=== PATIENT | female | born 1960 | race American Indian/Alaskan Native ===

== ENCOUNTER 2019-02-07 05:40 | Outpatient (CLI) | payer MEDICAID ==
--- NOTE | 2019-02-07 12:34 | PET Report ---
PET/CT HISTORY: R91.1. Pulmonary nodules. TECHNIQUE: The patient's fasting blood glucose was 112. The patient weighed 192 lbs. The patient w as injected with 14.5 mCi of FDG in the left antecubital fossa at 0653 hours and imaging was started at 0747 hours. The patient was imaged from the skull base to the thighs. All CT scans at this locati on are performed using CT dose reduction for ALARA by means of automated exposure control. Fused imag es were reviewed on a workstation. COMPARISON: No previous PET/CT. Correlation is made with a CT chest without contrast report dated FINDINGS: FDG findings: Mean liver SUV measures 4.4. A 1.4 x 0.9 cm lymph node in the left inguinal chain demo nstrates a max SUV of 5.5. A 1.5 x 0.9 cm lymph node in the right inguinal chain demonstrates a max S UV of 4.8. The previously described 2.1 x 1.5 cm spiculated density at the right lung apex demonstrat es a max SUV of 2.5. Non-FDG findings: Head and neck structures are unremarkable. A 2.1 x 1.5 cm spiculated density at th e right apex is again identified and appears stable in size and configuration. There are chronic inte rstitial changes throughout the remainder of both lungs. The previously described left upper lobe nod ular densities are not identified on today's exam which may be secondary to slice thickness. Mild car diomegaly is noted. The liver, biliary system, pancreas, spleen, kidneys, adrenal glands, bowel loops, uterus and adnexa are unremarkable. No evidence for intra-abdominal adenopathy or visceral mass. No free fluid or infla mmatory changes. The bony structures are intact. There are mild degenerative changes throughout the s pine. No blastic or lytic bony lesions are identified. IMPRESSION: Probably negative PET/CT. 2.1 x 1.5 cm right upper lobe/right apical density appears unchanged in size and contour since 2017. Uptake values are borderline with a max SUV measuring 2.5. Previously described left upper lobe nodules are not identified on today's exam. I suspect this lesion is inflammatory in nature. Conside r follow-up with CT chest in 6 months. Due to its location at the right apex, this lesion is likely n ot accessible for CT-guided biopsy. There are solitary normal-appearing bilateral inguinal lymph nodes demonstrating hypermetabolic activ ity as outlined above. These lymph nodes demonstrate normal architecture. These are likely reactive i n nature. Signer Name: Rodolfo Tee Jr, MD Signed: 02/07/2019 12:30 PM Workstation Name: [id number]
== END 2019-02-07 05:41 | disposition home or self-care (01) ==
LOC: PET 05:40
PROVIDERS: ATTEND Internal Medicine
DX: R91.1 Solitary pulmonary nodule (principal)
CPT/HCPCS: 78815; 82962; A9552

== ENCOUNTER 2019-05-16 19:31 | Inpatient (IN) | payer MEDICAID ==
[2019-05-16] MEDS ORDERED: ASPIRIN 325 MG TAB PO ONE (20:02)
--- NOTE | 2019-05-16 20:04 | Event Note ---
ED Screening Note Date of service: 05/16/19 Time: 20:03 ED Screening Note: 58 y o female presents with cp xdib x 3 hours ago pmh: htn,dm This initial assessment/diagnostic orders/clinical plan/treatment(s) is/are subject to change based on patients health status, clinical progression and re-assessment by fellow clinical providers in the ED. Further treatment and workup at subsequent clinical providers discretion. Patient/guardian urged not to elope from the ED as their condition may be serious if not clinically assessed and managed. Initial orders include:
[2019-05-16] MEDS ORDERED: NITROGLYCERIN 0.4 MG TAB SUBL SL ONE (20:21)
[2019-05-16] MEDS ORDERED: ASPIRIN 81 MG TAB CHEW PO ONE (20:22)
[2019-05-16 20:46] LABS: Hematocrit 28.3 % (30.3-42.9); Hemoglobin 9.4 gm/dl (10.1-14.3); Mean Corpuscular HGB Conc 33 % (30-34); Mean Corpuscular Volume 92 fl (79-97); Platelet Count 219 K/mm3 (140-440); Red Cell Distribution Width 15.5 % (13.2-15.2)
--- NOTE | 2019-05-16 20:56 | XRay Report ---
CHEST 1 VIEW INDICATION: Chest Pain. COMPARISON: CT/PET 02/07/2019. FINDINGS: Support devices: None. Heart: Normal. Lungs/Pleura: Nodular density at the right lung apex is again noted. Diffuse increased interstitial/r eticular markings are noted, these appear to be due to fibrosis. These appear similar. IMPRESSION: 1. Chronic interstitial/fibrotic changes. No definite superimposed acute pulmonary or pleural finding s. Signer Name: Khris Solis MD Signed: 05/16/2019 8:51 PM Workstation Name: [id number]
--- NOTE | 2019-05-16 21:04 | Emergency Department Report ---
ED Chest Pain HPI - General Chief Complaint: Chest Pain Stated Complaint: CHEST PAIN, CIARA Time Seen by Provider: 05/16/19 20:15 Source: patient, family Mode of arrival: Ambulatory Limitations: No Limitations - History of Present Illness Initial Comments: 58-year-old -[place] female presents to the emergency department with a complaint of midsternal nonradiating chest pain, and shortness of breath, that started about 3 hours prior to presentation. At first she thought it could have been some acid reflux or gas after eating kelley beans. She took a Pepcid but it did not provide any relief. The patient is a former smoker but denies any illic it drug use. She has a past medical history of hypertension, diabetes, hyperlipidemia, sarcoidosis, coronary artery disease with previous [place] and for cardiac stents in place. Her primary care physician is Dr. Nelson Carlson, boom worker is Dr. Louis and she follows with [facility] cardiology. 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 She has complained of some swelling around the ankles and feet. - Related Data Previous Rx's Medication Instructions Recorded Last Taken Type Cyclobenzaprine [Flexeril] 10 mg PO TID PRN #30 tablet 10/13/13 Unknown Rx HYDROcodone/APAP 5-325 [[place]a 1 each PO Q8HR PRN #7 tablet 10/13/13 Unknown Rx 5-325 mg TAB] Ibuprofen [Motrin] 600 mg PO Q8H PRN #20 tablet 10/13/13 Unknown Rx Allergies Allergy/AdvReac Type Severity Reaction Status Date / Time Sulfa (Sulfonamide Allergy Rash Verified 10/13/13 15:11 Antibiotics) Heart Score - HEART Score History: Moderately suspicious EKG: Significant ST-depression Age: 45-65 Risk factors: > 3 risk factors or hx of atherosclerotic disease Troponin: 1-3x normal limit HEART Score: 7 - Critical Actions Critical Actions: >7 pts:50-65% risk of adverse cardiac event. Early invasive measures ED Review of Systems ROS: Stated complaint: CHEST PAIN, CIARA Other details as noted in HPI Comment: All other systems reviewed and negative Constitutional: denies: chills, fever Eyes: denies: eye pain, vision change ENT: denies: ear pain, throat pain Respiratory: shortness of breath. denies: cough Cardiovascular: chest pain, edema. denies: palpitations Gastrointestinal: denies: abdominal pain, vomiting Genitourinary: denies: dysuria, discharge Musculoskeletal: denies: back pain, arthralgia Skin: denies: rash, lesions Neurological: denies: headache, weakness ED Past Medical Hx - Past Medical History Hx Hypertension: Yes Hx Diabetes: Yes Additional medical history: pmh R arm fx 2011 - Social History Smoking Status: Never Smoker Substance Use Type: None - Medications Home Medications: Home Medications Medication Instructions Recorded Confirmed Last Taken Type Cyclobenzaprine [Flexeril] 10 mg PO TID PRN #30 tablet 10/13/13 Unknown Rx HYDROcodone/APAP 5-325 [[place] 1 each PO Q8HR PRN #7 tablet 10/13/13 Unknown Rx 5-325 mg TAB] Ibuprofen [Motrin] 600 mg PO Q8H PRN #20 tablet 10/13/13 Unknown Rx ED Physical Exam - General Limitations: No Limitations - Other Other exam information: GENERAL: The patient is well-developed well-nourished. HENT: Normocephalic. Atraumatic. Patient has moist mucous membranes. EYES: Extraocular motions are intact. NECK: Supple. Trachea is midline. CHEST/LUNGS: Clear to auscultation. There is no respiratory distress noted. HEART/CARDIOVASCULAR: Regular. There is no tachycardia. There is no murmur. ABDOMEN: Abdomen is soft, nontender. Patient has normal bowel sounds. There is no abdominal distention. SKIN: Skin is warm and dry. NEURO: The patient is awake, alert, and oriented. The patient is cooperative. The patient has no focal neurologic deficits. Normal speech. MUSCULOSKELETAL: There is no tenderness or deformity. There is no evidence of acute injury. ED Course Vital Signs 05/16/19 05/16/19 05/16/19 20:09 20:15 20:31 Pulse Rate 96 H 99 H 102 H Respiratory 19 19 26 H Rate Blood Pressure 178/105 174/108 O2 Sat by Pulse 100 99 Oximetry 05/16/19 05/16/19 05/16/19 20:45 21:00 21:05 Pulse Rate 97 H 95 H 91 H Respiratory 21 24 Rate Blood Pressure 174/108 162/114 162/114 O2 Sat by Pulse 100 100 Oximetry 05/16/19 05/16/19 05/16/19 21:15 21:34 21:45 Pulse Rate 99 H 93 H Respiratory 25 H 15 Rate Blood Pressure 162/114 178/98 177/101 O2 Sat by Pulse 100 96 98 Oximetry 05/16/19 05/16/19 05/16/19 22:00 22:15 22:31 Pulse Rate 91 H 91 H 85 Respiratory 16 21 19 Rate Blood Pressure 176/94 178/98 198/142 O2 Sat by Pulse 95 97 98 Oximetry 05/16/19 05/17/19 22:34 00:02 Pulse Rate 87 Respiratory Rate Blood Pressure 198/142 O2 Sat by Pulse 99 Oximetry AMILCAR score - Amilcar Score Age > 65: (0) No Aspirin use within the Past 7 Days: (1) Yes 3 or more CAD Risk Factors: (1) Yes 2 or more Angina events in past 24 hrs: (0) No Known CAD with more than 50% Stenosis: (1) Yes Elevated Cardiac Markers: (1) Yes ST Deviation Greater than 0.5mm: (1) Yes AMILCAR Score: 5 ED Medical Decision Making - Lab Data Result diagrams: 05/16/19 20:32 05/16/19 20:32 - EKG Data -: EKG Interpreted by Me EKG shows normal: sinus rhythm, axis, intervals, QRS complexes, ST-T waves (there are ST depressions to the inferior and lateral leads without reciprocal elevations) Rate: tachycardia (114 bpm) - EKG Data When compared to previous EKG there are: previous EKG unavailable Interpretation: other (sinus tachycardia, ST depressions to the inferolateral leads) - Radiology Data Radiology results: report reviewed, image reviewed interpreted by me: Chest x-ray does not show any acute process. There are no pleural effusions, obvious pneumonia and there is no pneumothorax. Renal ultrasound. 05/16/2019. HISTORY: Acute renal insufficiency. FINDINGS: Right kidney measures 10.6 x 4.5 x 5 cm. Cortex measures 1.4 cm. Left kidney measures 11.4 x 5.4 x 6 cm. Cortex measures 1.4 cm. Cortical echogenicity is normal. Negative for mass or obstruction. The bladder contains moderate urine. IMPRESSION: Unremarkable renal ultrasound. NM lung scan perf/vent INDICATION / CLINICAL INFORMATION: CP, elevated dimer. TRACER: Xenon-133 gas 13.3 mCi inhalation and technetium 99m MAA 5.1 mCi IV injection. COMPARISON: Chest x-ray earlier the same day. FINDINGS: Ventilation imaging is homogeneous with mild tracer retention. Mild heterogeneity of perfusion is present bilaterally. More discrete defects are seen at the left lung superiorly and at the mid zone posteriorly. IMPRESSION: 1. Intermediate probability for pulmonary embolus. 2. Mild obstructive lung disease. - Medical Decision Making This patient presents with some midsternal chest pain and shortness breath that started about 3 hours prior to presentation. Her initial EKG shows some ST pressure and's in the inferior and lateral leads without reciprocal elevations. She was given a nitroglycerin sublingually, some low-dose morphine and some more aspirin to add to her baby aspirin that she took this morning. Repeat EKG shows some improvement. Labs show acute renal failure with a GFR of 17. The patient has elevated troponin at 0.081. This could be partially secondary to her renal insufficiency, however with the midsternal chest pain and her increased cardiac risk factors this may also represent an NSTEMI. The patient will be treated as ACS. She had a slightly elevated an equivocal d-dimer so a ventilation perfusion scan was done that came back showing intermediate probability for a pulmonary embolism. The patient will be placed on heparin. We will trend the troponins. The patient also had hyperglycemia with a blood sugar greater than 500. She was given IV insulin. She does not appear to be in diabetic ketoacidosis as there is no significant elevation in the anion gap. She will be admitted to the hospital for further evaluation and treatment and was accepted for admission by the hospitalist, Dr. Richter. - Differential Diagnosis ACS, STEMI, NSTEMI, PE Critical Care Time: Yes Critical care time in (mins) excluding proc time.: 35 Critical care attestation.: If time is entered above; I have spent that time in minutes in the direct care of this critically ill patient, excluding procedure time. Critical care time was spent on this patient in doing her initial examination, multiple re-examinations, ordering and interpretation of labs and imaging, multiple discussion with the patient and her family, starting Heparin drip for ACS and intermediate possibility of PE. Critical Care Time: 35 minutes ED Disposition Clinical Impression: Acute coronary syndrome, Elevated troponin, Hyperglycemia Acute renal failure Qualifiers: Acute renal failure type: unspecified Qualified Code(s): N17.9 - Acute kidney failure, unspecified Pulmonary embolism Qualifiers: Pulmonary embolism type: unspecified Chronicity: unspecified Acute cor pulmonale presence: without acute cor pulmonale Qualified Code(s): I26.99 - Other pulmonary embolism without acute cor pulmonale Hypertension Qualifiers: Hypertension type: essential hypertension Qualified Code(s): I10 - Essential (primary) hypertension Disposition: OP ADMIT IP TO THIS HOSP Is pt being admited?: Yes Condition: Serious Instructions: Hypertension (ED) Referrals: PRIMARY CARE, [Referring] - 3-5 Days Time of Disposition: 00:16
[2019-05-16 21:09] LABS: BUN/Creatinine Ratio 11; Blood Urea Nitrogen 37 mg/dL (7-17); Hemolysis Index 10
[2019-05-16 21:26] LABS: Basophils % (Manual) 0 % (0.0-1.8); Eosinophils % (Manual) 0 % (0.0-4.3); Myelocytes # (Manual) 0.1 K/mm3; Total Cells Counted 100
[2019-05-16] MEDS ORDERED: METOPROLOL TARTRATE 5 MG/5 ML INJ IV ONE (21:26)
[2019-05-16] MEDS ORDERED: MORPHINE 2 MG/1 ML INJ IV ONE (21:26)
[2019-05-16 21:31] LABS: RBC Morphology Normal
[2019-05-16] MEDS ORDERED: INSULIN REGULAR, HUMAN 100 UNITS/1 ML ONE (22:03)
[2019-05-16 22:20] LABS: HDL Cholesterol 59 mg/dL (40-59); LDL Cholesterol,Direct TNR mg/dL (50-130)
--- NOTE | 2019-05-16 23:36 | Ultrasound Report ---
Renal ultrasound. 05/16/2019. HISTORY: Acute renal insufficiency. FINDINGS: Right kidney measures 10.6 x 4.5 x 5 cm. Cortex measures 1.4 cm. Left kidney measures 11.4 x 5.4 x 6 cm. Cortex measures 1.4 cm. Cortical echogenicity is normal. Negative for mass or obstruction. The bladder contains moderate urine. IMPRESSION: Unremarkable renal ultrasound. Signer Name: Greg Rodas MD Signed: 05/16/2019 11:32 PM Workstation Name: [id number]
--- NOTE | 2019-05-16 23:42 | Nuclear Medicine Report ---
NM lung scan perf/vent INDICATION / CLINICAL INFORMATION: CP, elevated dimer. TRACER: Xenon-133 gas 13.3 mCi inhalation and technetium 99m MAA 5.1 mCi IV injection. COMPARISON: Chest x-ray earlier the same day. FINDINGS: Ventilation imaging is homogeneous with mild tracer retention. Mild heterogeneity of perfusion is pre sent bilaterally. More discrete defects are seen at the left lung superiorly and at the mid zone post eriorly. IMPRESSION: 1. Intermediate probability for pulmonary embolus. 2. Mild obstructive lung disease. Signer Name: Greg Rodas MD Signed: 05/16/2019 11:37 PM Workstation Name: [id number]
[2019-05-17] MEDS ORDERED: HEPARIN 10,000 UNITS/10 ML VIAL IV ONE (00:09)
[2019-05-17] MEDS ORDERED: hydrALAZINE 20 MG/1 ML INJ IV ONE (00:17)
[2019-05-17] MEDS ORDERED: hydrALAZINE 20 MG/1 ML INJ IV PRN (00:44)
[2019-05-17] MEDS ORDERED: DEXTROSE 50% IN WATER (25GM) 50 ML SYRINGE IV PRN (00:45)
[2019-05-17] MEDS ORDERED: MORPHINE 2 MG/1 ML INJ IV PRN (00:45)
[2019-05-17] MEDS ORDERED: ACETAMINOPHEN 325 MG TAB PO PRN (00:45)
[2019-05-17] MEDS ORDERED: ALBUTEROL 2.5 MG/3 ML NEBU IH PRN (00:45)
[2019-05-17] MEDS ORDERED: INSULIN REGULAR, HUMAN 100 UNITS/1 ML SUB-Q ONE (00:49)
[2019-05-17] MEDS ORDERED: NITROGLYCERIN 0.4 MG TAB SUBL SL PRN (00:53)
[2019-05-17] MEDS ORDERED: SODIUM CHLORIDE 0.9% 1000 ML 1,000 ML IV SCH (01:00)
[2019-05-17] MEDS: HEPARIN/ 0.45% NACL DRIP 25,000 UNIT/500 ML BAG IV SCH ×2 (01:13→23:40)
--- NOTE | 2019-05-17 01:29 | History and Physical Report ---
<LANETTE COLES - Last Filed: 05/17/19 01:24> History of Present Illness Date of examination: 05/17/19 Date of admission: 05/17/2019 Chief complaint: Chest Pain History of present illness: 58-year-old -[place] female with history of HIV, hypertension, diabetes, HLT, sarcoidosis, CAD, AZ (2010) s/p stent x4 who presents to [facility] ED with complaints of left sided non-radiating chest pain, SOB, and diaphoresis. Patient is present at bedside and has assisted with providing history. Patient states that she was in [employer] yesterday even when she felt a sharp crushing chest pain while walking down the aisle. She rates the pain 7/10. Immediately after feeling the pain she became SOB and flushed. Her SOB improved with rest. At first she thought it was her GERD acting up, so she asked her to get her some Pepcid. She took the Pepcid while in the store and continued to shop. Approximately 30 minutes later her pain returned. Given her cardiac history, her decided to take her to the ED for further evaluation. Pt states that she is compliant with all meds. Her PCP is Dr. Nelson Carlson, Dr. Monique is her bill hiker, and she follows [facility] for cardiology. Past History Past Medical History: acute [place] ((2010)), CAD, diabetes, HIV/AIDS, hypertension, hyperlipidemia, sarcoidosis Past Surgical History: Other (Stents x4, R arm fx 2011) Social history: , lives with family Family history: hypertension Medications and Allergies Allergies Allergy/AdvReac Type Severity Reaction Status Date / Time Sulfa (Sulfonamide Allergy Rash Verified 10/13/13 15:11 Antibiotics) Home Medications Medication Instructions Recorded Confirmed Last Taken Type Amitriptyline [Elavil] 10 mg PO QHS 05/17/19 05/17/19 2 Days Ago History ~05/15/19 Elviteg/Cob/Emtri/Tenof Alafen 1 tab PO DAILY 05/17/19 05/17/19 1 Day Ago History [Genvoya Tablet] ~05/16/19 Famotidine [Pepcid] 20 mg PO BID 05/17/19 05/17/19 1 Day Ago History ~05/16/19 Insulin NPH Hum/Reg Insulin Hm 22 bottle SQ QAC 05/17/19 05/17/19 1 Day Ago History [Humulin 70-30 Vial] ~05/16/19 Lisinopril/Hydrochlorothiazide 1 tab PO QDAY 05/17/19 05/17/19 1 Day Ago History [Zestoretic 20-12.5 mg] ~05/16/19 Losartan Potassium 50 mg PO DAILY 05/17/19 05/17/19 1 Day Ago History ~05/16/19 Metoprolol [Lopressor] 25 mg PO BID 05/17/19 05/17/19 1 Day Ago History ~05/16/19 Rosuvastatin Calcium 40 mg PO QDAY 05/17/19 05/17/19 1 Day Ago History ~05/16/19 predniSONE [Deltasone] 5 mg PO QDAY 05/17/19 05/17/19 1 Day Ago History ~05/16/19 Active Meds: Active Medications Acetaminophen (Tylenol) 650 mg PO Q4H PRN PRN Reason: Pain MILD(1-3)/Fever >100.5/RANGEL Albuterol (Proventil) 2.5 mg IH Q3HRT PRN PRN Reason: Shortness Of Breath Atorvastatin Calcium (Lipitor) 80 mg PO QHS SHAVONNE Dextrose (D50w (25gm) Syringe) 50 ml IV Q30MIN PRN; Protocol PRN Reason: Hypoglycemia Hydralazine HCl (Apresoline) 10 mg IV Q4HR PRN PRN Reason: Blood Pressure Heparin Sodium/Sodium Chloride (Heparin/ 0.45% Nacl-25,000 Unit/500 Ml) 25,000 unit in 500 mls @ 26 mls/hr IV TITR SHAVONNE; Protocol Last Admin: 05/17/19 01:13 Dose: 1,300 units/hr, 26 mls/hr Documented by: Sodium Chloride (Nacl 0.9% 1000 Ml) 1,000 mls @ 75 mls/hr IV DIRECT SHAVONNE Insulin Glargine (Lantus) 20 units SUB-Q BID SHAVONNE Insulin Human Lispro (Humalog) 0 unit SUB-Q Q6HR SHAVONNE; Protocol Morphine Sulfate (Morphine) 2 mg IV Q4H PRN PRN Reason: Pain, Moderate (4-6) Nitroglycerin (Nitrostat) 0.4 mg SL Q5M PRN PRN Reason: Chest Pain Ondansetron HCl (Zofran) 4 mg IV Q8H PRN PRN Reason: Nausea And Vomiting Sodium Chloride (Sodium Chloride Flush Syringe 10 Ml) 10 ml IV BID SHAVONNE Sodium Chloride (Sodium Chloride Flush Syringe 10 Ml) 10 ml IV PRN PRN PRN Reason: LINE FLUSH Review of Systems All systems: negative Cardiovascular: chest pain, shortness of breath, high blood pressure, leg edema, other (diaphoresis) Exam - Physical Exam Narrative exam: Physical exam General appearance: Present: No acute distress, alert and oriented 3, well- developed, pleasant, adult female - EENT Eyes: Present: PERRL, EOM intact ENT: hearing intact, normal dentition - Neck Neck: Present: supple, normal ROM - Respiratory Respiratory effort: Non-labored Respiratory: Clear throughout - Cardiovascular Heart rate: 83 (bpm) Rhythm: Sinus rhythm, Heart Sounds: Present: S1 & S2. Absent: rub, click - Extremities Extremities: no ischemia, pulses intact, bilateral lower extremity pitting edema - Peripheral Assessment Peripheral Pulses: within normal limits - Abdominal General gastrointestinal: Obese, soft, non-tender, normal bowel sounds - Integumentary Integumentary: Present: warm, dry - Musculoskeletal Musculoskeletal: Able to move all extremities -Neurological Neurological: CN II-XII intact - Psychiatric Psychiatric: Appropriate for situation ,cooperative - Constitutional Vitals: Temp Pulse Resp BP Pulse Ox 81 19 184/95 99 05/17/19 01:12 05/16/19 22:31 05/17/19 01:12 05/17/19 00:02 Results - Labs CBC & Chem 7: 05/16/19 20:32 05/16/19 20:32 Labs: Laboratory Last Values WBC 7.3 K/mm3 (4.5-11.0) 05/16/19 20:32 RBC 3.10 M/mm3 (3.65-5.03) L 05/16/19 20:32 Hgb 9.4 gm/dl (10.1-14.3) L 05/16/19 20:32 Hct 28.3 % (30.3-42.9) L 05/16/19 20:32 MCV 92 fl (79-97) 05/16/19 20:32 MCH 30 pg (28-32) 05/16/19 20:32 MCHC 33 % (30-34) 05/16/19 20:32 RDW 15.5 % (13.2-15.2) H 05/16/19 20:32 Plt Count 219 K/mm3 (140-440) 05/16/19 20:32 Add Manual Diff Complete 05/16/19 20:32 Total Counted 100 05/16/19 20:32 Seg Neuts % (Manual) 68.0 % (40.0-70.0) 05/16/19 20:32 Band Neutrophils % 0 % 05/16/19 20:32 Lymphocytes % (Manual) 25.0 % (13.4-35.0) 05/16/19 20:32 Reactive Lymphs % (Man) 0 % 05/16/19 20:32 Monocytes % (Manual) 6.0 % (0.0-7.3) 05/16/19 20:32 Eosinophils % (Manual) 0 % (0.0-4.3) 05/16/19 20:32 Basophils % (Manual) 0 % (0.0-1.8) 05/16/19 20:32 Metamyelocytes % 0 % 05/16/19 20:32 Myelocytes % 1.0 % 05/16/19 20:32 Promyelocytes % 0 % 05/16/19 20:32 Blast Cells % 0 % 05/16/19 20:32 Nucleated RBC % Not Reportable 05/16/19 20:32 Seg Neutrophils # Man 5.0 K/mm3 (1.8-7.7) 05/16/19 20:32 Band Neutrophils # 0.0 K/mm3 05/16/19 20:32 Lymphocytes # (Manual) 1.8 K/mm3 (1.2-5.4) 05/16/19 20:32 Abs React Lymphs (Man) 0.0 K/mm3 05/16/19 20:32 Monocytes # (Manual) 0.4 K/mm3 (0.0-0.8) 05/16/19 20:32 Eosinophils # (Manual) 0.0 K/mm3 (0.0-0.4) 05/16/19 20:32 Basophils # (Manual) 0.0 K/mm3 (0.0-0.1) 05/16/19 20:32 Metamyelocytes # 0.0 K/mm3 05/16/19 20:32 Myelocytes # 0.1 K/mm3 05/16/19 20:32 Promyelocytes # 0.0 K/mm3 05/16/19 20:32 Blast Cells # 0.0 K/mm3 05/16/19 20:32 WBC Morphology Not Reportable 05/16/19 20:32 Hypersegmented Neuts Not Reportable 05/16/19 20:32 Hyposegmented Neuts Not Reportable 05/16/19 20:32 Hypogranular Neuts Not Reportable 05/16/19 20:32 Smudge Cells Not Reportable 05/16/19 20:32 Toxic Granulation Not Reportable 05/16/19 20:32 Toxic Vacuolation Not Reportable 05/16/19 20:32 Dohle Bodies Not Reportable 05/16/19 20:32 Pelger-Huet Anomaly Not Reportable 05/16/19 20:32 Tra Rods Not Reportable 05/16/19 20:32 Platelet Estimate Appears normal 05/16/19 20:32 Clumped Platelets Not Reportable 05/16/19 20:32 Plt Clumps, EDTA Not Reportable 05/16/19 20:32 Large Platelets Not Reportable 05/16/19 20:32 Giant Platelets Not Reportable 05/16/19 20:32 Platelet Satelliting Not Reportable 05/16/19 20:32 Plt Morphology Comment Not Reportable 05/16/19 20:32 RBC Morphology Normal 05/16/19 20:32 Dimorphic RBCs Not Reportable 05/16/19 20:32 Polychromasia Not Reportable 05/16/19 20:32 Hypochromasia Not Reportable 05/16/19 20:32 Poikilocytosis Not Reportable 05/16/19 20:32 Anisocytosis Not Reportable 05/16/19 20:32 Microcytosis Not Reportable 05/16/19 20:32 Macrocytosis Not Reportable 05/16/19 20:32 Spherocytes Not Reportable 05/16/19 20:32 Pappenheimer Bodies Not Reportable 05/16/19 20:32 Sickle Cells Not Reportable 05/16/19 20:32 Target Cells Not Reportable 05/16/19 20:32 Tear Drop Cells Not Reportable 05/16/19 20:32 Ovalocytes Not Reportable 05/16/19 20:32 Helmet Cells Not Reportable 05/16/19 20:32 Goel-Ossian Bodies Not Reportable 05/16/19 20:32 [place] Rings Not Reportable 05/16/19 20:32 Daren Cells Not Reportable 05/16/19 20:32 Bite Cells Not Reportable 05/16/19 20:32 Crenated Cell Not Reportable 05/16/19 20:32 Elliptocytes Not Reportable 05/16/19 20:32 Acanthocytes (Spur) Not Reportable 05/16/19 20:32 Rouleaux Not Reportable 05/16/19 20:32 Hemoglobin C Crystals Not Reportable 05/16/19 20:32 Schistocytes Not Reportable 05/16/19 20:32 Malaria parasites Not Reportable 05/16/19 20:32 Shayne Bodies Not Reportable 05/16/19 20:32 Hem Pathologist Commnt No 05/16/19 20:32 D-Dimer 416.09 ng/mlDDU (0-234) H 05/16/19 20:32 Sodium 131 mmol/L (137-145) L 05/16/19 20:32 Potassium 5.4 mmol/L (3.6-5.0) H 05/16/19 20:32 Chloride 94.1 mmol/L (98-107) L 05/16/19 20:32 Carbon Dioxide 20 mmol/L (22-30) L 05/16/19 20:32 Anion Gap 22 mmol/L 05/16/19 20:32 BUN 37 mg/dL (7-17) H 05/16/19 20:32 Creatinine 3.3 mg/dL (0.7-1.2) H 05/16/19 20:32 Estimated GFR 17 ml/min 05/16/19 20:32 BUN/Creatinine Ratio 11 % 05/16/19 20:32 Glucose 510 mg/dL (65-100) H* 05/16/19 20:32 POC Glucose 193 (70-105) H 05/17/19 00:40 Calcium 9.0 mg/dL (8.4-10.2) 05/16/19 20:32 Troponin T 0.087 ng/mL (0.00-0.029) H 05/16/19 23:25 Triglycerides 542 mg/dL (2-149) H 05/16/19 20:32 Cholesterol 490 mg/dL (50-199) H 05/16/19 20:32 LDL Cholesterol Direct TNR 05/16/19 20:32 HDL Cholesterol 59 mg/dL (40-59) 05/16/19 20:32 Cholesterol/HDL Ratio 8.30 % 05/16/19 20:32 - Imaging and Cardiology Imaging and Cardiology: CXR: FINDINGS: Support devices: None. Heart: Normal. Lungs/Pleura: Nodular density at the right lung apex is again noted. Diffuse increased interstitial/reticular markings are noted, these appear to be due to fibrosis. These appear similar. IMPRESSION: 1. Chronic interstitial/fibrotic changes. No definite superimposed acute pulmonary or pleural findings. V/Q Scan: FINDINGS: Ventilation imaging is homogeneous with mild tracer retention. Mild heterogeneity of perfusion is present bilaterally. More discrete defects are seen at the left lung superiorly and at the mid zone posteriorly. IMPRESSION: 1. Intermediate probability for pulmonary embolus. 2. Mild obstructive lung disease. Renal US: HISTORY: Acute renal insufficiency. FINDINGS: Right kidney measures 10.6 x 4.5 x 5 cm. Cortex measures 1.4 cm. Left kidney measures 11.4 x 5.4 x 6 cm. Cortex measures 1.4 cm. Cortical echogenicity is normal. Negative for mass or obstruction. The bladder contains moderate urine. IMPRESSION: Unremarkable renal ultrasound. Assessment and Plan Assessment and plan: 58-year-old -[place] female with history of HIV, hypertension, diabetes, HLT, sarcoidosis, CAD, AZ (2010) s/p stent x4 who presents to [facility] ED with complaints of left sided non-radiating chest pain, SOB, and diaphoresis. At the time of my examination pt is sitting up in stretcher with no s/s of distress. Will admit to Telemetry. NSTEMI type II Acute Chest Pain -Initiate chest pain protocol -Continuous telemetry monitoring -Continue supportive care -Pain mgmt -Troponin elevated x 2 , will continue to trend -EKG unrevealing for acute ischemic abnormalities -On heparin drip -History of AZ (2010), status post stent 4 -Follows at [facility] as outpatient -Cardiology consulted Hypertensive urgency -BP on admission 198/142 -Hx Hypertension -Continue to monitor BP -Hold TANIKA and ARB d/t renal function -IV antihypertensive when necessary Elevated D-Dimer -416 -VQ scan shows intermediate probability for PE -On heparin drip -Bilateral lower extremity Doppler pending -Pulmonology consulted ELEN -Cr on admission 3.3 -??CKD with GFR 17 -Renal ultrasound unremarkable -Hydrate with IVF -Avoid nephrotoxic agents -Renal dose all meds -Nephrology consulted Insulin-dependent DM -Uncontrolled -BG on admission 510 -Received subcutaneous insulin, BG now 193 -POC BG monitoring -Scheduled Lantus and SSI coverage prn -HgbA1C pending Hyperlipidemia -Uncontrolled -Total cholesterol on admission 490 -Start atorvastatin 80 mg daily at bedtime Hyponatremia -Na on admission 131 -Slowly correct Na with IVF -Continue to monitor replete prn Hyperkalemia -on admission 5.4 -Receiving IVF -Continue to monitor electrolytes HIV positive -Continue antiretroviral DVT PPX -On Heparin Advance Directives: Yes VTE prophylaxis?: Chemical Plan of care discussed with patient/family: Yes <POONAM GRANDE - Last Filed: 05/17/19 04:53> History of Present Illness Date of admission: 05/17/19 00:45 Medications and Allergies Active Meds: Active Medications Acetaminophen (Tylenol) 650 mg PO Q4H PRN PRN Reason: Pain MILD(1-3)/Fever >100.5/RANGEL Albuterol (Proventil) 2.5 mg IH Q3HRT PRN PRN Reason: Shortness Of Breath Amlodipine Besylate (Amlodipine) 10 mg PO QDAY SHAVONNE Atorvastatin Calcium (Lipitor) 80 mg PO QHS SHAVONNE Dextrose (D50w (25gm) Syringe) 50 ml IV Q30MIN PRN; Protocol PRN Reason: Hypoglycemia Hydralazine HCl (Apresoline) 10 mg IV Q4HR PRN PRN Reason: Blood Pressure Heparin Sodium/Sodium Chloride (Heparin/ 0.45% Nacl-25,000 Unit/500 Ml) 25,000 unit in 500 mls @ 26 mls/hr IV TITR SHAVONNE; Protocol Last Admin: 05/17/19 01:13 Dose: 1,300 units/hr, 26 mls/hr Documented by: Sodium Chloride (Nacl 0.9% 1000 Ml) 1,000 mls @ 75 mls/hr IV DIRECT SHAVONNE Last Admin: 05/17/19 02:31 Dose: 75 mls/hr Documented by: Insulin Glargine (Lantus) 20 units SUB-Q BID SHAVONNE Last Admin: 05/17/19 01:47 Dose: 20 units Documented by: Insulin Human Lispro (Humalog) 0 unit SUB-Q Q6HR [facility]; Protocol Metoprolol Tartrate (Metoprolol) 25 mg PO BID [facility] Miscellaneous Medication (Elviteg/Cob/Emtri/Tenof Alafen [Genvoya Tablet]) 1 tab PO DAILY [facility] Morphine Sulfate (Morphine) 2 mg IV Q4H PRN PRN Reason: Pain, Moderate (4-6) Nitroglycerin (Nitrostat) 0.4 mg SL Q5M PRN PRN Reason: Chest Pain Ondansetron HCl (Zofran) 4 mg IV Q8H PRN PRN Reason: Nausea And Vomiting Oxycodone/Acetaminophen (Percocet 5/325) 1 tab PO Q8H PRN PRN Reason: Pain, Moderate (4-6) Last Admin: 05/17/19 02:31 Dose: 1 tab Documented by: Sodium Chloride (Sodium Chloride Flush Syringe 10 Ml) 10 ml IV BID [facility] Sodium Chloride (Sodium Chloride Flush Syringe 10 Ml) 10 ml IV PRN PRN PRN Reason: LINE FLUSH Exam - Constitutional Vitals: Temp Pulse Resp BP Pulse Ox 93 H 23 161/83 97 05/17/19 03:15 05/17/19 03:15 05/17/19 03:15 05/17/19 01:45 Results - Labs CBC & Chem 7: 05/16/19 20:32 05/16/19 20:32 Labs: Laboratory Last Values WBC 7.3 K/mm3 (4.5-11.0) 05/16/19 20:32 RBC 3.10 M/mm3 (3.65-5.03) L 05/16/19 20:32 Hgb 9.4 gm/dl (10.1-14.3) L 05/16/19 20:32 Hct 28.3 % (30.3-42.9) L 05/16/19 20:32 MCV 92 fl (79-97) 05/16/19 20:32 MCH 30 pg (28-32) 05/16/19 20:32 MCHC 33 % (30-34) 05/16/19 20:32 RDW 15.5 % (13.2-15.2) H 05/16/19 20:32 Plt Count 219 K/mm3 (140-440) 05/16/19 20:32 Add Manual Diff Complete 05/16/19 20:32 Total Counted 100 05/16/19 20:32 Seg Neuts % (Manual) 68.0 % (40.0-70.0) 05/16/19 20:32 Band Neutrophils % 0 % 05/16/19 20:32 Lymphocytes % (Manual) 25.0 % (13.4-35.0) 05/16/19 20:32 Reactive Lymphs % (Man) 0 % 05/16/19 20:32 Monocytes % (Manual) 6.0 % (0.0-7.3) 05/16/19 20:32 Eosinophils % (Manual) 0 % (0.0-4.3) 05/16/19 20:32 Basophils % (Manual) 0 % (0.0-1.8) 05/16/19 20:32 Metamyelocytes % 0 % 05/16/19 20:32 Myelocytes % 1.0 % 05/16/19 20:32 Promyelocytes % 0 % 05/16/19 20:32 Blast Cells % 0 % 05/16/19 20:32 Nucleated RBC % Not Reportable 05/16/19 20:32 Seg Neutrophils # Man 5.0 K/mm3 (1.8-7.7) 05/16/19 20:32 Band Neutrophils # 0.0 K/mm3 05/16/19 20:32 Lymphocytes # (Manual) 1.8 K/mm3 (1.2-5.4) 05/16/19 20:32 Abs React Lymphs (Man) 0.0 K/mm3 05/16/19 20:32 Monocytes # (Manual) 0.4 K/mm3 (0.0-0.8) 05/16/19 20:32 Eosinophils # (Manual) 0.0 K/mm3 (0.0-0.4) 05/16/19 20:32 Basophils # (Manual) 0.0 K/mm3 (0.0-0.1) 05/16/19 20:32 Metamyelocytes # 0.0 K/mm3 05/16/19 20:32 Myelocytes # 0.1 K/mm3 05/16/19 20:32 Promyelocytes # 0.0 K/mm3 05/16/19 20:32 Blast Cells # 0.0 K/mm3 05/16/19 20:32 WBC Morphology Not Reportable 05/16/19 20:32 Hypersegmented Neuts Not Reportable 05/16/19 20:32 Hyposegmented Neuts Not Reportable 05/16/19 20:32 Hypogranular Neuts Not Reportable 05/16/19 20:32 Smudge Cells Not Reportable 05/16/19 20:32 Toxic Granulation Not Reportable 05/16/19 20:32 Toxic Vacuolation Not Reportable 05/16/19 20:32 Dohle Bodies Not Reportable 05/16/19 20:32 Pelger-Huet Anomaly Not Reportable 05/16/19 20:32 Tra Rods Not Reportable 05/16/19 20:32 Platelet Estimate Appears normal 05/16/19 20:32 Clumped Platelets Not Reportable 05/16/19 20:32 Plt Clumps, EDTA Not Reportable 05/16/19 20:32 Large Platelets Not Reportable 05/16/19 20:32 Giant Platelets Not Reportable 05/16/19 20:32 Platelet Satelliting Not Reportable 05/16/19 20:32 Plt Morphology Comment Not Reportable 05/16/19 20:32 RBC Morphology Normal 05/16/19 20:32 Dimorphic RBCs Not Reportable 05/16/19 20:32 Polychromasia Not Reportable 05/16/19 20:32 Hypochromasia Not Reportable 05/16/19 20:32 Poikilocytosis Not Reportable 05/16/19 20:32 Anisocytosis Not Reportable 05/16/19 20:32 Microcytosis Not Reportable 05/16/19 20:32 Macrocytosis Not Reportable 05/16/19 20:32 Spherocytes Not Reportable 05/16/19 20:32 Pappenheimer Bodies Not Reportable 05/16/19 20:32 Sickle Cells Not Reportable 05/16/19 20:32 Target Cells Not Reportable 05/16/19 20:32 Tear Drop Cells Not Reportable 05/16/19 20:32 Ovalocytes Not Reportable 05/16/19 20:32 Helmet Cells Not Reportable 05/16/19 20:32 Goel-Ossian Bodies Not Reportable 05/16/19 20:32 [place] Rings Not Reportable 05/16/19 20:32 [place] Cells Not Reportable 05/16/19 20:32 Bite Cells Not Reportable 05/16/19 20:32 Crenated Cell Not Reportable 05/16/19 20:32 Elliptocytes Not Reportable 05/16/19 20:32 Acanthocytes (Spur) Not Reportable 05/16/19 20:32 Rouleaux Not Reportable 05/16/19 20:32 Hemoglobin C Crystals Not Reportable 05/16/19 20:32 Schistocytes Not Reportable 05/16/19 20:32 Malaria parasites Not Reportable 05/16/19 20:32 Shayne Bodies Not Reportable 05/16/19 20:32 Hem Pathologist Commnt No 05/16/19 20:32 PT 13.0 Sec. (12.2-14.9) 05/17/19 01:30 INR 0.99 (0.87-1.13) 05/17/19 01:30 APTT 41.2 Sec. (24.2-36.6) H 05/17/19 01:30 D-Dimer 416.09 ng/mlDDU (0-234) H 05/16/19 20:32 Sodium 131 mmol/L (137-145) L 05/16/19 20:32 Potassium 5.4 mmol/L (3.6-5.0) H 05/16/19 20:32 Chloride 94.1 mmol/L (98-107) L 05/16/19 20:32 Carbon Dioxide 20 mmol/L (22-30) L 05/16/19 20:32 Anion Gap 22 mmol/L 05/16/19 20:32 BUN 37 mg/dL (7-17) H 05/16/19 20:32 Creatinine 3.3 mg/dL (0.7-1.2) H 05/16/19 20:32 Estimated GFR 17 ml/min 05/16/19 20:32 BUN/Creatinine Ratio 11 % 05/16/19 20:32 Glucose 510 mg/dL (65-100) H* 05/16/19 20:32 POC Glucose 258 (70-105) H 05/17/19 02:43 Hemoglobin A1c 12.3 % (4-6) H 05/17/19 01:30 Calcium 9.0 mg/dL (8.4-10.2) 05/16/19 20:32 Troponin T 0.085 ng/mL (0.00-0.029) H 05/17/19 01:30 Triglycerides 542 mg/dL (2-149) H 05/16/19 20:32 Cholesterol 490 mg/dL (50-199) H 05/16/19 20:32 LDL Cholesterol Direct TNR 05/16/19 20:32 HDL Cholesterol 59 mg/dL (40-59) 05/16/19 20:32 Cholesterol/HDL Ratio 8.30 % 05/16/19 20:32 Assessment and Plan Assessment and plan: 58 -year-old woman with a history of hypertension, diabetes, coronary artery disease, hyperlipidemia, HIV test emergency room with complaints of chest pain in the epigastric area associated with shortness of breath. 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 EKG shows no new changes with elevated troponin, non-STEMI, intermediate probability for pulmonary emboli, ELEN. Continue heparin drip, consult cardiology and pulmonary consult, Doppler of the lower extremities. Add IVF
[2019-05-17] MEDS: INSULIN GLARGINE 100 UNITS/ML SUB-Q SCH ×3 (01:47→22:56)
[2019-05-17 02:09] LABS: INR 0.99 (0.87-1.13)
[2019-05-17 02:10] LABS: Partial Thromboplastin Time 41.2 Sec. (24.2-36.6)
[2019-05-17] MEDS ORDERED: oxyCODONE /ACETAMINOPHEN 5-325MG TAB ONE (02:20)
[2019-05-17] MEDS ORDERED: SODIUM CHLORIDE 0.9% 1000 ML 1,000 ML ONE (02:20)
[2019-05-17] MEDS: oxyCODONE /ACETAMINOPHEN 5-325MG TAB PO PRN ×3 (02:31→23:36)
[2019-05-17] MEDS ORDERED: SODIUM CHLORIDE 0.45% 1000 ML 1,000 ML IV SCH (05:00)
--- NOTE | 2019-05-17 09:44 | Consultation ---
History of Present Illness Consult date: 05/17/19 Consult reason: elevated troponin History of present illness: This is a 58-year old woman with multiple medical problems. She has a history of HIV, chronic kidney disease with a baseline of 1.6 to 1.9, diabetes, hypertension and hyperlipidemia. Patient is also on medical therapy for coronary artery disease with multiple PCIs. Patient follows with Dr Padilla on a routine basis. Her latest cardiac workup was done at [facility] earlier in the year. She has a normal myocardial perfusion scan and a normal left ventricular ejection fraction by echocardiogram. Patient presents to this hospital with chest pain and shortness of breath. Workup in the emergency department revealed uncontrolled hypertension, uncontrolled diabetes with blood glucose greater than 500 and triglycerides greater than 500. Troponins are chronically elevated due to renal disease. Creatinine at 3.3. Further evaluation with a ventilation perfusion scan reports an intermediate probability for PE. An ECG is sinus rhythm with non-specific Twave changes. Past History Past Medical History: acute [place] ((2010)), CAD, diabetes, HIV/AIDS, hypertension, hyperlipidemia, sarcoidosis Past Surgical History: Other (R arm fx 2011) Social history: , lives with family Family history: hypertension Medications and Allergies Allergies Allergy/AdvReac Type Severity Reaction Status Date / Time Sulfa (Sulfonamide Allergy Rash Verified 10/13/13 15:11 Antibiotics) Home Medications Medication Instructions Recorded Confirmed Last Taken Type Amitriptyline [Elavil] 10 mg PO QHS 05/17/19 05/17/19 2 Days Ago History ~05/15/19 Elviteg/Cob/Emtri/Tenof Alafen 1 tab PO DAILY 05/17/19 05/17/19 1 Day Ago History [Genvoya Tablet] ~05/16/19 Famotidine [Pepcid] 20 mg PO BID 05/17/19 05/17/19 1 Day Ago History ~05/16/19 Insulin NPH Hum/Reg Insulin Hm 22 bottle SQ QAC 05/17/19 05/17/19 1 Day Ago History [Humulin 70-30 Vial] ~05/16/19 Lisinopril/Hydrochlorothiazide 1 tab PO QDAY 05/17/19 05/17/19 1 Day Ago History [Zestoretic 20-12.5 mg] ~05/16/19 Losartan Potassium 50 mg PO DAILY 05/17/19 05/17/19 1 Day Ago History ~05/16/19 Metoprolol [Lopressor] 25 mg PO BID 05/17/19 05/17/19 1 Day Ago History ~05/16/19 Rosuvastatin Calcium 40 mg PO QDAY 05/17/19 05/17/19 1 Day Ago History ~05/16/19 predniSONE [Deltasone] 5 mg PO QDAY 05/17/19 05/17/19 1 Day Ago History ~05/16/19 Active Meds: Active Medications Acetaminophen (Tylenol) 650 mg PO Q4H PRN PRN Reason: Pain MILD(1-3)/Fever >100.5/RANGEL Albuterol (Proventil) 2.5 mg IH Q3HRT PRN PRN Reason: Shortness Of Breath Amlodipine Besylate (Amlodipine) 10 mg PO QDAY [facility] Atorvastatin Calcium (Lipitor) 80 mg PO QHS [facility] Dextrose (D50w (25gm) Syringe) 50 ml IV Q30MIN PRN; Protocol PRN Reason: Hypoglycemia Hydralazine HCl (Apresoline) 10 mg IV Q4HR PRN PRN Reason: Blood Pressure Heparin Sodium/Sodium Chloride (Heparin/ 0.45% Nacl-25,000 Unit/500 Ml) 25,000 unit in 500 mls @ 26 mls/hr IV TITR [facility]; Protocol Last Admin: 05/17/19 01:13 Dose: 1,300 units/hr, 26 mls/hr Documented by: Sodium Chloride (Nacl 0.45% 1000 Ml) 1,000 mls @ 75 mls/hr IV DIRECT [facility] Insulin Glargine (Lantus) 20 units SUB-Q BID [facility] Last Admin: 05/17/19 01:47 Dose: 20 units Documented by: Insulin Human Lispro (Humalog) 0 unit SUB-Q Q6HR [facility]; Protocol Metoprolol Tartrate (Metoprolol) 25 mg PO BID [facility] Miscellaneous Medication (Elviteg/Cob/Emtri/Tenof Alafen [Genvoya Tablet]) 1 tab PO DAILY [facility] Morphine Sulfate (Morphine) 2 mg IV Q4H PRN PRN Reason: Pain, Moderate (4-6) Nitroglycerin (Nitrostat) 0.4 mg SL Q5M PRN PRN Reason: Chest Pain Ondansetron HCl (Zofran) 4 mg IV Q8H PRN PRN Reason: Nausea And Vomiting Oxycodone/Acetaminophen (Percocet 5/325) 1 tab PO Q8H PRN PRN Reason: Pain, Moderate (4-6) Last Admin: 05/17/19 02:31 Dose: 1 tab Documented by: Sodium Chloride (Sodium Chloride Flush Syringe 10 Ml) 10 ml IV BID [facility] Sodium Chloride (Sodium Chloride Flush Syringe 10 Ml) 10 ml IV PRN PRN PRN Reason: LINE FLUSH Physical Examination Vital Signs Pulse Resp 96 H 19 05/16/19 20:09 05/16/19 20:09 General appearance: no acute distress, obese HEENT: Positive: PERRL Cardiac: Positive: Reg Rate and Rhythm Lungs: Positive: Decreased Breath Sounds Neuro: Positive: Grossly Intact Extremities: Present: +1 Edema Results 05/16/19 20:32 05/17/19 07:08 Coagulation 05/17/19 Range/Units 01:30 PT 13.0 (12.2-14.9) Sec. INR 0.99 (0.87-1.13) APTT 41.2 H (24.2-36.6) Sec. Lipids 05/16/19 Range/Units 20:32 Triglycerides 542 H (2-149) mg/dL Cholesterol 490 H (50-199) mg/dL HDL Cholesterol 59 (40-59) mg/dL Cholesterol/HDL Ratio 8.30 % CBC 05/16/19 Range/Units 20:32 WBC 7.3 (4.5-11.0) K/mm3 RBC 3.10 L (3.65-5.03) M/mm3 Hgb 9.4 L (10.1-14.3) gm/dl Hct 28.3 L (30.3-42.9) % Plt Count 219 (140-440) K/mm3 Comprehensive Metabolic Panel 05/16/19 05/17/19 Range/Units 20:32 07:08 Sodium 131 L (137-145) mmol/L Potassium 5.4 H 4.6 (3.6-5.0) mmol/L Chloride 94.1 L (98-107) mmol/L Carbon Dioxide 20 L (22-30) mmol/L BUN 37 H (7-17) mg/dL Creatinine 3.3 H (0.7-1.2) mg/dL Glucose 510 H* (65-100) mg/dL Calcium 9.0 (8.4-10.2) mg/dL Assessment and Plan Chest pain VQ scan indeterminate for PE HIV disease Chronic kidney disease with a baseline of 1.6-1.9 Diabetes Hypertension -uncontrolled Hyperlipidemia -uncontrolled Hx of coronary artery disease Chronic elevated troponin in the setting of renal failure Normal MPI 07/2018 at [facility] Normal LVEF by echo 07/2018 at [facility]
--- NOTE | 2019-05-17 11:37 | Consultation ---
History of Present Illness Consult date: 05/17/19 Requesting physician: ANTONIO LU Reason for consult: other (Elevated d-dimer, Intermediate prob VQ scan) History of present illness: 58-year-old -Citizen Of [place] female with history of HIV, hypertension, diabetes, HLT, sarcoidosis, CAD, [place] (2010) s/p stent x4 who presents to [facility] ED with complaints of left sided non-radiating chest pain, SOB, and diaphoresis. Patient is present at bedside and has assisted with providing history. Patient states that she was in [employer] yesterday even when she felt a sharp crushing chest pain while walking down the aisle. She rates the pain 7/10. Immediately after feeling the pain she became SOB and flushed. Her SOB improved with rest. At first she thought it was her GERD acting up, so she asked her to get her some Pepcid. She took the Pepcid while in the store and continued to shop. Approximately 30 minutes later her pain returned. Given her cardiac history, her decided to take her to the ED for further evaluation. Pt states that she is compliant with all meds. Her PCP is Dr. Nelson Carlson, Dr. 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 I have been consulted for Sarcoidosis and dyspnea-intermediate probability V/Q scan She does state she has had some exertional dyspnea in the last few weeks. She states she is on maintenance dose of 5mg of prednisone for her sarcoidosis, she is not on home oxygen. She currently denies any chest pain, and while at rest, no shortness of breath. Patient was seen and examined. Vitals, labs, medications, chart and imaging were reviewed. V/Q scan was intermediate probability scan with negative lower extremity dopplers ROS: Stated complaint: CHEST PAIN, CIARA Other details as noted in HPI Comment: All other systems reviewed and negative Constitutional: denies: chills, fever Eyes: denies: eye pain, vision change ENT: denies: ear pain, throat pain Respiratory: shortness of breath. denies: cough Cardiovascular: chest pain, edema. denies: palpitations Gastrointestinal: denies: abdominal pain, vomiting Genitourinary: denies: dysuria, discharge Musculoskeletal: denies: back pain, arthralgia Skin: denies: rash, lesions Neurological: denies: headache, weakness Past History Past Medical History: acute [place] ((2010)), CAD, diabetes, HIV/AIDS, hypertension, hyperlipidemia, sarcoidosis Past Surgical History: Other (R arm fx 2011) Social history: , lives with family Family history: hypertension Medications and Allergies Allergies Allergy/AdvReac Type Severity Reaction Status Date / Time Sulfa (Sulfonamide Allergy Rash Verified 10/13/13 15:11 Antibiotics) Home Medications Medication Instructions Recorded Confirmed Last Taken Type Amitriptyline [Elavil] 10 mg PO QHS 05/17/19 05/17/19 2 Days Ago History ~05/15/19 Elviteg/Cob/Emtri/Tenof Alafen 1 tab PO DAILY 05/17/19 05/17/19 1 Day Ago History [Genvoya Tablet] ~05/16/19 Famotidine [Pepcid] 20 mg PO BID 05/17/19 05/17/19 1 Day Ago History ~05/16/19 Insulin NPH Hum/Reg Insulin Hm 22 bottle SQ QAC 05/17/19 05/17/19 1 Day Ago History [Humulin 70-30 Vial] ~05/16/19 Lisinopril/Hydrochlorothiazide 1 tab PO QDAY 05/17/19 05/17/19 1 Day Ago History [Zestoretic 20-12.5 mg] ~05/16/19 Losartan Potassium 50 mg PO DAILY 05/17/19 05/17/19 1 Day Ago History ~05/16/19 Metoprolol [Lopressor] 25 mg PO BID 05/17/19 05/17/19 1 Day Ago History ~05/16/19 Rosuvastatin Calcium 40 mg PO QDAY 05/17/19 05/17/19 1 Day Ago History ~05/16/19 predniSONE [Deltasone] 5 mg PO QDAY 05/17/19 05/17/19 1 Day Ago History ~05/16/19 Active Meds: Active Medications Acetaminophen (Tylenol) 650 mg PO Q4H PRN PRN Reason: Pain MILD(1-3)/Fever >100.5/RANGEL Albuterol (Proventil) 2.5 mg IH Q3HRT PRN PRN Reason: Shortness Of Breath Amlodipine Besylate (Amlodipine) 10 mg PO QDAY [facility] Atorvastatin Calcium (Lipitor) 80 mg PO QHS [facility] Dextrose (D50w (25gm) Syringe) 50 ml IV Q30MIN PRN; Protocol PRN Reason: Hypoglycemia Hydralazine HCl (Apresoline) 10 mg IV Q4HR PRN PRN Reason: Blood Pressure Heparin Sodium/Sodium Chloride (Heparin/ 0.45% Nacl-25,000 Unit/500 Ml) 25,000 unit in 500 mls @ 26 mls/hr IV TITR [facility]; Protocol Last Admin: 05/17/19 01:13 Dose: 1,300 units/hr, 26 mls/hr Documented by: Sodium Chloride (Nacl 0.45% 1000 Ml) 1,000 mls @ 75 mls/hr IV DIRECT [facility] Insulin Glargine (Lantus) 20 units SUB-Q BID [facility] Last Admin: 05/17/19 01:47 Dose: 20 units Documented by: Insulin Human Lispro (Humalog) 0 unit SUB-Q Q6HR [facility]; Protocol Metoprolol Tartrate (Metoprolol) 25 mg PO BID REPLACED BY [facility] Miscellaneous Medication (Elviteg/Cob/Emtri/Tenof Alafen [Genvoya Tablet]) 1 tab PO DAILY REPLACED BY [facility] Morphine Sulfate (Morphine) 2 mg IV Q4H PRN PRN Reason: Pain, Moderate (4-6) Nitroglycerin (Nitrostat) 0.4 mg SL Q5M PRN PRN Reason: Chest Pain Ondansetron HCl (Zofran) 4 mg IV Q8H PRN PRN Reason: Nausea And Vomiting Oxycodone/Acetaminophen (Percocet 5/325) 1 tab PO Q8H PRN PRN Reason: Pain, Moderate (4-6) Last Admin: 05/17/19 02:31 Dose: 1 tab Documented by: Sodium Chloride (Sodium Chloride Flush Syringe 10 Ml) 10 ml IV BID REPLACED BY [facility] Sodium Chloride (Sodium Chloride Flush Syringe 10 Ml) 10 ml IV PRN PRN PRN Reason: LINE FLUSH Physical Examination Vital signs: Vital Signs Pulse Resp 96 H 05/16/19 20:09 05/16/19 20:09 Vitals, reviewed Physical exam General appearance: Present: No acute distress, obese, alert and oriented 3, well-developed, pleasant, adult female - EENT Eyes: Present: PERRL, EOM intact ENT: hearing intact, normal dentition - Neck Neck: Present: supple, normal ROM - Respiratory Respiratory effort: Non-labored Respiratory: Clear throughout - Cardiovascular Heart rate: 83 (bpm) Rhythm: Sinus rhythm, Heart Sounds: Present: S1 & S2. Absent: rub, click - Extremities Extremities: no ischemia, pulses intact, bilateral lower extremity pitting edema - Peripheral Assessment Peripheral Pulses: within normal limits - Abdominal General gastrointestinal: Obese, soft, non-tender, normal bowel sounds - Integumentary Integumentary: Present: warm, dry - Musculoskeletal Musculoskeletal: Able to move all extremities -Neurological Neurological: CN II-XII intact - Psychiatric Psychiatric: Appropriate for situation ,cooperative Results - Laboratory Findings CBC and BMP: 05/16/19 20:32 05/17/19 07:08 PT/INR, D-dimer PT 13.0 Sec. (12.2-14.9) 05/17/19 01:30 INR 0.99 (0.87-1.13) 05/17/19 01:30 D-Dimer 416.09 ng/mlDDU (0-234) H 05/16/19 20:32 Abnormal lab findings: Abnormal Labs 05/16/19 05/16/19 05/16/19 20:32 20:32 20:32 RBC 3.10 L Hgb 9.4 L Hct 28.3 L RDW 15.5 H APTT D-Dimer 416.09 H Sodium 131 L Potassium 5.4 H Chloride 94.1 L Carbon Dioxide 20 L BUN 37 H Creatinine 3.3 H Glucose 510 H* POC Glucose Hemoglobin A1c Troponin T 0.081 H Triglycerides 542 H Cholesterol 490 H 05/16/19 05/17/19 05/17/19 23:25 00:40 01:30 RBC Hgb Hct RDW APTT D-Dimer Sodium Potassium Chloride Carbon Dioxide BUN Creatinine Glucose POC Glucose 193 H Hemoglobin A1c Troponin T 0.087 H 0.085 H Triglycerides Cholesterol 05/17/19 05/17/19 05/17/19 01:30 01:30 02:43 RBC Hgb Hct RDW APTT 41.2 H D-Dimer Sodium Potassium Chloride Carbon Dioxide BUN Creatinine Glucose POC Glucose 258 H Hemoglobin A1c 12.3 H Troponin T Triglycerides Cholesterol 05/17/19 05/17/19 07:08 09:13 RBC Hgb Hct RDW APTT D-Dimer Sodium Potassium Chloride Carbon Dioxide BUN Creatinine Glucose POC Glucose 231 H Hemoglobin A1c Troponin T 0.083 H Triglycerides Cholesterol - Diagnostic Findings Chest x-ray: image reviewed (nodular interstitial changes) U/S of Legs: report reviewed Assessment and Plan Elevated D-Dimer Acute Chest Pain Sarcoidosis, steroid dependent Hypertensive urgency Obesity ELEN on possible CKD Insulin-dependent DM Hyperlipidemi Hyponatremia Hyperkalemia HIV positive -The lower extemity dopplers are negative and the patient does not have hypoxia or tachycardia. She has chronic lung disease and an intermediate probability testing. Her pre- test probability for PE is low. Recommend that she gets a limited echocardiogram to evaluate the pulmonary pressures and get an ABG. If she does not have hypoxemia with normal pulmonary pressure I will recommend that we hold off on anticoagulation. However is she does have hypoxemia and elevated pulmonary pressures, then she should be anticoagulated fro 3- 6 months. -Her acute renal failure, precludes CTA at this time -All other care per primary service Please do not hesitate to call with questions or concerns.
--- NOTE | 2019-05-17 11:42 | Vascular Lab Report ---
DUPLEX DOPPLER BILATERAL LOWER EXTREMITY VEINS INDICATION: Abnormal VQ scan, intermediate risk for PE FINDINGS: There is no thrombus within the deep veins of either lower extremity from the common femoral to the c retirement veins. There is normal compression and augmentation on spectral analysis. IMPRESSION: No sonographic evidence for DVT in either lower extremity. Signer Name: Pillo Mukherjee MD Signed: 05/17/2019 11:38 AM Workstation Name: [id number]
[2019-05-17] MEDS: METOPROLOL TARTRATE 25 MG TAB PO SCH ×2 (12:35→22:57)
[2019-05-17] MEDS: amLODIPine 10 MG TAB PO SCH (12:36)
[2019-05-17] MEDS: INSULIN LISPRO 100 UNIT/ML SUB-Q SCH ×2 (13:00→19:24)
--- NOTE | 2019-05-17 15:19 | Progress Note ---
Assessment and Plan /NSTEMI type II Acute Chest Pain -Initiated chest pain protocol -Continuous telemetry monitoring -Troponin elevated x 2 , will continue to trend -EKG unrevealing for acute ischemic abnormalities -Started On heparin drip -History of [place] (2010), status post stent 4 -Follows at [facility] as outpatient -Cardiology consulted /Hypertensive urgency -BP on admission 198/142 -Hx Hypertension -Continue to monitor BP -Hold TANIKA and ARB d/t renal function -IV antihypertensive when necessary /Elevated D-Dimer with possible PE -416 -VQ scan shows intermediate probability for PE -Continue on On heparin drip -Bilateral lower extremity Doppler pending -Pulmonology consulted -we'll follow recommendation /ELEN on possible CKD stage 4 -Cr on admission 3.3 -??CKD with GFR 17 -Renal ultrasound unremarkable -Continue to Hydrate with IVF -Avoid nephrotoxic agents -Renal dose all meds -Nephrology consulted - Cr was 1.7 about a year ago /Insulin-dependent DM -Uncontrolled -BG on admission 510 -Scheduled Lantus and SSI coverage prn -HgbA1C pending /Hyperlipidemia -Uncontrolled -Total cholesterol on admission 490 -Start atorvastatin 80 mg daily at bedtime /Hyponatremia -Na on admission 131 -Slowly correct Na with IVF -Continue to monitor replete prn /Hyperkalemia -on admission 5.4 -Receiving IVF -Continue to monitor electrolytes /HIV positive -Continue home antiretroviral DVT PPX -On Heparin Brief history: 58-year-old -[place] female with history of HIV, hypertension, diabetes, HLT, sarcoidosis, CAD, [place] (2010) s/p stent x4 who presents to [facility] ED with complaints of left sided non-radiating chest pain, SOB, and diaphoresis. At the time of my examination pt is sitting up in stretcher with no s/s of distress. Will admit to Telemetry. Physical exam: GENERAL: well-developed obese -[place] female lying on bed appeared to be in no discomfort. HEENT: Normocephalic. Atraumatic. No conjunctival congestion or icterus. Patient has moist mucous membranes. NECK: Supple. Trachea midline. CHEST/LUNGS: Clear to auscultated bilaterally, breathing nonlabored. No wheezes crackles or rhonchi. HEART/CARDIOVASCULAR: Regular in rate and rhythm. S1 and S2 positive. ABDOMEN: Abdomen is soft, nontender. Patient has normal bowel sounds. SKIN: There is no rash. Warm and dry. NEURO: No focal motor deficit. Follows command. MUSCULOSKELETAL: No joint effusion or tenderness. EXTRIMITY: No edema, no cyanosis or clubbing. PSYCH: Cooperative. Subjective Date of service: 05/17/19 Interval history: Patient seen and examined. Medical records and medication list reviewed. No acute event overnight noted by the RN. Patient denies any chest pain or difficulty breathing now. Patient is tolerating diet. Discussed plan of care at bedside with patient and her . Objective - Constitutional Vitals: Vital Signs - 12hr 05/17/19 05/17/19 05/17/19 03:51 07:00 09:04 Temperature 97.7 F Pulse Rate 92 H 83 Respiratory 20 18 Rate Respiratory 20 Rate [Left Chest] Blood Pressure 166/96 O2 Sat by Pulse 100 Oximetry 05/17/19 05/17/19 05/17/19 09:11 11:00 12:35 Temperature 97.3 F L Pulse Rate 86 84 Respiratory 13 Rate Respiratory Rate [Left Chest] Blood Pressure 180/93 180/90 O2 Sat by Pulse Oximetry 05/17/19 05/17/19 12:36 12:42 Temperature 97.8 F Pulse Rate 84 81 Respiratory 20 18 Rate Respiratory Rate [Left Chest] Blood Pressure 180/90 175/92 O2 Sat by Pulse 100 Oximetry - Labs CBC & Chem 7: 05/19/19 07:08 05/19/19 07:07 Labs: Abnormal lab results 05/16/19 05/16/19 05/16/19 Range/Units 20:32 20:32 20:32 RBC 3.10 L (3.65-5.03) M/mm3 Hgb 9.4 L (10.1-14.3) gm/dl Hct 28.3 L (30.3-42.9) % RDW 15.5 H (13.2-15.2) % APTT (24.2-36.6) Sec. D-Dimer 416.09 H (0-234) ng/mlDDU Sodium 131 L (137-145) mmol/L Potassium 5.4 H (3.6-5.0) mmol/L Chloride 94.1 L (98-107) mmol/L Carbon Dioxide 20 L (22-30) mmol/L BUN 37 H (7-17) mg/dL Creatinine 3.3 H (0.7-1.2) mg/dL Glucose 510 H* (65-100) mg/dL POC Glucose (70-105) Hemoglobin A1c (4-6) % Troponin T 0.081 H (0.00-0.029) ng/mL Triglycerides 542 H (2-149) mg/dL Cholesterol 490 H (50-199) mg/dL 05/16/19 05/17/19 05/17/19 Range/Units 23:25 00:40 01:30 RBC (3.65-5.03) M/mm3 Hgb (10.1-14.3) gm/dl Hct (30.3-42.9) % RDW (13.2-15.2) % APTT (24.2-36.6) Sec. D-Dimer (0-234) ng/mlDDU Sodium (137-145) mmol/L Potassium (3.6-5.0) mmol/L Chloride (98-107) mmol/L Carbon Dioxide (22-30) mmol/L BUN (7-17) mg/dL Creatinine (0.7-1.2) mg/dL Glucose (65-100) mg/dL POC Glucose 193 H (70-105) Hemoglobin A1c (4-6) % Troponin T 0.087 H 0.085 H (0.00-0.029) ng/mL Triglycerides (2-149) mg/dL Cholesterol (50-199) mg/dL 05/17/19 05/17/19 05/17/19 Range/Units 01:30 01:30 02:43 RBC (3.65-5.03) M/mm3 Hgb (10.1-14.3) gm/dl Hct (30.3-42.9) % RDW (13.2-15.2) % APTT 41.2 H (24.2-36.6) Sec. D-Dimer (0-234) ng/mlDDU Sodium (137-145) mmol/L Potassium (3.6-5.0) mmol/L Chloride (98-107) mmol/L Carbon Dioxide (22-30) mmol/L BUN (7-17) mg/dL Creatinine (0.7-1.2) mg/dL Glucose (65-100) mg/dL POC Glucose 258 H (70-105) Hemoglobin A1c 12.3 H (4-6) % Troponin T (0.00-0.029) ng/mL Triglycerides (2-149) mg/dL Cholesterol (50-199) mg/dL 05/17/19 05/17/19 Range/Units 07:08 09:13 RBC (3.65-5.03) M/mm3 Hgb (10.1-14.3) gm/dl Hct (30.3-42.9) % RDW (13.2-15.2) % APTT (24.2-36.6) Sec. D-Dimer (0-234) ng/mlDDU Sodium (137-145) mmol/L Potassium (3.6-5.0) mmol/L Chloride (98-107) mmol/L Carbon Dioxide (22-30) mmol/L BUN (7-17) mg/dL Creatinine (0.7-1.2) mg/dL Glucose (65-100) mg/dL POC Glucose 231 H (70-105) Hemoglobin A1c (4-6) % Troponin T 0.083 H (0.00-0.029) ng/mL Triglycerides (2-149) mg/dL Cholesterol (50-199) mg/dL
[2019-05-17 15:56] LABS: ABG Base Excess -1.4 mmol/L (-2.0-3.0); ABG HCO3 23.7 mmol/L (20.0-26.0); ABG Methemoglobin 0.5 % (0.0-1.5); ABG Oxygen Saturation 98.6 % (95.0-99.0); ABG PCO2 41.2 mm Hg; ABG PH 7.377 pH Units (7.350-7.450); ABG PO2 135.4 mm Hg (80.0-90.0)
--- NOTE | 2019-05-17 18:57 | Consultation ---
History of Present Illness - Reason for Consult Consult date: 05/17/19 chronic renal failure Requesting physician: LANETTE COLES - History of Present Illness 58-year-old lady who is not known to me with history of mellitus, hypertension hyperlipidemia and coronary artery disease was having acute myocardial infarction in the past. Patient also has chronic kidney disease stage IV but she does not know what her GFR was. She sees a public records researcher but does not remem jonn his name and is not happy with [facility] and has been wanting to switch to a different public records researcher. She was in this usual state of her when she was living at home yesterday and developed midsternal chest pain which was nonradiating rated as 7/10 associated with shortness of breath, palpitations and diaphoresis. She denies any dizziness. She admits to nausea but no vomiting. Patient sat in the car and her symptoms improved. She initially thought it was gastroesophageal reflux and so she went to [facility] with her and got antacid which she took with some improvement in her symptoms. However later the same day the pain recurred and was not improving and so she was brought to the emergency room for evaluation. On presenting blood pressure was 180/90 and blood sugar was more than 500 mg/dL. BUN and creatinine are elevated at 37/2.3 mg/dL. Sodium low at 131 mmol per liter and potassium high at 5.4 mmol per liter. She denies using any nonsteroidal anti-inflammatory drugs and has not been exposed to radiocontrast recently. Past History Past Medical History: acute ME ((2011)), CAD, diabetes, HIV/AIDS, hypertension, hyperlipidemia, renal failure (chronic kidney disease stage IV), sarcoidosis (on prednisone 5 mg daily) Past Surgical History: (X4), PTCA (four stents), Other (R arm fx 2012, tubal ligation) Social history: , lives with family, other (She travels with her who is a truck driving instructor. 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 denies: smoking (ex-smoker), alcohol abuse, prescription drug abuse, IV drug use Family history: CAD (mother of a heart attack/stroke.), cancer (Sister has cancer), hypertension (Brother has hypertension), other (does not know the cause of of her father.) Medications and Allergies Allergies Allergy/AdvReac Type Severity Reaction Status Date / Time Sulfa (Sulfonamide Allergy Rash Verified 10/13/13 15:11 Antibiotics) Home Medications Medication Instructions Recorded Confirmed Last Taken Type Amitriptyline [Elavil] 10 mg PO QHS 05/17/19 05/17/19 2 Days Ago History ~05/15/19 Elviteg/Cob/Emtri/Tenof Alafen 1 tab PO DAILY 05/17/19 05/17/19 1 Day Ago History [Genvoya Tablet] ~05/16/19 Famotidine [Pepcid] 20 mg PO BID 05/17/19 05/17/19 1 Day Ago History ~05/16/19 Insulin NPH Hum/Reg Insulin Hm 22 bottle SQ QAC 05/17/19 05/17/19 1 Day Ago History [Humulin 70-30 Vial] ~05/16/19 Lisinopril/Hydrochlorothiazide 1 tab PO QDAY 05/17/19 05/17/19 1 Day Ago History [Zestoretic 20-12.5 mg] ~05/16/19 Losartan Potassium 50 mg PO DAILY 05/17/19 05/17/19 1 Day Ago History ~05/16/19 Metoprolol [Lopressor] 25 mg PO BID 05/17/19 05/17/19 1 Day Ago History ~05/16/19 Rosuvastatin Calcium 40 mg PO QDAY 05/17/19 05/17/19 1 Day Ago History ~05/16/19 predniSONE [Deltasone] 5 mg PO QDAY 05/17/19 05/17/19 1 Day Ago History ~05/16/19 Active Meds: Active Medications Acetaminophen (Tylenol) 650 mg PO Q4H PRN PRN Reason: Pain MILD(1-3)/Fever >100.5/RANGEL Albuterol (Proventil) 2.5 mg IH Q3HRT PRN PRN Reason: Shortness Of Breath Amlodipine Besylate (Amlodipine) 10 mg PO QDAY [facility] Last Admin: 05/17/19 12:36 Dose: 10 mg Documented by: Atorvastatin Calcium (Lipitor) 80 mg PO QHS [facility] Dextrose (D50w (25gm) Syringe) 50 ml IV Q30MIN PRN; Protocol PRN Reason: Hypoglycemia Hydralazine HCl (Apresoline) 10 mg IV Q4HR PRN PRN Reason: Blood Pressure Heparin Sodium/Sodium Chloride (Heparin/ 0.45% Nacl-25,000 Unit/500 Ml) 25,000 unit in 500 mls @ 26 mls/hr IV TITR [facility]; Protocol Last Admin: 05/17/19 01:13 Dose: 1,300 units/hr, 26 mls/hr Documented by: Sodium Chloride (Nacl 0.45% 1000 Ml) 1,000 mls @ 75 mls/hr IV DIRECT SHAVONNE Insulin Glargine (Lantus) 20 units SUB-Q BID [facility] Last Admin: 05/17/19 12:47 Dose: 20 units Documented by: Insulin Human Lispro (Humalog) 0 unit SUB-Q Q6HR [facility]; Protocol Metoprolol Tartrate (Metoprolol) 25 mg PO BID [facility] Last Admin: 05/17/19 12:35 Dose: 25 mg Documented by: Miscellaneous Medication (Elviteg/Cob/Emtri/Tenof Alafen [Genvoya Tablet]) 1 tab PO DAILY [facility] Morphine Sulfate (Morphine) 2 mg IV Q4H PRN PRN Reason: Pain, Moderate (4-6) Nitroglycerin (Nitrostat) 0.4 mg SL Q5M PRN PRN Reason: Chest Pain Ondansetron HCl (Zofran) 4 mg IV Q8H PRN PRN Reason: Nausea And Vomiting Oxycodone/Acetaminophen (Percocet 5/325) 1 tab PO Q8H PRN PRN Reason: Pain, Moderate (4-6) Last Admin: 05/17/19 12:36 Dose: 1 tab Documented by: Sodium Chloride (Sodium Chloride Flush Syringe 10 Ml) 10 ml IV BID [facility] Last Admin: 05/17/19 12:37 Dose: 10 ml Documented by: Sodium Chloride (Sodium Chloride Flush Syringe 10 Ml) 10 ml IV PRN PRN PRN Reason: LINE FLUSH Review of Systems All systems: negative (Constitutional: no fever or chills. No anorexia or weight loss. HEENT: No sore throat but admits to sinus drainage no hearing or vision impairment . Cardiovascular: See history of present illness. Respiratory: Admits to cough but no sputum, no hemoptysis or wheezing. Gastrointestinal: No nausea, vomiting, diarrhea, abdominal pain, hematemesis or melena. Genitourinary: No frequency urgency dysuria or hematuria. hematologic: No abnormal bleeding or bruising. Integumentary: no pruritus or rash. Neurological: Admits to headache no focal weakness or numbness, no syncope or seizures. Musculoskeletal: Admits to joint pain and stiffness. Psychiatry: Admits to anxiety but no depression) Exam - Vital Signs Vital signs: Vital Signs Pulse Resp 96 H 19 05/16/19 20:09 05/16/19 20:09 - Physical Exam Narrative exam: Middle-aged -Lithuanian male lying in bed in no acute distress HEENT: NCAT, pink oral mucous membrane Neck: Supple, no venous distention CVS: S1S2 RRR with no murmur, rub or gallop Chest: Diminished breath sounds bilaterally Abdomen: Protuberant, soft, nontender, no organomegaly, bowel sounds are present Extremities: No edema Skin warm and dry Genitourinary deferred Neuro: Awake, alert no focal deficits Results - Lab Results 05/16/19 20:32 05/17/19 07:08 Most recent lab results ABG pH 7.377 pH Units (7.350-7.450) 05/17/19 15:45 ABG pCO2 41.2 mm Hg 05/17/19 15:45 ABG pO2 135.4 mm Hg (80.0-90.0) H 05/17/19 15:45 ABG HCO3 23.7 mmol/L (20.0-26.0) 05/17/19 15:45 ABG O2 Saturation 98.6 % (95.0-99.0) 05/17/19 15:45 Calcium 9.0 mg/dL (8.4-10.2) 05/16/19 20:32 Assessment and Plan - Patient Problems (1) Chronic kidney disease, stage 4 (severe) Current Visit: Yes Status: Acute Plan to address problem: Chronic kidney disease presumably secondary to diabetic nephropathy/hypertensive nephrosclerosis. Unclear if patient has any acute kidney injury. We'll get records from [facility] where she was a few months ago. Get urine studies. Avoid any potential nephrotoxins. Follow up electrolytes and renal function. Will do a more aggressive evaluation if records indicate that there has been some worsening in kidney function (2) Hyponatremia Current Visit: Yes Status: Acute Plan to address problem: Hyponatremia probably secondary to thiazide diuretic. Hold incriminating medication and follow-up sodium (3) Hyperkalemia Current Visit: Yes Status: Acute Plan to address problem: Hyperkalemia (4) Type 2 diabetes mellitus with diabetic nephropathy Current Visit: Yes Status: Acute Plan to address problem: Blood sugar controlled on presentation. Follow blood sugar on current medication (5) Hypertensive chronic kidney disease with stage 1 through stage 4 chronic kidney disease, or unspecified chronic kidney disease Current Visit: Yes Status: Acute Plan to address problem: Blood pressure was elevated on presentation. Oral antihypertensive medications resumed. Follow blood pressure on current medications (6) Sarcoidosis Current Visit: Yes Status: Acute Plan to address problem: Continue management by point of sale associate
--- NOTE | 2019-05-17 22:31 | Progress Note ---
Assessment and Plan Chest Pain - reason for admission. VQ scan indeterminate for PE on empiric IV heparin History of CAD s/p multiple PCIs - continue medical therapy with BB and statin. Add ASA. Acute on chronic renal failure with a baseline of 1.6-1.9 Uncontrolled DM Uncontrolled cholesterol and triglycerides levels Profound non-compliance (patient was sitting in bed drinking leny's lemonade, eating a large baguette sandwich and a large bowl of fruit) HIV disease Hypertension -maximize antihypertensive therapy. continue BB and CCB. Chronic elevated troponin in the setting of renal failure Normal MPI 07/2018 at [facility] Normal LVEF by echo 07/2018 at [facility] Patient is a poor candidate for invasive cardiac evaluation given co-morbidities especially renal failure Focus should be on appropriate dietary consultation, glucose control, lipid control and blood pressure control Subjective Date of service: 05/18/19 Interval history: No acute events. Resting comfortably. No chest pain or SOB. Objective Vital Signs Temp Pulse Pulse Resp Resp Resp BP 05/17/19 20:43 71 05/17/19 20:25 98.4 F 80 18 131/65 05/17/19 19:57 99 H 16 05/17/19 16:43 98.1 F 71 18 150/87 05/17/19 13:36 20 05/17/19 12:42 97.8 F 81 18 175/92 05/17/19 12:36 84 20 180/90 05/17/19 12:35 84 180/90 05/17/19 11:00 86 05/17/19 09:11 97.3 F L 13 180/93 05/17/19 09:04 97.7 F 83 18 166/96 05/17/19 07:00 20 20 05/17/19 03:51 92 H 05/17/19 03:15 93 H 23 161/83 05/17/19 03:00 84 18 161/83 05/17/19 02:45 90 27 H 164/87 05/17/19 02:30 85 18 166/82 05/17/19 02:15 83 17 164/87 05/17/19 02:00 88 21 164/87 05/17/19 01:45 90 17 184/95 05/17/19 01:31 86 22 184/95 05/17/19 01:15 84 21 184/95 05/17/19 01:12 81 184/95 05/17/19 01:00 74 24 184/95 05/17/19 00:45 76 14 198/142 05/17/19 00:33 198/142 05/17/19 00:02 05/16/19 22:45 80 24 198/142 05/16/19 22:34 87 198/142 05/16/19 22:31 85 19 198/142 Pulse Ox 05/17/19 20:43 05/17/19 20:25 98 05/17/19 19:57 05/17/19 16:43 100 05/17/19 13:36 05/17/19 12:42 100 05/17/19 12:36 05/17/19 12:35 05/17/19 11:00 05/17/19 09:11 05/17/19 09:04 100 05/17/19 07:00 05/17/19 03:51 05/17/19 03:15 05/17/19 03:00 05/17/19 02:45 05/17/19 02:30 05/17/19 02:15 05/17/19 02:00 05/17/19 01:45 97 05/17/19 01:31 05/17/19 01:15 96 05/17/19 01:12 05/17/19 01:00 05/17/19 00:45 05/17/19 00:33 99 05/17/19 00:02 99 05/16/19 22:45 98 05/16/19 22:34 05/16/19 22:31 98 - Physical Examination HEENT: Positive: PERRL Neuro: Positive: Grossly Intact Extremities: Present: +1 Edema - Labs and Meds Coagulation 05/17/19 Range/Units 01:30 PT 13.0 (12.2-14.9) Sec. INR 0.99 (0.87-1.13) APTT 41.2 H (24.2-36.6) Sec. Comprehensive Metabolic Panel 05/17/19 Range/Units 07:08 Potassium 4.6 (3.6-5.0) mmol/L
[2019-05-17 23:05] LABS: Bacteria,Urine 1+ /HPF (Negative); Bilirubin,Urine NEG (Negative); Blood,Urine NEG (Negative); Color,Urine Straw (Yellow); Urobilinogen,Urine < 2.0 mg/dL (<2.0)
[2019-05-17] MEDS: PANTOPRAZOLE 40 MG TAB PO SCH (23:08)
[2019-05-17 23:10] LABS: Protein,Urine >500 mg/dL (Negative)
[2019-05-18] MEDS: INSULIN LISPRO 100 UNIT/ML SUB-Q SCH ×5 (03:46→17:09)
[2019-05-18 06:43] LABS: Basophils # (Auto) 0.1 K/mm3 (0.0-0.1); Basophils % (Auto) 0.7 % (0.0-1.8); Eosinophils # (Auto) 0.4 K/mm3 (0.0-0.4); Eosinophils % (Auto) 4.9 % (0.0-4.3); Hematocrit 25.6 % (30.3-42.9); Hemoglobin 8.5 gm/dl (10.1-14.3); Lymphocytes # (Auto) 4.2 K/mm3 (1.2-5.4); Lymphocytes % (Auto) 46.4 % (13.4-35.0); Mean Corpuscular HGB Conc 33 % (30-34); Mean Corpuscular Volume 92 fl (79-97); Monocytes # (Auto) 0.5 K/mm3 (0.0-0.8); Monocytes % (Auto) 5.9 % (0.0-7.3); Platelet Count 222 K/mm3 (140-440); Red Blood Count 2.79 M/mm3 (3.65-5.03); Red Cell Distribution Width 15.8 % (13.2-15.2)
[2019-05-18 07:03] LABS: Calcium 8.8 mg/dL (8.4-10.2)
[2019-05-18] MEDS: PANTOPRAZOLE 40 MG TAB PO SCH (09:46)
[2019-05-18] MEDS: ASPIRIN 81 MG TAB CHEW PO SCH (09:46)
[2019-05-18] MEDS: amLODIPine 10 MG TAB PO SCH (09:46)
[2019-05-18] MEDS: METOPROLOL TARTRATE 25 MG TAB PO SCH (09:46)
[2019-05-18] MEDS: INSULIN GLARGINE 100 UNITS/ML SUB-Q SCH (09:51)
--- NOTE | 2019-05-18 10:46 | Progress Note ---
Assessment and Plan - Patient Problems (1) Chronic kidney disease, stage 4 (severe) Current Visit: Yes Status: Acute Plan to address problem: Chronic kidney disease presumably secondary to diabetic nephropathy/hypertensive nephrosclerosis with superimposed acute kidney injury. Kidney function is improving. We'll get records from [facility] where she was a few months ago. Avoid any potential nephrotoxins. Follow up electrolytes and renal function. (2) Hyponatremia Current Visit: Yes Status: Acute Plan to address problem: Hyponatremia probably secondary to thiazide diuretic. Resolved. Avoid thiazide diuretic. Will start patient on a loop diuretic with the development of edema (3) Hyperkalemia Current Visit: Yes Status: Acute Plan to address problem: Hyperkalemia resolved. (4) Type 2 diabetes mellitus with diabetic nephropathy Current Visit: Yes Status: Acute Plan to address problem: Blood sugar controlled on presentation. Follow blood sugar on current medication (5) Hypertensive chronic kidney disease with stage 1 through stage 4 chronic kidney disease, or unspecified chronic kidney disease Current Visit: Yes Status: Acute Plan to address problem: Blood pressure was elevated on presentation. Oral antihypertensive medications resumed. Follow blood pressure on current medications (6) Sarcoidosis Current Visit: Yes Status: Acute Plan to address problem: Continue management by animal care provider Subjective Date of service: 05/18/19 Principal diagnosis: chronic kidney disease, chest pain Interval history: Patient seen sitting on a chair. She has no complaints. She feels better today. Denies chest pain or shortness of breath. No nausea or vomiting. Objective - Exam Narrative Exam: Middle-aged -Kazakh male lying in bed in no acute distress HEENT: NCAT, pink oral mucous membrane Neck: Supple, no venous distention CVS: S1S2 RRR with no murmur, rub or gallop Chest: Diminished breath sounds bilaterally Abdomen: Protuberant, soft, nontender, no organomegaly, bowel sounds are present Extremities: No edema Skin warm and dry Genitourinary deferred Neuro: Awake, alert no focal deficits - Vital Signs Vital signs: Vital Signs - 12hr 05/17/19 05/17/19 05/18/19 23:27 23:36 04:03 Temperature 98.3 F 98.2 F Pulse Rate 83 71 Respiratory 18 20 18 Rate Blood Pressure 147/77 133/75 O2 Sat by Pulse 100 97 Oximetry 11/23/19 11/23/19 09:07 09:46 Temperature Pulse Rate 84 Respiratory Rate Blood Pressure 152/107 152/107 O2 Sat by Pulse 15 L Oximetry - Lab 05/18/19 05:12 05/18/19 05:12 Most recent lab results ABG pH 7.377 pH Units (7.350-7.450) 05/17/19 15:45 ABG pCO2 41.2 mm Hg 05/17/19 15:45 ABG pO2 135.4 mm Hg (80.0-90.0) H 05/17/19 15:45 ABG HCO3 23.7 mmol/L (20.0-26.0) 05/17/19 15:45 ABG O2 Saturation 98.6 % (95.0-99.0) 05/17/19 15:45 Calcium 8.8 mg/dL (8.4-10.2) 05/18/19 05:12 Medications & Allergies - Medications Allergies/Adverse Reactions: Allergies Sulfa (Sulfonamide Antibiotics) Allergy (Verified 10/13/13 15:11) Rash Home Medications: Home Medications Medication Instructions Recorded Confirmed Last Taken Type Amitriptyline [Elavil] 10 mg PO QHS 05/17/19 05/17/19 2 Days Ago History ~05/15/19 Elviteg/Cob/Emtri/Tenof Alafen 1 tab PO DAILY 05/17/19 05/17/19 1 Day Ago History [Genvoya Tablet] ~05/16/19 Famotidine [Pepcid] 20 mg PO BID 05/17/19 05/17/19 1 Day Ago History ~05/16/19 Insulin NPH Hum/Reg Insulin Hm 22 bottle SQ QAC 05/17/19 05/17/19 1 Day Ago History [Humulin 70-30 Vial] ~05/16/19 Lisinopril/Hydrochlorothiazide 1 tab PO QDAY 05/17/19 05/17/19 1 Day Ago History [Zestoretic 20-12.5 mg] ~05/16/19 Losartan Potassium 50 mg PO DAILY 05/17/19 05/17/19 1 Day Ago History ~05/16/19 Metoprolol [Lopressor] 25 mg PO BID 05/17/19 05/17/19 1 Day Ago History ~05/16/19 Rosuvastatin Calcium 40 mg PO QDAY 05/17/19 05/17/19 1 Day Ago History ~05/16/19 predniSONE [Deltasone] 5 mg PO QDAY 05/17/19 05/17/19 1 Day Ago History ~05/16/19 Active Medications: Generic Name Dose Route Start Last Admin Trade Name Freq PRN Reason Stop Dose Admin Acetaminophen 650 mg 05/17/19 00:45 Tylenol PO Q4H PRN Pain MILD(1-3)/Fever >100.5/RANGEL Albuterol 2.5 mg 05/17/19 00:45 05/17/19 19:55 Proventil IH 2.5 mg Q3HRT PRN Administration Shortness Of Breath Amlodipine Besylate 10 mg 05/17/19 10:00 05/18/19 09:46 Amlodipine PO 10 mg QDAY SHAVONNE Administration Aspirin 81 mg 05/18/19 10:00 05/18/19 09:46 Baby Aspirin PO 81 mg QDAY SHAVONNE Administration Atorvastatin Calcium 80 mg 05/17/19 22:00 05/17/19 22:57 Lipitor PO 80 mg QHS SHAVONNE Administration Dextrose 50 ml 05/17/19 00:45 D50w (25gm) Syringe IV Q30MIN PRN Hypoglycemia Protocol Hydralazine HCl 10 mg 05/17/19 00:44 Apresoline IV Q4HR PRN Blood Pressure Heparin Sodium/Sodium Chloride 25,000 unit in 500 mls @ 26 mls/hr 05/17/19 01:00 05/18/19 09:35 Heparin/ 0.45% Nacl-25,000 Unit/500 Ml IV 1,200 units/hr TITR SHAVONNE 24 mls/hr Titration Protocol 1,300 UNITS/HR Sodium Chloride 1,000 mls @ 75 mls/hr 05/17/19 05:00 05/17/19 20:19 Nacl 0.45% 1000 Ml IV 75 mls/hr DIRECT SHAVONNE Administration Insulin Glargine 20 units 05/17/19 01:00 05/18/19 09:51 Lantus SUB-Q 20 units BID SHAVONNE Administration Insulin Human Lispro 0 unit 05/17/19 06:00 05/18/19 05:17 Humalog SUB-Q Not Given Q6HR SHAVONNE Protocol Metoprolol Tartrate 25 mg 05/17/19 10:00 05/18/19 09:46 Metoprolol PO 25 mg BID SHAVONNE Administration Miscellaneous Medication 1 tab 05/17/19 10:00 Elviteg/Cob/Emtri/Tenof Alafen [Genvoya Tablet] PO DAILY [facility] Morphine Sulfate 2 mg 05/17/19 00:45 Morphine IV Q4H PRN Pain, Moderate (4-6) Nitroglycerin 0.4 mg 05/17/19 00:53 Nitrostat SL Q5M PRN Chest Pain Ondansetron HCl 4 mg 05/17/19 00:45 Zofran IV Q8H PRN Nausea And Vomiting Oxycodone/Acetaminophen 1 tab 05/17/19 02:06 05/17/19 23:36 Percocet 5/325 PO 1 tab Q8H PRN Administration Pain, Moderate (4-6) Pantoprazole Sodium 40 mg 05/17/19 23:00 05/18/19 09:46 Protonix PO 40 mg BID SHAVONNE Administration Sodium Chloride 10 ml 05/17/19 10:00 05/18/19 09:47 Sodium Chloride Flush Syringe 10 Ml IV 10 ml BID SHAVONNE Administration Sodium Chloride 10 ml 05/17/19 00:45 Sodium Chloride Flush Syringe 10 Ml IV PRN PRN LINE FLUSH
[2019-05-18] MEDS: ONDANSETRON 4 MG/2 ML INJ IV PRN (11:13)
[2019-05-18] MEDS: FUROSEMIDE 40 MG TAB PO SCH (11:13)
--- NOTE | 2019-05-18 12:58 | Progress Note ---
Assessment and Plan /Elevated D-Dimer with possible PE -VQ scan shows intermediate probability for PE -Bilateral lower extremity Doppler showed no acute DVT -Pulmonology consulted -recommended to obtain room air ABG - -Continue on On heparin drip /NSTEMI type II Acute Chest Pain -History of OR (2010), status post stent 4 -Follows at [facility] as outpatient -Initiated chest pain protocol -Continuous telemetry monitoring -Troponin elevated was elevated on admission -EKG unrevealing for acute ischemic abnormalities -Started On heparin drip -Cardiology consulted and recommended medical management /Hypertensive urgency -BP on admission 198/142 -Hx Hypertension -Continue to monitor BP -Hold TANIKA and ARB d/t renal function -IV antihypertensive when necessary /ELEN on possible CKD stage 4 -Cr on admission 3.3 -??CKD with GFR 17 -Renal ultrasound unremarkable -Continue to Hydrate with IVF -Avoid nephrotoxic agents -Renal dose all meds -Nephrology consulted - Cr was 1.7 about a year ago /Insulin-dependent DM -Uncontrolled -BG on admission 510 -Scheduled Lantus and SSI coverage prn -HgbA1C 12.3 /Hyperlipidemia -Uncontrolled -Total cholesterol on admission 490 -Start atorvastatin 80 mg daily at bedtime /Hyponatremia -Na on admission 131 -Slowly correct Na with IVF -Continue to monitor replete prn /Hyperkalemia -on admission 5.4 -Receiving IVF -Continue to monitor electrolytes /HIV positive -Continue home antiretroviral DVT PPX -On Heparin Brief history: 58-year-old -[place]ib[place] female with history of HIV, hypertension, diabetes, HLT, sarcoidosis, CAD, OR (2010) s/p stent x4 who presents to [facility] ED with complaints of left sided non-radiating chest pain, SOB, and diaphoresis. At the time of my examination pt is sitting up in stretcher with no s/s of distress. Will admit to Telemetry. Physical exam: GENERAL: well-developed obese -[place] female lying on bed appeared to be in no discomfort. HEENT: Normocephalic. Atraumatic. No conjunctival congestion or icterus. Patient has moist mucous membranes. NECK: Supple. Trachea midline. CHEST/LUNGS: Clear to auscultated bilaterally, breathing nonlabored. No wheezes crackles or rhonchi. HEART/CARDIOVASCULAR: Regular in rate and rhythm. S1 and S2 positive. ABDOMEN: Abdomen is soft, nontender. Patient has normal bowel sounds. SKIN: There is no rash. Warm and dry. NEURO: No focal motor deficit. Follows command. MUSCULOSKELETAL: No joint effusion or tenderness. EXTRIMITY: No edema, no cyanosis or clubbing. PSYCH: Cooperative. Subjective Date of service: 05/18/19 Principal diagnosis: chronic kidney disease, chest pain Interval history: Patient seen and examined. Medical records and medication list reviewed. No acute event overnight noted by the RN. Patient denies any chest pain or difficulty breathing now. Patient is tolerating diet. Discussed plan of care at bedside with patient and her . Objective - Constitutional Vitals: Vital Signs - 12hr 05/18/19 05/18/19 05/18/19 04:03 09:07 09:46 Temperature 98.2 F Pulse Rate 71 84 Respiratory 18 Rate Blood Pressure 133/75 152/107 152/107 O2 Sat by Pulse 97 15 L Oximetry - Labs CBC & Chem 7: 05/19/19 07:08 05/19/19 07:07 Labs: Abnormal lab results 05/17/19 05/17/19 05/17/19 Range/Units 12:55 15:45 17:34 RBC (3.65-5.03) M/mm3 Hgb (10.1-14.3) gm/dl Hct (30.3-42.9) % RDW (13.2-15.2) % Lymph % (Auto) (13.4-35.0) % Eos % (Auto) (0.0-4.3) % Heparin Anti-Xa Level (0.3-0.7) U.I./ml ABG pO2 135.4 H (80.0-90.0) mm Hg ABG Hemoglobin 8.9 L (12.0-16.0) gm/dl Sodium (137-145) mmol/L Carbon Dioxide (22-30) mmol/L BUN (7-17) mg/dL Creatinine (0.7-1.2) mg/dL POC Glucose 213 H 230 H (70-105) 05/17/19 05/18/19 05/18/19 Range/Units 21:01 05:12 05:12 RBC 2.79 L (3.65-5.03) M/mm3 Hgb 8.5 L (10.1-14.3) gm/dl Hct 25.6 L (30.3-42.9) % RDW 15.8 H (13.2-15.2) % Lymph % (Auto) 46.4 H (13.4-35.0) % Eos % (Auto) 4.9 H (0.0-4.3) % Heparin Anti-Xa Level (0.3-0.7) U.I./ml ABG pO2 (80.0-90.0) mm Hg ABG Hemoglobin (12.0-16.0) gm/dl Sodium 135 L (137-145) mmol/L Carbon Dioxide 18 L (22-30) mmol/L BUN 30 H (7-17) mg/dL Creatinine 2.9 H (0.7-1.2) mg/dL POC Glucose 221 H (70-105) 05/18/19 05/18/19 Range/Units 07:10 11:41 RBC (3.65-5.03) M/mm3 Hgb (10.1-14.3) gm/dl Hct (30.3-42.9) % RDW (13.2-15.2) % Lymph % (Auto) (13.4-35.0) % Eos % (Auto) (0.0-4.3) % Heparin Anti-Xa Level 0.86 H (0.3-0.7) U.I./ml ABG pO2 (80.0-90.0) mm Hg ABG Hemoglobin (12.0-16.0) gm/dl Sodium (137-145) mmol/L Carbon Dioxide (22-30) mmol/L BUN (7-17) mg/dL Creatinine (0.7-1.2) mg/dL POC Glucose 155 H (70-105)
--- NOTE | 2019-05-18 14:04 | Progress Note ---
Assessment and Plan Patient resting on room air. O2 saturation 97%. Patients perfusion lung scan reported intermediate probability. Patient started on heparin. Obtained venous doppler studies of legs also reported negative for DVT. Patients creatinine elevated. Can not do angio CT of chest. If no need for heparin from cardiac point of view, heparin can be stopped and place her on prophylactic S/C heparin. - Patient Problems (1) Fibrosis, pulmonary, interstitial, diffuse Current Visit: Yes Status: Acute Plan to address problem: O2 supplementation. Albuterol aerosol treatments prn for shortness of breath. (2) Acute coronary syndrome Current Visit: Yes Status: Acute Plan to address problem: Management as per cardiology. (3) Acute renal failure Current Visit: Yes Status: Acute Qualifiers: Acute renal failure type: unspecified Qualified Code(s): N17.9 - Acute kidney failure, unspecified Plan to address problem: Management as per nephrology. (4) Sarcoidosis Current Visit: Yes Status: Acute Plan to address problem: TANIKA level (5) Type 2 diabetes mellitus with diabetic nephropathy Current Visit: Yes Status: Acute Plan to address problem: Management as per primary care. Subjective Date of service: 05/18/19 Principal diagnosis: chronic kidney disease, chest pain Interval history: Patient resting on room air. O2 saturation 97%. Patients perfusion lung scan reported intermediate probability. Patient started on heparin. Obtained venous doppler studies of legs also reported negative for DVT. Patients creatinine elevated. Can not do angio CT of chest. If no need for heparin from cardiac point of view, heparin can be stopped and place her on prophylactic S/C heparin. Objective Vital Signs - 12hr 05/18/19 05/18/19 05/18/19 04:03 09:07 09:46 Temperature 98.2 F Pulse Rate 71 84 Respiratory 18 Rate Blood Pressure 133/75 152/107 152/107 O2 Sat by Pulse 97 15 L Oximetry Constitutional: no acute distress, alert Eyes: non-icteric ENT: oropharynx moist Neck: supple Ascultation: Bilateral: rales Cardiovascular: regular rate and rhythm Gastrointestinal: normoactive bowel sounds, soft, non-tender Integumentary: normal Extremities: no cyanosis, no edema Neurologic: non-focal exam, pupils equal and round Psychiatric: mood appropriate CBC and BMP: 05/19/19 07:08 05/19/19 07:07 ABG, PT/INR, D-dimer: ABG ABG pH 7.377 pH Units (7.350-7.450) 05/17/19 15:45 ABG pCO2 41.2 mm Hg 05/17/19 15:45 ABG pO2 135.4 mm Hg (80.0-90.0) H 05/17/19 15:45 ABG O2 Saturation 98.6 % (95.0-99.0) 05/17/19 15:45 PT/INR, D-dimer PT 13.0 Sec. (12.2-14.9) 05/17/19 01:30 INR 0.99 (0.87-1.13) 05/17/19 01:30 D-Dimer 416.09 ng/mlDDU (0-234) H 05/16/19 20:32 Abnormal lab findings: Abnormal Labs 05/16/19 05/16/19 05/16/19 20:32 20:32 20:32 RBC 3.10 L Hgb 9.4 L Hct 28.3 L RDW 15.5 H Lymph % (Auto) Eos % (Auto) APTT D-Dimer 416.09 H Heparin Anti-Xa Level ABG pO2 ABG Hemoglobin Sodium 131 L Potassium 5.4 H Chloride 94.1 L Carbon Dioxide 20 L BUN 37 H Creatinine 3.3 H Glucose 510 H* POC Glucose Hemoglobin A1c Troponin T 0.081 H Triglycerides 542 H Cholesterol 490 H 05/16/19 05/17/19 05/17/19 23:25 00:40 01:30 RBC Hgb Hct RDW Lymph % (Auto) Eos % (Auto) APTT D-Dimer Heparin Anti-Xa Level ABG pO2 ABG Hemoglobin Sodium Potassium Chloride Carbon Dioxide BUN Creatinine Glucose POC Glucose 193 H Hemoglobin A1c Troponin T 0.087 H 0.085 H Triglycerides Cholesterol 05/17/19 05/17/19 05/17/19 01:30 01:30 02:43 RBC Hgb Hct RDW Lymph % (Auto) Eos % (Auto) APTT 41.2 H D-Dimer Heparin Anti-Xa Level ABG pO2 ABG Hemoglobin Sodium Potassium Chloride Carbon Dioxide BUN Creatinine Glucose POC Glucose 258 H Hemoglobin A1c 12.3 H Troponin T Triglycerides Cholesterol 05/17/19 05/17/19 05/17/19 07:08 09:13 12:55 RBC Hgb Hct RDW Lymph % (Auto) Eos % (Auto) APTT D-Dimer Heparin Anti-Xa Level ABG pO2 ABG Hemoglobin Sodium Potassium Chloride Carbon Dioxide BUN Creatinine Glucose POC Glucose 231 H 213 H Hemoglobin A1c Troponin T 0.083 H Triglycerides Cholesterol 05/17/19 05/17/19 05/17/19 15:45 17:34 21:01 RBC Hgb Hct RDW Lymph % (Auto) Eos % (Auto) APTT D-Dimer Heparin Anti-Xa Level ABG pO2 135.4 H ABG Hemoglobin 8.9 L Sodium Potassium Chloride Carbon Dioxide BUN Creatinine Glucose POC Glucose 230 H 221 H Hemoglobin A1c Troponin T Triglycerides Cholesterol 05/18/19 05/18/19 05/18/19 05:12 05:12 07:10 RBC 2.79 L Hgb 8.5 L Hct 25.6 L RDW 15.8 H Lymph % (Auto) 46.4 H Eos % (Auto) 4.9 H APTT D-Dimer Heparin Anti-Xa Level 0.86 H ABG pO2 ABG Hemoglobin Sodium 135 L Potassium Chloride Carbon Dioxide 18 L BUN 30 H Creatinine 2.9 H Glucose POC Glucose Hemoglobin A1c Troponin T Triglycerides Cholesterol 05/18/19 11:41 RBC Hgb Hct RDW Lymph % (Auto) Eos % (Auto) APTT D-Dimer Heparin Anti-Xa Level ABG pO2 ABG Hemoglobin Sodium Potassium Chloride Carbon Dioxide BUN Creatinine Glucose POC Glucose 155 H Hemoglobin A1c Troponin T Triglycerides Cholesterol Chest x-ray: report reviewed (Chronic interstitial fibrosis), image reviewed
[2019-05-18] MEDS: oxyCODONE /ACETAMINOPHEN 5-325MG TAB PO PRN (15:11)
[2019-05-18] MEDS: METOPROLOL TARTRATE 50 MG TAB PO SCH (17:06)
--- NOTE | 2019-05-19 00:16 | Progress Note ---
Assessment and Plan Chest Pain - reason for admission. VQ scan indeterminate for PE on empiric IV heparin History of CAD s/p multiple PCIs - continue medical therapy with BB and statin. Add ASA. Acute on chronic renal failure with a baseline of 1.6-1.9 Uncontrolled DM Uncontrolled cholesterol and triglycerides levels Profound non-compliance (patient was sitting in bed drinking leny's lemonade, eating a large baguette sandwich and a large bowl of fruit) HIV disease Hypertension -maximize antihypertensive therapy. continue BB and CCB. Chronic elevated troponin in the setting of renal failure Episode of dizziness - resolved. blood pressure stable. troponins pending. Normal MPI 07/2018 at [facility] Normal LVEF by echo 07/2018 at [facility] Echo 05/14 shows normal LV function Patient is a poor candidate for invasive cardiac evaluation given co-morbidities especially renal failure Focus should be on appropriate dietary consultation, glucose control, lipid co ntrol and blood pressure control Subjective Date of service: 05/19/19 Principal diagnosis: chronic kidney disease, chest pain Interval history: No acute events. Resting comfortably. No chest pain or SOB. Objective Vital Signs Temp Pulse Resp BP Pulse Ox 05/18/19 20:29 97 05/18/19 17:06 140/92 05/18/19 17:00 81 140/92 99 05/18/19 09:46 152/107 05/18/19 09:45 97 05/18/19 09:07 84 152/107 15 L 05/18/19 04:03 98.2 F 71 18 133/75 97 - Physical Examination HEENT: Positive: PERRL Neuro: Positive: Grossly Intact Extremities: Present: +1 Edema - Labs and Meds CBC 05/18/19 Range/Units 05:12 WBC 9.0 (4.5-11.0) K/mm3 RBC 2.79 L (3.65-5.03) M/mm3 Hgb 8.5 L (10.1-14.3) gm/dl Hct 25.6 L (30.3-42.9) % Plt Count 222 (140-440) K/mm3 Lymph # 4.2 (1.2-5.4) K/mm3 [place] # 0.5 (0.0-0.8) K/mm3 Eos # 0.4 (0.0-0.4) K/mm3 Baso # 0.1 (0.0-0.1) K/mm3 Comprehensive Metabolic Panel 05/18/19 Range/Units 05:12 Sodium 135 L (137-145) mmol/L Potassium 4.3 (3.6-5.0) mmol/L Chloride 102.6 (98-107) mmol/L Carbon Dioxide 18 L (22-30) mmol/L BUN 30 H (7-17) mg/dL Creatinine 2.9 H (0.7-1.2) mg/dL Glucose 82 (65-100) mg/dL Calcium 8.8 (8.4-10.2) mg/dL
[2019-05-19] MEDS: PANTOPRAZOLE 40 MG TAB PO SCH ×5 (00:54→22:00)
[2019-05-19] MEDS: AMITRIPTYLINE 10 MG TAB PO SCH ×3 (00:54→22:00)
[2019-05-19] MEDS: INSULIN GLARGINE 100 UNITS/ML SUB-Q SCH ×3 (00:54→22:00)
[2019-05-19] MEDS: HEPARIN/ 0.45% NACL DRIP 25,000 UNIT/500 ML BAG IV SCH (01:07)
[2019-05-19] MEDS: INSULIN LISPRO 100 UNIT/ML SUB-Q SCH ×4 (01:18→17:48)
[2019-05-19] MEDS: METOPROLOL TARTRATE 50 MG TAB PO SCH ×3 (01:26→11:38)
[2019-05-19] MEDS: oxyCODONE /ACETAMINOPHEN 5-325MG TAB PO PRN (01:36)
--- NOTE | 2019-05-19 06:56 | Event Note ---
Date: 05/19/19 patient complain of dizziness, nurse reported that she almost pass out check crdiac enzymes, repeat cBC, chem, will inform cardiology already on heparin drip
[2019-05-19] MEDS: ONDANSETRON 4 MG/2 ML INJ IV PRN ×2 (07:01→15:16)
[2019-05-19 07:36] LABS: Basophils % (Auto) 0.5 % (0.0-1.8); Eosinophils # (Auto) 0.3 K/mm3 (0.0-0.4); Eosinophils % (Auto) 3.5 % (0.0-4.3); Hematocrit 26.5 % (30.3-42.9); Lymphocytes # (Auto) 3.1 K/mm3 (1.2-5.4); Lymphocytes % (Auto) 38.3 % (13.4-35.0); Mean Corpuscular HGB Conc 34 % (30-34); Mean Corpuscular Volume 91 fl (79-97); Monocytes # (Auto) 0.5 K/mm3 (0.0-0.8); Monocytes % (Auto) 6.5 % (0.0-7.3); Platelet Count 221 K/mm3 (140-440); Red Cell Distribution Width 15.8 % (13.2-15.2)
[2019-05-19 07:50] LABS: Calcium 9.3 mg/dL (8.4-10.2)
[2019-05-19 07:52] LABS: Creatine Kinase MB 3.3 ng/mL (0.0-4.0)
[2019-05-19] MEDS ORDERED: FAMOTIDINE 20 MG TAB PO SCH (10:00)
[2019-05-19] MEDS ORDERED: NON-FORMULARY EACH (Rosuvastatin Calcium [Rosuvastatin Calcium] 40 MG) PO SCH (10:00)
[2019-05-19] MEDS: amLODIPine 10 MG TAB PO SCH ×2 (11:27→11:40)
[2019-05-19] MEDS: ASPIRIN 81 MG TAB CHEW PO SCH ×2 (11:28→11:41)
[2019-05-19] MEDS: FUROSEMIDE 40 MG TAB PO SCH ×2 (11:28→11:41)
--- NOTE | 2019-05-19 14:11 | Progress Note ---
Assessment and Plan /ELEN on possible CKD stage 4 -Cr on admission 3.3 -??CKD with GFR 17 -Renal ultrasound unremarkable -Continue to Hydrate with IVF -Avoid nephrotoxic agents -Renal dose all meds -Nephrology consulted - Cr was 1.7 about a year ago /Dizziness and lightheadedness - If symptom persist will get CT head - Ordered PT eval /Elevated D-Dimer with possible PE -VQ scan shows intermediate probability for PE -Bilateral lower extremity Doppler showed no acute DVT, no hypoxemia on ABG -Pulmonology consulted -recommended to to start heparin drip as no sign of hypoxemia and negative DVT /NSTEMI type II Acute Chest Pain -History of NH (2010), status post stent 4 -Follows at [facility] as outpatient -Initiated chest pain protocol -Continuous telemetry monitoring -Troponin elevated was elevated on admission -EKG unrevealing for acute ischemic abnormalities -s/p heparin drip -Cardiology consulted and recommended medical management /Hypertensive urgency -BP on admission 198/142 -Hx Hypertension -Continue to monitor BP -Hold TANIKA and ARB d/t renal function -IV antihypertensive when necessary /Insulin-dependent DM -Uncontrolled -BG on admission 510 -Scheduled Lantus and SSI coverage prn -HgbA1C 12.3 /Hyperlipidemia -Uncontrolled -Total cholesterol on admission 490 -Start atorvastatin 80 mg daily at bedtime /Hyponatremia -Na on admission 131 -Slowly correct Na with IVF -Continue to monitor replete prn /Hyperkalemia -on admission 5.4 -Receiving IVF -Continue to monitor electrolytes /HIV positive -Continue home antiretroviral DVT PPX -On Heparin Disposition: Pending PT eval and when clears by nephrology Brief history: 58-year-old -[place] female with history of HIV, hypertension, diabetes, HLT, sarcoidosis, CAD, NH (2010) s/p stent x4 who presents to [facility] ED with complaints of left sided non-radiating chest pain, SOB, and diaphoresis. At the time of my examination pt is sitting up in stretcher with no s/s of distress. Will admit to Telemetry. Physical exam: GENERAL: well-developed obese -[place]an female lying on bed appeared to be in no discomfort. HEENT: Normocephalic. Atraumatic. No conjunctival congestion or icterus. Patient has moist mucous membranes. NECK: Supple. Trachea midline. CHEST/LUNGS: Clear to auscultated bilaterally, breathing nonlabored. No wheezes crackles or rhonchi. HEART/CARDIOVASCULAR: Regular in rate and rhythm. S1 and S2 positive. ABDOMEN: Abdomen is soft, nontender. Patient has normal bowel sounds. SKIN: There is no rash. Warm and dry. NEURO: No focal motor deficit. Follows command. MUSCULOSKELETAL: No joint effusion or tenderness. EXTRIMITY: No edema, no cyanosis or clubbing. PSYCH: Cooperative. Subjective Date of service: 05/19/19 Principal diagnosis: chronic kidney disease, chest pain Interval history: Patient seen and examined. Medical records and medication list reviewed. Complaint of dizziness last night, states that she still feels a little lightheaded Denies any chest pain or short of breath Discussed plan of care at bedside with patient and her . Objective - Constitutional Vitals: Vital Signs - 12hr 05/19/19 05/19/19 05/19/19 02:36 04:00 04:11 Temperature 98.0 F Pulse Rate 71 87 Pulse Rate [ From Monitor] Respiratory 20 18 Rate Blood Pressure 144/80 O2 Sat by Pulse 100 Oximetry 05/19/19 05/19/19 05/19/19 07:48 08:37 12:00 Temperature 97.5 F L Pulse Rate 75 Pulse Rate [ 75 From Monitor] Respiratory 18 18 Rate Blood Pressure 158/79 O2 Sat by Pulse 100 100 100 Oximetry 05/19/19 12:39 Temperature 97.7 F Pulse Rate 83 Pulse Rate [ From Monitor] Respiratory 18 Rate Blood Pressure 154/84 O2 Sat by Pulse 97 Oximetry - Labs CBC & Chem 7: 05/19/19 07:08 05/19/19 07:07 Labs: Abnormal lab results 05/18/19 05/18/19 05/18/19 Range/Units 15:17 16:37 21:26 RBC (3.65-5.03) M/mm3 Hgb (10.1-14.3) gm/dl Hct (30.3-42.9) % RDW (13.2-15.2) % Lymph % (Auto) (13.4-35.0) % Heparin Anti-Xa Level 0.77 H (0.3-0.7) U.I./ml Sodium (137-145) mmol/L Carbon Dioxide (22-30) mmol/L BUN (7-17) mg/dL Creatinine (0.7-1.2) mg/dL Glucose (65-100) mg/dL POC Glucose 110 H 133 H (70-105) CK-MB (CK-2) Rel Index (0-4) Troponin T (0.00-0.029) ng/mL 05/18/19 05/19/19 05/19/19 Range/Units 21:33 06:56 07:07 RBC (3.65-5.03) M/mm3 Hgb (10.1-14.3) gm/dl Hct (30.3-42.9) % RDW (13.2-15.2) % Lymph % (Auto) (13.4-35.0) % Heparin Anti-Xa Level 0.11 L 0.25 L (0.3-0.7) U.I./ml Sodium (137-145) mmol/L Carbon Dioxide (22-30) mmol/L BUN (7-17) mg/dL Creatinine (0.7-1.2) mg/dL Glucose (65-100) mg/dL POC Glucose 123 H (70-105) CK-MB (CK-2) Rel Index (0-4) Troponin T (0.00-0.029) ng/mL 05/19/19 05/19/19 05/19/19 Range/Units 07:07 07:07 07:08 RBC 2.90 L (3.65-5.03) M/mm3 Hgb 9.0 L (10.1-14.3) gm/dl Hct 26.5 L (30.3-42.9) % RDW 15.8 H (13.2-15.2) % Lymph % (Auto) 38.3 H (13.4-35.0) % Heparin Anti-Xa Level (0.3-0.7) U.I./ml Sodium 132 L (137-145) mmol/L Carbon Dioxide 18 L (22-30) mmol/L BUN 31 H (7-17) mg/dL Creatinine 3.1 H (0.7-1.2) mg/dL Glucose 133 H (65-100) mg/dL POC Glucose (70-105) CK-MB (CK-2) Rel Index 6.2 H (0-4) Troponin T 0.069 H (0.00-0.029) ng/mL 05/19/19 05/19/19 Range/Units 07:49 11:49 RBC (3.65-5.03) M/mm3 Hgb (10.1-14.3) gm/dl Hct (30.3-42.9) % RDW (13.2-15.2) % Lymph % (Auto) (13.4-35.0) % Heparin Anti-Xa Level (0.3-0.7) U.I./ml Sodium (137-145) mmol/L Carbon Dioxide (22-30) mmol/L BUN (7-17) mg/dL Creatinine (0.7-1.2) mg/dL Glucose (65-100) mg/dL POC Glucose 124 H 116 H (70-105) CK-MB (CK-2) Rel Index (0-4) Troponin T (0.00-0.029) ng/mL
[2019-05-19] MEDS: ACETAMINOPHEN 325 MG/10.15 ML ORAL LIQD UNIT DOSE FEEDTUBE PRN (15:16)
[2019-05-19 15:43] LABS: Creatine Kinase MB 3.3 ng/mL (0.0-4.0)
--- NOTE | 2019-05-19 17:49 | Progress Note ---
Assessment and Plan - Patient Problems (1) Chronic kidney disease, stage 4 (severe) Current Visit: Yes Status: Acute Plan to address problem: Chronic kidney disease presumably secondary to diabetic nephropathy/hypertensive nephrosclerosis with superimposed acute kidney injury. Kidney function is not significantly changed from yesterday. Avoid any potential nephrotoxins. Follow up electrolytes and renal function. (2) Hyponatremia Current Visit: Yes Status: Acute Plan to address problem: Hyponatremia probably secondary to thiazide diuretic. Resolved. Avoid thiazide diuretic. Will start patient on a loop diuretic with the development of edema (3) Hyperkalemia Current Visit: Yes Status: Acute Plan to address problem: Hyperkalemia resolved. (4) Type 2 diabetes mellitus with diabetic nephropathy Current Visit: Yes Status: Acute Plan to address problem: Blood sugar controlled on presentation. Follow blood sugar on current medication (5) Hypertensive chronic kidney disease with stage 1 through stage 4 chronic kidney disease, or unspecified chronic kidney disease Current Visit: Yes Status: Acute Plan to address problem: Blood pressure was elevated on presentation. Oral antihypertensive medications resumed. Follow blood pressure on current medications (6) Sarcoidosis Current Visit: Yes Status: Acute Plan to address problem: Continue management by local coordinator Subjective Date of service: 05/19/19 Principal diagnosis: chronic kidney disease, chest pain Interval history: Patient seen lying on the bed. She has no complaints. Denies chest pain or shortness of breath. No nausea or vomiting. Objective - Exam Narrative Exam: Middle-aged -Slovenian male lying in bed in no acute distress HEENT: NCAT, pink oral mucous membrane Neck: Supple, no venous distention CVS: S1S2 RRR with no murmur, rub or gallop Chest: Diminished breath sounds bilaterally Abdomen: Protuberant, soft, nontender, no organomegaly, bowel sounds are present Extremities: No edema Skin warm and dry Genitourinary deferred Neuro: Awake, alert no focal deficits - Vital Signs Vital signs: Vital Signs - 12hr 05/19/19 05/19/19 05/19/19 07:48 08:37 12:00 Temperature 97.5 F L Pulse Rate 75 Pulse Rate [ 75 From Monitor] Respiratory 18 18 Rate Blood Pressure 158/79 O2 Sat by Pulse 100 100 100 Oximetry 05/19/19 05/19/19 12:39 17:17 Temperature 97.7 F 98.2 F Pulse Rate 83 92 H Pulse Rate [ From Monitor] Respiratory 18 18 Rate Blood Pressure 154/84 155/82 O2 Sat by Pulse 97 100 Oximetry - Lab 05/19/19 07:08 05/19/19 07:07 Most recent lab results ABG pH 7.377 pH Units (7.350-7.450) 05/17/19 15:45 ABG pCO2 41.2 mm Hg 05/17/19 15:45 ABG pO2 135.4 mm Hg (80.0-90.0) H 05/17/19 15:45 ABG HCO3 23.7 mmol/L (20.0-26.0) 05/17/19 15:45 ABG O2 Saturation 98.6 % (95.0-99.0) 05/17/19 15:45 Calcium 9.3 mg/dL (8.4-10.2) 05/19/19 07:07 Medications & Allergies - Medications Allergies/Adverse Reactions: Allergies Sulfa (Sulfonamide Antibiotics) Allergy (Verified 10/13/13 15:11) Rash Home Medications: Home Medications Medication Instructions Recorded Confirmed Last Taken Type Amitriptyline [Elavil] 10 mg PO QHS 05/17/19 05/17/19 2 Days Ago History ~05/15/19 Elviteg/Cob/Emtri/Tenof Alafen 1 tab PO DAILY 05/17/19 05/17/19 1 Day Ago History [Genvoya Tablet] ~05/16/19 Famotidine [Pepcid] 20 mg PO BID 05/17/19 05/17/19 1 Day Ago History ~05/16/19 Insulin NPH Hum/Reg Insulin Hm 22 bottle SQ QAC 05/17/19 05/17/19 1 Day Ago History [Humulin 70-30 Vial] ~05/16/19 Lisinopril/Hydrochlorothiazide 1 tab PO QDAY 05/17/19 05/17/19 1 Day Ago History [Zestoretic 20-12.5 mg] ~05/16/19 Losartan Potassium 50 mg PO DAILY 05/17/19 05/17/19 1 Day Ago History ~05/16/19 Metoprolol [Lopressor] 25 mg PO BID 05/17/19 05/17/19 1 Day Ago History ~05/16/19 Rosuvastatin Calcium 40 mg PO QDAY 05/17/19 05/17/19 1 Day Ago History ~05/16/19 predniSONE [Deltasone] 5 mg PO QDAY 05/17/19 05/17/19 1 Day Ago History ~05/16/19 Active Medications: Generic Name Dose Route Start Last Admin Trade Name Freq PRN Reason Stop Dose Admin Acetaminophen 650 mg 05/19/19 15:02 05/19/19 15:16 Tylenol FEEDTUBE 650 mg Q4H PRN Administration Pain, Mild (1-3), FEVER >100.5 Albuterol 2.5 mg 05/17/19 00:45 05/17/19 19:55 Proventil IH 2.5 mg Q3HRT PRN Administration Shortness Of Breath Amitriptyline HCl 10 mg 05/18/19 22:00 05/19/19 00:54 Elavil PO 10 mg QHS [facility] Administration Amlodipine Besylate 10 mg 05/17/19 10:00 05/19/19 11:40 Amlodipine PO Not Given QDAY [facility] Aspirin 81 mg 05/18/19 10:00 05/19/19 11:41 Baby Aspirin PO Not Given QDAY [facility] Atorvastatin Calcium 80 mg 05/17/19 22:00 05/19/19 00:54 Lipitor PO 80 mg QHS [facility] Administration Dextrose 50 ml 05/17/19 00:45 D50w (25gm) Syringe IV Q30MIN PRN Hypoglycemia Protocol Furosemide 40 mg 05/18/19 12:00 05/19/19 11:41 Lasix PO Not Given QDAY [facility] Hydralazine HCl 10 mg 05/17/19 00:44 05/19/19 01:25 Apresoline IV 10 mg Q4HR PRN Administration Blood Pressure Insulin Glargine 20 units 05/17/19 01:00 05/19/19 11:28 Lantus SUB-Q Not Given BID [facility] Insulin Human Lispro 0 unit 05/17/19 06:00 05/19/19 12:00 Humalog SUB-Q Not Given Q6HR [facility] Protocol Metoprolol Tartrate 75 mg 05/19/19 22:00 Metoprolol PO BID [facility] Miscellaneous Medication 1 tab 05/17/19 10:00 Elviteg/Cob/Emtri/Tenof Alafen [Genvoya Tablet] PO DAILY [facility] Morphine Sulfate 2 mg 05/17/19 00:45 Morphine IV Q4H PRN Pain, Moderate (4-6) Nitroglycerin 0.4 mg 05/17/19 00:53 Nitrostat SL Q5M PRN Chest Pain Ondansetron HCl 4 mg 05/17/19 00:45 05/19/19 15:16 Zofran IV 4 mg Q8H PRN Administration Nausea And Vomiting Oxycodone/Acetaminophen 1 tab 05/17/19 02:06 05/19/19 01:36 Percocet 5/325 PO 1 tab Q8H PRN Administration Pain, Moderate (4-6) Pantoprazole Sodium 40 mg 05/17/19 23:00 05/19/19 11:39 Protonix PO Not Given BID SHAVONNE Sodium Chloride 10 ml 05/17/19 10:00 05/19/19 11:28 Sodium Chloride Flush Syringe 10 Ml IV 10 ml BID SHAVONNE Administration Sodium Chloride 10 ml 05/17/19 00:45 Sodium Chloride Flush Syringe 10 Ml IV PRN PRN LINE FLUSH
--- NOTE | 2019-05-19 21:34 | Progress Note ---
Assessment and Plan Patients luke reported patient has nausea and vomiting to day. also complained shortness of breath. Patient presently on room air. O2 saturation 93%. Recommend to place her on 2 litres O2. Patients heparin stopped. Patient sleeping at this time. No acute respiratory distress. - Patient Problems (1) Fibrosis, pulmonary, interstitial, diffuse Current Visit: Yes Status: Acute Plan to address problem: O2 supplementation. Albuterol aerosol treatments prn for shortness of breath. (2) Acute coronary syndrome Current Visit: Yes Status: Acute Plan to address problem: Management as per cardiology. (3) Acute renal failure Current Visit: Yes Status: Acute Qualifiers: Acute renal failure type: unspecified Qualified Code(s): N17.9 - Acute kidney failure, unspecified Plan to address problem: Management as per nephrology. (4) Sarcoidosis Current Visit: Yes Status: Acute Plan to address problem: TANIKA level results pending. (5) Type 2 diabetes mellitus with diabetic nephropathy Current Visit: Yes Status: Acute Plan to address problem: Management as per primary care. Subjective Date of service: 05/19/19 Principal diagnosis: chronic kidney disease, chest pain Interval history: Patients luke reported patient has nausea and vomiting to day. also complained shortness of breath. Patient presently on room air. O2 saturation 93%. Recommend to place her on 2 litres O2. Patients heparin stopped. Patient sleeping at this time. No acute respiratory distress. Objective Vital Signs - 12hr 05/19/19 05/19/19 05/19/19 12:00 12:39 17:17 Temperature 97.7 F 98.2 F Pulse Rate 83 92 H Pulse Rate [ 75 From Monitor] Respiratory 18 18 18 Rate Blood Pressure 154/84 155/82 O2 Sat by Pulse 100 97 100 Oximetry 05/19/19 19:11 Temperature 98.0 F Pulse Rate 108 H Pulse Rate [ From Monitor] Respiratory 18 Rate Blood Pressure 192/106 O2 Sat by Pulse 93 Oximetry Constitutional: no acute distress, asleep Eyes: non-icteric ENT: oropharynx moist Neck: supple, no lymphadenopathy Ascultation: Bilateral: diminished breath sounds Cardiovascular: regular rate and rhythm Gastrointestinal: normoactive bowel sounds, soft, non-tender Integumentary: normal Extremities: no cyanosis, no edema Neurologic: non-focal exam, pupils equal and round Psychiatric: other (Sleeping at this time.) CBC and BMP: 05/19/19 07:08 05/19/19 07:07 ABG, PT/INR, D-dimer: ABG ABG pH 7.377 pH Units (7.350-7.450) 05/17/19 15:45 ABG pCO2 41.2 mm Hg 05/17/19 15:45 ABG pO2 135.4 mm Hg (80.0-90.0) H 05/17/19 15:45 ABG O2 Saturation 98.6 % (95.0-99.0) 05/17/19 15:45 PT/INR, D-dimer PT 13.0 Sec. (12.2-14.9) 05/17/19 01:30 INR 0.99 (0.87-1.13) 05/17/19 01:30 D-Dimer 416.09 ng/mlDDU (0-234) H 05/16/19 20:32 Abnormal lab findings: Abnormal Labs 05/16/19 05/16/19 05/16/19 20:32 20:32 20:32 RBC 3.10 L Hgb 9.4 L Hct 28.3 L RDW 15.5 H Lymph % (Auto) Eos % (Auto) APTT D-Dimer 416.09 H Heparin Anti-Xa Level ABG pO2 ABG Hemoglobin Sodium 131 L Potassium 5.4 H Chloride 94.1 L Carbon Dioxide 20 L BUN 37 H Creatinine 3.3 H Glucose 510 H* POC Glucose Hemoglobin A1c CK-MB (CK-2) Rel Index Troponin T 0.081 H Triglycerides 542 H Cholesterol 490 H 05/16/19 05/17/19 05/17/19 23:25 00:40 01:30 RBC Hgb Hct RDW Lymph % (Auto) Eos % (Auto) APTT D-Dimer Heparin Anti-Xa Level ABG pO2 ABG Hemoglobin Sodium Potassium Chloride Carbon Dioxide BUN Creatinine Glucose POC Glucose 193 H Hemoglobin A1c CK-MB (CK-2) Rel Index Troponin T 0.087 H 0.085 H Triglycerides Cholesterol 05/17/19 05/17/19 05/17/19 01:30 01:30 02:43 RBC Hgb Hct RDW Lymph % (Auto) Eos % (Auto) APTT 41.2 H D-Dimer Heparin Anti-Xa Level ABG pO2 ABG Hemoglobin Sodium Potassium Chloride Carbon Dioxide BUN Creatinine Glucose POC Glucose 258 H Hemoglobin A1c 12.3 H CK-MB (CK-2) Rel Index Troponin T Triglycerides Cholesterol 05/17/19 05/17/19 05/17/19 07:08 09:13 12:55 RBC Hgb Hct RDW Lymph % (Auto) Eos % (Auto) APTT D-Dimer Heparin Anti-Xa Level ABG pO2 ABG Hemoglobin Sodium Potassium Chloride Carbon Dioxide BUN Creatinine Glucose POC Glucose 231 H 213 H Hemoglobin A1c CK-MB (CK-2) Rel Index Troponin T 0.083 H Triglycerides Cholesterol 05/17/19 05/17/19 05/17/19 15:45 17:34 21:01 RBC Hgb Hct RDW Lymph % (Auto) Eos % (Auto) APTT D-Dimer Heparin Anti-Xa Level ABG pO2 135.4 H ABG Hemoglobin 8.9 L Sodium Potassium Chloride Carbon Dioxide BUN Creatinine Glucose POC Glucose 230 H 221 H Hemoglobin A1c CK-MB (CK-2) Rel Index Troponin T Triglycerides Cholesterol 05/18/19 05/18/19 05/18/19 05:12 05:12 07:10 RBC 2.79 L Hgb 8.5 L Hct 25.6 L RDW 15.8 H Lymph % (Auto) 46.4 H Eos % (Auto) 4.9 H APTT D-Dimer Heparin Anti-Xa Level 0.86 H ABG pO2 ABG Hemoglobin Sodium 135 L Potassium Chloride Carbon Dioxide 18 L BUN 30 H Creatinine 2.9 H Glucose POC Glucose Hemoglobin A1c CK-MB (CK-2) Rel Index Troponin T Triglycerides Cholesterol 05/18/19 05/18/19 05/18/19 11:41 15:17 16:37 RBC Hgb Hct RDW Lymph % (Auto) Eos % (Auto) APTT D-Dimer Heparin Anti-Xa Level 0.77 H ABG pO2 ABG Hemoglobin Sodium Potassium Chloride Carbon Dioxide BUN Creatinine Glucose POC Glucose 155 H 110 H Hemoglobin A1c CK-MB (CK-2) Rel Index Troponin T Triglycerides Cholesterol 05/18/19 05/18/19 05/19/19 21:26 21:33 06:56 RBC Hgb Hct RDW Lymph % (Auto) Eos % (Auto) APTT D-Dimer Heparin Anti-Xa Level 0.11 L ABG pO2 ABG Hemoglobin Sodium Potassium Chloride Carbon Dioxide BUN Creatinine Glucose POC Glucose 133 H 123 H Hemoglobin A1c CK-MB (CK-2) Rel Index Troponin T Triglycerides Cholesterol 05/19/19 05/19/19 05/19/19 07:07 07:07 07:07 RBC Hgb Hct RDW Lymph % (Auto) Eos % (Auto) APTT D-Dimer Heparin Anti-Xa Level 0.25 L ABG pO2 ABG Hemoglobin Sodium 132 L Potassium Chloride Carbon Dioxide 18 L BUN 31 H Creatinine 3.1 H Glucose 133 H POC Glucose Hemoglobin A1c CK-MB (CK-2) Rel Index 6.2 H Troponin T 0.069 H Triglycerides Cholesterol 05/19/19 05/19/19 05/19/19 07:08 07:49 11:49 RBC 2.90 L Hgb 9.0 L Hct 26.5 L RDW 15.8 H Lymph % (Auto) 38.3 H Eos % (Auto) APTT D-Dimer Heparin Anti-Xa Level ABG pO2 ABG Hemoglobin Sodium Potassium Chloride Carbon Dioxide BUN Creatinine Glucose POC Glucose 124 H 116 H Hemoglobin A1c CK-MB (CK-2) Rel Index Troponin T Triglycerides Cholesterol 05/19/19 05/19/19 14:45 16:21 RBC Hgb Hct RDW Lymph % (Auto) Eos % (Auto) APTT D-Dimer Heparin Anti-Xa Level ABG pO2 ABG Hemoglobin Sodium Potassium Chloride Carbon Dioxide BUN Creatinine Glucose POC Glucose 124 H Hemoglobin A1c CK-MB (CK-2) Rel Index 6.4 H Troponin T 0.079 H Triglycerides Cholesterol
[2019-05-19] MEDS: METOPROLOL TARTRATE 25 MG TAB PO SCH ×2 (21:55→22:00)
--- NOTE | 2019-05-20 06:34 | Event Note ---
Date: 05/20/19 called to bedside to evaluate pt. Nurse was concerned because pt mentation and demeanor has changed. is present at bedise and confirms that his is not in her normal state. Pt seems very withdrawn and doesn't want to answer questions. Pt also confused unable to answer questions to determine orientation. Per nurse pt had crying spell lasting 20 minutes. She is very drowsy. CT head and mental health consult placed.
[2019-05-20] MEDS: INSULIN LISPRO 100 UNIT/ML SUB-Q SCH ×4 (06:41→18:17)
--- NOTE | 2019-05-20 10:39 | Progress Note ---
Assessment and Plan - Patient Problems (1) Chronic kidney disease, stage 4 (severe) Current Visit: Yes Status: Acute Plan to address problem: Chronic kidney disease presumably secondary to diabetic nephropathy/hypertensive nephrosclerosis with superimposed acute kidney injury. Kidney function is not significantly changed. Avoid any potential nephrotoxins. Follow up electrolytes and renal function. (2) Hyponatremia Current Visit: Yes Status: Acute Plan to address problem: Hyponatremia probably secondary to thiazide diuretic. Resolved. Avoid thiazide diuretic. Will start patient on a loop diuretic with the development of edema (3) Hyperkalemia Current Visit: Yes Status: Acute Plan to address problem: Hyperkalemia resolved. (4) Hypertensive chronic kidney disease with stage 1 through stage 4 chronic kidney disease, or unspecified chronic kidney disease Current Visit: Yes Status: Acute Plan to address problem: Follow blood pressure on current medications (5) Type 2 diabetes mellitus with diabetic nephropathy Current Visit: Yes Status: Acute Plan to address problem: Diabetes management as per primary attending (6) Sarcoidosis Current Visit: Yes Status: Acute Plan to address problem: Continue management by assisted sales representative Subjective Date of service: 05/20/19 Principal diagnosis: chronic kidney disease, chest pain Interval history: Pt awake, somnolent, confused. in no acute respiratory distress Objective - Vital Signs Vital signs: Vital Signs - 12hr 05/19/19 05/20/19 05/20/19 23:08 00:00 04:00 Temperature 98.0 F Pulse Rate 81 98 H Pulse Rate [ 89 From Monitor] Respiratory 18 18 Rate Blood Pressure 168/95 O2 Sat by Pulse 97 98 Oximetry 05/20/19 04:11 Temperature 98.2 F Pulse Rate Pulse Rate [ From Monitor] Respiratory 18 Rate Blood Pressure 165/55 O2 Sat by Pulse Oximetry - General Appearance General appearance: well-developed, appears stated age, obese EENT: ATNC, PERRL, mucous membranes moist Neck: no JVD Respiratory: Present: Decreased Breath Sounds Cardiology: regular, S1S2 Gastrointestinal: normoactive bowel sounds, obese Integumentary: no rash, other (+ edema ) Neurologic: confused, disoriented - Lab 05/19/19 07:08 05/19/19 07:07 Most recent lab results ABG pH 7.377 pH Units (7.350-7.450) 05/17/19 15:45 ABG pCO2 41.2 mm Hg 05/17/19 15:45 ABG pO2 135.4 mm Hg (80.0-90.0) H 05/17/19 15:45 ABG HCO3 23.7 mmol/L (20.0-26.0) 05/17/19 15:45 ABG O2 Saturation 98.6 % (95.0-99.0) 05/17/19 15:45 Calcium 9.3 mg/dL (8.4-10.2) 05/19/19 07:07 Medications & Allergies - Medications Allergies/Adverse Reactions: Allergies Sulfa (Sulfonamide Antibiotics) Allergy (Verified 10/13/13 15:11) Rash Home Medications: Home Medications Medication Instructions Recorded Confirmed Last Taken Type Amitriptyline [Elavil] 10 mg PO QHS 05/17/19 05/17/19 2 Days Ago History ~05/15/19 Elviteg/Cob/Emtri/Tenof Alafen 1 tab PO DAILY 05/17/19 05/17/19 1 Day Ago History [Genvoya Tablet] ~05/16/19 Famotidine [Pepcid] 20 mg PO BID 05/17/19 05/17/19 1 Day Ago History ~05/16/19 Insulin NPH Hum/Reg Insulin Hm 22 bottle SQ QAC 05/17/19 05/17/19 1 Day Ago History [Humulin 70-30 Vial] ~05/16/19 Lisinopril/Hydrochlorothiazide 1 tab PO QDAY 05/17/19 05/17/19 1 Day Ago History [Zestoretic 20-12.5 mg] ~05/16/19 Losartan Potassium 50 mg PO DAILY 05/17/19 05/17/19 1 Day Ago History ~05/16/19 Metoprolol [Lopressor] 25 mg PO BID 05/17/19 05/17/19 1 Day Ago History ~05/16/19 Rosuvastatin Calcium 40 mg PO QDAY 05/17/19 05/17/19 1 Day Ago History ~05/16/19 predniSONE [Deltasone] 5 mg PO QDAY 05/17/19 05/17/19 1 Day Ago History ~05/16/19 Active Medications: Generic Name Dose Route Start Last Admin Trade Name Freq PRN Reason Stop Dose Admin Acetaminophen 650 mg 05/19/19 15:02 05/19/19 15:16 Tylenol FEEDTUBE 650 mg Q4H PRN Administration Pain, Mild (1-3), FEVER >100.5 Albuterol 2.5 mg 05/17/19 00:45 05/17/19 19:55 Proventil IH 2.5 mg Q3HRT PRN Administration Shortness Of Breath Amitriptyline HCl 10 mg 05/18/19 22:00 05/19/19 22:00 Elavil PO Not Given QHS [facility] Amlodipine Besylate 10 mg 05/17/19 10:00 05/19/19 11:40 Amlodipine PO Not Given QDAY [facility] Aspirin 81 mg 05/18/19 10:00 05/19/19 11:41 Baby Aspirin PO Not Given QDAY [facility] Atorvastatin Calcium 80 mg 05/17/19 22:00 05/19/19 22:00 Lipitor PO Not Given QHS [facility] Dextrose 50 ml 05/17/19 00:45 D50w (25gm) Syringe IV Q30MIN PRN Hypoglycemia Protocol Furosemide 40 mg 05/18/19 12:00 05/19/19 11:41 Lasix PO Not Given QDAY [facility] Hydralazine HCl 10 mg 05/17/19 00:44 05/19/19 01:25 Apresoline IV 10 mg Q4HR PRN Administration Blood Pressure Insulin Glargine 20 units 05/17/19 01:00 05/19/19 22:00 Lantus SUB-Q Not Given BID [facility] Insulin Human Lispro 0 unit 05/17/19 06:00 05/20/19 06:41 Humalog SUB-Q Not Given Q6HR [facility] Protocol Metoprolol Tartrate 75 mg 05/19/19 22:00 05/19/19 22:00 Metoprolol PO Not Given BID [facility] Miscellaneous Medication 1 tab 05/17/19 10:00 Elviteg/Cob/Emtri/Tenof Alafen [Genvoya Tablet] PO DAILY [facility] Morphine Sulfate 2 mg 05/17/19 00:45 Morphine IV Q4H PRN Pain, Moderate (4-6) Nitroglycerin 0.4 mg 05/17/19 00:53 Nitrostat SL Q5M PRN Chest Pain Ondansetron HCl 4 mg 05/17/19 00:45 05/19/19 15:16 Zofran IV 4 mg Q8H PRN Administration Nausea And Vomiting Oxycodone/Acetaminophen 1 tab 05/17/19 02:06 05/19/19 01:36 Percocet 5/325 PO 1 tab Q8H PRN Administration Pain, Moderate (4-6) Pantoprazole Sodium 40 mg 05/17/19 23:00 05/19/19 22:00 Protonix PO Not Given BID SHAVONNE Sodium Chloride 10 ml 05/17/19 10:00 05/19/19 21:55 Sodium Chloride Flush Syringe 10 Ml IV 10 ml BID SHAVONNE Administration Sodium Chloride 10 ml 05/17/19 00:45 Sodium Chloride Flush Syringe 10 Ml IV PRN PRN LINE FLUSH
--- NOTE | 2019-05-20 10:50 | Progress Note ---
<DAVIDERROLCLAIRE - Last Filed: 05/20/19 10:46> Assessment and Plan Chest pain VQ scan indeterminate for PE HIV disease Chronic kidney disease with a baseline of 1.6-1.9 Diabetes Hypertension Hyperlipidemia Hx of coronary artery disease Chronic elevated troponin in the setting of renal failure Noncompliance Normal MPI 07/2018 at [facility] Normal LV function by echo this presentation Recommendations: Neurology consultation and workup for altered mental status. Continue medical therapy for coronary artery disease. Otherwise, conservative cardiac management. Subjective Date of service: 05/20/19 Principal diagnosis: chronic kidney disease, chest pain Interval history: Patient is alert with confusion. Morning labs are pending. Family member is at the bedside. Objective Vital Signs Temp Pulse Pulse Resp BP Pulse Ox 05/20/19 04:11 98.2 F 18 165/55 05/20/19 04:00 98 H 05/20/19 00:00 89 18 98 05/19/19 23:08 98.0 F 81 18 168/95 97 05/19/19 20:00 89 05/19/19 19:11 98.0 F 108 H 18 192/106 93 05/19/19 17:17 98.2 F 92 H 18 155/82 100 05/19/19 12:39 97.7 F 83 18 154/84 97 05/19/19 12:00 75 18 100 - Physical Examination General: No Apparent Distress HEENT: Positive: PERRL Neck: Positive: trachea midline Cardiac: Positive: Reg Rate and Rhythm Lungs: Positive: Decreased Breath Sounds Neuro: Positive: Grossly Intact Extremities: Present: +1 Edema - Labs and Meds Cardiac Enzymes 05/19/19 Range/Units 14:45 CK-MB (CK-2) 3.3 (0.0-4.0) ng/mL <GERONIMO MOTTA - Last Filed: 05/20/19 13:16> Assessment and Plan As seen and evaluated the patient and agree with the assessment and plan. Patient presented with chest pain with a VQ scan intermediate for pulmonary embolism. The patient is currently on heparin. The patient also has a history of HIV, chronic kidney disease, diabetes mellitus, hypertension, hyperlipidemia, and coronary artery disease. Patient's last stress test in July 2018 was normal. Patient's last echo showed normal LV function. Over the last 24 hours the patient has had new onset altered mental status. From cardiovascular perspective, The patient is stable hemodynamically. We'll continue patient's current medical therapy. Labs for this patient are pending. Neurology has been consult for further evaluation. Objective Vital Signs Temp Pulse Pulse Resp BP Pulse Ox 05/20/19 12:30 105 H 168/86 05/20/19 12:28 105 H 168/86 05/20/19 08:57 98.3 F 105 H 18 168/86 100 05/20/19 04:11 98.2 F 18 165/55 05/20/19 04:00 98 H 05/20/19 00:00 89 18 98 05/19/19 23:08 98.0 F 81 18 168/95 97 05/19/19 20:00 89 05/19/19 19:11 98.0 F 108 H 18 192/106 93 05/19/19 17:17 98.2 F 92 H 18 155/82 100 - Labs and Meds Cardiac Enzymes 05/19/19 Range/Units 14:45 CK-MB (CK-2) 3.3 (0.0-4.0) ng/mL
[2019-05-20] MEDS: amLODIPine 10 MG TAB PO SCH ×2 (11:18→12:30)
[2019-05-20] MEDS: METOPROLOL TARTRATE 25 MG TAB PO SCH ×3 (11:19→22:40)
[2019-05-20] MEDS: PANTOPRAZOLE 40 MG TAB PO SCH (11:19)
[2019-05-20] MEDS: ASPIRIN 81 MG TAB CHEW PO SCH ×2 (11:19→12:31)
[2019-05-20] MEDS: INSULIN GLARGINE 100 UNITS/ML SUB-Q SCH ×3 (11:28→21:00)
[2019-05-20] MEDS: FUROSEMIDE 40 MG TAB PO SCH ×2 (11:29→13:16)
--- NOTE | 2019-05-20 12:31 | Cat Scan Report ---
CT head/brain wo con INDICATION: change in mentation. TECHNIQUE: Routine CT head without contrast. All CT scans at this location are performed using CT dos e reduction for ALARA by means of automated exposure control. COMPARISON: None. FINDINGS: BRAIN / INTRACRANIAL CONTENTS: No acute hemorrhage, mass effect, midline shift, or hydrocephalus. No appreciable acute large territorial or lacunar infarct. There is a small chronic appearing lacunar in farct in the region of the left globus pallidus. ORBITS: No significant abnormality of visualized orbits. SINUSES / MASTOIDS: No significant abnormality of visualized sinuses and mastoid air cells. ADDITIONAL FINDINGS: None. IMPRESSION: 1. No acute hemorrhage or other definite acute finding. 2. Small chronic appearing lacunar infarct in the left globus pallidus. Signer Name: Pillo Mukherjee MD Signed: 05/20/2019 12:27 PM Workstation Name: [id number]
--- NOTE | 2019-05-20 14:51 | Progress Note ---
Assessment and Plan /Change in mental status - suspect from narcotics and possible underlying depression - stop all narcotics, consulted mental health /ELEN on possible CKD stage 4 -Cr on admission 3.3 -??CKD with GFR 17 -Renal ultrasound unremarkable -Continue to Hydrate with IVF -Avoid nephrotoxic agents -Renal dose all meds -Nephrology consulted - Cr was 1.7 about a year ago /Dizziness and lightheadedness - no acute findings on CT head - Ordered PT eval /Elevated D-Dimer with possible PE -VQ scan shows intermediate probability for PE -Bilateral lower extremity Doppler showed no acute DVT, no hypoxemia on ABG -Pulmonology consulted -recommended to to start heparin drip as no sign of hypoxemia and negative DVT /NSTEMI type II Acute Chest Pain -History of NM (2010), status post stent 4 -Follows at [facility] as outpatient -Initiated chest pain protocol -Continuous telemetry monitoring -Troponin elevated was elevated on admission -EKG unrevealing for acute ischemic abnormalities -s/p heparin drip -Cardiology consulted and recommended medical management /Hypertensive urgency -BP on admission 198/142 -Hx Hypertension -Continue to monitor BP -Hold TANIKA and ARB d/t renal function -IV antihypertensive when necessary /Insulin-dependent DM -Uncontrolled -BG on admission 510 -Scheduled Lantus and SSI coverage prn -HgbA1C 12.3 /Hyperlipidemia -Uncontrolled -Total cholesterol on admission 490 -Start atorvastatin 80 mg daily at bedtime /Hyponatremia -Na on admission 131 -Slowly correct Na with IVF -Continue to monitor replete prn /Hyperkalemia -on admission 5.4 -Receiving IVF -Continue to monitor electrolytes /HIV positive -Continue home antiretroviral DVT PPX -On Heparin Disposition: Pending PT eval and when clears by nephrology Brief history: 58-year-old -[place] female with history of HIV, hypertension, diabetes, HLT, sarcoidosis, CAD, NM (2010) s/p stent x4 who presents to [facility] ED with complaints of left sided non-radiating chest pain, SOB, and diaphoresis. At the time of my examination pt is sitting up in stretcher with no s/s of distress. Will admit to Telemetry. Physical exam: GENERAL: well-developed obese -[place] female lying on bed appeared to be in no discomfort. HEENT: Normocephalic. Atraumatic. No conjunctival congestion or icterus. Patient has moist mucous membranes. NECK: Supple. Trachea midline. CHEST/LUNGS: Clear to auscultated bilaterally, breathing nonlabored. No wheezes crackles or rhonchi. HEART/CARDIOVASCULAR: Regular in rate and rhythm. S1 and S2 positive. ABDOMEN: Abdomen is soft, nontender. Patient has normal bowel sounds. SKIN: There is no rash. Warm and dry. NEURO: No focal motor deficit. Follows command. MUSCULOSKELETAL: No joint effusion or tenderness. EXTRIMITY: No edema, no cyanosis or clubbing. PSYCH: Cooperative but tearfull. Subjective Date of service: 05/20/19 Principal diagnosis: chronic kidney disease, chest pain Interval history: Patient seen and examined. Medical records and medication list reviewed. Patient was little less responsive last night, refused meds this am Now appears alert and awake, but tearful, Denies any chest pain or short of breath Discussed plan of care at bedside with patient and her . Objective - Constitutional Vitals: Vital Signs - 12hr 05/20/19 05/20/19 05/20/19 04:00 04:11 08:57 Temperature 98.2 F 98.3 F Pulse Rate 98 H 105 H Pulse Rate [ From Monitor] Respiratory 18 18 Rate Blood Pressure 165/55 168/86 O2 Sat by Pulse 100 Oximetry 05/20/19 05/20/19 05/20/19 12:00 12:28 12:30 Temperature Pulse Rate 98 H 105 H 105 H Pulse Rate [ 98 H From Monitor] Respiratory 20 Rate Blood Pressure 168/86 168/86 O2 Sat by Pulse 100 Oximetry - Labs CBC & Chem 7: 05/19/19 07:08 05/20/19 13:25 Labs: Abnormal lab results 05/19/19 05/19/19 05/19/19 Range/Units 14:45 16:21 21:02 Heparin Anti-Xa Level < 0.10 L (0.3-0.7) U.I./ml POC Glucose 124 H (70-105) CK-MB (CK-2) Rel Index 6.4 H (0-4) Troponin T 0.079 H (0.00-0.029) ng/mL
--- NOTE | 2019-05-20 14:54 | Progress Note ---
Assessment and Plan patient is alert and awake. Patients reports patient is comfortable today. Patient presently on 2 Litres of O2. O2 saturation 100%. Patients heparin stopped. No acute respiratory distress. - Patient Problems (1) Fibrosis, pulmonary, interstitial, diffuse Current Visit: Yes Status: Acute Plan to address problem: O2 supplementation. Albuterol aerosol treatments prn for shortness of breath. TANIKA level is pending. (2) Acute coronary syndrome Current Visit: Yes Status: Acute Plan to address problem: Management as per cardiology. (3) Acute renal failure Current Visit: Yes Status: Acute Qualifiers: Acute renal failure type: unspecified Qualified Code(s): N17.9 - Acute kidney failure, unspecified Plan to address problem: Management as per nephrology. (4) Sarcoidosis Current Visit: Yes Status: Acute Plan to address problem: TANIKA level results pending. (5) Type 2 diabetes mellitus with diabetic nephropathy Current Visit: Yes Status: Acute Plan to address problem: Management as per primary care. Subjective Date of service: 05/20/19 Principal diagnosis: chronic kidney disease, chest pain Interval history: patient is alert and awake. Patients reports patient is comfortable to day. Patient presently on 2 Litres of O2. O2 saturation 100%. Patients heparin stopped. No acute respiratory distress. Objective Vital Signs - 12hr 05/20/19 05/20/19 05/20/19 04:00 04:11 08:57 Temperature 98.2 F 98.3 F Pulse Rate 98 H 105 H Pulse Rate [ From Monitor] Respiratory 18 18 Rate Blood Pressure 165/55 168/86 O2 Sat by Pulse 100 Oximetry 05/20/19 05/20/19 05/20/19 12:00 12:28 12:30 Temperature Pulse Rate 98 H 105 H 105 H Pulse Rate [ 98 H From Monitor] Respiratory 20 Rate Blood Pressure 168/86 168/86 O2 Sat by Pulse 100 Oximetry Constitutional: no acute distress, alert Eyes: non-icteric ENT: oropharynx moist Neck: supple, no lymphadenopathy Ascultation: Bilateral: diminished breath sounds, rales Cardiovascular: regular rate and rhythm Gastrointestinal: normoactive bowel sounds, soft, non-tender Integumentary: normal Extremities: no cyanosis, no edema Neurologic: non-focal exam, pupils equal and round Psychiatric: other (Sleeping at this time.) CBC and BMP: 05/19/19 07:08 05/19/19 07:07 ABG, PT/INR, D-dimer: ABG ABG pH 7.377 pH Units (7.350-7.450) 05/17/19 15:45 ABG pCO2 41.2 mm Hg 05/17/19 15:45 ABG pO2 135.4 mm Hg (80.0-90.0) H 05/17/19 15:45 ABG O2 Saturation 98.6 % (95.0-99.0) 05/17/19 15:45 PT/INR, D-dimer PT 13.0 Sec. (12.2-14.9) 05/17/19 01:30 INR 0.99 (0.87-1.13) 05/17/19 01:30 D-Dimer 416.09 ng/mlDDU (0-234) H 05/16/19 20:32 Abnormal lab findings: Abnormal Labs 05/16/19 05/16/19 05/16/19 20:32 20:32 20:32 RBC 3.10 L Hgb 9.4 L Hct 28.3 L RDW 15.5 H Lymph % (Auto) Eos % (Auto) APTT D-Dimer 416.09 H Heparin Anti-Xa Level ABG pO2 ABG Hemoglobin Sodium 131 L Potassium 5.4 H Chloride 94.1 L Carbon Dioxide 20 L BUN 37 H Creatinine 3.3 H Glucose 510 H* POC Glucose Hemoglobin A1c CK-MB (CK-2) Rel Index Troponin T 0.081 H Triglycerides 542 H Cholesterol 490 H 05/16/19 05/17/19 05/17/19 23:25 00:40 01:30 RBC Hgb Hct RDW Lymph % (Auto) Eos % (Auto) APTT D-Dimer Heparin Anti-Xa Level ABG pO2 ABG Hemoglobin Sodium Potassium Chloride Carbon Dioxide BUN Creatinine Glucose POC Glucose 193 H Hemoglobin A1c CK-MB (CK-2) Rel Index Troponin T 0.087 H 0.085 H Triglycerides Cholesterol 05/17/19 05/17/19 05/17/19 01:30 01:30 02:43 RBC Hgb Hct RDW Lymph % (Auto) Eos % (Auto) APTT 41.2 H D-Dimer Heparin Anti-Xa Level ABG pO2 ABG Hemoglobin Sodium Potassium Chloride Carbon Dioxide BUN Creatinine Glucose POC Glucose 258 H Hemoglobin A1c 12.3 H CK-MB (CK-2) Rel Index Troponin T Triglycerides Cholesterol 05/17/19 05/17/19 05/17/19 07:08 09:13 12:55 RBC Hgb Hct RDW Lymph % (Auto) Eos % (Auto) APTT D-Dimer Heparin Anti-Xa Level ABG pO2 ABG Hemoglobin Sodium Potassium Chloride Carbon Dioxide BUN Creatinine Glucose POC Glucose 231 H 213 H Hemoglobin A1c CK-MB (CK-2) Rel Index Troponin T 0.083 H Triglycerides Cholesterol 05/17/19 05/17/19 05/17/19 15:45 17:34 21:01 RBC Hgb Hct RDW Lymph % (Auto) Eos % (Auto) APTT D-Dimer Heparin Anti-Xa Level ABG pO2 135.4 H ABG Hemoglobin 8.9 L Sodium Potassium Chloride Carbon Dioxide BUN Creatinine Glucose POC Glucose 230 H 221 H Hemoglobin A1c CK-MB (CK-2) Rel Index Troponin T Triglycerides Cholesterol 05/18/19 05/18/19 05/18/19 05:12 05:12 07:10 RBC 2.79 L Hgb 8.5 L Hct 25.6 L RDW 15.8 H Lymph % (Auto) 46.4 H Eos % (Auto) 4.9 H APTT D-Dimer Heparin Anti-Xa Level 0.86 H ABG pO2 ABG Hemoglobin Sodium 135 L Potassium Chloride Carbon Dioxide 18 L BUN 30 H Creatinine 2.9 H Glucose POC Glucose Hemoglobin A1c CK-MB (CK-2) Rel Index Troponin T Triglycerides Cholesterol 05/18/19 05/18/19 05/18/19 11:41 15:17 16:37 RBC Hgb Hct RDW Lymph % (Auto) Eos % (Auto) APTT D-Dimer Heparin Anti-Xa Level 0.77 H ABG pO2 ABG Hemoglobin Sodium Potassium Chloride Carbon Dioxide BUN Creatinine Glucose POC Glucose 155 H 110 H Hemoglobin A1c CK-MB (CK-2) Rel Index Troponin T Triglycerides Cholesterol 05/18/19 05/18/19 05/19/19 21:26 21:33 06:56 RBC Hgb Hct RDW Lymph % (Auto) Eos % (Auto) APTT D-Dimer Heparin Anti-Xa Level 0.11 L ABG pO2 ABG Hemoglobin Sodium Potassium Chloride Carbon Dioxide BUN Creatinine Glucose POC Glucose 133 H 123 H Hemoglobin A1c CK-MB (CK-2) Rel Index Troponin T Triglycerides Cholesterol 05/19/19 05/19/19 05/19/19 07:07 07:07 07:07 RBC Hgb Hct RDW Lymph % (Auto) Eos % (Auto) APTT D-Dimer Heparin Anti-Xa Level 0.25 L ABG pO2 ABG Hemoglobin Sodium 132 L Potassium Chloride Carbon Dioxide 18 L BUN 31 H Creatinine 3.1 H Glucose 133 H POC Glucose Hemoglobin A1c CK-MB (CK-2) Rel Index 6.2 H Troponin T 0.069 H Triglycerides Cholesterol 05/19/19 05/19/19 05/19/19 07:08 07:49 11:49 RBC 2.90 L Hgb 9.0 L Hct 26.5 L RDW 15.8 H Lymph % (Auto) 38.3 H Eos % (Auto) APTT D-Dimer Heparin Anti-Xa Level ABG pO2 ABG Hemoglobin Sodium Potassium Chloride Carbon Dioxide BUN Creatinine Glucose POC Glucose 124 H 116 H Hemoglobin A1c CK-MB (CK-2) Rel Index Troponin T Triglycerides Cholesterol 05/19/19 05/19/19 05/19/19 14:45 16:21 21:02 RBC Hgb Hct RDW Lymph % (Auto) Eos % (Auto) APTT D-Dimer Heparin Anti-Xa Level < 0.10 L ABG pO2 ABG Hemoglobin Sodium Potassium Chloride Carbon Dioxide BUN Creatinine Glucose POC Glucose 124 H Hemoglobin A1c CK-MB (CK-2) Rel Index 6.4 H Troponin T 0.079 H Triglycerides Cholesterol
[2019-05-20 15:07] LABS: Calcium 9.9 mg/dL (8.4-10.2)
[2019-05-20] MEDS ORDERED: [UNRECOGNIZED DRUG - OTHER] PO SCH (18:00)
--- NOTE | 2019-05-20 18:02 | Consultation ---
History of Present Illness - Reason for Consult Consult date: 05/20/19 Reason for consult: Mental Health Evaluation Requesting physician: ANTONIO LU - Chief Complaint Chief complaint: "I'm well" - History of Present Psychiatric Illness 58 y.o. AA female who presented to the ER for chest pain. Psychiatry was consulted to see the patient because her mental status changed within hours. Today the patient was calm, but somewhat confused during the assessment. She was able to answer minimal questions about her mental health/current medical conditions. Per collateral information from the patient's Mr Cantrell who was at the bedside, he stated that his suffered from "some anxiety" in the past. He stated that his behavior changed yesterday "out of nowhere." He stated that her actions yesterday wasn't his baseline. He stated that she wouldn't talk nor take her medication. He stated that she "maybe getting better" because she is now trying to answer questions and talking more. He denies that his have sleep issues when asked. He denies any substance abuse by his wi fe. The patient denies SI/HI's. Medications and Allergies Allergies Allergy/AdvReac Type Severity Reaction Status Date / Time Sulfa (Sulfonamide Allergy Rash Verified 10/13/13 15:11 Antibiotics) Home Medications Medication Instructions Recorded Confirmed Last Taken Type Amitriptyline [Elavil] 10 mg PO QHS 05/17/19 05/17/19 2 Days Ago History ~05/15/19 Elviteg/Cob/Emtri/Tenof Alafen 1 tab PO DAILY 05/17/19 05/17/19 1 Day Ago History [Genvoya Tablet] ~05/16/19 Famotidine [Pepcid] 20 mg PO BID 05/17/19 05/17/19 1 Day Ago History ~05/16/19 Insulin NPH Hum/Reg Insulin Hm 22 bottle SQ QAC 05/17/19 05/17/19 1 Day Ago History [Humulin 70-30 Vial] ~05/16/19 Lisinopril/Hydrochlorothiazide 1 tab PO QDAY 05/17/19 05/17/19 1 Day Ago History [Zestoretic 20-12.5 mg] ~05/16/19 Losartan Potassium 50 mg PO DAILY 05/17/19 05/17/19 1 Day Ago History ~05/16/19 Metoprolol [Lopressor] 25 mg PO BID 05/17/19 05/17/19 1 Day Ago History ~05/16/19 Rosuvastatin Calcium 40 mg PO QDAY 05/17/19 05/17/19 1 Day Ago History ~05/16/19 predniSONE [Deltasone] 5 mg PO QDAY 05/17/19 05/17/19 1 Day Ago History ~05/16/19 Active Meds: Active Medications Acetaminophen (Tylenol) 650 mg FEEDTUBE Q4H PRN PRN Reason: Pain, Mild (1-3), FEVER >100.5 Last Admin: 05/19/19 15:16 Dose: 650 mg Documented by: Albuterol (Proventil) 2.5 mg IH Q3HRT PRN PRN Reason: Shortness Of Breath Last Admin: 05/17/19 19:55 Dose: 2.5 mg Documented by: Amitriptyline HCl (Elavil) 10 mg PO QHS [facility] Last Admin: 05/19/19 22:00 Dose: Not Given Documented by: Amlodipine Besylate (Amlodipine) 10 mg PO QDAY [facility] Last Admin: 05/20/19 12:30 Dose: 10 mg Documented by: Aspirin (Baby Aspirin) 81 mg PO QDAY [facility] Last Admin: 05/20/19 12:31 Dose: 81 mg Documented by: Atorvastatin Calcium (Lipitor) 80 mg PO QHS [facility] Last Admin: 05/19/19 22:00 Dose: Not Given Documented by: Dextrose (D50w (25gm) Syringe) 50 ml IV Q30MIN PRN; Protocol PRN Reason: Hypoglycemia Furosemide (Lasix) 40 mg PO QDAY [facility] Last Admin: 05/20/19 13:16 Dose: 40 mg Documented by: Hydralazine HCl (Apresoline) 10 mg IV Q4HR PRN PRN Reason: Blood Pressure Last Admin: 05/19/19 01:25 Dose: 10 mg Documented by: Insulin Glargine (Lantus) 20 units SUB-Q BID [facility] Last Admin: 05/20/19 13:20 Dose: 20 units Documented by: Insulin Human Lispro (Humalog) 0 unit SUB-Q Q6HR [facility]; Protocol Last Admin: 05/20/19 12:27 Dose: Not Given Documented by: Metoprolol Tartrate (Metoprolol) 75 mg PO BID [facility] Last Admin: 05/20/19 12:28 Dose: 75 mg Documented by: Miscellaneous Medication (Elviteg/Cob/Emtri/Tenof Alafen [Genvoya Tablet]) 1 tab PO DAILY [facility] Nitroglycerin (Nitrostat) 0.4 mg SL Q5M PRN PRN Reason: Chest Pain Ondansetron HCl (Zofran) 4 mg IV Q8H PRN PRN Reason: Nausea And Vomiting Last Admin: 05/19/19 15:16 Dose: 4 mg Documented by: Pantoprazole Sodium (Protonix) 40 mg PO QDAY [facility] Sodium Chloride (Sodium Chloride Flush Syringe 10 Ml) 10 ml IV BID [facility] Last Admin: 05/20/19 13:19 Dose: 10 ml Documented by: Sodium Chloride (Sodium Chloride Flush Syringe 10 Ml) 10 ml IV PRN PRN PRN Reason: LINE FLUSH Past psychiatric history - Past Medical History Past Medical History: acute [place], HIV/AIDS, other (Neuropathy) Past Surgical History: Other (Cardiac Stents) - past Psychiatric treatment and history psychiatric treatment history: Denies a psy hx and a fam psy hx. - Social History Social history: Mental Status Exam - Vital signs Last Vital Signs Temp 98.3 F 05/20/19 08:57 Pulse 105 H 05/20/19 12:30 Resp 20 05/20/19 12:00 BP 168/86 05/20/19 12:30 Pulse Ox 100 05/20/19 12:00 - Exam Narrative exam: Appearance: calm, cooperative Behavior: regular eye contact Speech: regular rate and tone Mood: "okay" Affect: congruent to mood Thought Process: somewhat confused Thought Content: denies SI/HI's and AVH's Motor Activity: lying in bed Cognition: A/O x3 Insight: limited Judgment: unable to assess Results Result Diagrams: 05/21/19 09:06 05/21/19 09:06 Abnormal lab results 05/19/19 05/20/19 Range/Units 21:02 13:25 Heparin Anti-Xa Level < 0.10 L (0.3-0.7) U.I./ml Sodium 136 L (137-145) mmol/L Carbon Dioxide 16 L (22-30) mmol/L BUN 32 H (7-17) mg/dL Creatinine 3.6 H (0.7-1.2) mg/dL All other labs normal. Assessment and Plan Assessment and plan: Impression: Delirium. Today the patient was calm, but confused during the assessment. Cr 3.6, trending upward. Elevated Troponin levels. Recommendation/Plan: Follow up with the patient in 24 hours. Recommend Neuro Consult. Recommend Delirium precautions below: 1. Frequently reorient patient and involve him/her in their care (simple explanations of procedures, tests, medications). 2. Lights on and shades open during daytime hours. 3. Write date and goals of care in a visible place. 4. Try to avoid unnecessary interruptions to sleep during nighttime hours. 5. Obtain glasses, hearing aids from home if patient uses these at baseline. 6. Avoid medications that may exacerbate delirium (especially narcotics, benzodiazepines, barbiturates, ambien, lunesta, and medications with excessive anticholinergic property). Staffed with Dr Rose Mary Mcgee.
[2019-05-20] MEDS: [UNRECOGNIZED DRUG - OTHER] PO SCH (21:35)
[2019-05-21] MEDS: INSULIN LISPRO 100 UNIT/ML SUB-Q SCH ×5 (06:45→23:16)
[2019-05-21 09:44] LABS: Hemoglobin 9.1 gm/dl (10.1-14.3)
[2019-05-21 10:06] LABS: Calcium 9.8 mg/dL (8.4-10.2)
--- NOTE | 2019-05-21 10:22 | Progress Note ---
Assessment and Plan Chest pain VQ scan indeterminate for PE HIV disease Chronic kidney disease with a baseline of 1.6-1.9 Diabetes Hypertension Hyperlipidemia Hx of coronary artery disease Chronic elevated troponin in the setting of renal failure Noncompliance Normal MPI 07/2018 at [facility] Normal LV function by echo this presentation Recommendations: Continue medical therapy for coronary artery disease. Otherwise, conservative cardiac management. Subjective Date of service: 05/21/19 Principal diagnosis: chronic kidney disease, chest pain Interval history: Patient is resting in bed comfortably. No cardiac complaints reported overnight. Family member is at the bedside. Objective Vital Signs Temp Pulse Pulse Resp BP Pulse Ox 05/21/19 04:00 77 05/21/19 03:33 98.9 F 74 18 138/62 95 05/21/19 00:00 74 20 100 05/20/19 22:57 97.6 F 87 18 146/87 97 05/20/19 22:40 87 146/96 05/20/19 20:03 97.9 F 87 18 146/96 100 05/20/19 20:00 74 05/20/19 16:35 98.2 F 85 18 139/58 97 05/20/19 12:30 105 H 168/86 05/20/19 12:28 105 H 168/86 05/20/19 12:00 98 H 98 H 20 100 - Physical Examination General: No Apparent Distress HEENT: Positive: PERRL Neck: Positive: trachea midline Cardiac: Positive: Reg Rate and Rhythm Lungs: Positive: Decreased Breath Sounds Neuro: Positive: Grossly Intact Extremities: Present: +1 Edema - Labs and Meds CBC 05/21/19 Range/Units 09:06 Hgb 9.1 L (10.1-14.3) gm/dl Hct 28.0 L (30.3-42.9) % Plt Count 221 (140-440) K/mm3 Comprehensive Metabolic Panel 05/20/19 05/21/19 Range/Units 13:25 09:06 Sodium 136 L 138 (137-145) mmol/L Potassium 4.9 4.4 (3.6-5.0) mmol/L Chloride 99.4 100.6 (98-107) mmol/L Carbon Dioxide 16 L 18 L (22-30) mmol/L BUN 32 H 31 H (7-17) mg/dL Creatinine 3.6 H 3.8 H (0.7-1.2) mg/dL Glucose 97 87 (65-100) mg/dL Calcium 9.9 9.8 (8.4-10.2) mg/dL
[2019-05-21] MEDS: ASPIRIN 81 MG TAB CHEW PO SCH (10:41)
[2019-05-21] MEDS: METOPROLOL TARTRATE 25 MG TAB PO SCH ×2 (10:41→21:29)
[2019-05-21] MEDS: FUROSEMIDE 40 MG TAB PO SCH (10:42)
[2019-05-21] MEDS: amLODIPine 10 MG TAB PO SCH (10:42)
[2019-05-21] MEDS: PANTOPRAZOLE 40 MG TAB PO SCH (10:42)
[2019-05-21] MEDS: INSULIN GLARGINE 100 UNITS/ML SUB-Q SCH ×2 (10:43→21:31)
--- NOTE | 2019-05-21 12:21 | Progress Note ---
Assessment and Plan - Patient Problems (1) Chronic kidney disease, stage 4 (severe) Current Visit: Yes Status: Acute Plan to address problem: Chronic kidney disease presumably secondary to diabetic nephropathy/hypertensive nephrosclerosis with superimposed acute kidney injury. Kidney function is not significantly changed. Avoid any potential nephrotoxins.no acute indication for renal replacement therapy. Follow up electrolytes and renal function. (2) Hyponatremia Current Visit: Yes Status: Acute Plan to address problem: Hyponatremia probably secondary to thiazide diuretic. Resolved. Avoid thiazide diuretic. cont po lasix for volume/BP control (3) Hyperkalemia Current Visit: Yes Status: Acute Plan to address problem: Hyperkalemia resolved. (4) Hypertensive chronic kidney disease with stage 1 through stage 4 chronic kidney disease, or unspecified chronic kidney disease Current Visit: Yes Status: Acute Plan to address problem: Follow blood pressure on current medications (5) Type 2 diabetes mellitus with diabetic nephropathy Current Visit: Yes Status: Acute Plan to address problem: Diabetes management as per primary attending (6) Sarcoidosis Current Visit: Yes Status: Acute Plan to address problem: Continue management by heat reader Subjective Date of service: 05/21/19 Principal diagnosis: chronic kidney disease, chest pain Interval history: Pt awake more alert, in no acute respiratory distress Objective - Vital Signs Vital signs: Vital Signs - 12hr 05/21/19 05/21/19 05/21/19 03:33 04:00 09:16 Temperature 98.9 F 98.1 F Pulse Rate 74 77 Respiratory 18 18 Rate Blood Pressure 138/62 145/78 O2 Sat by Pulse 95 Oximetry 05/21/19 05/21/19 10:41 10:42 Temperature Pulse Rate 90 90 Respiratory Rate Blood Pressure 145/78 145/78 O2 Sat by Pulse Oximetry - General Appearance General appearance: well-developed, well-nourished, appears stated age, obese EENT: ATNC, PERRL, mucous membranes moist Neck: no JVD Respiratory: Present: Clear to Ascultation Cardiology: regular, S1S2 Gastrointestinal: normoactive bowel sounds, obese Integumentary: no rash Neurologic: no focal deficit, CN 3-12 intact Psychiatric: mood/affect appropriate, cooperative - Lab 05/21/19 09:06 05/21/19 09:06 Most recent lab results ABG pH 7.377 pH Units (7.350-7.450) 05/17/19 15:45 ABG pCO2 41.2 mm Hg 05/17/19 15:45 ABG pO2 135.4 mm Hg (80.0-90.0) H 05/17/19 15:45 ABG HCO3 23.7 mmol/L (20.0-26.0) 05/17/19 15:45 ABG O2 Saturation 98.6 % (95.0-99.0) 05/17/19 15:45 Calcium 9.8 mg/dL (8.4-10.2) 05/21/19 09:06 Medications & Allergies - Medications Allergies/Adverse Reactions: Allergies Sulfa (Sulfonamide Antibiotics) Allergy (Verified 10/13/13 15:11) Rash Home Medications: Home Medications Medication Instructions Recorded Confirmed Last Taken Type Amitriptyline [Elavil] 10 mg PO QHS 05/17/19 05/17/19 2 Days Ago History ~05/15/19 Elviteg/Cob/Emtri/Tenof Alafen 1 tab PO DAILY 05/17/19 05/17/19 1 Day Ago History [Genvoya Tablet] ~05/16/19 Famotidine [Pepcid] 20 mg PO BID 05/17/19 05/17/19 1 Day Ago History ~05/16/19 Insulin NPH Hum/Reg Insulin Hm 22 bottle SQ QAC 05/17/19 05/17/19 1 Day Ago History [Humulin 70-30 Vial] ~05/16/19 Lisinopril/Hydrochlorothiazide 1 tab PO QDAY 05/17/19 05/17/19 1 Day Ago History [Zestoretic 20-12.5 mg] ~05/16/19 Losartan Potassium 50 mg PO DAILY 05/17/19 05/17/19 1 Day Ago History ~05/16/19 Metoprolol [Lopressor] 25 mg PO BID 05/17/19 05/17/19 1 Day Ago History ~05/16/19 Rosuvastatin Calcium 40 mg PO QDAY 05/17/19 05/17/19 1 Day Ago History ~05/16/19 predniSONE [Deltasone] 5 mg PO QDAY 05/17/19 05/17/19 1 Day Ago History ~05/16/19 Active Medications: Generic Name Dose Route Start Last Admin Trade Name Freq PRN Reason Stop Dose Admin Acetaminophen 650 mg 05/19/19 15:02 05/19/19 15:16 Tylenol FEEDTUBE 650 mg Q4H PRN Administration Pain, Mild (1-3), FEVER >100.5 Albuterol 2.5 mg 05/17/19 00:45 05/17/19 19:55 Proventil IH 2.5 mg Q3HRT PRN Administration Shortness Of Breath Amlodipine Besylate 10 mg 05/17/19 10:00 05/21/19 10:42 Amlodipine PO 10 mg QDAY [facility] Administration Aspirin 81 mg 05/18/19 10:00 05/21/19 10:41 Baby Aspirin PO 81 mg QDAY [facility] Administration Atorvastatin Calcium 80 mg 05/17/19 22:00 05/20/19 22:40 Lipitor PO 80 mg QHS [facility] Administration Dextrose 50 ml 05/17/19 00:45 D50w (25gm) Syringe IV Q30MIN PRN Hypoglycemia Protocol Furosemide 40 mg 05/18/19 12:00 05/21/19 10:42 Lasix PO 40 mg QDAY [facility] Administration Hydralazine HCl 10 mg 05/17/19 00:44 05/19/19 01:25 Apresoline IV 10 mg Q4HR PRN Administration Blood Pressure Insulin Glargine 20 units 05/17/19 01:00 05/21/19 10:43 Lantus SUB-Q 20 units BID [facility] Administration Insulin Human Lispro 0 unit 05/17/19 06:00 05/21/19 06:45 Humalog SUB-Q Not Given Q6HR [facility] Protocol Metoprolol Tartrate 75 mg 05/19/19 22:00 05/21/19 10:41 Metoprolol PO 75 mg BID [facility] Administration Nitroglycerin 0.4 mg 05/17/19 00:53 Nitrostat SL Q5M PRN Chest Pain Ondansetron HCl 4 mg 05/17/19 00:45 05/19/19 15:16 Zofran IV 4 mg Q8H PRN Administration Nausea And Vomiting Pantoprazole Sodium 40 mg 05/21/19 10:00 05/21/19 10:42 Protonix PO 40 mg QDAY [facility] Administration Sodium Chloride 10 ml 05/17/19 10:00 05/21/19 10:43 Sodium Chloride Flush Syringe 10 Ml IV 10 ml BID [facility] Administration Sodium Chloride 10 ml 05/17/19 00:45 Sodium Chloride Flush Syringe 10 Ml IV PRN PRN LINE FLUSH
--- NOTE | 2019-05-21 12:46 | Progress Note ---
Assessment and Plan Assessment and plan: Patient is 58-year-old -Maltese female with history of HIV, hypertension, diabetes, HLT, sarcoidosis, CAD, VA (2010) s/p stent x4 who presents to [facility] with complaints of left sided non-radiating chest pain, SOB, and diaphoresis. . Acute metabolic encephalopathy Change in mental status - suspect from narcotics and possible underlying depression - stopped all narcotics, consulted mental health ELEN on possible CKD stage 4 due to vasomotor nephropathy -Cr on admission 3.3 -??CKD with GFR 17 -Renal ultrasound unremarkable -Continue to Hydrate with IVF -Avoid nephrotoxic agents -Renal dose all meds -Nephrology consulted - Cr was 1.7 about a year ago Dizziness and lightheadedness - no acute findings on CT head - Ordered PT eval Elevated D-Dimer with possible PE -VQ scan shows intermediate probability for PE -Bilateral lower extremity Doppler showed no acute DVT, no hypoxemia on ABG -Pulmonology consulted -recommended to to start heparin drip as no sign of hypoxemia and negative DVT NSTEMI type II Acute Chest Pain -History of VA (2010), status post stent 4 -Follows at [facility] as outpatient -Initiated chest pain protocol -Continuous telemetry monitoring -Troponin elevated was elevated on admission -EKG unrevealing for acute ischemic abnormalities -s/p heparin drip -Cardiology consulted and recommended medical management Hypertensive urgency -BP on admission 198/142 -Hx Hypertension -Continue to monitor BP -Hold TANIKA and ARB d/t renal function -IV antihypertensive when necessary Insulin-dependent DM -Uncontrolled -BG on admission 510 -Scheduled Lantus and SSI coverage prn -HgbA1C 12.3 Hyperlipidemia -Uncontrolled -Total cholesterol on admission 490 -Start atorvastatin 80 mg daily at bedtime Hyponatremia -Na on admission 131 -Slowly correct Na with IVF -Continue to monitor replete prn Hyperkalemia -on admission 5.4 -Receiving IVF -Continue to monitor electrolytes HIV positive -Continue antiretroviral DVT PPX -On Heparin Discussed with patient and at bedside History Interval history: No more chest pain No SOB currently Altered mental status, improved Hospitalist Physical - Physical exam Narrative exam: Gen: Not in acute distress, lying in bed,obese HEENT: Normocephalic, atraumatic Neck: supple, no JVD Heart: S1 and S2 reg, no murmurs, rubs or gallop Lungs: Clear to auscultation bilaterally, Abd: soft, non tender, non distended, normal BS, Ext: No edema, no clubbing, no cyanosis Neuro: Lethargic,moves all ext - Constitutional Vitals: Temp Pulse Resp BP Pulse Ox 98.1 F 90 18 145/78 95 05/21/19 09:16 05/21/19 10:42 05/21/19 09:16 05/21/19 10:42 05/21/19 03:33 General appearance: Present: no acute distress, obese Results - Labs CBC & Chem 7: 05/21/19 09:06 05/21/19 09:06 Labs: Laboratory Last Values WBC 8.1 K/mm3 (4.5-11.0) 05/19/19 07:08 RBC 2.90 M/mm3 (3.65-5.03) L 05/19/19 07:08 Hgb 9.1 gm/dl (10.1-14.3) L 05/21/19 09:06 Hct 28.0 % (30.3-42.9) L 05/21/19 09:06 MCV 91 fl (79-97) 05/19/19 07:08 MCH 31 pg (28-32) 05/19/19 07:08 MCHC 34 % (30-34) 05/19/19 07:08 RDW 15.8 % (13.2-15.2) H 05/19/19 07:08 Plt Count 221 K/mm3 (140-440) 05/21/19 09:06 Lymph % (Auto) 38.3 % (13.4-35.0) H 05/19/19 07:08 [place] % (Auto) 6.5 % (0.0-7.3) 05/19/19 07:08 Eos % (Auto) 3.5 % (0.0-4.3) 05/19/19 07:08 Baso % (Auto) 0.5 % (0.0-1.8) 05/19/19 07:08 Lymph # 3.1 K/mm3 (1.2-5.4) 05/19/19 07:08 [place] # 0.5 K/mm3 (0.0-0.8) 05/19/19 07:08 Eos # 0.3 K/mm3 (0.0-0.4) 05/19/19 07:08 Baso # 0.0 K/mm3 (0.0-0.1) 05/19/19 07:08 Add Manual Diff Complete 05/16/19 20:32 Total Counted 100 05/16/19 20:32 Seg Neutrophils % 51.2 % (40.0-70.0) 05/19/19 07:08 Seg Neuts % (Manual) 68.0 % (40.0-70.0) 05/16/19 20:32 Band Neutrophils % 0 % 05/16/19 20:32 Lymphocytes % (Manual) 25.0 % (13.4-35.0) 05/16/19 20:32 Reactive Lymphs % (Man) 0 % 05/16/19 20:32 Monocytes % (Manual) 6.0 % (0.0-7.3) 05/16/19 20:32 Eosinophils % (Manual) 0 % (0.0-4.3) 05/16/19 20:32 Basophils % (Manual) 0 % (0.0-1.8) 05/16/19 20:32 Metamyelocytes % 0 % 05/16/19 20:32 Myelocytes % 1.0 % 05/16/19 20:32 Promyelocytes % 0 % 05/16/19 20:32 Blast Cells % 0 % 05/16/19 20:32 Nucleated RBC % Not Reportable 05/16/19 20:32 Seg Neutrophils # 4.2 K/mm3 (1.8-7.7) 05/19/19 07:08 Seg Neutrophils # Man 5.0 K/mm3 (1.8-7.7) 05/16/19 20:32 Band Neutrophils # 0.0 K/mm3 05/16/19 20:32 Lymphocytes # (Manual) 1.8 K/mm3 (1.2-5.4) 05/16/19 20:32 Abs React Lymphs (Man) 0.0 K/mm3 05/16/19 20:32 Monocytes # (Manual) 0.4 K/mm3 (0.0-0.8) 05/16/19 20:32 Eosinophils # (Manual) 0.0 K/mm3 (0.0-0.4) 05/16/19 20:32 Basophils # (Manual) 0.0 K/mm3 (0.0-0.1) 05/16/19 20:32 Metamyelocytes # 0.0 K/mm3 05/16/19 20:32 Myelocytes # 0.1 K/mm3 05/16/19 20:32 Promyelocytes # 0.0 K/mm3 05/16/19 20:32 Blast Cells # 0.0 K/mm3 05/16/19 20:32 WBC Morphology Not Reportable 05/16/19 20:32 Hypersegmented Neuts Not Reportable 05/16/19 20:32 Hyposegmented Neuts Not Reportable 05/16/19 20:32 Hypogranular Neuts Not Reportable 05/16/19 20:32 Smudge Cells Not Reportable 05/16/19 20:32 Toxic Granulation Not Reportable 05/16/19 20:32 Toxic Vacuolation Not Reportable 05/16/19 20:32 Dohle Bodies Not Reportable 05/16/19 20:32 Pelger-Huet Anomaly Not Reportable 05/16/19 20:32 Tra Rods Not Reportable 05/16/19 20:32 Platelet Estimate Appears normal 05/16/19 20:32 Clumped Platelets Not Reportable 05/16/19 20:32 Plt Clumps, EDTA Not Reportable 05/16/19 20:32 Large Platelets Not Reportable 05/16/19 20:32 Giant Platelets Not Reportable 05/16/19 20:32 Platelet Satelliting Not Reportable 05/16/19 20:32 Plt Morphology Comment Not Reportable 05/16/19 20:32 RBC Morphology Normal 05/16/19 20:32 Dimorphic RBCs Not Reportable 05/16/19 20:32 Polychromasia Not Reportable 05/16/19 20:32 Hypochromasia Not Reportable 05/16/19 20:32 Poikilocytosis Not Reportable 05/16/19 20:32 Anisocytosis Not Reportable 05/16/19 20:32 Microcytosis Not Reportable 05/16/19 20:32 Macrocytosis Not Reportable 05/16/19 20:32 Spherocytes Not Reportable 05/16/19 20:32 Pappenheimer Bodies Not Reportable 05/16/19 20:32 Sickle Cells Not Reportable 05/16/19 20:32 Target Cells Not Reportable 05/16/19 20:32 Tear Drop Cells Not Reportable 05/16/19 20:32 Ovalocytes Not Reportable 05/16/19 20:32 Helmet Cells Not Reportable 05/16/19 20:32 [place] Bodies Not Reportable 05/16/19 20:32 Galt Rings Not Reportable 05/16/19 20:32 Daren Cells Not Reportable 05/16/19 20:32 Bite Cells Not Reportable 05/16/19 20:32 Crenated Cell Not Reportable 05/16/19 20:32 Elliptocytes Not Reportable 05/16/19 20:32 Acanthocytes (Spur) Not Reportable 05/16/19 20:32 Rouleaux Not Reportable 05/16/19 20:32 Hemoglobin C Crystals Not Reportable 05/16/19 20:32 Schistocytes Not Reportable 05/16/19 20:32 Malaria parasites Not Reportable 05/16/19 20:32 Shayne Bodies Not Reportable 05/16/19 20:32 Hem Pathologist Commnt No 05/16/19 20:32 PT 13.0 Sec. (12.2-14.9) 05/17/19 01:30 INR 0.99 (0.87-1.13) 05/17/19 01:30 APTT 41.2 Sec. (24.2-36.6) H 05/17/19 01:30 D-Dimer 416.09 ng/mlDDU (0-234) H 05/16/19 20:32 Heparin Anti-Xa Level < 0.10 U.I./ml (0.3-0.7) L 05/19/19 21:02 ABG pH 7.377 pH Units (7.350-7.450) 05/17/19 15:45 ABG pCO2 41.2 mm Hg 05/17/19 15:45 ABG pO2 135.4 mm Hg (80.0-90.0) H 05/17/19 15:45 ABG HCO3 23.7 mmol/L (20.0-26.0) 05/17/19 15:45 ABG O2 Saturation 98.6 % (95.0-99.0) 05/17/19 15:45 ABG O2 Content 12.4 (0.0-44) 05/17/19 15:45 ABG Base Excess -1.4 mmol/L (-2.0-3.0) 05/17/19 15:45 ABG Hemoglobin 8.9 gm/dl (12.0-16.0) L 05/17/19 15:45 ABG Carboxyhemoglobin 1.4 % (0.0-5.0) 05/17/19 15:45 ABG Methemoglobin 0.5 % (0.0-1.5) 05/17/19 15:45 Oxyhemoglobin 96.8 % (95.0-99.0) 05/17/19 15:45 FiO2 32 % 05/17/19 15:45 Sodium 138 mmol/L (137-145) 05/21/19 09:06 Potassium 4.4 mmol/L (3.6-5.0) 05/21/19 09:06 Chloride 100.6 mmol/L (98-107) 05/21/19 09:06 Carbon Dioxide 18 mmol/L (22-30) L 05/21/19 09:06 Anion Gap 24 mmol/L 05/21/19 09:06 BUN 31 mg/dL (7-17) H 05/21/19 09:06 Creatinine 3.8 mg/dL (0.7-1.2) H 05/21/19 09:06 Estimated GFR 15 ml/min 05/21/19 09:06 BUN/Creatinine Ratio 8 % 05/21/19 09:06 Glucose 87 mg/dL (65-100) 05/21/19 09:06 POC Glucose 78 (70-105) 05/21/19 05:55 Hemoglobin A1c 12.3 % (4-6) H 05/17/19 01:30 Calcium 9.8 mg/dL (8.4-10.2) 05/21/19 09:06 Total Creatine Kinase 51 units/L (30-135) 05/19/19 14:45 CK-MB (CK-2) 3.3 ng/mL (0.0-4.0) 05/19/19 14:45 CK-MB (CK-2) Rel Index 6.4 (0-4) H 05/19/19 14:45 Troponin T 0.079 ng/mL (0.00-0.029) H 05/19/19 14:45 Triglycerides 542 mg/dL (2-149) H 05/16/19 20:32 Cholesterol 490 mg/dL (50-199) H 05/16/19 20:32 LDL Cholesterol Direct TNR 05/16/19 20:32 HDL Cholesterol 59 mg/dL (40-59) 05/16/19 20:32 Cholesterol/HDL Ratio 8.30 % 05/16/19 20:32 Urine Color Straw (Yellow) 05/17/19 22:00 Urine Turbidity Clear (Clear) 05/17/19 22:00 Urine pH 6.0 (5.0-7.0) 05/17/19 22:00 Ur Specific [place] 1.012 (1.003-1.030) 05/17/19 22:00 Urine Protein >500 mg/dL (Negative) 05/17/19 22:00 Urine Glucose (UA) 150 mg/dL (Negative) 05/17/19 22:00 Urine Ketones Neg mg/dL (Negative) 05/17/19 22:00 Urine Blood Neg (Negative) 05/17/19 22:00 Urine Nitrite Neg (Negative) 05/17/19 22:00 Urine Bilirubin Neg (Negative) 05/17/19 22:00 Urine Urobilinogen < 2.0 mg/dL (<2.0) 05/17/19 22:00 Ur Leukocyte Esterase Mod (Negative) 05/17/19 22:00 Urine WBC (Auto) 4.0 /HPF (0.0-6.0) 05/17/19 22:00 Urine RBC (Auto) 2.0 /HPF (0.0-6.0) 05/17/19 22:00 U Epithel Cells (Auto) 3.0 /HPF (0-13.0) 05/17/19 22:00 Urine Bacteria (Auto) 1+ /HPF (Negative) 05/17/19 22:00 Active Medications - Current Medications Current Medications: Generic Name Dose Route Start Last Admin Trade Name Freq PRN Reason Stop Dose Admin Acetaminophen 650 mg 05/19/19 15:02 05/19/19 15:16 Tylenol FEEDTUBE 650 mg Q4H PRN Administration Pain, Mild (1-3), FEVER >100.5 Albuterol 2.5 mg 05/17/19 00:45 05/17/19 19:55 Proventil IH 2.5 mg Q3HRT PRN Administration Shortness Of Breath Amlodipine Besylate 10 mg 05/17/19 10:00 05/21/19 10:42 Amlodipine PO 10 mg QDAY SHAVONNE Administration Aspirin 81 mg 05/18/19 10:00 05/21/19 10:41 Baby Aspirin PO 81 mg QDAY SHAVONNE Administration Atorvastatin Calcium 80 mg 05/17/19 22:00 05/20/19 22:40 Lipitor PO 80 mg QHS SHAVONNE Administration Dextrose 50 ml 05/17/19 00:45 D50w (25gm) Syringe IV Q30MIN PRN Hypoglycemia Protocol Furosemide 40 mg 05/18/19 12:00 05/21/19 10:42 Lasix PO 40 mg QDAY SHAVONNE Administration Hydralazine HCl 10 mg 05/17/19 00:44 05/19/19 01:25 Apresoline IV 10 mg Q4HR PRN Administration Blood Pressure Insulin Glargine 20 units 05/17/19 01:00 05/21/19 10:43 Lantus SUB-Q 20 units BID SHAVONNE Administration Insulin Human Lispro 0 unit 05/17/19 06:00 05/21/19 06:45 Humalog SUB-Q Not Given Q6HR [facility] Protocol Metoprolol Tartrate 75 mg 05/19/19 22:00 05/21/19 10:41 Metoprolol PO 75 mg BID SHAVONNE Administration Nitroglycerin 0.4 mg 05/17/19 00:53 Nitrostat SL Q5M PRN Chest Pain Ondansetron HCl 4 mg 05/17/19 00:45 05/19/19 15:16 Zofran IV 4 mg Q8H PRN Administration Nausea And Vomiting Pantoprazole Sodium 40 mg 05/21/19 10:00 05/21/19 10:42 Protonix PO 40 mg QDAY SHAVONNE Administration Sodium Chloride 10 ml 05/17/19 10:00 05/21/19 10:43 Sodium Chloride Flush Syringe 10 Ml IV 10 ml BID SHAVONNE Administration Sodium Chloride 10 ml 05/17/19 00:45 Sodium Chloride Flush Syringe 10 Ml IV PRN PRN LINE FLUSH Nutrition/Malnutrition Assess - Dietary Evaluation Nutrition/Malnutrition Findings: Nutrition Notes Start: 05/17/19 11:43 Freq: Status: Active Protocol: Document 05/17/19 13:23 CT (Rec: 05/17/19 13:30 CT [id number]) Co-Sign 05/17/19 13:23 LP Nutrition Notes Need for Assessment generated from: MD Order Initial or Follow up Assessment Current Diagnosis Acute Kidney Injury,Coronary Artery Disease,Diabetes, Hypertension,Hyperlipidemia Other Pertinent Diagnosis HIV, Saroidosis, VA, s/p stentx4, hyponatremia, hyperkalemia Current Diet NPO Labs/Tests Na 131 K 5.4 BUN 37 Creatinine 3.3 POC Glu 258 A1c 12.3 Pertinent Medications Lipitor Heparin 1/2NS 26 ml/hr Lantus Humalog Height 5 ft 7 in Weight 91 kg Usual Body Weight 63.503 kg [place] Body Weight (kg) 61.36 BMI 31.4 Intake Prior to Admission Good Weight Status Obese Subjective/Other Information Consult for cardiac consistent CHO diet education. Pt was getting an ultrasound at time of visit. Pt stated that even with NPO she has a good appetite. Handout was left for pt to go over, and ways to contact were explained to the pt for any questions. Burn Absent Trauma Absent GI Symptoms None Food Allergy No Current % PO Negligible Minimum of two criteria No physical signs of malnutrition #1 Nutrition Diagnosis Food and nutrition-related knowledge deficit Etiology no prior knowledge on cardiac consistent CHO diet As Evidenced by Signs and Symptoms A1c 12.3 pt acceptance of handout Is patient on ventilator? No Is Patient Ambulatory and/or Out of Bed Yes REE-([place]-ambulatory/OOB) [ 1979.419 [id number]] Kcal/Kg value to use for calculation 17 Approximate Energy Requirements Using 1547 kcal/Kg Calculation Used for Recommendations Kcal/kg Additional Notes Protein needs: 61-76 g/day (0. 8-1 g/kg/day AdBW 76kg) Fluid needs: 1 ml/kcal Nutrition Intervention Change Diet Order: Advance diet to [place] consistent CHO when medically feasible Teaching Recipient Patient Learning Readiness Poor Teaching Methods Handout Response to Teaching Reinforcement needed Education Handouts Provided Cardiac consistent CHO diet Barriers to Learning Physical RD phone number provided Yes Patient aware of follow up options Yes Goal #1 Diet advancement Anticipated Discharge Needs: Cardiac consistent CHO Follow-Up By: 05/21/19 Additional Comments Follow up for PO intake and education reinforcement/diet advancement
--- NOTE | 2019-05-21 14:12 | Progress Note ---
Assessment and Plan patient is alert and awake. Patient presently on .5 Litres O2. O2 saturation 99%.Complaint of chest pain, shortness of breath or cough. Patients heparin stopped. No acute respiratory distress. - Patient Problems (1) Fibrosis, pulmonary, interstitial, diffuse Current Visit: Yes Status: Acute Plan to address problem: O2 supplementation. Albuterol aerosol treatments prn for shortness of breath. TANIKA level is pending. (2) Acute coronary syndrome Current Visit: Yes Status: Acute Plan to address problem: Management as per cardiology. (3) Acute renal failure Current Visit: Yes Status: Acute Qualifiers: Acute renal failure type: unspecified Qualified Code(s): N17.9 - Acute kidney failure, unspecified Plan to address problem: Management as per nephrology. (4) Sarcoidosis Current Visit: Yes Status: Acute Plan to address problem: TANIKA level results pending. (5) Type 2 diabetes mellitus with diabetic nephropathy Current Visit: Yes Status: Acute Plan to address problem: Management as per primary care. Subjective Date of service: 05/21/19 Principal diagnosis: chronic kidney disease, chest pain Interval history: patient is alert and awake. Patient presently on .5 Litres O2. O2 saturation 9 9%.Complaint of chest pain, shortness of breath or cough. Patients heparin stopped. No acute respiratory distress. Objective Vital Signs - 12hr 05/21/19 05/21/19 05/21/19 03:33 04:00 09:16 Temperature 98.9 F 98.1 F Pulse Rate 74 77 Pulse Rate [ From Monitor] Respiratory 18 18 Rate Blood Pressure 138/62 145/78 O2 Sat by Pulse 95 Oximetry 05/21/19 05/21/19 05/21/19 10:41 10:42 12:00 Temperature Pulse Rate 90 90 78 Pulse Rate [ 78 From Monitor] Respiratory 20 Rate Blood Pressure 145/78 145/78 O2 Sat by Pulse 95 Oximetry Constitutional: no acute distress, alert Eyes: non-icteric ENT: oropharynx moist Neck: supple, no lymphadenopathy Ascultation: Bilateral: diminished breath sounds, rales Cardiovascular: regular rate and rhythm Gastrointestinal: normoactive bowel sounds, soft, non-tender Integumentary: normal Extremities: no cyanosis, no edema Neurologic: non-focal exam, pupils equal and round Psychiatric: other (Sleeping at this time.) CBC and BMP: 05/21/19 09:06 05/21/19 09:06 ABG, PT/INR, D-dimer: ABG ABG pH 7.377 pH Units (7.350-7.450) 05/17/19 15:45 ABG pCO2 41.2 mm Hg 05/17/19 15:45 ABG pO2 135.4 mm Hg (80.0-90.0) H 05/17/19 15:45 ABG O2 Saturation 98.6 % (95.0-99.0) 05/17/19 15:45 PT/INR, D-dimer PT 13.0 Sec. (12.2-14.9) 05/17/19 01:30 INR 0.99 (0.87-1.13) 05/17/19 01:30 D-Dimer 416.09 ng/mlDDU (0-234) H 05/16/19 20:32 Abnormal lab findings: Abnormal Labs 05/16/19 05/16/19 05/16/19 20:32 20:32 20:32 RBC 3.10 L Hgb 9.4 L Hct 28.3 L RDW 15.5 H Lymph % (Auto) Eos % (Auto) APTT D-Dimer 416.09 H Heparin Anti-Xa Level ABG pO2 ABG Hemoglobin Sodium 131 L Potassium 5.4 H Chloride 94.1 L Carbon Dioxide 20 L BUN 37 H Creatinine 3.3 H Glucose 510 H* POC Glucose Hemoglobin A1c CK-MB (CK-2) Rel Index Troponin T 0.081 H Triglycerides 542 H Cholesterol 490 H 05/16/19 05/17/19 05/17/19 23:25 00:40 01:30 RBC Hgb Hct RDW Lymph % (Auto) Eos % (Auto) APTT D-Dimer Heparin Anti-Xa Level ABG pO2 ABG Hemoglobin Sodium Potassium Chloride Carbon Dioxide BUN Creatinine Glucose POC Glucose 193 H Hemoglobin A1c CK-MB (CK-2) Rel Index Troponin T 0.087 H 0.085 H Triglycerides Cholesterol 05/17/19 05/17/19 05/17/19 01:30 01:30 02:43 RBC Hgb Hct RDW Lymph % (Auto) Eos % (Auto) APTT 41.2 H D-Dimer Heparin Anti-Xa Level ABG pO2 ABG Hemoglobin Sodium Potassium Chloride Carbon Dioxide BUN Creatinine Glucose POC Glucose 258 H Hemoglobin A1c 12.3 H CK-MB (CK-2) Rel Index Troponin T Triglycerides Cholesterol 05/17/19 05/17/19 05/17/19 07:08 09:13 12:55 RBC Hgb Hct RDW Lymph % (Auto) Eos % (Auto) APTT D-Dimer Heparin Anti-Xa Level ABG pO2 ABG Hemoglobin Sodium Potassium Chloride Carbon Dioxide BUN Creatinine Glucose POC Glucose 231 H 213 H Hemoglobin A1c CK-MB (CK-2) Rel Index Troponin T 0.083 H Triglycerides Cholesterol 05/17/19 05/17/19 05/17/19 15:45 17:34 21:01 RBC Hgb Hct RDW Lymph % (Auto) Eos % (Auto) APTT D-Dimer Heparin Anti-Xa Level ABG pO2 135.4 H ABG Hemoglobin 8.9 L Sodium Potassium Chloride Carbon Dioxide BUN Creatinine Glucose POC Glucose 230 H 221 H Hemoglobin A1c CK-MB (CK-2) Rel Index Troponin T Triglycerides Cholesterol 05/18/19 05/18/19 05/18/19 05:12 05:12 07:10 RBC 2.79 L Hgb 8.5 L Hct 25.6 L RDW 15.8 H Lymph % (Auto) 46.4 H Eos % (Auto) 4.9 H APTT D-Dimer Heparin Anti-Xa Level 0.86 H ABG pO2 ABG Hemoglobin Sodium 135 L Potassium Chloride Carbon Dioxide 18 L BUN 30 H Creatinine 2.9 H Glucose POC Glucose Hemoglobin A1c CK-MB (CK-2) Rel Index Troponin T Triglycerides Cholesterol 05/18/19 05/18/19 05/18/19 11:41 15:17 16:37 RBC Hgb Hct RDW Lymph % (Auto) Eos % (Auto) APTT D-Dimer Heparin Anti-Xa Level 0.77 H ABG pO2 ABG Hemoglobin Sodium Potassium Chloride Carbon Dioxide BUN Creatinine Glucose POC Glucose 155 H 110 H Hemoglobin A1c CK-MB (CK-2) Rel Index Troponin T Triglycerides Cholesterol 05/18/19 05/18/19 05/19/19 21:26 21:33 06:56 RBC Hgb Hct RDW Lymph % (Auto) Eos % (Auto) APTT D-Dimer Heparin Anti-Xa Level 0.11 L ABG pO2 ABG Hemoglobin Sodium Potassium Chloride Carbon Dioxide BUN Creatinine Glucose POC Glucose 133 H 123 H Hemoglobin A1c CK-MB (CK-2) Rel Index Troponin T Triglycerides Cholesterol 05/19/19 05/19/19 05/19/19 07:07 07:07 07:07 RBC Hgb Hct RDW Lymph % (Auto) Eos % (Auto) APTT D-Dimer Heparin Anti-Xa Level 0.25 L ABG pO2 ABG Hemoglobin Sodium 132 L Potassium Chloride Carbon Dioxide 18 L BUN 31 H Creatinine 3.1 H Glucose 133 H POC Glucose Hemoglobin A1c CK-MB (CK-2) Rel Index 6.2 H Troponin T 0.069 H Triglycerides Cholesterol 05/19/19 05/19/19 05/19/19 07:08 07:49 11:49 RBC 2.90 L Hgb 9.0 L Hct 26.5 L RDW 15.8 H Lymph % (Auto) 38.3 H Eos % (Auto) APTT D-Dimer Heparin Anti-Xa Level ABG pO2 ABG Hemoglobin Sodium Potassium Chloride Carbon Dioxide BUN Creatinine Glucose POC Glucose 124 H 116 H Hemoglobin A1c CK-MB (CK-2) Rel Index Troponin T Triglycerides Cholesterol 05/19/19 05/19/19 05/19/19 14:45 16:21 21:02 RBC Hgb Hct RDW Lymph % (Auto) Eos % (Auto) APTT D-Dimer Heparin Anti-Xa Level < 0.10 L ABG pO2 ABG Hemoglobin Sodium Potassium Chloride Carbon Dioxide BUN Creatinine Glucose POC Glucose 124 H Hemoglobin A1c CK-MB (CK-2) Rel Index 6.4 H Troponin T 0.079 H Triglycerides Cholesterol 05/20/19 05/21/19 05/21/19 13:25 09:06 09:06 RBC Hgb 9.1 L Hct 28.0 L RDW Lymph % (Auto) Eos % (Auto) APTT D-Dimer Heparin Anti-Xa Level ABG pO2 ABG Hemoglobin Sodium 136 L Potassium Chloride Carbon Dioxide 16 L 18 L BUN 32 H 31 H Creatinine 3.6 H 3.8 H Glucose POC Glucose Hemoglobin A1c CK-MB (CK-2) Rel Index Troponin T Triglycerides Cholesterol 05/21/19 05/21/19 12:00 13:21 RBC Hgb Hct RDW Lymph % (Auto) Eos % (Auto) APTT D-Dimer Heparin Anti-Xa Level ABG pO2 ABG Hemoglobin Sodium Potassium Chloride Carbon Dioxide BUN Creatinine Glucose POC Glucose 200 H 156 H Hemoglobin A1c CK-MB (CK-2) Rel Index Troponin T Triglycerides Cholesterol
--- NOTE | 2019-05-21 15:25 | Progress Note ---
Subjective - Reason for Consult Consult date: 05/21/19 Reason for consult: Psychiatry Follow-up - Chief Complaint Chief complaint: "I feel better" 58 y.o. AA female who presented to the ER for chest pain. Psychiatry was consulted to see the patient because her mental status changed within hours. Today the patient was calm and cooperative during the assessment. She was more organized and able to answer questions logically. She denies SI/HI's and AVH's. Mental Status Exam - Vital signs Last Vital Signs Temp 98.1 F 05/21/19 09:16 Pulse 78 05/21/19 12:00 Resp 20 05/21/19 12:00 BP 145/78 05/21/19 10:42 Pulse Ox 95 05/21/19 12:00 - Exam Narrative exam: MSE: Appearance: calm, cooperative Behavior: regular eye contact Speech: regular rate and tone Mood: "okay" Affect: congruent to mood Thought Process: more organized Thought Content: denies SI/HI's and AVH's Motor Activity: lying in bed Cognition: A/O x3 Insight: fair Judgment: fair Assessment and Plan Impression: Delirium. Today the patient was calm and cooperative during the assessment. Cr 3.8. The patient's mental status has improved. Recommendation/Plan: The patient can follow up with her PCP when discharged. Psy sign off. Dispo: The patient can follow up with [facility] for outpatient psy service if indicated. Staffed with Dr Rose Mary Mcgee.
[2019-05-21] MEDS: ACETAMINOPHEN 325 MG/10.15 ML ORAL LIQD UNIT DOSE FEEDTUBE PRN (18:19)
[2019-05-21] MEDS: [UNRECOGNIZED DRUG - OTHER] PO SCH (21:27)
[2019-05-22] MEDS: guaiFENesin DM 200/20 MG ORAL LIQD 10 ML PO PRN ×4 (00:21→19:58)
[2019-05-22 06:10] LABS: Calcium 9.1 mg/dL (8.4-10.2)
[2019-05-22] MEDS: amLODIPine 10 MG TAB PO SCH (09:29)
[2019-05-22] MEDS: FUROSEMIDE 40 MG TAB PO SCH (09:29)
[2019-05-22] MEDS: PANTOPRAZOLE 40 MG TAB PO SCH (09:29)
[2019-05-22] MEDS: METOPROLOL TARTRATE 25 MG TAB PO SCH ×2 (09:29→21:20)
[2019-05-22] MEDS: ASPIRIN 81 MG TAB CHEW PO SCH (09:30)
--- NOTE | 2019-05-22 09:37 | Progress Note ---
Assessment and Plan patient is alert and awake. Patient presently on 1.5 Litres O2. O2 saturation 97%.No Complaint of chest pain, shortness of breath or cough. Patients heparin stopped. No acute respiratory distress.. - Patient Problems (1) Fibrosis, pulmonary, interstitial, diffuse Current Visit: Yes Status: Acute Plan to address problem: O2 supplementation. Albuterol aerosol treatments prn for shortness of breath. TANIKA level is pending. (2) Acute coronary syndrome Current Visit: Yes Status: Acute Plan to address problem: Management as per cardiology. (3) Acute renal failure Current Visit: Yes Status: Acute Qualifiers: Acute renal failure type: unspecified Qualified Code(s): N17.9 - Acute kidney failure, unspecified Plan to address problem: Management as per nephrology. (4) Sarcoidosis Current Visit: Yes Status: Acute Plan to address problem: TANIKA level results pending. (5) Type 2 diabetes mellitus with diabetic nephropathy Current Visit: Yes Status: Acute Plan to address problem: Management as per primary care. Subjective Date of service: 05/22/19 Principal diagnosis: chronic kidney disease, chest pain Interval history: patient is alert and awake. Patient presently on 1.5 Litres O2. O2 saturation 97%.No Complaint of chest pain, shortness of breath or cough. Patients heparin stopped. No acute respiratory distress. Objective Vital Signs - 12hr 05/21/19 05/22/19 05/22/19 23:01 00:00 03:55 Temperature 98.3 F 99.2 F Pulse Rate 71 72 80 Respiratory 18 18 Rate Blood Pressure 147/85 127/94 O2 Sat by Pulse 100 100 Oximetry 05/22/19 05/22/19 08:48 09:29 Temperature Pulse Rate 81 Respiratory 18 Rate Blood Pressure 151/70 O2 Sat by Pulse 97 Oximetry Constitutional: no acute distress, alert Eyes: non-icteric ENT: oropharynx moist Neck: supple, no lymphadenopathy Ascultation: Bilateral: diminished breath sounds, rales Cardiovascular: regular rate and rhythm Gastrointestinal: normoactive bowel sounds, soft, non-tender Integumentary: normal Extremities: no cyanosis, no edema Neurologic: non-focal exam, pupils equal and round Psychiatric: other (Sleeping at this time.) CBC and BMP: 05/21/19 09:06 05/22/19 04:55 ABG, PT/INR, D-dimer: ABG ABG pH 7.377 pH Units (7.350-7.450) 05/17/19 15:45 ABG pCO2 41.2 mm Hg 05/17/19 15:45 ABG pO2 135.4 mm Hg (80.0-90.0) H 05/17/19 15:45 ABG O2 Saturation 98.6 % (95.0-99.0) 05/17/19 15:45 PT/INR, D-dimer PT 13.0 Sec. (12.2-14.9) 05/17/19 01:30 INR 0.99 (0.87-1.13) 05/17/19 01:30 D-Dimer 416.09 ng/mlDDU (0-234) H 05/16/19 20:32 Abnormal lab findings: Abnormal Labs 05/16/19 05/16/19 05/16/19 20:32 20:32 20:32 RBC 3.10 L Hgb 9.4 L Hct 28.3 L RDW 15.5 H Lymph % (Auto) Eos % (Auto) APTT D-Dimer 416.09 H Heparin Anti-Xa Level ABG pO2 ABG Hemoglobin Sodium 131 L Potassium 5.4 H Chloride 94.1 L Carbon Dioxide 20 L BUN 37 H Creatinine 3.3 H Glucose 510 H* POC Glucose Hemoglobin A1c CK-MB (CK-2) Rel Index Troponin T 0.081 H Triglycerides 542 H Cholesterol 490 H 05/16/19 05/17/19 05/17/19 23:25 00:40 01:30 RBC Hgb Hct RDW Lymph % (Auto) Eos % (Auto) APTT D-Dimer Heparin Anti-Xa Level ABG pO2 ABG Hemoglobin Sodium Potassium Chloride Carbon Dioxide BUN Creatinine Glucose POC Glucose 193 H Hemoglobin A1c CK-MB (CK-2) Rel Index Troponin T 0.087 H 0.085 H Triglycerides Cholesterol 05/17/19 05/17/19 05/17/19 01:30 01:30 02:43 RBC Hgb Hct RDW Lymph % (Auto) Eos % (Auto) APTT 41.2 H D-Dimer Heparin Anti-Xa Level ABG pO2 ABG Hemoglobin Sodium Potassium Chloride Carbon Dioxide BUN Creatinine Glucose POC Glucose 258 H Hemoglobin A1c 12.3 H CK-MB (CK-2) Rel Index Troponin T Triglycerides Cholesterol 1105/17/19 05/17/19 07:08 09:13 12:55 RBC Hgb Hct RDW Lymph % (Auto) Eos % (Auto) APTT D-Dimer Heparin Anti-Xa Level ABG pO2 ABG Hemoglobin Sodium Potassium Chloride Carbon Dioxide BUN Creatinine Glucose POC Glucose 231 H 213 H Hemoglobin A1c CK-MB (CK-2) Rel Index Troponin T 0.083 H Triglycerides Cholesterol 05/17/19 05/17/19 05/17/19 15:45 17:34 21:01 RBC Hgb Hct RDW Lymph % (Auto) Eos % (Auto) APTT D-Dimer Heparin Anti-Xa Level ABG pO2 135.4 H ABG Hemoglobin 8.9 L Sodium Potassium Chloride Carbon Dioxide BUN Creatinine Glucose POC Glucose 230 H 221 H Hemoglobin A1c CK-MB (CK-2) Rel Index Troponin T Triglycerides Cholesterol 05/18/19 05/18/19 05/18/19 05:12 05:12 07:10 RBC 2.79 L Hgb 8.5 L Hct 25.6 L RDW 15.8 H Lymph % (Auto) 46.4 H Eos % (Auto) 4.9 H APTT D-Dimer Heparin Anti-Xa Level 0.86 H ABG pO2 ABG Hemoglobin Sodium 135 L Potassium Chloride Carbon Dioxide 18 L BUN 30 H Creatinine 2.9 H Glucose POC Glucose Hemoglobin A1c CK-MB (CK-2) Rel Index Troponin T Triglycerides Cholesterol 05/18/19 05/18/19 05/18/19 11:41 15:17 16:37 RBC Hgb Hct RDW Lymph % (Auto) Eos % (Auto) APTT D-Dimer Heparin Anti-Xa Level 0.77 H ABG pO2 ABG Hemoglobin Sodium Potassium Chloride Carbon Dioxide BUN Creatinine Glucose POC Glucose 155 H 110 H Hemoglobin A1c CK-MB (CK-2) Rel Index Troponin T Triglycerides Cholesterol 05/18/19 05/18/19 05/19/19 21:26 21:33 06:56 RBC Hgb Hct RDW Lymph % (Auto) Eos % (Auto) APTT D-Dimer Heparin Anti-Xa Level 0.11 L ABG pO2 ABG Hemoglobin Sodium Potassium Chloride Carbon Dioxide BUN Creatinine Glucose POC Glucose 133 H 123 H Hemoglobin A1c CK-MB (CK-2) Rel Index Troponin T Triglycerides Cholesterol 05/19/19 05/19/19 05/19/19 07:07 07:07 07:07 RBC Hgb Hct RDW Lymph % (Auto) Eos % (Auto) APTT D-Dimer Heparin Anti-Xa Level 0.25 L ABG pO2 ABG Hemoglobin Sodium 132 L Potassium Chloride Carbon Dioxide 18 L BUN 31 H Creatinine 3.1 H Glucose 133 H POC Glucose Hemoglobin A1c CK-MB (CK-2) Rel Index 6.2 H Troponin T 0.069 H Triglycerides Cholesterol 05/19/19 05/19/19 05/19/19 07:08 07:49 11:49 RBC 2.90 L Hgb 9.0 L Hct 26.5 L RDW 15.8 H Lymph % (Auto) 38.3 H Eos % (Auto) APTT D-Dimer Heparin Anti-Xa Level ABG pO2 ABG Hemoglobin Sodium Potassium Chloride Carbon Dioxide BUN Creatinine Glucose POC Glucose 124 H 116 H Hemoglobin A1c CK-MB (CK-2) Rel Index Troponin T Triglycerides Cholesterol 05/19/19 05/19/19 05/19/19 14:45 16:21 21:02 RBC Hgb Hct RDW Lymph % (Auto) Eos % (Auto) APTT D-Dimer Heparin Anti-Xa Level < 0.10 L ABG pO2 ABG Hemoglobin Sodium Potassium Chloride Carbon Dioxide BUN Creatinine Glucose POC Glucose 124 H Hemoglobin A1c CK-MB (CK-2) Rel Index 6.4 H Troponin T 0.079 H Triglycerides Cholesterol 05/20/19 05/21/19 05/21/19 13:25 09:06 09:06 RBC Hgb 9.1 L Hct 28.0 L RDW Lymph % (Auto) Eos % (Auto) APTT D-Dimer Heparin Anti-Xa Level ABG pO2 ABG Hemoglobin Sodium 136 L Potassium Chloride Carbon Dioxide 16 L 18 L BUN 32 H 31 H Creatinine 3.6 H 3.8 H Glucose POC Glucose Hemoglobin A1c CK-MB (CK-2) Rel Index Troponin T Triglycerides Cholesterol 05/21/19 05/21/19 05/21/19 12:00 13:21 16:08 RBC Hgb Hct RDW Lymph % (Auto) Eos % (Auto) APTT D-Dimer Heparin Anti-Xa Level ABG pO2 ABG Hemoglobin Sodium Potassium Chloride Carbon Dioxide BUN Creatinine Glucose POC Glucose 200 H 156 H 133 H Hemoglobin A1c CK-MB (CK-2) Rel Index Troponin T Triglycerides Cholesterol 11/26/19 11/27/19 23:09 04:55 RBC Hgb Hct RDW Lymph % (Auto) Eos % (Auto) APTT D-Dimer Heparin Anti-Xa Level ABG pO2 ABG Hemoglobin Sodium Potassium Chloride Carbon Dioxide BUN 30 H Creatinine 4.5 H Glucose POC Glucose 134 H Hemoglobin A1c CK-MB (CK-2) Rel Index Troponin T Triglycerides Cholesterol
--- NOTE | 2019-05-22 09:43 | Progress Note ---
Assessment and Plan - Patient Problems (1) Chronic kidney disease, stage 4 (severe) Current Visit: Yes Status: Acute Plan to address problem: Chronic kidney disease presumably secondary to diabetic nephropathy/hypertensive nephrosclerosis with superimposed acute kidney injury. marginally decreased eGFR, will hold lasix for now. No acute indication for renal replacement therapy. Avoid any potential nephrotoxins.no acute indication for renal replac ement therapy. Follow up electrolytes and renal function. (2) Hyperkalemia Current Visit: Yes Status: Acute Plan to address problem: Hyperkalemia resolved. 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 Resolved. Avoid thiazide diuretic. Na corrected, will hold lasix due to declining eGFR Subjective Date of service: 05/22/19 Principal diagnosis: chronic kidney disease, chest pain Interval history: Pt awake more alert, in no acute respiratory distress, denies fever, chills, n/v/d, CP, SOB Objective - Vital Signs Vital signs: Vital Signs - 12hr 05/21/19 05/22/19 05/22/19 23:01 00:00 03:55 Temperature 98.3 F 99.2 F Pulse Rate 71 72 80 Respiratory 18 18 Rate Blood Pressure 147/85 127/94 O2 Sat by Pulse 100 100 Oximetry 05/22/19 05/22/19 08:48 09:29 Temperature Pulse Rate 81 Respiratory 18 Rate Blood Pressure 151/70 O2 Sat by Pulse 97 Oximetry - General Appearance General appearance: well-developed, well-nourished, appears stated age EENT: ATNC, PERRL, mucous membranes moist Neck: no JVD Respiratory: Present: Clear to Ascultation Cardiology: regular, S1S2 Gastrointestinal: normoactive bowel sounds Integumentary: no rash, other (no edema ) Neurologic: no focal deficit, alert and oriented x3, strength 5/5, CN 3-12 intact Psychiatric: mood/affect appropriate, cooperative - Lab 05/21/19 09:06 05/22/19 04:55 Most recent lab results ABG pH 7.377 pH Units (7.350-7.450) 05/17/19 15:45 ABG pCO2 41.2 mm Hg 05/17/19 15:45 ABG pO2 135.4 mm Hg (80.0-90.0) H 05/17/19 15:45 ABG HCO3 23.7 mmol/L (20.0-26.0) 05/17/19 15:45 ABG O2 Saturation 98.6 % (95.0-99.0) 05/17/19 15:45 Calcium 9.1 mg/dL (8.4-10.2) 05/22/19 04:55 Medications & Allergies - Medications Allergies/Adverse Reactions: Allergies Sulfa (Sulfonamide Antibiotics) Allergy (Verified 10/13/13 15:11) Rash Home Medications: Home Medications Medication Instructions Recorded Confirmed Last Taken Type Amitriptyline [Elavil] 10 mg PO QHS 05/17/19 05/17/19 2 Days Ago History ~05/15/19 Elviteg/Cob/Emtri/Tenof Alafen 1 tab PO DAILY 05/17/19 05/17/19 1 Day Ago History [Genvoya Tablet] ~05/16/19 Famotidine [Pepcid] 20 mg PO BID 05/17/19 05/17/19 1 Day Ago History ~05/16/19 Insulin NPH Hum/Reg Insulin Hm 22 bottle SQ QAC 05/17/19 05/17/19 1 Day Ago History [Humulin 70-30 Vial] ~05/16/19 Lisinopril/Hydrochlorothiazide 1 tab PO QDAY 05/17/19 05/17/19 1 Day Ago History [Zestoretic 20-12.5 mg] ~05/16/19 Losartan Potassium 50 mg PO DAILY 05/17/19 05/17/19 1 Day Ago History ~05/16/19 Metoprolol [Lopressor] 25 mg PO BID 05/17/19 05/17/19 1 Day Ago History ~05/16/19 Rosuvastatin Calcium 40 mg PO QDAY 05/17/19 05/17/19 1 Day Ago History ~05/16/19 predniSONE [Deltasone] 5 mg PO QDAY 05/17/19 05/17/19 1 Day Ago History ~05/16/19 Active Medications: Generic Name Dose Route Start Last Admin Trade Name Caity PRN Reason Stop Dose Admin Acetaminophen 650 mg 05/19/19 15:02 05/21/19 18:19 Tylenol FEEDTUBE 650 mg Q4H PRN Administration Pain, Mild (1-3), FEVER >100.5 Albuterol 2.5 mg 05/17/19 00:45 05/17/19 19:55 Proventil IH 2.5 mg Q3HRT PRN Administration Shortness Of Breath Amlodipine Besylate 10 mg 05/17/19 10:00 05/22/19 09:29 Amlodipine PO 10 mg QDAY SHAVONNE Administration Aspirin 81 mg 05/18/19 10:00 05/22/19 09:30 Baby Aspirin PO 81 mg QDAY SHAVONNE Administration Atorvastatin Calcium 80 mg 05/17/19 22:00 05/21/19 21:28 Lipitor PO 80 mg QHS SHAVONNE Administration Dextrose 50 ml 05/17/19 00:45 D50w (25gm) Syringe IV Q30MIN PRN Hypoglycemia Protocol Furosemide 40 mg 05/18/19 12:00 05/22/19 09:29 Lasix PO 40 mg QDAY SHAVONNE Administration Guaifenesin 10 ml 05/22/19 00:08 05/22/19 06:31 Guaifenesin Dm Syrup PO 10 ml Q4H PRN Administration Cough Hydralazine HCl 10 mg 05/17/19 00:44 05/19/19 01:25 Apresoline IV 10 mg Q4HR PRN Administration Blood Pressure Insulin Glargine 20 units 05/17/19 01:00 05/21/19 21:31 Lantus SUB-Q 20 units BID SHAVONNE Administration Insulin Human Lispro 0 unit 05/17/19 06:00 05/21/19 23:16 Humalog SUB-Q Not Given Q6HR [facility] Protocol Metoprolol Tartrate 75 mg 05/19/19 22:00 05/22/19 09:29 Metoprolol PO 75 mg BID SHAVONNE Administration Nitroglycerin 0.4 mg 05/17/19 00:53 Nitrostat SL Q5M PRN Chest Pain Ondansetron HCl 4 mg 05/17/19 00:45 05/19/19 15:16 Zofran IV 4 mg Q8H PRN Administration Nausea And Vomiting Pantoprazole Sodium 40 mg 05/21/19 10:00 05/22/19 09:29 Protonix PO 40 mg QDAY SHAVONNE Administration Sodium Chloride 10 ml 05/17/19 10:00 05/22/19 09:32 Sodium Chloride Flush Syringe 10 Ml IV 10 ml BID SHAVONNE Administration Sodium Chloride 10 ml 05/17/19 00:45 Sodium Chloride Flush Syringe 10 Ml IV PRN PRN LINE FLUSH
--- NOTE | 2019-05-22 11:25 | Progress Note ---
<DAVIDPRIMO - Last Filed: 05/22/19 11:24> Assessment and Plan Chest pain VQ scan indeterminate for PE HIV disease Chronic kidney disease with a baseline of 1.6-1.9 Diabetes Hypertension Hyperlipidemia Hx of coronary artery disease Chronic elevated troponin in the setting of renal failure Noncompliance Normal MPI 07/2018 at [facility] Normal LV function by echo this presentation Recommendations: Continue medical therapy for coronary artery disease. Otherwise, conservative cardiac management. No active cardiac issues. We will follow intermittently. Subjective Date of service: 05/22/19 Principal diagnosis: chronic kidney disease, chest pain Interval history: Patient is resting in bed comfortably. No cardiac events reported overnight. Objective Vital Signs Temp Pulse Pulse Resp BP Pulse Ox 05/22/19 09:29 81 151/70 05/22/19 08:48 18 97 05/22/19 08:00 84 05/22/19 03:55 99.2 F 80 18 127/94 100 05/22/19 00:00 72 05/21/19 23:01 98.3 F 71 18 147/85 100 05/21/19 19:24 99.6 F 85 18 145/79 92 05/21/19 18:19 20 05/21/19 16:14 98.1 F 18 152/88 05/21/19 12:10 99 05/21/19 12:00 78 78 20 95 05/21/19 11:54 98.3 F 18 165/76 - Physical Examination General: No Apparent Distress HEENT: Positive: PERRL Neck: Positive: trachea midline Cardiac: Positive: Reg Rate and Rhythm Lungs: Positive: Decreased Breath Sounds Neuro: Positive: Grossly Intact Extremities: Present: +1 Edema - Labs and Meds Comprehensive Metabolic Panel 05/22/19 Range/Units 04:55 Sodium 137 (137-145) mmol/L Potassium 4.1 (3.6-5.0) mmol/L Chloride 99.6 (98-107) mmol/L Carbon Dioxide 22 (22-30) mmol/L BUN 30 H (7-17) mg/dL Creatinine 4.5 H (0.7-1.2) mg/dL Glucose 84 (65-100) mg/dL Calcium 9.1 (8.4-10.2) mg/dL <GERONIMO MOTTA - Last Filed: 05/22/19 12:11> Assessment and Plan I've seen and evaluated the patient and agree with the assessment and plan. Patient's stress test done in July 2018 was negative for stress-induced ischemia. Patient's echo at that time shows normal LV function. Recommend continued medical therapy for treatment of coronary artery disease. Objective Vital Signs Temp Pulse Resp BP Pulse Ox 05/22/19 09:29 81 151/70 05/22/19 08:48 18 97 05/22/19 08:00 84 05/22/19 03:55 99.2 F 80 18 127/94 100 05/22/19 00:00 72 05/21/19 23:01 98.3 F 71 18 147/85 100 05/21/19 19:24 99.6 F 85 18 145/79 92 05/21/19 18:19 20 05/21/19 16:14 98.1 F 18 152/88 - Labs and Meds Comprehensive Metabolic Panel 05/22/19 Range/Units 04:55 Sodium 137 (137-145) mmol/L Potassium 4.1 (3.6-5.0) mmol/L Chloride 99.6 (98-107) mmol/L Carbon Dioxide 22 (22-30) mmol/L BUN 30 H (7-17) mg/dL Creatinine 4.5 H (0.7-1.2) mg/dL Glucose 84 (65-100) mg/dL Calcium 9.1 (8.4-10.2) mg/dL
[2019-05-22] MEDS: INSULIN GLARGINE 100 UNITS/ML SUB-Q SCH ×3 (12:24→21:24)
[2019-05-22] MEDS: INSULIN LISPRO 100 UNIT/ML SUB-Q SCH ×3 (12:25→21:21)
--- NOTE | 2019-05-22 18:23 | Progress Note ---
Assessment and Plan Assessment and plan: Patient is 58-year-old -[place] female with history of HIV, hypertension, diabetes, HLT, sarcoidosis, CAD, CT (2010) s/p stent x4 who presents to [facility] ED with complaints of left sided non-radiating chest pain, SOB, and diaphoresis. . Acute metabolic encephalopathy Change in mental status - suspect from narcotics and possible underlying depression - stopped all narcotics, consulted mental health ELEN on possible CKD stage 4 due to vasomotor nephropathy -Cr on admission 3.3 -??CKD with GFR 17 -Renal ultrasound unremarkable -Continue to Hydrate with IVF -Avoid nephrotoxic agents -Renal dose all meds -Nephrology consulted - Cr was 1.7 about a year ago Dizziness and lightheadedness - no acute findings on CT head - Ordered PT eval Elevated D-Dimer with possible PE -VQ scan shows intermediate probability for PE -Bilateral lower extremity Doppler showed no acute DVT, no hypoxemia on ABG -Pulmonology consulted -recommended to to start heparin drip as no sign of hypoxemia and negative DVT NSTEMI type II Acute Chest Pain -History of CT (2010), status post stent 4 -Follows at [facility] as outpatient -Initiated chest pain protocol -Continuous telemetry monitoring -Troponin elevated was elevated on admission -EKG unrevealing for acute ischemic abnormalities -s/p heparin drip -Cardiology consulted and recommended medical management Hypertensive urgency -BP on admission 198/142 -Hx Hypertension -Continue to monitor BP -Hold TANIKA and ARB d/t renal function -IV antihypertensive when necessary Insulin-dependent DM -Uncontrolled -BG on admission 510 -Scheduled Lantus and SSI coverage prn -HgbA1C 12.3 Hyperlipidemia -Uncontrolled -Total cholesterol on admission 490 -Start atorvastatin 80 mg daily at bedtime Hyponatremia -Na on admission 131 -Slowly correct Na with IVF -Continue to monitor replete prn Hyperkalemia -on admission 5.4 now resolved -Receiving IVF -Continue to monitor electrolytes Diarrhea after eating salad from outside will monitor I counseled her and advise against eating food from outside, especially salads HIV positive -Continue antiretroviral DVT PPX -On Heparin Discussed with patient and at bedside History Interval history: No more chest pain No SOB currently Altered mental status, improved Diarrhea today after eating salad from outside Hospitalist Physical - Physical exam Narrative exam: Gen: Not in acute distress, lying in bed,obese HEENT: Normocephalic, atraumatic Neck: supple, no JVD Heart: S1 and S2 reg, no murmurs, rubs or gallop Lungs: Clear to auscultation bilaterally, Abd: soft, non tender, non distended, normal BS, Ext: No edema, no clubbing, no cyanosis Neuro: Lethargic,moves all ext - Constitutional Vitals: Temp Pulse Resp BP Pulse Ox 99.2 F 81 18 151/70 97 05/22/19 03:55 05/22/19 09:29 05/22/19 08:48 05/22/19 09:29 05/22/19 08:48 General appearance: Present: no acute distress, obese Results - Labs CBC & Chem 7: 05/23/19 04:51 05/23/19 04:51 Labs: Laboratory Last Values WBC 8.1 K/mm3 (4.5-11.0) 05/19/19 07:08 RBC 2.90 M/mm3 (3.65-5.03) L 05/19/19 07:08 Hgb 9.1 gm/dl (10.1-14.3) L 05/21/19 09:06 Hct 28.0 % (30.3-42.9) L 05/21/19 09:06 MCV 91 fl (79-97) 05/19/19 07:08 MCH 31 pg (28-32) 05/19/19 07:08 MCHC 34 % (30-34) 05/19/19 07:08 RDW 15.8 % (13.2-15.2) H 05/19/19 07:08 Plt Count 221 K/mm3 (140-440) 05/21/19 09:06 Lymph % (Auto) 38.3 % (13.4-35.0) H 05/19/19 07:08 Dukes % (Auto) 6.5 % (0.0-7.3) 05/19/19 07:08 Eos % (Auto) 3.5 % (0.0-4.3) 05/19/19 07:08 Baso % (Auto) 0.5 % (0.0-1.8) 05/19/19 07:08 Lymph # 3.1 K/mm3 (1.2-5.4) 05/19/19 07:08 Dukes # 0.5 K/mm3 (0.0-0.8) 05/19/19 07:08 Eos # 0.3 K/mm3 (0.0-0.4) 05/19/19 07:08 Baso # 0.0 K/mm3 (0.0-0.1) 05/19/19 07:08 Add Manual Diff Complete 05/16/19 20:32 Total Counted 100 05/16/19 20:32 Seg Neutrophils % 51.2 % (40.0-70.0) 05/19/19 07:08 Seg Neuts % (Manual) 68.0 % (40.0-70.0) 05/16/19 20:32 Band Neutrophils % 0 % 05/16/19 20:32 Lymphocytes % (Manual) 25.0 % (13.4-35.0) 05/16/19 20:32 Reactive Lymphs % (Man) 0 % 05/16/19 20:32 Monocytes % (Manual) 6.0 % (0.0-7.3) 05/16/19 20:32 Eosinophils % (Manual) 0 % (0.0-4.3) 05/16/19 20:32 Basophils % (Manual) 0 % (0.0-1.8) 05/16/19 20:32 Metamyelocytes % 0 % 05/16/19 20:32 Myelocytes % 1.0 % 05/16/19 20:32 Promyelocytes % 0 % 05/16/19 20:32 Blast Cells % 0 % 05/16/19 20:32 Nucleated RBC % Not Reportable 05/16/19 20:32 Seg Neutrophils # 4.2 K/mm3 (1.8-7.7) 05/19/19 07:08 Seg Neutrophils # Man 5.0 K/mm3 (1.8-7.7) 05/16/19 20:32 Band Neutrophils # 0.0 K/mm3 05/16/19 20:32 Lymphocytes # (Manual) 1.8 K/mm3 (1.2-5.4) 05/16/19 20:32 Abs React Lymphs (Man) 0.0 K/mm3 05/16/19 20:32 Monocytes # (Manual) 0.4 K/mm3 (0.0-0.8) 05/16/19 20:32 Eosinophils # (Manual) 0.0 K/mm3 (0.0-0.4) 05/16/19 20:32 Basophils # (Manual) 0.0 K/mm3 (0.0-0.1) 05/16/19 20:32 Metamyelocytes # 0.0 K/mm3 05/16/19 20:32 Myelocytes # 0.1 K/mm3 05/16/19 20:32 Promyelocytes # 0.0 K/mm3 05/16/19 20:32 Blast Cells # 0.0 K/mm3 05/16/19 20:32 WBC Morphology Not Reportable 05/16/19 20:32 Hypersegmented Neuts Not Reportable 05/16/19 20:32 Hyposegmented Neuts Not Reportable 05/16/19 20:32 Hypogranular Neuts Not Reportable 05/16/19 20:32 Smudge Cells Not Reportable 05/16/19 20:32 Toxic Granulation Not Reportable 05/16/19 20:32 Toxic Vacuolation Not Reportable 05/16/19 20:32 Dohle Bodies Not Reportable 05/16/19 20:32 Pelger-Huet Anomaly Not Reportable 05/16/19 20:32 Tra Rods Not Reportable 05/16/19 20:32 Platelet Estimate Appears normal 05/16/19 20:32 Clumped Platelets Not Reportable 05/16/19 20:32 Plt Clumps, EDTA Not Reportable 05/16/19 20:32 Large Platelets Not Reportable 05/16/19 20:32 Giant Platelets Not Reportable 05/16/19 20:32 Platelet Satelliting Not Reportable 05/16/19 20:32 Plt Morphology Comment Not Reportable 05/16/19 20:32 RBC Morphology Normal 05/16/19 20:32 Dimorphic RBCs Not Reportable 05/16/19 20:32 Polychromasia Not Reportable 05/16/19 20:32 Hypochromasia Not Reportable 05/16/19 20:32 Poikilocytosis Not Reportable 05/16/19 20:32 Anisocytosis Not Reportable 05/16/19 20:32 Microcytosis Not Reportable 05/16/19 20:32 Macrocytosis Not Reportable 05/16/19 20:32 Spherocytes Not Reportable 05/16/19 20:32 Pappenheimer Bodies Not Reportable 05/16/19 20:32 Sickle Cells Not Reportable 05/16/19 20:32 Target Cells Not Reportable 05/16/19 20:32 Tear Drop Cells Not Reportable 05/16/19 20:32 Ovalocytes Not Reportable 05/16/19 20:32 Helmet Cells Not Reportable 05/16/19 20:32 Goel-Petrey Bodies Not Reportable 05/16/19 20:32 [place] Rings Not Reportable 05/16/19 20:32 [place] Cells Not Reportable 05/16/19 20:32 Bite Cells Not Reportable 05/16/19 20:32 Crenated Cell Not Reportable 05/16/19 20:32 Elliptocytes Not Reportable 05/16/19 20:32 Acanthocytes (Spur) Not Reportable 05/16/19 20:32 Rouleaux Not Reportable 05/16/19 20:32 Hemoglobin C Crystals Not Reportable 05/16/19 20:32 Schistocytes Not Reportable 05/16/19 20:32 Malaria parasites Not Reportable 05/16/19 20:32 Shayne Bodies Not Reportable 05/16/19 20:32 Hem Pathologist Commnt No 05/16/19 20:32 PT 13.0 Sec. (12.2-14.9) 05/17/19 01:30 INR 0.99 (0.87-1.13) 05/17/19 01:30 APTT 41.2 Sec. (24.2-36.6) H 05/17/19 01:30 D-Dimer 416.09 ng/mlDDU (0-234) H 05/16/19 20:32 Heparin Anti-Xa Level < 0.10 U.I./ml (0.3-0.7) L 05/19/19 21:02 ABG pH 7.377 pH Units (7.350-7.450) 05/17/19 15:45 ABG pCO2 41.2 mm Hg 05/17/19 15:45 ABG pO2 135.4 mm Hg (80.0-90.0) H 05/17/19 15:45 ABG HCO3 23.7 mmol/L (20.0-26.0) 05/17/19 15:45 ABG O2 Saturation 98.6 % (95.0-99.0) 05/17/19 15:45 ABG O2 Content 12.4 (0.0-44) 05/17/19 15:45 ABG Base Excess -1.4 mmol/L (-2.0-3.0) 05/17/19 15:45 ABG Hemoglobin 8.9 gm/dl (12.0-16.0) L 05/17/19 15:45 ABG Carboxyhemoglobin 1.4 % (0.0-5.0) 05/17/19 15:45 ABG Methemoglobin 0.5 % (0.0-1.5) 05/17/19 15:45 Oxyhemoglobin 96.8 % (95.0-99.0) 05/17/19 15:45 FiO2 32 % 05/17/19 15:45 Sodium 137 mmol/L (137-145) 05/22/19 04:55 Potassium 4.1 mmol/L (3.6-5.0) 05/22/19 04:55 Chloride 99.6 mmol/L (98-107) 05/22/19 04:55 Carbon Dioxide 22 mmol/L (22-30) 05/22/19 04:55 Anion Gap 20 mmol/L 05/22/19 04:55 BUN 30 mg/dL (7-17) H 05/22/19 04:55 Creatinine 4.5 mg/dL (0.7-1.2) H 05/22/19 04:55 Estimated GFR 12 ml/min 05/22/19 04:55 BUN/Creatinine Ratio 7 % 05/22/19 04:55 Glucose 84 mg/dL (65-100) 05/22/19 04:55 POC Glucose 88 (70-105) 05/22/19 15:31 Hemoglobin A1c 12.3 % (4-6) H 05/17/19 01:30 Calcium 9.1 mg/dL (8.4-10.2) 05/22/19 04:55 Total Creatine Kinase 51 units/L (30-135) 05/19/19 14:45 CK-MB (CK-2) 3.3 ng/mL (0.0-4.0) 05/19/19 14:45 CK-MB (CK-2) Rel Index 6.4 (0-4) H 05/19/19 14:45 Troponin T 0.079 ng/mL (0.00-0.029) H 05/19/19 14:45 Triglycerides 542 mg/dL (2-149) H 05/16/19 20:32 Cholesterol 490 mg/dL (50-199) H 05/16/19 20:32 LDL Cholesterol Direct TNR 05/16/19 20:32 HDL Cholesterol 59 mg/dL (40-59) 05/16/19 20:32 Cholesterol/HDL Ratio 8.30 % 05/16/19 20:32 Urine Color Straw (Yellow) 05/17/19 22:00 Urine Turbidity Clear (Clear) 05/17/19 22:00 Urine pH 6.0 (5.0-7.0) 05/17/19 22:00 Ur Specific [place] 1.012 (1.003-1.030) 05/17/19 22:00 Urine Protein >500 mg/dL (Negative) 05/17/19 22:00 Urine Glucose (UA) 150 mg/dL (Negative) 05/17/19 22:00 Urine Ketones Neg mg/dL (Negative) 05/17/19 22:00 Urine Blood Neg (Negative) 05/17/19 22:00 Urine Nitrite Neg (Negative) 05/17/19 22:00 Urine Bilirubin Neg (Negative) 05/17/19 22:00 Urine Urobilinogen < 2.0 mg/dL (<2.0) 05/17/19 22:00 Ur Leukocyte Esterase Mod (Negative) 05/17/19 22:00 Urine WBC (Auto) 4.0 /HPF (0.0-6.0) 05/17/19 22:00 Urine RBC (Auto) 2.0 /HPF (0.0-6.0) 05/17/19 22:00 U Epithel Cells (Auto) 3.0 /HPF (0-13.0) 05/17/19 22:00 Urine Bacteria (Auto) 1+ /HPF (Negative) 05/17/19 22:00 Active Medications - Current Medications Current Medications: Generic Name Dose Route Start Last Admin Trade Name Freq PRN Reason Stop Dose Admin Acetaminophen 650 mg 05/19/19 15:02 05/21/19 18:19 Tylenol FEEDTUBE 650 mg Q4H PRN Administration Pain, Mild (1-3), FEVER >100.5 Albuterol 2.5 mg 05/17/19 00:45 05/17/19 19:55 Proventil IH 2.5 mg Q3HRT PRN Administration Shortness Of Breath Amlodipine Besylate 10 mg 05/17/19 10:00 05/22/19 09:29 Amlodipine PO 10 mg QDAY SHAVONNE Administration Aspirin 81 mg 05/18/19 10:00 05/22/19 09:30 Baby Aspirin PO 81 mg QDAY SHAVONNE Administration Atorvastatin Calcium 80 mg 05/17/19 22:00 05/21/19 21:28 Lipitor PO 80 mg QHS SHAVONNE Administration Dextrose 50 ml 05/17/19 00:45 D50w (25gm) Syringe IV Q30MIN PRN Hypoglycemia Protocol Guaifenesin 10 ml 05/22/19 00:08 05/22/19 12:07 Guaifenesin Dm Syrup PO 10 ml Q4H PRN Administration Cough Hydralazine HCl 10 mg 05/17/19 00:44 05/19/19 01:25 Apresoline IV 10 mg Q4HR PRN Administration Blood Pressure Insulin Glargine 20 units 05/17/19 01:00 05/22/19 12:24 Lantus SUB-Q 20 units BID SHAVONNE Administration Insulin Human Lispro 0 unit 05/17/19 06:00 05/22/19 12:25 Humalog SUB-Q Not Given Q6HR [facility] Protocol Metoprolol Tartrate 75 mg 05/19/19 22:00 05/22/19 09:29 Metoprolol PO 75 mg BID SHAVONNE Administration Nitroglycerin 0.4 mg 05/17/19 00:53 Nitrostat SL Q5M PRN Chest Pain Ondansetron HCl 4 mg 05/17/19 00:45 05/19/19 15:16 Zofran IV 4 mg Q8H PRN Administration Nausea And Vomiting Pantoprazole Sodium 40 mg 05/21/19 10:00 05/22/19 09:29 Protonix PO 40 mg QDAY SHAVONNE Administration Sodium Chloride 10 ml 05/17/19 10:00 05/22/19 09:32 Sodium Chloride Flush Syringe 10 Ml IV 10 ml BID SHAVONNE Administration Sodium Chloride 10 ml 05/17/19 00:45 Sodium Chloride Flush Syringe 10 Ml IV PRN PRN LINE FLUSH Nutrition/Malnutrition Assess - Dietary Evaluation Nutrition/Malnutrition Findings: Nutrition Notes Start: 05/17/19 11:43 Freq: Status: Active Protocol: Document 05/21/19 14:32 LP (Rec: 05/21/19 14:33 LP [id number]) Nutrition Notes Initial or Follow up Brief Note Subjective/Other Information Pt sleeping at time of visit and lethargic. Pt states to come back but wanting diet education. Handout left at bedside. Nutrition Intervention Follow-Up By: 05/27/19 Additional Comments Follow for diet education needs and intakes
[2019-05-22] MEDS: ACETAMINOPHEN 325 MG/10.15 ML ORAL LIQD UNIT DOSE FEEDTUBE PRN (21:19)
[2019-05-22] MEDS: [UNRECOGNIZED DRUG - OTHER] PO SCH (21:20)
[2019-05-23] MEDS: INSULIN LISPRO 100 UNIT/ML SUB-Q SCH ×4 (00:29→17:16)
[2019-05-23] MEDS: guaiFENesin DM 200/20 MG ORAL LIQD 10 ML PO PRN ×2 (05:40→10:00)
[2019-05-23 05:53] LABS: Hemoglobin 8.8 gm/dl (10.1-14.3); Mean Corpuscular HGB Conc 33 % (30-34); Mean Corpuscular Volume 92 fl (79-97); Platelet Count 194 K/mm3 (140-440); Red Blood Count 2.93 M/mm3 (3.65-5.03)
[2019-05-23 06:11] LABS: Calcium 8.8 mg/dL (8.4-10.2)
[2019-05-23 07:36] LABS: Anisocytosis 1+; Eosinophils % (Manual) 0 % (0.0-4.3); Macrocytosis Few; Stomatocytes Few; Total Cells Counted 100
[2019-05-23 07:37] LABS: Platelet Estimate Consistent w Auto
[2019-05-23] MEDS: amLODIPine 10 MG TAB PO SCH (09:52)
[2019-05-23] MEDS: PANTOPRAZOLE 40 MG TAB PO SCH (09:53)
[2019-05-23] MEDS: METOPROLOL TARTRATE 25 MG TAB PO SCH ×3 (09:53→21:30)
[2019-05-23] MEDS: ASPIRIN 81 MG TAB CHEW PO SCH (09:53)
--- NOTE | 2019-05-23 09:54 | Progress Note ---
Assessment and Plan Elevated D-Dimer Acute Chest Pain Sarcoidosis, steroid dependent Hypertensive urgency Obesity ELEN on possible CKD Insulin-dependent DM Hyperlipidemia Hyponatremia Hyperkalemia HIV positive - + elevated RVSP but no hypoxemia; intermidiate prob for P.E. with low pretest prob for P.E. she is however clinically improved without treatment for P.E. and we will follow clinically - begin systemic steroids with slow taper for sarcoidosis exacerbation - prn supplemental oxygen as needed to keep O2 sat's > 90% - prn bronchodilators (HANNAH) with pulmonary hygiene per RT - consider inhaled corticosteroids - folow clinically off AB's - PT/OT as tolerated - mobility protocols for pressure ulcer prophylaxis - GI & VTE prophylaxis (Begin SQ heparin for VTE prophylaxis) - tobacco abstinence strongly counseled at bedside - Flu & Pneumovax addressed per protocol - Azotemia per nephrology team - continue other care per attending / other consultants ... re-evaluate in am & prn Subjective Date of service: 05/23/19 Principal diagnosis: Acute Chest Pain (D-dimer high); Sarcoidosis; HTNsive urgency; Obesity Interval history: Patient is seen today for: Elevated D-Dimer; Acute Chest Pain; Sarcoidosis (steroid dependent); Hypertensive urgency; Obesity; ELEN on possible CKD; Insulin-dependent DM; HIV positive Seen and examined at bedside; 24-hour events reviewed; nursing and respiratory care staff consulted; no adverse overnight events reported to me; resting peacefully in bed; denies acute chest pains & no recurrence since admission; overall feels better; No N/V/F/C Objective Vital Signs - 12hr 05/22/19 05/23/19 05/23/19 23:17 03:25 08:06 Temperature 98.8 F 98.2 F 98.8 F Pulse Rate 67 66 74 Respiratory 16 18 18 Rate Blood Pressure 119/61 96/47 114/61 O2 Sat by Pulse 100 99 100 Oximetry 05/23/19 09:10 Temperature Pulse Rate Respiratory Rate Blood Pressure O2 Sat by Pulse 96 Oximetry Constitutional: no acute distress, alert, other (middle aged AAF, normocephalic and atraumatic with normal respiratory effort at rest) Eyes: non-icteric ENT: oropharynx moist, other (Mallampati 3) Neck: supple, no lymphadenopathy, other (+ large neck circumference) Effort: mildly labored Ascultation: Bilateral: diminished breath sounds, rales (scant inspiratory in bases) Percussion: Bilateral: not dull Cardiovascular: regular rate and rhythm Gastrointestinal: normoactive bowel sounds, soft, non-tender, non-distended, other (protuberant) Integumentary: normal Extremities: no cyanosis, no edema, pulses normal, no ischemia or petechiae Neurologic: normal mental status, non-focal exam, pupils equal and round, CN II- XII normal, motor strength normal and Psychiatric: mood appropriate, affect normal, other (Sleeping at this time.) CBC and BMP: 05/23/19 04:51 05/24/19 06:27 ABG, PT/INR, D-dimer: ABG ABG pH 7.377 pH Units (7.350-7.450) 05/17/19 15:45 ABG pCO2 41.2 mm Hg 05/17/19 15:45 ABG pO2 135.4 mm Hg (80.0-90.0) H 05/17/19 15:45 ABG O2 Saturation 98.6 % (95.0-99.0) 05/17/19 15:45 PT/INR, D-dimer PT 13.0 Sec. (12.2-14.9) 05/17/19 01:30 INR 0.99 (0.87-1.13) 05/17/19 01:30 D-Dimer 416.09 ng/mlDDU (0-234) H 05/16/19 20:32 Abnormal lab findings: Abnormal Labs 05/16/19 05/16/19 05/16/19 20:32 20:32 20:32 RBC 3.10 L Hgb 9.4 L Hct 28.3 L RDW 15.5 H Lymph % (Auto) Eos % (Auto) Monocytes % (Manual) Nucleated RBC % Monocytes # (Manual) APTT D-Dimer 416.09 H Heparin Anti-Xa Level ABG pO2 ABG Hemoglobin Sodium 131 L Potassium 5.4 H Chloride 94.1 L Carbon Dioxide 20 L BUN 37 H Creatinine 3.3 H Glucose 510 H* POC Glucose Hemoglobin A1c CK-MB (CK-2) Rel Index Troponin T 0.081 H Triglycerides 542 H Cholesterol 490 H 05/16/19 05/17/19 05/17/19 23:25 00:40 01:30 RBC Hgb Hct RDW Lymph % (Auto) Eos % (Auto) Monocytes % (Manual) Nucleated RBC % Monocytes # (Manual) APTT D-Dimer Heparin Anti-Xa Level ABG pO2 ABG Hemoglobin Sodium Potassium Chloride Carbon Dioxide BUN Creatinine Glucose POC Glucose 193 H Hemoglobin A1c CK-MB (CK-2) Rel Index Troponin T 0.087 H 0.085 H Triglycerides Cholesterol 05/17/19 05/17/19 05/17/19 01:30 01:30 02:43 RBC Hgb Hct RDW Lymph % (Auto) Eos % (Auto) Monocytes % (Manual) Nucleated RBC % Monocytes # (Manual) APTT 41.2 H D-Dimer Heparin Anti-Xa Level ABG pO2 ABG Hemoglobin Sodium Potassium Chloride Carbon Dioxide BUN Creatinine Glucose POC Glucose 258 H Hemoglobin A1c 12.3 H CK-MB (CK-2) Rel Index Troponin T Triglycerides Cholesterol 05/17/19 05/17/19 05/17/19 07:08 09:13 12:55 RBC Hgb Hct RDW Lymph % (Auto) Eos % (Auto) Monocytes % (Manual) Nucleated RBC % Monocytes # (Manual) APTT D-Dimer Heparin Anti-Xa Level ABG pO2 ABG Hemoglobin Sodium Potassium Chloride Carbon Dioxide BUN Creatinine Glucose POC Glucose 231 H 213 H Hemoglobin A1c CK-MB (CK-2) Rel Index Troponin T 0.083 H Triglycerides Cholesterol 05/17/19 05/17/19 05/17/19 15:45 17:34 21:01 RBC Hgb Hct RDW Lymph % (Auto) Eos % (Auto) Monocytes % (Manual) Nucleated RBC % Monocytes # (Manual) APTT D-Dimer Heparin Anti-Xa Level ABG pO2 135.4 H ABG Hemoglobin 8.9 L Sodium Potassium Chloride Carbon Dioxide BUN Creatinine Glucose POC Glucose 230 H 221 H Hemoglobin A1c CK-MB (CK-2) Rel Index Troponin T Triglycerides Cholesterol 05/18/19 05/18/19 05/18/19 05:12 05:12 07:10 RBC 2.79 L Hgb 8.5 L Hct 25.6 L RDW 15.8 H Lymph % (Auto) 46.4 H Eos % (Auto) 4.9 H Monocytes % (Manual) Nucleated RBC % Monocytes # (Manual) APTT D-Dimer Heparin Anti-Xa Level 0.86 H ABG pO2 ABG Hemoglobin Sodium 135 L Potassium Chloride Carbon Dioxide 18 L BUN 30 H Creatinine 2.9 H Glucose POC Glucose Hemoglobin A1c CK-MB (CK-2) Rel Index Troponin T Triglycerides Cholesterol 05/18/19 05/18/19 05/18/19 11:41 15:17 16:37 RBC Hgb Hct RDW Lymph % (Auto) Eos % (Auto) Monocytes % (Manual) Nucleated RBC % Monocytes # (Manual) APTT D-Dimer Heparin Anti-Xa Level 0.77 H ABG pO2 ABG Hemoglobin Sodium Potassium Chloride Carbon Dioxide BUN Creatinine Glucose POC Glucose 155 H 110 H Hemoglobin A1c CK-MB (CK-2) Rel Index Troponin T Triglycerides Cholesterol 05/18/19 05/18/19 05/19/19 21:26 21:33 06:56 RBC Hgb Hct RDW Lymph % (Auto) Eos % (Auto) Monocytes % (Manual) Nucleated RBC % Monocytes # (Manual) APTT D-Dimer Heparin Anti-Xa Level 0.11 L ABG pO2 ABG Hemoglobin Sodium Potassium Chloride Carbon Dioxide BUN Creatinine Glucose POC Glucose 133 H 123 H Hemoglobin A1c CK-MB (CK-2) Rel Index Troponin T Triglycerides Cholesterol 05/19/19 05/19/19 05/19/19 07:07 07:07 07:07 RBC Hgb Hct RDW Lymph % (Auto) Eos % (Auto) Monocytes % (Manual) Nucleated RBC % Monocytes # (Manual) APTT D-Dimer Heparin Anti-Xa Level 0.25 L ABG pO2 ABG Hemoglobin Sodium 132 L Potassium Chloride Carbon Dioxide 18 L BUN 31 H Creatinine 3.1 H Glucose 133 H POC Glucose Hemoglobin A1c CK-MB (CK-2) Rel Index 6.2 H Troponin T 0.069 H Triglycerides Cholesterol 05/19/19 05/19/19 05/19/19 07:08 07:49 11:49 RBC 2.90 L Hgb 9.0 L Hct 26.5 L RDW 15.8 H Lymph % (Auto) 38.3 H Eos % (Auto) Monocytes % (Manual) Nucleated RBC % Monocytes # (Manual) APTT D-Dimer Heparin Anti-Xa Level ABG pO2 ABG Hemoglobin Sodium Potassium Chloride Carbon Dioxide BUN Creatinine Glucose POC Glucose 124 H 116 H Hemoglobin A1c CK-MB (CK-2) Rel Index Troponin T Triglycerides Cholesterol 05/19/19 05/19/19 05/19/19 14:45 16:21 21:02 RBC Hgb Hct RDW Lymph % (Auto) Eos % (Auto) Monocytes % (Manual) Nucleated RBC % Monocytes # (Manual) APTT D-Dimer Heparin Anti-Xa Level < 0.10 L ABG pO2 ABG Hemoglobin Sodium Potassium Chloride Carbon Dioxide BUN Creatinine Glucose POC Glucose 124 H Hemoglobin A1c CK-MB (CK-2) Rel Index 6.4 H Troponin T 0.079 H Triglycerides Cholesterol 05/20/19 05/21/19 05/21/19 13:25 09:06 09:06 RBC Hgb 9.1 L Hct 28.0 L RDW Lymph % (Auto) Eos % (Auto) Monocytes % (Manual) Nucleated RBC % Monocytes # (Manual) APTT D-Dimer Heparin Anti-Xa Level ABG pO2 ABG Hemoglobin Sodium 136 L Potassium Chloride Carbon Dioxide 16 L 18 L BUN 32 H 31 H Creatinine 3.6 H 3.8 H Glucose POC Glucose Hemoglobin A1c CK-MB (CK-2) Rel Index Troponin T Triglycerides Cholesterol 05/21/19 05/21/19 05/21/19 12:00 13:21 16:08 RBC Hgb Hct RDW Lymph % (Auto) Eos % (Auto) Monocytes % (Manual) Nucleated RBC % Monocytes # (Manual) APTT D-Dimer Heparin Anti-Xa Level ABG pO2 ABG Hemoglobin Sodium Potassium Chloride Carbon Dioxide BUN Creatinine Glucose POC Glucose 200 H 156 H 133 H Hemoglobin A1c CK-MB (CK-2) Rel Index Troponin T Triglycerides Cholesterol 05/21/19 05/22/19 05/23/19 23:09 04:55 00:23 RBC Hgb Hct RDW Lymph % (Auto) Eos % (Auto) Monocytes % (Manual) Nucleated RBC % Monocytes # (Manual) APTT D-Dimer Heparin Anti-Xa Level ABG pO2 ABG Hemoglobin Sodium Potassium Chloride Carbon Dioxide BUN 30 H Creatinine 4.5 H Glucose POC Glucose 134 H 140 H Hemoglobin A1c CK-MB (CK-2) Rel Index Troponin T Triglycerides Cholesterol 05/23/19 05/23/19 05/23/19 04:51 04:51 06:30 RBC 2.93 L Hgb 8.8 L Hct 27.0 L RDW 16.0 H Lymph % (Auto) Eos % (Auto) Monocytes % (Manual) 14.0 H Nucleated RBC % 1.0 H Monocytes # (Manual) 1.0 H APTT D-Dimer Heparin Anti-Xa Level ABG pO2 ABG Hemoglobin Sodium 136 L Potassium Chloride Carbon Dioxide 19 L BUN 34 H Creatinine 5.3 H Glucose 137 H POC Glucose 174 H Hemoglobin A1c CK-MB (CK-2) Rel Index Troponin T Triglycerides Cholesterol Chest x-ray: image reviewed (chronic scarring) Allied health notes reviewed: nursing
[2019-05-23] MEDS: INSULIN GLARGINE 100 UNITS/ML SUB-Q SCH ×3 (10:00→21:30)
--- NOTE | 2019-05-23 11:40 | Progress Note ---
Assessment and Plan - Patient Problems (1) Chronic kidney disease, stage 4 (severe) Current Visit: Yes Status: Chronic Plan to address problem: With ELEN on CKD which is likely pre-renal in etiology based on recent bout of diarrhea over the last 24 hours. Will start on IVF hydration with NS @ 100cc/hr and closely monitor. (2) Hypertension Current Visit: Yes Status: Chronic Qualifiers: Hypertension type: essential hypertension Qualified Code(s): I10 - Essential (primary) hypertension Plan to address problem: Monitor blood pressures under current regimen. (3) Type 2 diabetes mellitus with diabetic nephropathy Current Visit: Yes Status: Chronic Plan to address problem: DM management per primary attending. (4) Hyperkalemia Current Visit: Yes Status: Acute Plan to address problem: Resolved at this time. Will closely monitor. (5) Sarcoidosis Current Visit: Yes Status: Acute Plan to address problem: Management per pulmonology recommendations. Subjective Date of service: 05/23/19 Principal diagnosis: chronic kidney disease, chest pain Interval history: Experienced diarrhea over that past 24 hours after consuming salad which had marcus lettuce. This was brought in by family. Objective - Vital Signs Vital signs: Vital Signs - 12hr 05/23/19 05/23/19 05/23/19 03:25 08:06 09:10 Temperature 98.2 F 98.8 F Pulse Rate 66 74 Respiratory 18 18 Rate Blood Pressure 96/47 114/61 O2 Sat by Pulse 99 100 96 Oximetry 05/23/19 10:00 Temperature Pulse Rate 68 Respiratory 18 Rate Blood Pressure O2 Sat by Pulse 97 Oximetry - General Appearance General appearance: well-developed, well-nourished, appears stated age EENT: ATNC, PERRL Neck: no JVD, no thyromegaly Respiratory: Present: Clear to Ascultation Cardiology: regular, S1S2 Gastrointestinal: normal, normoactive bowel sounds Integumentary: no rash, warm and dry Neurologic: no focal deficit, alert and oriented x3 Musculoskeletal: deferred Psychiatric: cooperative - Lab 05/23/19 04:51 05/23/19 04:51 Most recent lab results ABG pH 7.377 pH Units (7.350-7.450) 05/17/19 15:45 ABG pCO2 41.2 mm Hg 05/17/19 15:45 ABG pO2 135.4 mm Hg (80.0-90.0) H 05/17/19 15:45 ABG HCO3 23.7 mmol/L (20.0-26.0) 05/17/19 15:45 ABG O2 Saturation 98.6 % (95.0-99.0) 05/17/19 15:45 Calcium 8.8 mg/dL (8.4-10.2) 05/23/19 04:51 - Allied health notes Allied health notes reviewed: nursing Medications & Allergies - Medications Allergies/Adverse Reactions: Allergies Sulfa (Sulfonamide Antibiotics) Allergy (Verified 10/13/13 15:11) Rash Home Medications: Home Medications Medication Instructions Recorded Confirmed Last Taken Type Amitriptyline [Elavil] 10 mg PO QHS 05/17/19 05/17/19 2 Days Ago History ~05/15/19 Elviteg/Cob/Emtri/Tenof Alafen 1 tab PO DAILY 05/17/19 05/17/19 1 Day Ago History [Genvoya Tablet] ~05/16/19 Famotidine [Pepcid] 20 mg PO BID 05/17/19 05/17/19 1 Day Ago History ~05/16/19 Insulin NPH Hum/Reg Insulin Hm 22 bottle SQ QAC 05/17/19 05/17/19 1 Day Ago History [Humulin 70-30 Vial] ~05/16/19 Lisinopril/Hydrochlorothiazide 1 tab PO QDAY 05/17/19 05/17/19 1 Day Ago History [Zestoretic 20-12.5 mg] ~05/16/19 Losartan Potassium 50 mg PO DAILY 05/17/19 05/17/19 1 Day Ago History ~05/16/19 Metoprolol [Lopressor] 25 mg PO BID 05/17/19 05/17/19 1 Day Ago History ~05/16/19 Rosuvastatin Calcium 40 mg PO QDAY 05/17/19 05/17/19 1 Day Ago History ~05/16/19 predniSONE [Deltasone] 5 mg PO QDAY 05/17/19 05/17/19 1 Day Ago History ~05/16/19 Active Medications: Generic Name Dose Route Start Last Admin Trade Name Freq PRN Reason Stop Dose Admin Acetaminophen 650 mg 05/19/19 15:02 05/22/19 21:19 Tylenol FEEDTUBE 650 mg Q4H PRN Administration Pain, Mild (1-3), FEVER >100.5 Albuterol 2.5 mg 05/17/19 00:45 05/17/19 19:55 Proventil IH 2.5 mg Q3HRT PRN Administration Shortness Of Breath Amlodipine Besylate 10 mg 05/17/19 10:00 05/23/19 09:52 Amlodipine PO 10 mg QDAY SHAVONNE Administration Aspirin 81 mg 05/18/19 10:00 05/23/19 09:53 Baby Aspirin PO 81 mg QDAY SHAVONNE Administration Atorvastatin Calcium 80 mg 05/17/19 22:00 05/22/19 21:20 Lipitor PO 80 mg QHS SHAVONNE Administration Dextrose 50 ml 05/17/19 00:45 D50w (25gm) Syringe IV Q30MIN PRN Hypoglycemia Protocol Guaifenesin 10 ml 05/22/19 00:08 05/23/19 10:00 Guaifenesin Dm Syrup PO 10 ml Q4H PRN Administration Cough Hydralazine HCl 10 mg 05/17/19 00:44 05/19/19 01:25 Apresoline IV 10 mg Q4HR PRN Administration Blood Pressure Insulin Glargine 20 units 05/17/19 01:00 05/23/19 10:00 Lantus SUB-Q 20 units BID SHAVONNE Administration Insulin Human Lispro 0 unit 05/17/19 06:00 05/23/19 06:25 Humalog SUB-Q 2 unit Q6HR SHAVONNE Administration Protocol Metoprolol Tartrate 75 mg 05/19/19 22:00 05/23/19 09:53 Metoprolol PO 75 mg BID SHAVONNE Administration Nitroglycerin 0.4 mg 05/17/19 00:53 Nitrostat SL Q5M PRN Chest Pain Ondansetron HCl 4 mg 05/17/19 00:45 05/19/19 15:16 Zofran IV 4 mg Q8H PRN Administration Nausea And Vomiting Pantoprazole Sodium 40 mg 05/21/19 10:00 05/23/19 09:53 Protonix PO 40 mg QDAY SHAVONNE Administration Sodium Chloride 10 ml 05/17/19 10:00 05/23/19 09:53 Sodium Chloride Flush Syringe 10 Ml IV 10 ml BID SHAVONNE Administration Sodium Chloride 10 ml 05/17/19 00:45 Sodium Chloride Flush Syringe 10 Ml IV PRN PRN LINE FLUSH
[2019-05-23] MEDS: SODIUM CHLORIDE 0.9% 1000 ML 1,000 ML IV SCH (11:58)
--- NOTE | 2019-05-23 15:04 | Progress Note ---
Assessment and Plan Assessment and plan: Patient is 58-year-old -Sy[place] female with history of HIV, hypertension, diabetes, HLT, sarcoidosis, CAD, NH (2010) s/p stent x4 who presents to [facility] ED with complaints of left sided non-radiating chest pain, SOB, and diaphoresis. . Acute metabolic encephalopathy Change in mental status - suspect from narcotics and possible underlying depression - stopped all narcotics, consulted mental health ELEN on possible CKD stage 4 due to vasomotor nephropathy -Cr on admission 3.3 Cr 5.3 today -??CKD with GFR 17 -Renal ultrasound unremarkable -Continue to Hydrate with IVF -Avoid nephrotoxic agents -Renal dose all meds -Nephrology consulted, following - Cr was 1.7 about a year ago -Discussed with nephrology. iv fluids started Dizziness and lightheadedness - no acute findings on CT head - Ordered PT eval Elevated D-Dimer with possible PE -VQ scan shows intermediate probability for PE -Bilateral lower extremity Doppler showed no acute DVT, no hypoxemia on ABG -Pulmonology consulted -recommended to stop heparin drip as no sign of hypoxemia and negative DVT NSTEMI type II Acute Chest Pain -History of NH (2010), status post stent 4 -Follows at [facility] as outpatient -Initiated chest pain protocol -Continuous telemetry monitoring -Troponin elevated was elevated on admission -EKG unrevealing for acute ischemic abnormalities -s/p heparin drip -Cardiology consulted and recommended medical management Hypertensive urgency -BP on admission 198/142 -Hx Hypertension -Continue to monitor BP -Hold TANIKA and ARB d/t renal function -IV antihypertensive when necessary Insulin-dependent DM -Uncontrolled -BG on admission 510 -Scheduled Lantus and SSI coverage prn -HgbA1C 12.3 Hyperlipidemia -Uncontrolled -Total cholesterol on admission 490 -Start atorvastatin 80 mg daily at bedtime Hyponatremia -Na on admission 131 -Slowly correct Na with IVF -Continue to monitor replete prn Hyperkalemia -on admission 5.4 now resolved -Receiving IVF -Continue to monitor electrolytes Diarrhea after eating salad from outside will monitor I counseled her and ,advise against eating food from outside, especially salads HIV positive -Continue antiretroviral DVT PPX -On Heparin Discussed with patient and at bedside History Interval history: No more chest pain No SOB currently Altered mental status, improved Diarrhea X 2 days, started 05/22 after eating eating salad from outside Hospitalist Physical - Physical exam Narrative exam: Gen: Not in acute distress, lying in bed,obese HEENT: Normocephalic, atraumatic Neck: supple, no JVD Heart: S1 and S2 reg, no murmurs, rubs or gallop Lungs: Clear to auscultation bilaterally, Abd: soft, non tender, non distended, normal BS, Ext: No edema, no clubbing, no cyanosis Neuro: Awake,alert,oriented X 3, moves all ext - Constitutional Vitals: Temp Pulse Resp BP Pulse Ox 98.8 F 68 18 114/61 97 05/23/19 08:06 05/23/19 10:00 05/23/19 10:00 05/23/19 08:06 05/23/19 10:00 General appearance: Present: no acute distress, obese Results - Labs CBC & Chem 7: 05/23/19 04:51 05/23/19 04:51 Labs: Laboratory Last Values WBC 7.1 K/mm3 (4.5-11.0) 05/23/19 04:51 RBC 2.93 M/mm3 (3.65-5.03) L 05/23/19 04:51 Hgb 8.8 gm/dl (10.1-14.3) L 05/23/19 04:51 Hct 27.0 % (30.3-42.9) L 05/23/19 04:51 MCV 92 fl (79-97) 05/23/19 04:51 MCH 30 pg (28-32) 05/23/19 04:51 MCHC 33 % (30-34) 05/23/19 04:51 RDW 16.0 % (13.2-15.2) H 05/23/19 04:51 Plt Count 194 K/mm3 (140-440) 05/23/19 04:51 Lymph % (Auto) 38.3 % (13.4-35.0) H 05/19/19 07:08 [place] % (Auto) [employer] 05/23/19 04:51 Eos % (Auto) 3.5 % (0.0-4.3) 05/19/19 07:08 Baso % (Auto) 0.5 % (0.0-1.8) 05/19/19 07:08 Lymph # 3.1 K/mm3 (1.2-5.4) 05/19/19 07:08 [place] # 0.5 K/mm3 (0.0-0.8) 05/19/19 07:08 Eos # 0.3 K/mm3 (0.0-0.4) 05/19/19 07:08 Baso # 0.0 K/mm3 (0.0-0.1) 05/19/19 07:08 Add Manual Diff Complete 05/23/19 04:51 Total Counted 100 05/23/19 04:51 Seg Neutrophils % 51.2 % (40.0-70.0) 05/19/19 07:08 Seg Neuts % (Manual) 65.0 % (40.0-70.0) 05/23/19 04:51 Band Neutrophils % 0 % 05/23/19 04:51 Lymphocytes % (Manual) 19.0 % (13.4-35.0) 05/23/19 04:51 Reactive Lymphs % (Man) 0 % 05/23/19 04:51 Monocytes % (Manual) 14.0 % (0.0-7.3) H 05/23/19 04:51 Eosinophils % (Manual) 0 % (0.0-4.3) 05/23/19 04:51 Basophils % (Manual) 1.0 % (0.0-1.8) 05/23/19 04:51 Metamyelocytes % 1.0 % 05/23/19 04:51 Myelocytes % 0 % 05/23/19 04:51 Promyelocytes % 0 % 05/23/19 04:51 Blast Cells % 0 % 05/23/19 04:51 Nucleated RBC % 1.0 % (0.0-0.9) H 05/23/19 04:51 Seg Neutrophils # 4.2 K/mm3 (1.8-7.7) 05/19/19 07:08 Seg Neutrophils # Man 4.6 K/mm3 (1.8-7.7) 05/23/19 04:51 Band Neutrophils # 0.0 K/mm3 05/23/19 04:51 Lymphocytes # (Manual) 1.3 K/mm3 (1.2-5.4) 05/23/19 04:51 Abs React Lymphs (Man) 0.0 K/mm3 05/23/19 04:51 Monocytes # (Manual) 1.0 K/mm3 (0.0-0.8) H 05/23/19 04:51 Eosinophils # (Manual) 0.0 K/mm3 (0.0-0.4) 05/23/19 04:51 Basophils # (Manual) 0.1 K/mm3 (0.0-0.1) 05/23/19 04:51 Metamyelocytes # 0.1 K/mm3 05/23/19 04:51 Myelocytes # 0.0 K/mm3 05/23/19 04:51 Promyelocytes # 0.0 K/mm3 05/23/19 04:51 Blast Cells # 0.0 K/mm3 05/23/19 04:51 WBC Morphology Not Reportable 05/23/19 04:51 Hypersegmented Neuts Not Reportable 05/23/19 04:51 Hyposegmented Neuts Not Reportable 05/23/19 04:51 Hypogranular Neuts Not Reportable 05/23/19 04:51 Smudge Cells Not Reportable 05/23/19 04:51 Toxic Granulation Not Reportable 05/23/19 04:51 Toxic Vacuolation Not Reportable 05/23/19 04:51 Dohle Bodies Not Reportable 05/23/19 04:51 Pelger-Huet Anomaly Not Reportable 05/23/19 04:51 Rta Rods Not Reportable 05/23/19 04:51 Platelet Estimate Consistent w auto 05/23/19 04:51 Clumped Platelets Not Reportable 05/23/19 04:51 Plt Clumps, EDTA Not Reportable 05/23/19 04:51 Large Platelets Not Reportable 05/23/19 04:51 Giant Platelets Not Reportable 05/23/19 04:51 Platelet Satelliting Not Reportable 05/23/19 04:51 Plt Morphology Comment Not Reportable 05/23/19 04:51 RBC Morphology Not Reportable 05/23/19 04:51 Dimorphic RBCs Not Reportable 05/23/19 04:51 Polychromasia Not Reportable 05/23/19 04:51 Hypochromasia Not Reportable 05/23/19 04:51 Poikilocytosis Not Reportable 05/23/19 04:51 Anisocytosis 1+ 05/23/19 04:51 Microcytosis Few 05/23/19 04:51 Macrocytosis Few 05/23/19 04:51 Spherocytes Not Reportable 05/23/19 04:51 Pappenheimer Bodies Not Reportable 05/23/19 04:51 Sickle Cells Not Reportable 05/23/19 04:51 Target Cells Not Reportable 05/23/19 04:51 Tear Drop Cells Not Reportable 05/23/19 04:51 Ovalocytes Not Reportable 05/23/19 04:51 Stomatocytes Few 05/23/19 04:51 Helmet Cells Not Reportable 05/23/19 04:51 [place] Bodies Not Reportable 05/23/19 04:51 [place] Rings Not Reportable 05/23/19 04:51 [place] Cells Not Reportable 05/23/19 04:51 Bite Cells Not Reportable 05/23/19 04:51 Crenated Cell Not Reportable 05/23/19 04:51 Elliptocytes Not Reportable 05/23/19 04:51 Acanthocytes (Spur) Not Reportable 05/23/19 04:51 Rouleaux Not Reportable 05/23/19 04:51 Hemoglobin C Crystals Not Reportable 05/23/19 04:51 Schistocytes Not Reportable 05/23/19 04:51 Malaria parasites Not Reportable 05/23/19 04:51 Shayne Bodies Not Reportable 05/23/19 04:51 Hem Pathologist Commnt No 05/23/19 04:51 PT 13.0 Sec. (12.2-14.9) 05/17/19 01:30 INR 0.99 (0.87-1.13) 05/17/19 01:30 APTT 41.2 Sec. (24.2-36.6) H 05/17/19 01:30 D-Dimer 416.09 ng/mlDDU (0-234) H 05/16/19 20:32 Heparin Anti-Xa Level < 0.10 U.I./ml (0.3-0.7) L 05/19/19 21:02 ABG pH 7.377 pH Units (7.350-7.450) 05/17/19 15:45 ABG pCO2 41.2 mm Hg 05/17/19 15:45 ABG pO2 135.4 mm Hg (80.0-90.0) H 05/17/19 15:45 ABG HCO3 23.7 mmol/L (20.0-26.0) 05/17/19 15:45 ABG O2 Saturation 98.6 % (95.0-99.0) 05/17/19 15:45 ABG O2 Content 12.4 (0.0-44) 05/17/19 15:45 ABG Base Excess -1.4 mmol/L (-2.0-3.0) 05/17/19 15:45 ABG Hemoglobin 8.9 gm/dl (12.0-16.0) L 05/17/19 15:45 ABG Carboxyhemoglobin 1.4 % (0.0-5.0) 05/17/19 15:45 ABG Methemoglobin 0.5 % (0.0-1.5) 05/17/19 15:45 Oxyhemoglobin 96.8 % (95.0-99.0) 05/17/19 15:45 FiO2 32 % 05/17/19 15:45 Sodium 136 mmol/L (137-145) L 05/23/19 04:51 Potassium 4.6 mmol/L (3.6-5.0) 05/23/19 04:51 Chloride 101.6 mmol/L (98-107) 05/23/19 04:51 Carbon Dioxide 19 mmol/L (22-30) L 05/23/19 04:51 Anion Gap 20 mmol/L 05/23/19 04:51 BUN 34 mg/dL (7-17) H 05/23/19 04:51 Creatinine 5.3 mg/dL (0.7-1.2) H 05/23/19 04:51 Estimated GFR 10 ml/min 05/23/19 04:51 BUN/Creatinine Ratio 6 % 05/23/19 04:51 Glucose 137 mg/dL (65-100) H 05/23/19 04:51 POC Glucose 155 (70-105) H 05/23/19 12:10 Hemoglobin A1c 12.3 % (4-6) H 05/17/19 01:30 Calcium 8.8 mg/dL (8.4-10.2) 05/23/19 04:51 Total Creatine Kinase 51 units/L (30-135) 05/19/19 14:45 CK-MB (CK-2) 3.3 ng/mL (0.0-4.0) 05/19/19 14:45 CK-MB (CK-2) Rel Index 6.4 (0-4) H 05/19/19 14:45 Troponin T 0.079 ng/mL (0.00-0.029) H 05/19/19 14:45 Triglycerides 542 mg/dL (2-149) H 05/16/19 20:32 Cholesterol 490 mg/dL (50-199) H 05/16/19 20:32 LDL Cholesterol Direct TNR 05/16/19 20:32 HDL Cholesterol 59 mg/dL (40-59) 05/16/19 20:32 Cholesterol/HDL Ratio 8.30 % 05/16/19 20:32 Urine Color Straw (Yellow) 05/17/19 22:00 Urine Turbidity Clear (Clear) 05/17/19 22:00 Urine pH 6.0 (5.0-7.0) 05/17/19 22:00 Ur Specific [place] 1.012 (1.003-1.030) 05/17/19 22:00 Urine Protein >500 mg/dL (Negative) 05/17/19 22:00 Urine Glucose (UA) 150 mg/dL (Negative) 05/17/19 22:00 Urine Ketones Neg mg/dL (Negative) 05/17/19 22:00 Urine Blood Neg (Negative) 05/17/19 22:00 Urine Nitrite Neg (Negative) 05/17/19 22:00 Urine Bilirubin Neg (Negative) 05/17/19 22:00 Urine Urobilinogen < 2.0 mg/dL (<2.0) 05/17/19 22:00 Ur Leukocyte Esterase Mod (Negative) 05/17/19 22:00 Urine WBC (Auto) 4.0 /HPF (0.0-6.0) 05/17/19 22:00 Urine RBC (Auto) 2.0 /HPF (0.0-6.0) 05/17/19 22:00 U Epithel Cells (Auto) 3.0 /HPF (0-13.0) 05/17/19 22:00 Urine Bacteria (Auto) 1+ /HPF (Negative) 05/17/19 22:00 Active Medications - Current Medications Current Medications: Generic Name Dose Route Start Last Admin Trade Name Freq PRN Reason Stop Dose Admin Acetaminophen 650 mg 05/19/19 15:02 05/22/19 21:19 Tylenol FEEDTUBE 650 mg Q4H PRN Administration Pain, Mild (1-3), FEVER >100.5 Albuterol 2.5 mg 05/17/19 00:45 05/17/19 19:55 Proventil IH 2.5 mg Q3HRT PRN Administration Shortness Of Breath Amlodipine Besylate 10 mg 05/17/19 10:00 05/23/19 09:52 Amlodipine PO 10 mg QDAY SHAVONNE Administration Aspirin 81 mg 05/18/19 10:00 05/23/19 09:53 Baby Aspirin PO 81 mg QDAY SHAVONNE Administration Atorvastatin Calcium 80 mg 05/17/19 22:00 05/22/19 21:20 Lipitor PO 80 mg QHS SHAVONNE Administration Dextrose 50 ml 05/17/19 00:45 D50w (25gm) Syringe IV Q30MIN PRN Hypoglycemia Protocol Guaifenesin 10 ml 05/22/19 00:08 05/23/19 10:00 Guaifenesin Dm Syrup PO 10 ml Q4H PRN Administration Cough Hydralazine HCl 10 mg 05/17/19 00:44 05/19/19 01:25 Apresoline IV 10 mg Q4HR PRN Administration Blood Pressure Sodium Chloride 1,000 mls @ 100 mls/hr 05/23/19 12:00 05/23/19 11:58 Nacl 0.9% 1000 Ml IV 100 mls/hr DIRECT SHAVONNE Administration Insulin Glargine 20 units 05/17/19 01:00 05/23/19 10:00 Lantus SUB-Q 20 units BID SHAVONNE Administration Insulin Human Lispro 0 unit 05/17/19 06:00 05/23/19 12:03 Humalog SUB-Q 2 unit Q6HR SHAVONNE Administration Protocol Metoprolol Tartrate 75 mg 05/19/19 22:00 05/23/19 09:53 Metoprolol PO 75 mg BID SHAVONNE Administration Nitroglycerin 0.4 mg 05/17/19 00:53 Nitrostat SL Q5M PRN Chest Pain Ondansetron HCl 4 mg 05/17/19 00:45 05/19/19 15:16 Zofran IV 4 mg Q8H PRN Administration Nausea And Vomiting Pantoprazole Sodium 40 mg 05/21/19 10:00 05/23/19 09:53 Protonix PO 40 mg QDAY SHAVONNE Administration Sodium Chloride 10 ml 05/17/19 10:00 05/23/19 09:53 Sodium Chloride Flush Syringe 10 Ml IV 10 ml BID SHAVONNE Administration Sodium Chloride 10 ml 05/17/19 00:45 Sodium Chloride Flush Syringe 10 Ml IV PRN PRN LINE FLUSH Nutrition/Malnutrition Assess - Dietary Evaluation Nutrition/Malnutrition Findings: Nutrition Notes Start: 05/17/19 11:43 Freq: Status: Active Protocol: Document 05/21/19 14:32 LP (Rec: 05/21/19 14:33 LP [id number]) Nutrition Notes Initial or Follow up Brief Note Subjective/Other Information Pt sleeping at time of visit and lethargic. Pt states to come back but wanting diet education. Handout left at bedside. Nutrition Intervention Follow-Up By: 05/27/19 Additional Comments Follow for diet education needs and intakes
[2019-05-23] MEDS: ACETAMINOPHEN 325 MG/10.15 ML ORAL LIQD UNIT DOSE FEEDTUBE PRN (20:38)
[2019-05-23] MEDS: [UNRECOGNIZED DRUG - OTHER] PO SCH (20:39)
[2019-05-24] MEDS: INSULIN LISPRO 100 UNIT/ML SUB-Q SCH ×4 (01:36→17:07)
[2019-05-24] MEDS: SODIUM CHLORIDE 0.9% 1000 ML 1,000 ML IV SCH ×3 (05:24→22:54)
[2019-05-24 07:20] LABS: Calcium 7.9 mg/dL (8.4-10.2)
--- NOTE | 2019-05-24 08:22 | Progress Note ---
Assessment and Plan - Patient Problems (1) Chronic kidney disease, stage 4 (severe) Current Visit: Yes Status: Chronic Plan to address problem: With ELEN on CKD which is likely pre-renal in etiology based on recent bout of diarrhea over the last 24 hours. Will increase IVF hydration to NS @ 125cc/hr and closely monitor. (2) Hypertension Current Visit: Yes Status: Chronic Qualifiers: Hypertension type: essential hypertension Qualified Code(s): I10 - Essential (primary) hypertension Plan to address problem: Monitor blood pressures under current regimen. (3) Type 2 diabetes mellitus with diabetic nephropathy Current Visit: Yes Status: Chronic Plan to address problem: DM management per primary attending. (4) Hyperkalemia Current Visit: Yes Status: Acute Plan to address problem: Resolved at this time. Will closely monitor. (5) Sarcoidosis Current Visit: Yes Status: Acute Plan to address problem: Management per pulmonology recommendations. Subjective Date of service: 05/24/19 Principal diagnosis: chronic kidney disease, chest pain Interval history: No acute changes, one episode of loose BM. Will increase her IVF to 125 cc/hr. Objective - Vital Signs Vital signs: Vital Signs - 12hr 05/23/19 05/23/19 05/24/19 22:00 22:39 00:30 Temperature 99.2 F Pulse Rate 78 69 Respiratory 16 Rate Blood Pressure 127/63 O2 Sat by Pulse 96 98 Oximetry - General Appearance General appearance: well-developed, well-nourished, obese EENT: ATNC, PERRL Neck: no JVD, no thyromegaly Respiratory: Present: Clear to Ascultation Cardiology: regular, S1S2 Gastrointestinal: normal, normoactive bowel sounds Integumentary: no rash, warm and dry Neurologic: no focal deficit, no asterixis Musculoskeletal: deferred Psychiatric: mood/affect appropriate, cooperative - Lab 05/23/19 04:51 05/24/19 06:27 Most recent lab results ABG pH 7.377 pH Units (7.350-7.450) 05/17/19 15:45 ABG pCO2 41.2 mm Hg 05/17/19 15:45 ABG pO2 135.4 mm Hg (80.0-90.0) H 05/17/19 15:45 ABG HCO3 23.7 mmol/L (20.0-26.0) 05/17/19 15:45 ABG O2 Saturation 98.6 % (95.0-99.0) 05/17/19 15:45 Calcium 7.9 mg/dL (8.4-10.2) L 05/24/19 06:27 - Allied health notes Allied health notes reviewed: nursing Medications & Allergies - Medications Allergies/Adverse Reactions: Allergies Sulfa (Sulfonamide Antibiotics) Allergy (Verified 10/13/13 15:11) Rash Home Medications: Home Medications Medication Instructions Recorded Confirmed Last Taken Type Amitriptyline [Elavil] 10 mg PO QHS 05/17/19 05/17/19 2 Days Ago History ~05/15/19 Elviteg/Cob/Emtri/Tenof Alafen 1 tab PO DAILY 05/17/19 05/17/19 1 Day Ago History [Genvoya Tablet] ~05/16/19 Famotidine [Pepcid] 20 mg PO BID 05/17/19 05/17/19 1 Day Ago History ~05/16/19 Insulin NPH Hum/Reg Insulin Hm 22 bottle SQ QAC 05/17/19 05/17/19 1 Day Ago History [Humulin 70-30 Vial] ~05/16/19 Lisinopril/Hydrochlorothiazide 1 tab PO QDAY 05/17/19 05/17/19 1 Day Ago History [Zestoretic 20-12.5 mg] ~05/16/19 Losartan Potassium 50 mg PO DAILY 05/17/19 05/17/19 1 Day Ago History ~05/16/19 Metoprolol [Lopressor] 25 mg PO BID 05/17/19 05/17/19 1 Day Ago History ~05/16/19 Rosuvastatin Calcium 40 mg PO QDAY 05/17/19 05/17/19 1 Day Ago History ~05/16/19 predniSONE [Deltasone] 5 mg PO QDAY 05/17/19 05/17/19 1 Day Ago History ~05/16/19 Active Medications: Generic Name Dose Route Start Last Admin Trade Name Freq PRN Reason Stop Dose Admin Acetaminophen 650 mg 05/19/19 15:02 05/23/19 20:38 Tylenol FEEDTUBE 650 mg Q4H PRN Administration Pain, Mild (1-3), FEVER >100.5 Albuterol 2.5 mg 05/17/19 00:45 05/17/19 19:55 Proventil IH 2.5 mg Q3HRT PRN Administration Shortness Of Breath Amlodipine Besylate 10 mg 05/17/19 10:00 05/23/19 09:52 Amlodipine PO 10 mg QDAY SHAVONNE Administration Aspirin 81 mg 05/18/19 10:00 05/23/19 09:53 Baby Aspirin PO 81 mg QDAY SHAVONNE Administration Atorvastatin Calcium 80 mg 05/17/19 22:00 05/23/19 21:31 Lipitor PO Not Given QHS SHAVONNE Dextrose 50 ml 05/17/19 00:45 D50w (25gm) Syringe IV Q30MIN PRN Hypoglycemia Protocol Guaifenesin 10 ml 05/22/19 00:08 05/23/19 10:00 Guaifenesin Dm Syrup PO 10 ml Q4H PRN Administration Cough Hydralazine HCl 10 mg 05/17/19 00:44 05/19/19 01:25 Apresoline IV 10 mg Q4HR PRN Administration Blood Pressure Sodium Chloride 1,000 mls @ 100 mls/hr 05/23/19 12:00 05/24/19 05:24 Nacl 0.9% 1000 Ml IV 100 mls/hr DIRECT SHAVONNE Administration Insulin Glargine 20 units 05/17/19 01:00 05/23/19 21:30 Lantus SUB-Q Not Given BID COUNTS INCLUDE 234 BEDS AT THE [facility] Insulin Human Lispro 0 unit 05/17/19 06:00 05/24/19 07:05 Humalog SUB-Q Not Given Q6HR COUNTS INCLUDE 234 BEDS AT THE [facility] Protocol Metoprolol Tartrate 75 mg 05/19/19 22:00 05/23/19 21:30 Metoprolol PO Not Given BID COUNTS INCLUDE 234 BEDS AT THE [facility] Nitroglycerin 0.4 mg 05/17/19 00:53 Nitrostat SL Q5M PRN Chest Pain Ondansetron HCl 4 mg 05/17/19 00:45 05/19/19 15:16 Zofran IV 4 mg Q8H PRN Administration Nausea And Vomiting Pantoprazole Sodium 40 mg 05/21/19 10:00 05/23/19 09:53 Protonix PO 40 mg QDAY SHAVONNE Administration Sodium Chloride 10 ml 05/17/19 10:00 05/23/19 21:30 Sodium Chloride Flush Syringe 10 Ml IV Not Given BID SHAVONNE Sodium Chloride 10 ml 05/17/19 00:45 Sodium Chloride Flush Syringe 10 Ml IV PRN PRN LINE FLUSH
[2019-05-24] MEDS: PANTOPRAZOLE 40 MG TAB PO SCH (10:05)
[2019-05-24] MEDS: INSULIN GLARGINE 100 UNITS/ML SUB-Q SCH ×3 (10:05→21:33)
[2019-05-24] MEDS: amLODIPine 10 MG TAB PO SCH (10:05)
[2019-05-24] MEDS: METOPROLOL TARTRATE 25 MG TAB PO SCH ×2 (10:05→21:30)
[2019-05-24] MEDS: ASPIRIN 81 MG TAB CHEW PO SCH (10:05)
[2019-05-24] MEDS: guaiFENesin DM 200/20 MG ORAL LIQD 10 ML PO PRN ×2 (14:58→21:29)
--- NOTE | 2019-05-24 15:35 | Progress Note ---
Assessment and Plan Assessment and plan: Patient is 58-year-old -[place] female with history of HIV, hypertension, diabetes, HLT, sarcoidosis, CAD, PR (2010) s/p stent x4 who presents to [facility] ED with complaints of left sided non-radiating chest pain, SOB, and diaphoresis. . Acute metabolic encephalopathy Change in mental status - suspect from narcotics and possible underlying depression - stopped all narcotics, consulted mental health ELEN on possible CKD stage 4 due to vasomotor nephropathy -Cr on admission 3.3 Cr 5.9 today -??CKD with GFR 17 -Renal ultrasound unremarkable -Continue to Hydrate with IVF -Avoid nephrotoxic agents -Renal dose all meds -Nephrology consulted, following - Cr was 1.7 about a year ago -Discussed with nephrology. iv fluids started Dizziness and lightheadedness - no acute findings on CT head - Ordered PT eval Elevated D-Dimer with possible PE -VQ scan shows intermediate probability for PE -Bilateral lower extremity Doppler showed no acute DVT, no hypoxemia on ABG -Pulmonology consulted -recommended to stop heparin drip as no sign of hypoxemia and negative DVT NSTEMI type II Acute Chest Pain -History of PR (2010), status post stent 4 -Follows at [facility] as outpatient -Initiated chest pain protocol -Continuous telemetry monitoring -Troponin elevated was elevated on admission -EKG unrevealing for acute ischemic abnormalities -s/p heparin drip -Cardiology consulted and recommended medical management Hypertensive urgency -BP on admission 198/142 -Hx Hypertension -Continue to monitor BP -Hold TANIKA and ARB d/t renal function -IV antihypertensive when necessary Insulin-dependent DM -Uncontrolled -BG on admission 510 -Scheduled Lantus and SSI coverage prn -HgbA1C 12.3 Hyperlipidemia -Uncontrolled -Total cholesterol on admission 490 -Start atorvastatin 80 mg daily at bedtime Hyponatremia -Na on admission 131 -Slowly correct Na with IVF -Continue to monitor replete prn Hyperkalemia -on admission 5.4 now resolved -Receiving IVF -Continue to monitor electrolytes Diarrhea after eating salad from outside will monitor I counseled her and ,advise against eating food from outside, especially salads HIV positive -Continue antiretroviral DVT PPX -On Heparin Discussed with patient and at bedside History Interval history: No more chest pain No SOB currently Altered mental status, improved Diarrhea X 2 days, started 05/22 after eating eating salad from outside Hospitalist Physical - Constitutional Vitals: Temp Pulse Resp BP Pulse Ox 98.9 F 70 18 103/49 100 05/24/19 13:03 05/24/19 13:03 05/24/19 13:03 05/24/19 13:03 05/24/19 13:03 General appearance: Present: no acute distress, obese Results - Labs CBC & Chem 7: 05/25/19 07:09 05/25/19 07:09 Labs: Laboratory Last Values WBC 7.1 K/mm3 (4.5-11.0) 05/23/19 04:51 RBC 2.93 M/mm3 (3.65-5.03) L 05/23/19 04:51 Hgb 8.8 gm/dl (10.1-14.3) L 05/23/19 04:51 Hct 27.0 % (30.3-42.9) L 05/23/19 04:51 MCV 92 fl (79-97) 05/23/19 04:51 MCH 30 pg (28-32) 05/23/19 04:51 MCHC 33 % (30-34) 05/23/19 04:51 RDW 16.0 % (13.2-15.2) H 05/23/19 04:51 Plt Count 194 K/mm3 (140-440) 05/23/19 04:51 Lymph % (Auto) 38.3 % (13.4-35.0) H 05/19/19 07:08 Avery % (Auto) [employer] [employer] 05/23/19 04:51 Eos % (Auto) 3.5 % (0.0-4.3) 05/19/19 07:08 Baso % (Auto) 0.5 % (0.0-1.8) 05/19/19 07:08 Lymph # 3.1 K/mm3 (1.2-5.4) 05/19/19 07:08 Avery # 0.5 K/mm3 (0.0-0.8) 05/19/19 07:08 Eos # 0.3 K/mm3 (0.0-0.4) 05/19/19 07:08 Baso # 0.0 K/mm3 (0.0-0.1) 05/19/19 07:08 Add Manual Diff Complete 05/23/19 04:51 Total Counted 100 05/23/19 04:51 Seg Neutrophils % 51.2 % (40.0-70.0) 05/19/19 07:08 Seg Neuts % (Manual) 65.0 % (40.0-70.0) 05/23/19 04:51 Band Neutrophils % 0 % 05/23/19 04:51 Lymphocytes % (Manual) 19.0 % (13.4-35.0) 05/23/19 04:51 Reactive Lymphs % (Man) 0 % 05/23/19 04:51 Monocytes % (Manual) 14.0 % (0.0-7.3) H 05/23/19 04:51 Eosinophils % (Manual) 0 % (0.0-4.3) 05/23/19 04:51 Basophils % (Manual) 1.0 % (0.0-1.8) 05/23/19 04:51 Metamyelocytes % 1.0 % 05/23/19 04:51 Myelocytes % 0 % 05/23/19 04:51 Promyelocytes % 0 % 05/23/19 04:51 Blast Cells % 0 % 05/23/19 04:51 Nucleated RBC % 1.0 % (0.0-0.9) H 05/23/19 04:51 Seg Neutrophils # 4.2 K/mm3 (1.8-7.7) 05/19/19 07:08 Seg Neutrophils # Man 4.6 K/mm3 (1.8-7.7) 05/23/19 04:51 Band Neutrophils # 0.0 K/mm3 05/23/19 04:51 Lymphocytes # (Manual) 1.3 K/mm3 (1.2-5.4) 05/23/19 04:51 Abs React Lymphs (Man) 0.0 K/mm3 05/23/19 04:51 Monocytes # (Manual) 1.0 K/mm3 (0.0-0.8) H 05/23/19 04:51 Eosinophils # (Manual) 0.0 K/mm3 (0.0-0.4) 05/23/19 04:51 Basophils # (Manual) 0.1 K/mm3 (0.0-0.1) 05/23/19 04:51 Metamyelocytes # 0.1 K/mm3 05/23/19 04:51 Myelocytes # 0.0 K/mm3 05/23/19 04:51 Promyelocytes # 0.0 K/mm3 05/23/19 04:51 Blast Cells # 0.0 K/mm3 05/23/19 04:51 WBC Morphology Not Reportable 05/23/19 04:51 Hypersegmented Neuts Not Reportable 05/23/19 04:51 Hyposegmented Neuts Not Reportable 05/23/19 04:51 Hypogranular Neuts Not Reportable 05/23/19 04:51 Smudge Cells Not Reportable 05/23/19 04:51 Toxic Granulation Not Reportable 05/23/19 04:51 Toxic Vacuolation Not Reportable 05/23/19 04:51 Dohle Bodies Not Reportable 05/23/19 04:51 Pelger-Huet Anomaly Not Reportable 05/23/19 04:51 Tra Rods Not Reportable 05/23/19 04:51 Platelet Estimate Consistent w auto 05/23/19 04:51 Clumped Platelets Not Reportable 05/23/19 04:51 Plt Clumps, EDTA Not Reportable 05/23/19 04:51 Large Platelets Not Reportable 05/23/19 04:51 Giant Platelets Not Reportable 05/23/19 04:51 Platelet Satelliting Not Reportable 05/23/19 04:51 Plt Morphology Comment Not Reportable 05/23/19 04:51 RBC Morphology Not Reportable 05/23/19 04:51 Dimorphic RBCs Not Reportable 05/23/19 04:51 Polychromasia Not Reportable 05/23/19 04:51 Hypochromasia Not Reportable 05/23/19 04:51 Poikilocytosis Not Reportable 05/23/19 04:51 Anisocytosis 1+ 05/23/19 04:51 Microcytosis Few 05/23/19 04:51 Macrocytosis Few 05/23/19 04:51 Spherocytes Not Reportable 05/23/19 04:51 Pappenheimer Bodies Not Reportable 05/23/19 04:51 Sickle Cells Not Reportable 05/23/19 04:51 Target Cells Not Reportable 05/23/19 04:51 Tear Drop Cells Not Reportable 05/23/19 04:51 Ovalocytes Not Reportable 05/23/19 04:51 Stomatocytes Few 05/23/19 04:51 Helmet Cells Not Reportable 05/23/19 04:51 Goel-[place] Bodies Not Reportable 05/23/19 04:51 [place] Rings Not Reportable 05/23/19 04:51 [place] Cells Not Reportable 05/23/19 04:51 Bite Cells Not Reportable 05/23/19 04:51 Crenated Cell Not Reportable 05/23/19 04:51 Elliptocytes Not Reportable 05/23/19 04:51 Acanthocytes (Spur) Not Reportable 05/23/19 04:51 Rouleaux Not Reportable 05/23/19 04:51 Hemoglobin C Crystals Not Reportable 05/23/19 04:51 Schistocytes Not Reportable 05/23/19 04:51 Malaria parasites Not Reportable 05/23/19 04:51 Shayne Bodies Not Reportable 05/23/19 04:51 Hem Pathologist Commnt No 05/23/19 04:51 PT 13.0 Sec. (12.2-14.9) 05/17/19 01:30 INR 0.99 (0.87-1.13) 05/17/19 01:30 APTT 41.2 Sec. (24.2-36.6) H 05/17/19 01:30 D-Dimer 416.09 ng/mlDDU (0-234) H 05/16/19 20:32 Heparin Anti-Xa Level < 0.10 U.I./ml (0.3-0.7) L 05/19/19 21:02 ABG pH 7.377 pH Units (7.350-7.450) 05/17/19 15:45 ABG pCO2 41.2 mm Hg 05/17/19 15:45 ABG pO2 135.4 mm Hg (80.0-90.0) H 05/17/19 15:45 ABG HCO3 23.7 mmol/L (20.0-26.0) 05/17/19 15:45 ABG O2 Saturation 98.6 % (95.0-99.0) 05/17/19 15:45 ABG O2 Content 12.4 (0.0-44) 05/17/19 15:45 ABG Base Excess -1.4 mmol/L (-2.0-3.0) 05/17/19 15:45 ABG Hemoglobin 8.9 gm/dl (12.0-16.0) L 05/17/19 15:45 ABG Carboxyhemoglobin 1.4 % (0.0-5.0) 05/17/19 15:45 ABG Methemoglobin 0.5 % (0.0-1.5) 05/17/19 15:45 Oxyhemoglobin 96.8 % (95.0-99.0) 05/17/19 15:45 FiO2 32 % 05/17/19 15:45 Sodium 138 mmol/L (137-145) 05/24/19 06:27 Potassium 3.8 mmol/L (3.6-5.0) 05/24/19 06:27 Chloride 103.2 mmol/L (98-107) 05/24/19 06:27 Carbon Dioxide 19 mmol/L (22-30) L 05/24/19 06:27 Anion Gap 20 mmol/L 05/24/19 06:27 BUN 36 mg/dL (7-17) H 05/24/19 06:27 Creatinine 5.9 mg/dL (0.7-1.2) H 05/24/19 06:27 Estimated GFR 9 ml/min 05/24/19 06:27 BUN/Creatinine Ratio 6 % 05/24/19 06:27 Glucose 70 mg/dL (65-100) 05/24/19 06:27 POC Glucose 90 (70-105) 05/24/19 11:31 Hemoglobin A1c 12.3 % (4-6) H 05/17/19 01:30 Calcium 7.9 mg/dL (8.4-10.2) L 05/24/19 06:27 Total Creatine Kinase 51 units/L (30-135) 05/19/19 14:45 CK-MB (CK-2) 3.3 ng/mL (0.0-4.0) 05/19/19 14:45 CK-MB (CK-2) Rel Index 6.4 (0-4) H 05/19/19 14:45 Troponin T 0.079 ng/mL (0.00-0.029) H 05/19/19 14:45 Triglycerides 542 mg/dL (2-149) H 05/16/19 20:32 Cholesterol 490 mg/dL (50-199) H 05/16/19 20:32 LDL Cholesterol Direct TNR 05/16/19 20:32 HDL Cholesterol 59 mg/dL (40-59) 05/16/19 20:32 Cholesterol/HDL Ratio 8.30 % 05/16/19 20:32 Urine Color Straw (Yellow) 05/17/19 22:00 Urine Turbidity Clear (Clear) 05/17/19 22:00 Urine pH 6.0 (5.0-7.0) 05/17/19 22:00 Ur Specific [place] 1.012 (1.003-1.030) 05/17/19 22:00 Urine Protein >500 mg/dL (Negative) 05/17/19 22:00 Urine Glucose (UA) 150 mg/dL (Negative) 05/17/19 22:00 Urine Ketones Neg mg/dL (Negative) 05/17/19 22:00 Urine Blood Neg (Negative) 05/17/19 22:00 Urine Nitrite Neg (Negative) 05/17/19 22:00 Urine Bilirubin Neg (Negative) 05/17/19 22:00 Urine Urobilinogen < 2.0 mg/dL (<2.0) 05/17/19 22:00 Ur Leukocyte Esterase Mod (Negative) 05/17/19 22:00 Urine WBC (Auto) 4.0 /HPF (0.0-6.0) 05/17/19 22:00 Urine RBC (Auto) 2.0 /HPF (0.0-6.0) 05/17/19 22:00 U Epithel Cells (Auto) 3.0 /HPF (0-13.0) 05/17/19 22:00 Urine Bacteria (Auto) 1+ /HPF (Negative) 05/17/19 22:00 Active Medications - Current Medications Current Medications: Generic Name Dose Route Start Last Admin Trade Name Freq PRN Reason Stop Dose Admin Acetaminophen 650 mg 05/19/19 15:02 05/23/19 20:38 Tylenol FEEDTUBE 650 mg Q4H PRN Administration Pain, Mild (1-3), FEVER >100.5 Albuterol 2.5 mg 05/17/19 00:45 05/17/19 19:55 Proventil IH 2.5 mg Q3HRT PRN Administration Shortness Of Breath Amlodipine Besylate 10 mg 05/17/19 10:00 05/24/19 10:05 Amlodipine PO 10 mg QDAY SHAVONNE Administration Aspirin 81 mg 05/18/19 10:00 05/24/19 10:05 Baby Aspirin PO 81 mg QDAY SHAVONNE Administration Atorvastatin Calcium 80 mg 05/17/19 22:00 05/23/19 21:31 Lipitor PO Not Given QHS SHAVONNE Dextrose 50 ml 05/17/19 00:45 D50w (25gm) Syringe IV Q30MIN PRN Hypoglycemia Protocol Guaifenesin 10 ml 05/22/19 00:08 05/24/19 14:58 Guaifenesin Dm Syrup PO 10 ml Q4H PRN Administration Cough Heparin Sodium (Porcine) 5,000 unit 05/24/19 16:00 Heparin SUB-Q Q12H [facility] Hydralazine HCl 10 mg 05/17/19 00:44 05/19/19 01:25 Apresoline IV 10 mg Q4HR PRN Administration Blood Pressure Sodium Chloride 1,000 mls @ 125 mls/hr 05/24/19 09:00 05/24/19 14:58 Nacl 0.9% 1000 Ml IV 125 mls/hr DIRECT SHAVONNE Administration Insulin Glargine 20 units 05/17/19 01:00 05/24/19 10:05 Lantus SUB-Q 20 units BID SHAVONNE Administration Insulin Human Lispro 0 unit 05/17/19 06:00 05/24/19 11:51 Humalog SUB-Q Not Given Q6HR [facility] Protocol Methylprednisolone Sodium Succinate 40 mg 05/24/19 16:00 Solu-Medrol IV Q12H [facility] Metoprolol Tartrate 75 mg 05/19/19 22:00 05/24/19 10:05 Metoprolol PO 75 mg BID SHAVONNE Administration Nitroglycerin 0.4 mg 05/17/19 00:53 Nitrostat SL Q5M PRN Chest Pain Ondansetron HCl 4 mg 05/17/19 00:45 05/19/19 15:16 Zofran IV 4 mg Q8H PRN Administration Nausea And Vomiting Pantoprazole Sodium 40 mg 05/21/19 10:00 05/24/19 10:05 Protonix PO 40 mg QDAY SHAVONNE Administration Sodium Chloride 10 ml 05/17/19 10:00 05/24/19 10:06 Sodium Chloride Flush Syringe 10 Ml IV 10 ml BID SHAVONNE Administration Sodium Chloride 10 ml 05/17/19 00:45 Sodium Chloride Flush Syringe 10 Ml IV PRN PRN LINE FLUSH Nutrition/Malnutrition Assess - Dietary Evaluation Nutrition/Malnutrition Findings: Nutrition Notes Start: 05/17/19 11:43 Freq: Status: Active Protocol: Document 05/21/19 14:32 LP (Rec: 05/21/19 14:33 LP [id number]) Nutrition Notes Initial or Follow up Brief Note Subjective/Other Information Pt sleeping at time of visit and lethargic. Pt states to come back but wanting diet education. Handout left at bedside. Nutrition Intervention Follow-Up By: 05/27/19 Additional Comments Follow for diet education needs and intakes
[2019-05-24] MEDS: methylPREDNISolone Sod Succinate 40 MG/1 ML INJ IV SCH (15:39)
[2019-05-24] MEDS: HEPARIN 5,000 UNIT/1 ML VIAL SUB-Q SCH (15:41)
--- NOTE | 2019-05-24 15:42 | Progress Note ---
Assessment and Plan Elevated D-Dimer Acute Chest Pain Sarcoidosis, steroid dependent Hypertensive urgency Obesity ELEN on possible CKD Insulin-dependent DM Hyperlipidemia Hyponatremia Hyperkalemia HIV positive - + elevated RVSP but no hypoxemia; intermidiate prob for P.E. with low pretest prob for P.E. she is however clinically improved without treatment for P.E. and we will follow clinically - continue systemic steroids with slow taper for sarcoidosis exacerbation - prn supplemental oxygen as needed to keep O2 sat's > 90% - prn bronchodilators (HANNAH) with pulmonary hygiene per RT - follow clinically off AB's - PT/OT as tolerated - mobility protocols for pressure ulcer prophylaxis - GI & VTE prophylaxis (continue SQ heparin for VTE prophylaxis) - tobacco abstinence strongly counseled at bedside - Flu & Pneumovax addressed per protocol - Azotemia per nephrology team - continue other care per attending / other consultants - discharge planning ongoing concurrently ... re-evaluate in am & prn Subjective Date of service: 05/24/19 Principal diagnosis: Acute Chest Pain (D-dimer high); Sarcoidosis; HTNsive urgency; Obesity Interval history: Patient is seen today for: Elevated D-Dimer; Acute Chest Pain; Sarcoidosis (steroid dependent); Hypertensive urgency; Obesity; ELEN on possible CKD; I nsulin-dependent DM; HIV positive Seen and examined at bedside; 24-hour events reviewed; nursing and respiratory care staff consulted; no adverse overnight events reported to me; resting peacefully in bed; looks and feels better; denies acute chest pains or palpitations; feels back to baseline Objective Vital Signs - 12hr 05/24/19 05/24/19 05/24/19 03:50 08:02 10:00 Temperature 98.2 F 98.8 F Pulse Rate 76 80 77 Respiratory 16 18 Rate Blood Pressure 105/63 117/50 O2 Sat by Pulse 100 100 Oximetry 05/24/19 13:03 Temperature 98.9 F Pulse Rate 70 Respiratory 18 Rate Blood Pressure 103/49 O2 Sat by Pulse 100 Oximetry Constitutional: no acute distress, alert, other (middle aged AAF, normocephalic and atraumatic with normal respiratory effort at rest) Eyes: non-icteric ENT: oropharynx moist, other (Mallampati 3) Neck: supple, no lymphadenopathy, other (+ large neck circumference) Effort: mildly labored Ascultation: Bilateral: diminished breath sounds, rales (scant inspiratory in bases) Percussion: Bilateral: not dull Cardiovascular: regular rate and rhythm Gastrointestinal: normoactive bowel sounds, soft, non-tender, non-distended, other (protuberant) Integumentary: normal Extremities: no cyanosis, no edema, pulses normal, no ischemia or petechiae Neurologic: normal mental status, non-focal exam, pupils equal and round, CN II- XII normal, motor strength normal and Psychiatric: mood appropriate, affect normal, other (Sleeping at this time.) CBC and BMP: 05/25/19 07:09 05/25/19 07:09 ABG, PT/INR, D-dimer: ABG ABG pH 7.377 pH Units (7.350-7.450) 05/17/19 15:45 ABG pCO2 41.2 mm Hg 05/17/19 15:45 ABG pO2 135.4 mm Hg (80.0-90.0) H 05/17/19 15:45 ABG O2 Saturation 98.6 % (95.0-99.0) 05/17/19 15:45 PT/INR, D-dimer PT 13.0 Sec. (12.2-14.9) 05/17/19 01:30 INR 0.99 (0.87-1.13) 05/17/19 01:30 D-Dimer 416.09 ng/mlDDU (0-234) H 05/16/19 20:32 Abnormal lab findings: Abnormal Labs 05/16/19 05/16/19 05/16/19 20:32 20:32 20:32 RBC 3.10 L Hgb 9.4 L Hct 28.3 L RDW 15.5 H Lymph % (Auto) Eos % (Auto) Monocytes % (Manual) Nucleated RBC % Monocytes # (Manual) APTT D-Dimer 416.09 H Heparin Anti-Xa Level ABG pO2 ABG Hemoglobin Sodium 131 L Potassium 5.4 H Chloride 94.1 L Carbon Dioxide 20 L BUN 37 H Creatinine 3.3 H Glucose 510 H* POC Glucose Hemoglobin A1c Calcium CK-MB (CK-2) Rel Index Troponin T 0.081 H Triglycerides 542 H Cholesterol 490 H 05/16/19 05/17/19 05/17/19 23:25 00:40 01:30 RBC Hgb Hct RDW Lymph % (Auto) Eos % (Auto) Monocytes % (Manual) Nucleated RBC % Monocytes # (Manual) APTT D-Dimer Heparin Anti-Xa Level ABG pO2 ABG Hemoglobin Sodium Potassium Chloride Carbon Dioxide BUN Creatinine Glucose POC Glucose 193 H Hemoglobin A1c Calcium CK-MB (CK-2) Rel Index Troponin T 0.087 H 0.085 H Triglycerides Cholesterol 05/17/19 05/17/19 05/17/19 01:30 01:30 02:43 RBC Hgb Hct RDW Lymph % (Auto) Eos % (Auto) Monocytes % (Manual) Nucleated RBC % Monocytes # (Manual) APTT 41.2 H D-Dimer Heparin Anti-Xa Level ABG pO2 ABG Hemoglobin Sodium Potassium Chloride Carbon Dioxide BUN Creatinine Glucose POC Glucose 258 H Hemoglobin A1c 12.3 H Calcium CK-MB (CK-2) Rel Index Troponin T Triglycerides Cholesterol 05/17/19 05/17/19 05/17/19 07:08 09:13 12:55 RBC Hgb Hct RDW Lymph % (Auto) Eos % (Auto) Monocytes % (Manual) Nucleated RBC % Monocytes # (Manual) APTT D-Dimer Heparin Anti-Xa Level ABG pO2 ABG Hemoglobin Sodium Potassium Chloride Carbon Dioxide BUN Creatinine Glucose POC Glucose 231 H 213 H Hemoglobin A1c Calcium CK-MB (CK-2) Rel Index Troponin T 0.083 H Triglycerides Cholesterol 05/17/19 05/17/19 05/17/19 15:45 17:34 21:01 RBC Hgb Hct RDW Lymph % (Auto) Eos % (Auto) Monocytes % (Manual) Nucleated RBC % Monocytes # (Manual) APTT D-Dimer Heparin Anti-Xa Level ABG pO2 135.4 H ABG Hemoglobin 8.9 L Sodium Potassium Chloride Carbon Dioxide BUN Creatinine Glucose POC Glucose 230 H 221 H Hemoglobin A1c Calcium CK-MB (CK-2) Rel Index Troponin T Triglycerides Cholesterol 05/18/19 05/18/19 05/18/19 05:12 05:12 07:10 RBC 2.79 L Hgb 8.5 L Hct 25.6 L RDW 15.8 H Lymph % (Auto) 46.4 H Eos % (Auto) 4.9 H Monocytes % (Manual) Nucleated RBC % Monocytes # (Manual) APTT D-Dimer Heparin Anti-Xa Level 0.86 H ABG pO2 ABG Hemoglobin Sodium 135 L Potassium Chloride Carbon Dioxide 18 L BUN 30 H Creatinine 2.9 H Glucose POC Glucose Hemoglobin A1c Calcium CK-MB (CK-2) Rel Index Troponin T Triglycerides Cholesterol 05/18/19 05/18/19 05/18/19 11:41 15:17 16:37 RBC Hgb Hct RDW Lymph % (Auto) Eos % (Auto) Monocytes % (Manual) Nucleated RBC % Monocytes # (Manual) APTT D-Dimer Heparin Anti-Xa Level 0.77 H ABG pO2 ABG Hemoglobin Sodium Potassium Chloride Carbon Dioxide BUN Creatinine Glucose POC Glucose 155 H 110 H Hemoglobin A1c Calcium CK-MB (CK-2) Rel Index Troponin T Triglycerides Cholesterol 05/18/19 05/18/19 05/19/19 21:26 21:33 06:56 RBC Hgb Hct RDW Lymph % (Auto) Eos % (Auto) Monocytes % (Manual) Nucleated RBC % Monocytes # (Manual) APTT D-Dimer Heparin Anti-Xa Level 0.11 L ABG pO2 ABG Hemoglobin Sodium Potassium Chloride Carbon Dioxide BUN Creatinine Glucose POC Glucose 133 H 123 H Hemoglobin A1c Calcium CK-MB (CK-2) Rel Index Troponin T Triglycerides Cholesterol 05/19/19 05/19/19 05/19/19 07:07 07:07 07:07 RBC Hgb Hct RDW Lymph % (Auto) Eos % (Auto) Monocytes % (Manual) Nucleated RBC % Monocytes # (Manual) APTT D-Dimer Heparin Anti-Xa Level 0.25 L ABG pO2 ABG Hemoglobin Sodium 132 L Potassium Chloride Carbon Dioxide 18 L BUN 31 H Creatinine 3.1 H Glucose 133 H POC Glucose Hemoglobin A1c Calcium CK-MB (CK-2) Rel Index 6.2 H Troponin T 0.069 H Triglycerides Cholesterol 05/19/19 05/19/19 05/19/19 07:08 07:49 11:49 RBC 2.90 L Hgb 9.0 L Hct 26.5 L RDW 15.8 H Lymph % (Auto) 38.3 H Eos % (Auto) Monocytes % (Manual) Nucleated RBC % Monocytes # (Manual) APTT D-Dimer Heparin Anti-Xa Level ABG pO2 ABG Hemoglobin Sodium Potassium Chloride Carbon Dioxide BUN Creatinine Glucose POC Glucose 124 H 116 H Hemoglobin A1c Calcium CK-MB (CK-2) Rel Index Troponin T Triglycerides Cholesterol 05/19/19 05/19/19 05/19/19 14:45 16:21 21:02 RBC Hgb Hct RDW Lymph % (Auto) Eos % (Auto) Monocytes % (Manual) Nucleated RBC % Monocytes # (Manual) APTT D-Dimer Heparin Anti-Xa Level < 0.10 L ABG pO2 ABG Hemoglobin Sodium Potassium Chloride Carbon Dioxide BUN Creatinine Glucose POC Glucose 124 H Hemoglobin A1c Calcium CK-MB (CK-2) Rel Index 6.4 H Troponin T 0.079 H Triglycerides Cholesterol 05/20/19 05/21/19 05/21/19 13:25 09:06 09:06 RBC Hgb 9.1 L Hct 28.0 L RDW Lymph % (Auto) Eos % (Auto) Monocytes % (Manual) Nucleated RBC % Monocytes # (Manual) APTT D-Dimer Heparin Anti-Xa Level ABG pO2 ABG Hemoglobin Sodium 136 L Potassium Chloride Carbon Dioxide 16 L 18 L BUN 32 H 31 H Creatinine 3.6 H 3.8 H Glucose POC Glucose Hemoglobin A1c Calcium CK-MB (CK-2) Rel Index Troponin T Triglycerides Cholesterol 05/21/19 05/21/19 05/21/19 12:00 13:21 16:08 RBC Hgb Hct RDW Lymph % (Auto) Eos % (Auto) Monocytes % (Manual) Nucleated RBC % Monocytes # (Manual) APTT D-Dimer Heparin Anti-Xa Level ABG pO2 ABG Hemoglobin Sodium Potassium Chloride Carbon Dioxide BUN Creatinine Glucose POC Glucose 200 H 156 H 133 H Hemoglobin A1c Calcium CK-MB (CK-2) Rel Index Troponin T Triglycerides Cholesterol 05/21/19 05/22/19 05/23/19 23:09 04:55 00:23 RBC Hgb Hct RDW Lymph % (Auto) Eos % (Auto) Monocytes % (Manual) Nucleated RBC % Monocytes # (Manual) APTT D-Dimer Heparin Anti-Xa Level ABG pO2 ABG Hemoglobin Sodium Potassium Chloride Carbon Dioxide BUN 30 H Creatinine 4.5 H Glucose POC Glucose 134 H 140 H Hemoglobin A1c Calcium CK-MB (CK-2) Rel Index Troponin T Triglycerides Cholesterol 05/23/19 05/23/19 05/23/19 04:51 04:51 06:30 RBC 2.93 L Hgb 8.8 L Hct 27.0 L RDW 16.0 H Lymph % (Auto) Eos % (Auto) Monocytes % (Manual) 14.0 H Nucleated RBC % 1.0 H Monocytes # (Manual) 1.0 H APTT D-Dimer Heparin Anti-Xa Level ABG pO2 ABG Hemoglobin Sodium 136 L Potassium Chloride Carbon Dioxide 19 L BUN 34 H Creatinine 5.3 H Glucose 137 H POC Glucose 174 H Hemoglobin A1c Calcium CK-MB (CK-2) Rel Index Troponin T Triglycerides Cholesterol 05/23/19 05/23/19 05/24/19 12:10 17:05 06:18 RBC Hgb Hct RDW Lymph % (Auto) Eos % (Auto) Monocytes % (Manual) Nucleated RBC % Monocytes # (Manual) APTT D-Dimer Heparin Anti-Xa Level ABG pO2 ABG Hemoglobin Sodium Potassium Chloride Carbon Dioxide BUN Creatinine Glucose POC Glucose 155 H 173 H 58 L Hemoglobin A1c Calcium CK-MB (CK-2) Rel Index Troponin T Triglycerides Cholesterol 05/24/19 06:27 RBC Hgb Hct RDW Lymph % (Auto) Eos % (Auto) Monocytes % (Manual) Nucleated RBC % Monocytes # (Manual) APTT D-Dimer Heparin Anti-Xa Level ABG pO2 ABG Hemoglobin Sodium Potassium Chloride Carbon Dioxide 19 L BUN 36 H Creatinine 5.9 H Glucose POC Glucose Hemoglobin A1c Calcium 7.9 L CK-MB (CK-2) Rel Index Troponin T Triglycerides Cholesterol Chest x-ray: image reviewed Allied health notes reviewed: nursing
[2019-05-24] MEDS: [UNRECOGNIZED DRUG - OTHER] PO SCH (21:29)
[2019-05-24] MEDS: ACETAMINOPHEN 325 MG/10.15 ML ORAL LIQD UNIT DOSE FEEDTUBE PRN (23:17)
[2019-05-25] MEDS: AMITRIPTYLINE 10 MG TAB PO SCH ×3 (00:24→22:34)
[2019-05-25] MEDS: INSULIN LISPRO 100 UNIT/ML SUB-Q SCH ×5 (00:39→22:51)
[2019-05-25] MEDS: HEPARIN 5,000 UNIT/1 ML VIAL SUB-Q SCH ×2 (05:32→16:10)
[2019-05-25] MEDS: SODIUM CHLORIDE 0.9% 1000 ML 1,000 ML IV SCH ×2 (05:32→16:10)
[2019-05-25] MEDS: methylPREDNISolone Sod Succinate 40 MG/1 ML INJ IV SCH ×2 (05:33→16:10)
[2019-05-25] MEDS: guaiFENesin DM 200/20 MG ORAL LIQD 10 ML PO PRN ×3 (06:06→20:33)
[2019-05-25 07:24] LABS: Hematocrit 23.6 % (30.3-42.9); Hemoglobin 7.6 gm/dl (10.1-14.3); Mean Corpuscular HGB Conc 32 % (30-34); Mean Corpuscular Volume 93 fl (79-97); Platelet Count 174 K/mm3 (140-440); Red Blood Count 2.55 M/mm3 (3.65-5.03); Red Cell Distribution Width 15.2 % (13.2-15.2)
[2019-05-25 07:35] LABS: Calcium 7.9 mg/dL (8.4-10.2)
[2019-05-25] MEDS: METOPROLOL TARTRATE 25 MG TAB PO SCH ×3 (11:02→22:35)
[2019-05-25] MEDS: amLODIPine 10 MG TAB PO SCH (11:02)
[2019-05-25] MEDS: ASPIRIN 81 MG TAB CHEW PO SCH (11:03)
[2019-05-25] MEDS: PANTOPRAZOLE 40 MG TAB PO SCH (11:03)
[2019-05-25] MEDS: INSULIN GLARGINE 100 UNITS/ML SUB-Q SCH ×2 (11:03→22:35)
--- NOTE | 2019-05-25 11:22 | Progress Note ---
Assessment and Plan - Patient Problems (1) Chronic kidney disease, stage 4 (severe) Current Visit: Yes Status: Chronic Plan to address problem: With ELEN on CKD which is likely pre-renal in etiology based on recent bout of diarrhea over the last 24 hours. Increased IVF hydration to NS @ 125cc/hr and closely monitor. Renal function is showing slight improvement this morning. We'll continue to monitor closely. (2) Hypertension Current Visit: Yes Status: Chronic Qualifiers: Hypertension type: essential hypertension Qualified Code(s): I10 - Essential (primary) hypertension Plan to address problem: Monitor blood pressures under current regimen. (3) Type 2 diabetes mellitus with diabetic nephropathy Current Visit: Yes Status: Chronic Plan to address problem: DM management per primary attending. (4) Hyperkalemia Current Visit: Yes Status: Acute Plan to address problem: Resolved at this time. Will closely monitor. (5) Sarcoidosis Current Visit: Yes Status: Acute Plan to address problem: Management per pulmonology recommendations. Subjective Date of service: 05/25/19 Principal diagnosis: Acute Chest Pain (D-dimer high); Sarcoidosis; HTNsive urgency; Obesity Interval history: No acute issues overnight. Labs noted with renal function showing slow improvement. Continues on IV fluids with normal saline 125 mL an hour. Objective - Vital Signs Vital signs: Vital Signs - 12hr 05/25/19 05/25/19 05/25/19 00:00 00:19 04:53 Temperature 99.1 F 97.5 F L Pulse Rate 70 69 65 Respiratory 16 20 Rate Blood Pressure 123/67 102/56 O2 Sat by Pulse 100 100 Oximetry 05/25/19 05/25/19 05/25/19 07:40 10:00 11:02 Temperature 97.9 F Pulse Rate 64 64 Respiratory 18 Rate Blood Pressure 107/63 107/63 O2 Sat by Pulse 100 96 Oximetry - General Appearance General appearance: well-developed, well-nourished, appears stated age, obese EENT: ATNC, PERRL Neck: no JVD, no thyromegaly Respiratory: Present: Clear to Ascultation Cardiology: regular, S1S2 Gastrointestinal: normal, normoactive bowel sounds Integumentary: no rash, warm and dry Neurologic: no focal deficit, alert and oriented x3 Psychiatric: mood/affect appropriate, cooperative - Lab 05/25/19 07:09 05/25/19 07:09 Most recent lab results ABG pH 7.377 pH Units (7.350-7.450) 05/17/19 15:45 ABG pCO2 41.2 mm Hg 05/17/19 15:45 ABG pO2 135.4 mm Hg (80.0-90.0) H 05/17/19 15:45 ABG HCO3 23.7 mmol/L (20.0-26.0) 05/17/19 15:45 ABG O2 Saturation 98.6 % (95.0-99.0) 05/17/19 15:45 Calcium 7.9 mg/dL (8.4-10.2) L 05/25/19 07:09 - Imaging Chest x-ray: report reviewed - Allied health notes Allied health notes reviewed: nursing Medications & Allergies - Medications Allergies/Adverse Reactions: Allergies Sulfa (Sulfonamide Antibiotics) Allergy (Verified 10/13/13 15:11) Rash Home Medications: Home Medications Medication Instructions Recorded Confirmed Last Taken Type Amitriptyline [Elavil] 10 mg PO QHS 05/17/19 05/17/19 2 Days Ago History ~05/15/19 Elviteg/Cob/Emtri/Tenof Alafen 1 tab PO DAILY 05/17/19 05/17/19 1 Day Ago History [Genvoya Tablet] ~05/16/19 Famotidine [Pepcid] 20 mg PO BID 05/17/19 05/17/19 1 Day Ago History ~05/16/19 Insulin NPH Hum/Reg Insulin Hm 22 bottle SQ QAC 05/17/19 05/17/19 1 Day Ago History [Humulin 70-30 Vial] ~05/16/19 Lisinopril/Hydrochlorothiazide 1 tab PO QDAY 05/17/19 05/17/19 1 Day Ago History [Zestoretic 20-12.5 mg] ~05/16/19 Losartan Potassium 50 mg PO DAILY 05/17/19 05/17/19 1 Day Ago History ~05/16/19 Metoprolol [Lopressor] 25 mg PO BID 05/17/19 05/17/19 1 Day Ago History ~05/16/19 Rosuvastatin Calcium 40 mg PO QDAY 05/17/19 05/17/19 1 Day Ago History ~05/16/19 predniSONE [Deltasone] 5 mg PO QDAY 05/17/19 05/17/19 1 Day Ago History ~05/16/19 Active Medications: Generic Name Dose Route Start Last Admin Trade Name Freq PRN Reason Stop Dose Admin Acetaminophen 650 mg 05/25/19 11:12 Tylenol PO Q4H PRN Pain, Mild (1-3) Albuterol 2.5 mg 05/17/19 00:45 05/17/19 19:55 Proventil IH 2.5 mg Q3HRT PRN Administration Shortness Of Breath Amitriptyline HCl 10 mg 05/24/19 23:55 05/25/19 00:24 Elavil PO 10 mg QHS SHAVONNE Administration Amlodipine Besylate 10 mg 05/17/19 10:00 05/25/19 11:02 Amlodipine PO 10 mg QDAY SHAVONNE Administration Aspirin 81 mg 05/18/19 10:00 05/25/19 11:03 Baby Aspirin PO 81 mg QDAY SHAVONNE Administration Atorvastatin Calcium 80 mg 05/17/19 22:00 05/24/19 21:30 Lipitor PO 80 mg QHS SHAVONNE Administration Dextrose 50 ml 05/17/19 00:45 D50w (25gm) Syringe IV Q30MIN PRN Hypoglycemia Protocol Guaifenesin 10 ml 05/22/19 00:08 05/25/19 06:06 Guaifenesin Dm Syrup PO 10 ml Q4H PRN Administration Cough Heparin Sodium (Porcine) 5,000 unit 05/24/19 16:00 05/25/19 05:32 Heparin SUB-Q 5,000 unit Q12H SHAVONNE Administration Hydralazine HCl 10 mg 05/17/19 00:44 05/19/19 01:25 Apresoline IV 10 mg Q4HR PRN Administration Blood Pressure Sodium Chloride 1,000 mls @ 125 mls/hr 05/24/19 09:00 05/25/19 05:32 Nacl 0.9% 1000 Ml IV 125 mls/hr DIRECT SHAVONNE Administration Insulin Glargine 20 units 05/17/19 01:00 05/25/19 11:03 Lantus SUB-Q 20 units BID SHAVONNE Administration Insulin Human Lispro 0 unit 05/25/19 11:30 Humalog SUB-Q QACHS SHAVONNE Protocol Methylprednisolone Sodium Succinate 40 mg 05/24/19 16:00 05/25/19 05:33 Solu-Medrol IV 40 mg Q12H SHAVONNE Administration Metoprolol Tartrate 75 mg 05/19/19 22:00 05/25/19 11:02 Metoprolol PO 75 mg BID SHAVONNE Administration Nitroglycerin 0.4 mg 05/17/19 00:53 Nitrostat SL Q5M PRN Chest Pain Ondansetron HCl 4 mg 05/17/19 00:45 05/19/19 15:16 Zofran IV 4 mg Q8H PRN Administration Nausea And Vomiting Pantoprazole Sodium 40 mg 05/21/19 10:00 05/25/19 11:03 Protonix PO 40 mg QDAY SHAVONNE Administration Sodium Chloride 10 ml 05/17/19 10:00 05/25/19 11:03 Sodium Chloride Flush Syringe 10 Ml IV 10 ml BID SHAVONNE Administration Sodium Chloride 10 ml 05/17/19 00:45 Sodium Chloride Flush Syringe 10 Ml IV PRN PRN LINE FLUSH
--- NOTE | 2019-05-25 14:00 | Progress Note ---
Assessment and Plan Elevated D-Dimer Acute Chest Pain Sarcoidosis, steroid dependent Hypertensive urgency Obesity ELEN on possible CKD Insulin-dependent DM Hyperlipidemia Hyponatremia Hyperkalemia HIV positive - + elevated RVSP but no hypoxemia; intermidiate prob for P.E. with low pretest prob for P.E. she is however clinically improved without treatment for P.E. and we will follow clinically - continue systemic steroids with slow taper for sarcoidosis exacerbation (tapered to 40 mg IV q12h) - prn supplemental oxygen as needed to keep O2 sat's > 90% - prn bronchodilators (HANNAH) with pulmonary hygiene per RT - follow clinically off AB's - PT/OT as tolerated - mobility protocols for pressure ulcer prophylaxis - GI & VTE prophylaxis (continue SQ heparin for VTE prophylaxis) - tobacco abstinence strongly counseled at bedside - Flu & Pneumovax addressed per protocol - Azotemia per nephrology team - continue other care per attending / other consultants - discharge planning ongoing concurrently ... re-evaluate in am & prn Subjective Date of service: 05/25/19 Principal diagnosis: Acute Chest Pain (D-dimer high); Sarcoidosis; HTNsive urgency; Obesity Interval history: Patient is seen today for: Elevated D-Dimer; Acute Chest Pain; Sarcoidosis (steroid dependent); Hypertensive urgency; Obesity; ELEN on possible CKD; Insulin-dependent DM; HIV positive Seen and examined at bedside; 24-hour events reviewed; nursing and respiratory care staff consulted; no adverse overnight events reported to me; resting peacefully in bed; feels better; AMS improved with judicious opiate use; Psych evaluation ongoing; denies acute chest pains or palpitations Objective Vital Signs - 12hr 05/25/19 05/25/19 05/25/19 04:53 07:40 10:00 Temperature 97.5 F L 97.9 F Pulse Rate 65 64 Pulse Rate [ Left Radial] Respiratory 20 18 Rate Blood Pressure 102/56 107/63 O2 Sat by Pulse 100 100 96 Oximetry 05/25/19 05/25/19 05/25/19 11:02 11:27 13:17 Temperature 97.7 F Pulse Rate 64 61 Pulse Rate [ 72 Left Radial] Respiratory 18 Rate Blood Pressure 107/63 113/58 O2 Sat by Pulse 100 Oximetry Constitutional: no acute distress, alert, other (middle aged AAF, normocephalic and atraumatic with normal respiratory effort at rest) Eyes: non-icteric ENT: oropharynx moist, other (Mallampati 3) Neck: supple, no lymphadenopathy, other (+ large neck circumference) Effort: mildly labored Ascultation: Bilateral: diminished breath sounds, rales (scant inspiratory in bases) Percussion: Bilateral: not dull Cardiovascular: regular rate and rhythm Gastrointestinal: normoactive bowel sounds, soft, non-tender, non-distended, other (protuberant) Integumentary: normal Extremities: no cyanosis, no edema, pulses normal, no ischemia or petechiae Neurologic: normal mental status, non-focal exam, pupils equal and round, CN II- XII normal, motor strength normal and Psychiatric: mood appropriate, affect normal, other (Sleeping at this time.) CBC and BMP: 05/26/19 05:33 05/26/19 05:33 ABG, PT/INR, D-dimer: ABG ABG pH 7.377 pH Units (7.350-7.450) 05/17/19 15:45 ABG pCO2 41.2 mm Hg 05/17/19 15:45 ABG pO2 135.4 mm Hg (80.0-90.0) H 05/17/19 15:45 ABG O2 Saturation 98.6 % (95.0-99.0) 05/17/19 15:45 PT/INR, D-dimer PT 13.0 Sec. (12.2-14.9) 05/17/19 01:30 INR 0.99 (0.87-1.13) 05/17/19 01:30 D-Dimer 416.09 ng/mlDDU (0-234) H 05/16/19 20:32 Abnormal lab findings: Abnormal Labs 05/16/19 05/16/19 05/16/19 20:32 20:32 20:32 WBC RBC 3.10 L Hgb 9.4 L Hct 28.3 L RDW 15.5 H Lymph % (Auto) Eos % (Auto) Monocytes % (Manual) Nucleated RBC % Monocytes # (Manual) APTT D-Dimer 416.09 H Heparin Anti-Xa Level ABG pO2 ABG Hemoglobin Sodium 131 L Potassium 5.4 H Chloride 94.1 L Carbon Dioxide 20 L BUN 37 H Creatinine 3.3 H Glucose 510 H* POC Glucose Hemoglobin A1c Calcium CK-MB (CK-2) Rel Index Troponin T 0.081 H Triglycerides 542 H Cholesterol 490 H 05/16/19 05/17/19 05/17/19 23:25 00:40 01:30 WBC RBC Hgb Hct RDW Lymph % (Auto) Eos % (Auto) Monocytes % (Manual) Nucleated RBC % Monocytes # (Manual) APTT D-Dimer Heparin Anti-Xa Level ABG pO2 ABG Hemoglobin Sodium Potassium Chloride Carbon Dioxide BUN Creatinine Glucose POC Glucose 193 H Hemoglobin A1c Calcium CK-MB (CK-2) Rel Index Troponin T 0.087 H 0.085 H Triglycerides Cholesterol 05/17/19 05/17/19 05/17/19 01:30 01:30 02:43 WBC RBC Hgb Hct RDW Lymph % (Auto) Eos % (Auto) Monocytes % (Manual) Nucleated RBC % Monocytes # (Manual) APTT 41.2 H D-Dimer Heparin Anti-Xa Level ABG pO2 ABG Hemoglobin Sodium Potassium Chloride Carbon Dioxide BUN Creatinine Glucose POC Glucose 258 H Hemoglobin A1c 12.3 H Calcium CK-MB (CK-2) Rel Index Troponin T Triglycerides Cholesterol 05/17/19 05/17/19 05/17/19 07:08 09:13 12:55 WBC RBC Hgb Hct RDW Lymph % (Auto) Eos % (Auto) Monocytes % (Manual) Nucleated RBC % Monocytes # (Manual) APTT D-Dimer Heparin Anti-Xa Level ABG pO2 ABG Hemoglobin Sodium Potassium Chloride Carbon Dioxide BUN Creatinine Glucose POC Glucose 231 H 213 H Hemoglobin A1c Calcium CK-MB (CK-2) Rel Index Troponin T 0.083 H Triglycerides Cholesterol 05/17/19 05/17/19 05/17/19 15:45 17:34 21:01 WBC RBC Hgb Hct RDW Lymph % (Auto) Eos % (Auto) Monocytes % (Manual) Nucleated RBC % Monocytes # (Manual) APTT D-Dimer Heparin Anti-Xa Level ABG pO2 135.4 H ABG Hemoglobin 8.9 L Sodium Potassium Chloride Carbon Dioxide BUN Creatinine Glucose POC Glucose 230 H 221 H Hemoglobin A1c Calcium CK-MB (CK-2) Rel Index Troponin T Triglycerides Cholesterol 05/18/19 05/18/19 05/18/19 05:12 05:12 07:10 WBC RBC 2.79 L Hgb 8.5 L Hct 25.6 L RDW 15.8 H Lymph % (Auto) 46.4 H Eos % (Auto) 4.9 H Monocytes % (Manual) Nucleated RBC % Monocytes # (Manual) APTT D-Dimer Heparin Anti-Xa Level 0.86 H ABG pO2 ABG Hemoglobin Sodium 135 L Potassium Chloride Carbon Dioxide 18 L BUN 30 H Creatinine 2.9 H Glucose POC Glucose Hemoglobin A1c Calcium CK-MB (CK-2) Rel Index Troponin T Triglycerides Cholesterol 05/18/19 05/18/19 05/18/19 11:41 15:17 16:37 WBC RBC Hgb Hct RDW Lymph % (Auto) Eos % (Auto) Monocytes % (Manual) Nucleated RBC % Monocytes # (Manual) APTT D-Dimer Heparin Anti-Xa Level 0.77 H ABG pO2 ABG Hemoglobin Sodium Potassium Chloride Carbon Dioxide BUN Creatinine Glucose POC Glucose 155 H 110 H Hemoglobin A1c Calcium CK-MB (CK-2) Rel Index Troponin T Triglycerides Cholesterol 05/18/19 05/18/19 05/19/19 21:26 21:33 06:56 WBC RBC Hgb Hct RDW Lymph % (Auto) Eos % (Auto) Monocytes % (Manual) Nucleated RBC % Monocytes # (Manual) APTT D-Dimer Heparin Anti-Xa Level 0.11 L ABG pO2 ABG Hemoglobin Sodium Potassium Chloride Carbon Dioxide BUN Creatinine Glucose POC Glucose 133 H 123 H Hemoglobin A1c Calcium CK-MB (CK-2) Rel Index Troponin T Triglycerides Cholesterol 05/19/19 05/19/19 05/19/19 07:07 07:07 07:07 WBC RBC Hgb Hct RDW Lymph % (Auto) Eos % (Auto) Monocytes % (Manual) Nucleated RBC % Monocytes # (Manual) APTT D-Dimer Heparin Anti-Xa Level 0.25 L ABG pO2 ABG Hemoglobin Sodium 132 L Potassium Chloride Carbon Dioxide 18 L BUN 31 H Creatinine 3.1 H Glucose 133 H POC Glucose Hemoglobin A1c Calcium CK-MB (CK-2) Rel Index 6.2 H Troponin T 0.069 H Triglycerides Cholesterol 05/19/19 05/19/19 05/19/19 07:08 07:49 11:49 WBC RBC 2.90 L Hgb 9.0 L Hct 26.5 L RDW 15.8 H Lymph % (Auto) 38.3 H Eos % (Auto) Monocytes % (Manual) Nucleated RBC % Monocytes # (Manual) APTT D-Dimer Heparin Anti-Xa Level ABG pO2 ABG Hemoglobin Sodium Potassium Chloride Carbon Dioxide BUN Creatinine Glucose POC Glucose 124 H 116 H Hemoglobin A1c Calcium CK-MB (CK-2) Rel Index Troponin T Triglycerides Cholesterol 05/19/19 05/19/19 05/19/19 14:45 16:21 21:02 WBC RBC Hgb Hct RDW Lymph % (Auto) Eos % (Auto) Monocytes % (Manual) Nucleated RBC % Monocytes # (Manual) APTT D-Dimer Heparin Anti-Xa Level < 0.10 L ABG pO2 ABG Hemoglobin Sodium Potassium Chloride Carbon Dioxide BUN Creatinine Glucose POC Glucose 124 H Hemoglobin A1c Calcium CK-MB (CK-2) Rel Index 6.4 H Troponin T 0.079 H Triglycerides Cholesterol 05/20/19 05/21/19 05/21/19 13:25 09:06 09:06 WBC RBC Hgb 9.1 L Hct 28.0 L RDW Lymph % (Auto) Eos % (Auto) Monocytes % (Manual) Nucleated RBC % Monocytes # (Manual) APTT D-Dimer Heparin Anti-Xa Level ABG pO2 ABG Hemoglobin Sodium 136 L Potassium Chloride Carbon Dioxide 16 L 18 L BUN 32 H 31 H Creatinine 3.6 H 3.8 H Glucose POC Glucose Hemoglobin A1c Calcium CK-MB (CK-2) Rel Index Troponin T Triglycerides Cholesterol 05/21/19 05/21/19 05/21/19 12:00 13:21 16:08 WBC RBC Hgb Hct RDW Lymph % (Auto) Eos % (Auto) Monocytes % (Manual) Nucleated RBC % Monocytes # (Manual) APTT D-Dimer Heparin Anti-Xa Level ABG pO2 ABG Hemoglobin Sodium Potassium Chloride Carbon Dioxide BUN Creatinine Glucose POC Glucose 200 H 156 H 133 H Hemoglobin A1c Calcium CK-MB (CK-2) Rel Index Troponin T Triglycerides Cholesterol 05/21/19 05/22/19 05/23/19 23:09 04:55 00:23 WBC RBC Hgb Hct RDW Lymph % (Auto) Eos % (Auto) Monocytes % (Manual) Nucleated RBC % Monocytes # (Manual) APTT D-Dimer Heparin Anti-Xa Level ABG pO2 ABG Hemoglobin Sodium Potassium Chloride Carbon Dioxide BUN 30 H Creatinine 4.5 H Glucose POC Glucose 134 H 140 H Hemoglobin A1c Calcium CK-MB (CK-2) Rel Index Troponin T Triglycerides Cholesterol 05/23/19 05/23/19 05/23/19 04:51 04:51 06:30 WBC RBC 2.93 L Hgb 8.8 L Hct 27.0 L RDW 16.0 H Lymph % (Auto) Eos % (Auto) Monocytes % (Manual) 14.0 H Nucleated RBC % 1.0 H Monocytes # (Manual) 1.0 H APTT D-Dimer Heparin Anti-Xa Level ABG pO2 ABG Hemoglobin Sodium 136 L Potassium Chloride Carbon Dioxide 19 L BUN 34 H Creatinine 5.3 H Glucose 137 H POC Glucose 174 H Hemoglobin A1c Calcium CK-MB (CK-2) Rel Index Troponin T Triglycerides Cholesterol 05/23/19 05/23/19 05/24/19 12:10 17:05 06:18 WBC RBC Hgb Hct RDW Lymph % (Auto) Eos % (Auto) Monocytes % (Manual) Nucleated RBC % Monocytes # (Manual) APTT D-Dimer Heparin Anti-Xa Level ABG pO2 ABG Hemoglobin Sodium Potassium Chloride Carbon Dioxide BUN Creatinine Glucose POC Glucose 155 H 173 H 58 L Hemoglobin A1c Calcium CK-MB (CK-2) Rel Index Troponin T Triglycerides Cholesterol 05/24/19 05/24/19 05/24/19 06:27 16:48 23:56 WBC RBC Hgb Hct RDW Lymph % (Auto) Eos % (Auto) Monocytes % (Manual) Nucleated RBC % Monocytes # (Manual) APTT D-Dimer Heparin Anti-Xa Level ABG pO2 ABG Hemoglobin Sodium Potassium Chloride Carbon Dioxide 19 L BUN 36 H Creatinine 5.9 H Glucose POC Glucose 66 L 253 H Hemoglobin A1c Calcium 7.9 L CK-MB (CK-2) Rel Index Troponin T Triglycerides Cholesterol 05/25/19 05/25/19 05/25/19 00:40 05:29 06:27 WBC RBC Hgb Hct RDW Lymph % (Auto) Eos % (Auto) Monocytes % (Manual) Nucleated RBC % Monocytes # (Manual) APTT D-Dimer Heparin Anti-Xa Level ABG pO2 ABG Hemoglobin Sodium Potassium Chloride Carbon Dioxide BUN Creatinine Glucose POC Glucose 259 H 191 H 169 H Hemoglobin A1c Calcium CK-MB (CK-2) Rel Index Troponin T Triglycerides Cholesterol 05/25/19 05/25/19 05/25/19 07:09 07:09 11:32 WBC 2.9 L RBC 2.55 L Hgb 7.6 L Hct 23.6 L RDW Lymph % (Auto) Eos % (Auto) Monocytes % (Manual) Nucleated RBC % Monocytes # (Manual) APTT D-Dimer Heparin Anti-Xa Level ABG pO2 ABG Hemoglobin Sodium 134 L Potassium Chloride 107.9 H Carbon Dioxide 17 L BUN 34 H Creatinine 5.0 H Glucose 183 H POC Glucose 263 H Hemoglobin A1c Calcium 7.9 L CK-MB (CK-2) Rel Index Troponin T Triglycerides Cholesterol Allied health notes reviewed: nursing
--- NOTE | 2019-05-25 14:36 | Progress Note ---
Assessment and Plan Assessment and plan: Patient is 58-year-old -[place] female with history of HIV, hypertension, diabetes, HLT, sarcoidosis, CAD, SD (2010) s/p stent x4 who presents to [facility] ED with complaints of left sided non-radiating chest pain, SOB, and diaphoresis. . Acute metabolic encephalopathy Change in mental status - suspect from narcotics and possible underlying depression - stopped all narcotics, consulted mental health ELEN on possible CKD stage 4 due to vasomotor nephropathy -Cr on admission 3.3 Cr 5.0 today -??CKD with GFR 17 -Renal ultrasound unremarkable -Continue to Hydrate with IVF -Avoid nephrotoxic agents -Renal dose all meds -Nephrology consulted, following - Cr was 1.7 about a year ago -Discussed with nephrology. iv fluids started Dizziness and lightheadedness - no acute findings on CT head - Ordered PT eval Elevated D-Dimer with possible PE -VQ scan shows intermediate probability for PE -Bilateral lower extremity Doppler showed no acute DVT, no hypoxemia on ABG -Pulmonology consulted -recommended to stop heparin drip as no sign of hypoxemia and negative DVT NSTEMI type II Acute Chest Pain -History of SD (2010), status post stent 4 -Follows at [facility] as outpatient -Initiated chest pain protocol -Continuous telemetry monitoring -Troponin elevated was elevated on admission -EKG unrevealing for acute ischemic abnormalities -s/p heparin drip -Cardiology consulted and recommended medical management Hypertensive urgency -BP on admission 198/142 -Hx Hypertension -Continue to monitor BP -Hold TANIKA and ARB d/t renal function -IV antihypertensive when necessary Insulin-dependent DM -Uncontrolled -BG on admission 510 -Scheduled Lantus and SSI coverage prn -HgbA1C 12.3 Hyperlipidemia -Uncontrolled -Total cholesterol on admission 490 -Start atorvastatin 80 mg daily at bedtime Hyponatremia -Na on admission 131 -Slowly correct Na with IVF -Continue to monitor replete prn Hyperkalemia -on admission 5.4 now resolved -Receiving IVF -Continue to monitor electrolytes Diarrhea after eating salad from outside will monitor I counseled her and ,advise against eating food from outside, especially salads HIV positive -Continue antiretroviral DVT PPX -On Heparin Discussed with patient and at bedside History Interval history: No more chest pain No SOB currently Altered mental status, improved Diarrhea X 2 days, started 05/22 after eating eating salad from outside Hospitalist Physical - Constitutional Vitals: Temp Pulse Resp BP Pulse Ox 97.7 F 72 18 113/58 100 05/25/19 11:27 05/25/19 13:17 05/25/19 11:27 05/25/19 11:27 05/25/19 11:27 General appearance: Present: no acute distress, obese Results - Labs CBC & Chem 7: 05/26/19 05:33 05/26/19 05:33 Labs: Laboratory Last Values WBC 2.9 K/mm3 (4.5-11.0) L 05/25/19 07:09 RBC 2.55 M/mm3 (3.65-5.03) L 05/25/19 07:09 Hgb 7.6 gm/dl (10.1-14.3) L 05/25/19 07:09 Hct 23.6 % (30.3-42.9) L 05/25/19 07:09 MCV 93 fl (79-97) 05/25/19 07:09 MCH 30 pg (28-32) 05/25/19 07:09 MCHC 32 % (30-34) 05/25/19 07:09 RDW 15.2 % (13.2-15.2) 05/25/19 07:09 Plt Count 174 K/mm3 (140-440) 05/25/19 07:09 Lymph % (Auto) 38.3 % (13.4-35.0) H 05/19/19 07:08 [place] % (Auto) Director Of Market Analysis 05/23/19 04:51 Eos % (Auto) 3.5 % (0.0-4.3) 05/19/19 07:08 Baso % (Auto) 0.5 % (0.0-1.8) 05/19/19 07:08 Lymph # 3.1 K/mm3 (1.2-5.4) 05/19/19 07:08 [place] # 0.5 K/mm3 (0.0-0.8) 05/19/19 07:08 Eos # 0.3 K/mm3 (0.0-0.4) 05/19/19 07:08 Baso # 0.0 K/mm3 (0.0-0.1) 05/19/19 07:08 Add Manual Diff Complete 05/23/19 04:51 Total Counted 100 05/23/19 04:51 Seg Neutrophils % 51.2 % (40.0-70.0) 05/19/19 07:08 Seg Neuts % (Manual) 65.0 % (40.0-70.0) 05/23/19 04:51 Band Neutrophils % 0 % 05/23/19 04:51 Lymphocytes % (Manual) 19.0 % (13.4-35.0) 05/23/19 04:51 Reactive Lymphs % (Man) 0 % 05/23/19 04:51 Monocytes % (Manual) 14.0 % (0.0-7.3) H 05/23/19 04:51 Eosinophils % (Manual) 0 % (0.0-4.3) 05/23/19 04:51 Basophils % (Manual) 1.0 % (0.0-1.8) 05/23/19 04:51 Metamyelocytes % 1.0 % 05/23/19 04:51 Myelocytes % 0 % 05/23/19 04:51 Promyelocytes % 0 % 05/23/19 04:51 Blast Cells % 0 % 05/23/19 04:51 Nucleated RBC % 1.0 % (0.0-0.9) H 05/23/19 04:51 Seg Neutrophils # 4.2 K/mm3 (1.8-7.7) 05/19/19 07:08 Seg Neutrophils # Man 4.6 K/mm3 (1.8-7.7) 05/23/19 04:51 Band Neutrophils # 0.0 K/mm3 05/23/19 04:51 Lymphocytes # (Manual) 1.3 K/mm3 (1.2-5.4) 05/23/19 04:51 Abs React Lymphs (Man) 0.0 K/mm3 05/23/19 04:51 Monocytes # (Manual) 1.0 K/mm3 (0.0-0.8) H 05/23/19 04:51 Eosinophils # (Manual) 0.0 K/mm3 (0.0-0.4) 05/23/19 04:51 Basophils # (Manual) 0.1 K/mm3 (0.0-0.1) 05/23/19 04:51 Metamyelocytes # 0.1 K/mm3 05/23/19 04:51 Myelocytes # 0.0 K/mm3 05/23/19 04:51 Promyelocytes # 0.0 K/mm3 05/23/19 04:51 Blast Cells # 0.0 K/mm3 05/23/19 04:51 WBC Morphology Not Reportable 05/23/19 04:51 Hypersegmented Neuts Not Reportable 05/23/19 04:51 Hyposegmented Neuts Not Reportable 05/23/19 04:51 Hypogranular Neuts Not Reportable 05/23/19 04:51 Smudge Cells Not Reportable 05/23/19 04:51 Toxic Granulation Not Reportable 05/23/19 04:51 Toxic Vacuolation Not Reportable 05/23/19 04:51 Dohle Bodies Not Reportable 05/23/19 04:51 Pelger-Huet Anomaly Not Reportable 05/23/19 04:51 Tra Rods Not Reportable 05/23/19 04:51 Platelet Estimate Consistent w auto 05/23/19 04:51 Clumped Platelets Not Reportable 05/23/19 04:51 Plt Clumps, EDTA Not Reportable 05/23/19 04:51 Large Platelets Not Reportable 05/23/19 04:51 Giant Platelets Not Reportable 05/23/19 04:51 Platelet Satelliting Not Reportable 05/23/19 04:51 Plt Morphology Comment Not Reportable 05/23/19 04:51 RBC Morphology Not Reportable 05/23/19 04:51 Dimorphic RBCs Not Reportable 05/23/19 04:51 Polychromasia Not Reportable 05/23/19 04:51 Hypochromasia Not Reportable 05/23/19 04:51 Poikilocytosis Not Reportable 05/23/19 04:51 Anisocytosis 1+ 05/23/19 04:51 Microcytosis Few 05/23/19 04:51 Macrocytosis Few 05/23/19 04:51 Spherocytes Not Reportable 05/23/19 04:51 Pappenheimer Bodies Not Reportable 05/23/19 04:51 Sickle Cells Not Reportable 05/23/19 04:51 Target Cells Not Reportable 05/23/19 04:51 Tear Drop Cells Not Reportable 05/23/19 04:51 Ovalocytes Not Reportable 05/23/19 04:51 Stomatocytes Few 05/23/19 04:51 Helmet Cells Not Reportable 05/23/19 04:51 [place] Bodies Not Reportable 05/23/19 04:51 Cucumber Rings Not Reportable 05/23/19 04:51 [place] Cells Not Reportable 05/23/19 04:51 Bite Cells Not Reportable 05/23/19 04:51 Crenated Cell Not Reportable 05/23/19 04:51 Elliptocytes Not Reportable 05/23/19 04:51 Acanthocytes (Spur) Not Reportable 05/23/19 04:51 Rouleaux Not Reportable 05/23/19 04:51 Hemoglobin C Crystals Not Reportable 05/23/19 04:51 Schistocytes Not Reportable 05/23/19 04:51 Malaria parasites Not Reportable 05/23/19 04:51 Shayne Bodies Not Reportable 05/23/19 04:51 Hem Pathologist Commnt No 05/23/19 04:51 PT 13.0 Sec. (12.2-14.9) 05/17/19 01:30 INR 0.99 (0.87-1.13) 05/17/19 01:30 APTT 41.2 Sec. (24.2-36.6) H 05/17/19 01:30 D-Dimer 416.09 ng/mlDDU (0-234) H 05/16/19 20:32 Heparin Anti-Xa Level < 0.10 U.I./ml (0.3-0.7) L 05/19/19 21:02 ABG pH 7.377 pH Units (7.350-7.450) 05/17/19 15:45 ABG pCO2 41.2 mm Hg 05/17/19 15:45 ABG pO2 135.4 mm Hg (80.0-90.0) H 05/17/19 15:45 ABG HCO3 23.7 mmol/L (20.0-26.0) 05/17/19 15:45 ABG O2 Saturation 98.6 % (95.0-99.0) 05/17/19 15:45 ABG O2 Content 12.4 (0.0-44) 05/17/19 15:45 ABG Base Excess -1.4 mmol/L (-2.0-3.0) 05/17/19 15:45 ABG Hemoglobin 8.9 gm/dl (12.0-16.0) L 05/17/19 15:45 ABG Carboxyhemoglobin 1.4 % (0.0-5.0) 05/17/19 15:45 ABG Methemoglobin 0.5 % (0.0-1.5) 05/17/19 15:45 Oxyhemoglobin 96.8 % (95.0-99.0) 05/17/19 15:45 FiO2 32 % 05/17/19 15:45 Sodium 134 mmol/L (137-145) L 05/25/19 07:09 Potassium 4.4 mmol/L (3.6-5.0) 05/25/19 07:09 Chloride 107.9 mmol/L (98-107) H 05/25/19 07:09 Carbon Dioxide 17 mmol/L (22-30) L 05/25/19 07:09 Anion Gap 14 mmol/L 05/25/19 07:09 BUN 34 mg/dL (7-17) H 05/25/19 07:09 Creatinine 5.0 mg/dL (0.7-1.2) H 05/25/19 07:09 Estimated GFR 11 ml/min 05/25/19 07:09 BUN/Creatinine Ratio 7 % 05/25/19 07:09 Glucose 183 mg/dL (65-100) H 05/25/19 07:09 POC Glucose 263 (70-105) H 05/25/19 11:32 Hemoglobin A1c 12.3 % (4-6) H 05/17/19 01:30 Calcium 7.9 mg/dL (8.4-10.2) L 05/25/19 07:09 Total Creatine Kinase 51 units/L (30-135) 05/19/19 14:45 CK-MB (CK-2) 3.3 ng/mL (0.0-4.0) 05/19/19 14:45 CK-MB (CK-2) Rel Index 6.4 (0-4) H 05/19/19 14:45 Troponin T 0.079 ng/mL (0.00-0.029) H 05/19/19 14:45 Triglycerides 542 mg/dL (2-149) H 05/16/19 20:32 Cholesterol 490 mg/dL (50-199) H 05/16/19 20:32 LDL Cholesterol Direct TNR 05/16/19 20:32 HDL Cholesterol 59 mg/dL (40-59) 05/16/19 20: Cholesterol/HDL Ratio 8.30 % 05/16/19 20:32 Urine Color Straw (Yellow) 05/17/19 22:00 Urine Turbidity Clear (Clear) 05/17/19 22:00 Urine pH 6.0 (5.0-7.0) 05/17/19 22:00 Ur Specific [place] 1.012 (1.003-1.030) 05/17/19 22:00 Urine Protein >500 mg/dL (Negative) 05/17/19 22:00 Urine Glucose (UA) 150 mg/dL (Negative) 05/17/19 22:00 Urine Ketones Neg mg/dL (Negative) 05/17/19 22:00 Urine Blood Neg (Negative) 05/17/19 22:00 Urine Nitrite Neg (Negative) 05/17/19 22:00 Urine Bilirubin Neg (Negative) 05/17/19 22:00 Urine Urobilinogen < 2.0 mg/dL (<2.0) 05/17/19 22:00 Ur Leukocyte Esterase Mod (Negative) 05/17/19 22:00 Urine WBC (Auto) 4.0 /HPF (0.0-6.0) 05/17/19 22:00 Urine RBC (Auto) 2.0 /HPF (0.0-6.0) 05/17/19 22:00 U Epithel Cells (Auto) 3.0 /HPF (0-13.0) 05/17/19 22:00 Urine Bacteria (Auto) 1+ /HPF (Negative) 05/17/19 22:00 Active Medications - Current Medications Current Medications: Generic Name Dose Route Start Last Admin Trade Name Freq PRN Reason Stop Dose Admin Acetaminophen 650 mg 05/25/19 11:12 Tylenol PO Q4H PRN Pain, Mild (1-3) Albuterol 2.5 mg 05/17/19 00:45 05/17/19 19:55 Proventil IH 2.5 mg Q3HRT PRN Administration Shortness Of Breath Amitriptyline HCl 10 mg 05/24/19 23:55 05/25/19 00:24 Elavil PO 10 mg QHS SHAVONNE Administration Amlodipine Besylate 10 mg 05/17/19 10:00 05/25/19 11:02 Amlodipine PO 10 mg QDAY SHAVONNE Administration Aspirin 81 mg 05/18/19 10:00 05/25/19 11:03 Baby Aspirin PO 81 mg QDAY SHAVONNE Administration Atorvastatin Calcium 80 mg 05/17/19 22:00 05/24/19 21:30 Lipitor PO 80 mg QHS SHAVONNE Administration Dextrose 50 ml 05/17/19 00:45 D50w (25gm) Syringe IV Q30MIN PRN Hypoglycemia Protocol Guaifenesin 10 ml 05/22/19 00:08 05/25/19 14:21 Guaifenesin Dm Syrup PO 10 ml Q4H PRN Administration Cough Heparin Sodium (Porcine) 5,000 unit 05/24/19 16:00 05/25/19 05:32 Heparin SUB-Q 5,000 unit Q12H SAHVONNE Administration Hydralazine HCl 10 mg 05/17/19 00:44 05/19/19 01:25 Apresoline IV 10 mg Q4HR PRN Administration Blood Pressure Sodium Chloride 1,000 mls @ 125 mls/hr 05/24/19 09:00 05/25/19 05:32 Nacl 0.9% 1000 Ml IV 125 mls/hr DIRECT SHAVONNE Administration Insulin Glargine 20 units 05/17/19 01:00 05/25/19 11:03 Lantus SUB-Q 20 units BID SHAVONNE Administration Insulin Human Lispro 0 unit 05/25/19 11:30 05/25/19 12:02 Humalog SUB-Q 4 unit QACHS SHAVONNE Administration Protocol Methylprednisolone Sodium Succinate 40 mg 05/24/19 16:00 05/25/19 05:33 Solu-Medrol IV 40 mg Q12H SHAVONNE Administration Metoprolol Tartrate 75 mg 05/19/19 22:00 05/25/19 11:02 Metoprolol PO 75 mg BID SHAVONNE Administration Nitroglycerin 0.4 mg 05/17/19 00:53 Nitrostat SL Q5M PRN Chest Pain Ondansetron HCl 4 mg 05/17/19 00:45 05/19/19 15:16 Zofran IV 4 mg Q8H PRN Administration Nausea And Vomiting Pantoprazole Sodium 40 mg 05/21/19 10:00 05/25/19 11:03 Protonix PO 40 mg QDAY SHAVONNE Administration Sodium Chloride 10 ml 05/17/19 10:00 05/25/19 11:03 Sodium Chloride Flush Syringe 10 Ml IV 10 ml BID SHAVONNE Administration Sodium Chloride 10 ml 05/17/19 00:45 Sodium Chloride Flush Syringe 10 Ml IV PRN PRN LINE FLUSH Nutrition/Malnutrition Assess - Dietary Evaluation Nutrition/Malnutrition Findings: Nutrition Notes Start: 05/17/19 11:43 Freq: Status: Active Protocol: Document 05/21/19 14:32 LP (Rec: 05/21/19 14:33 LP [id number]) Nutrition Notes Initial or Follow up Brief Note Subjective/Other Information Pt sleeping at time of visit and lethargic. Pt states to come back but wanting diet education. Handout left at bedside. Nutrition Intervention Follow-Up By: 05/27/19 Additional Comments Follow for diet education needs and intakes
[2019-05-25] MEDS: [UNRECOGNIZED DRUG - OTHER] PO SCH (20:33)
[2019-05-25] MEDS: ACETAMINOPHEN 325 MG TAB PO PRN (20:33)
[2019-05-26] MEDS: SODIUM CHLORIDE 0.9% 1000 ML 1,000 ML IV SCH ×2 (02:05→22:07)
[2019-05-26] MEDS: guaiFENesin DM 200/20 MG ORAL LIQD 10 ML PO PRN ×4 (02:05→22:09)
[2019-05-26] MEDS: methylPREDNISolone Sod Succinate 40 MG/1 ML INJ IV SCH (04:05)
[2019-05-26] MEDS: HEPARIN 5,000 UNIT/1 ML VIAL SUB-Q SCH ×2 (04:11→16:19)
[2019-05-26 05:59] LABS: Hematocrit 24.3 % (30.3-42.9); Hemoglobin 7.8 gm/dl (10.1-14.3); Mean Corpuscular HGB Conc 32 % (30-34); Mean Corpuscular Volume 92 fl (79-97); Platelet Count 216 K/mm3 (140-440); Red Blood Count 2.63 M/mm3 (3.65-5.03); Red Cell Distribution Width 15.6 % (13.2-15.2)
[2019-05-26] MEDS: ACETAMINOPHEN 325 MG TAB PO PRN ×2 (06:02→22:09)
[2019-05-26] MEDS: INSULIN LISPRO 100 UNIT/ML SUB-Q SCH ×4 (08:26→23:45)
[2019-05-26] MEDS: ASPIRIN 81 MG TAB CHEW PO SCH (09:45)
[2019-05-26] MEDS: INSULIN GLARGINE 100 UNITS/ML SUB-Q SCH ×2 (09:45→23:45)
[2019-05-26] MEDS: amLODIPine 10 MG TAB PO SCH (09:45)
[2019-05-26] MEDS: PANTOPRAZOLE 40 MG TAB PO SCH (09:45)
[2019-05-26] MEDS: METOPROLOL TARTRATE 25 MG TAB PO SCH ×2 (09:45→22:08)
--- NOTE | 2019-05-26 12:55 | Progress Note ---
Assessment and Plan - Patient Problems (1) Chronic kidney disease, stage 4 (severe) Current Visit: Yes Status: Chronic Plan to address problem: With ELEN on CKD which is likely pre-renal in etiology based on recent bout of diarrhea over the last 24 hours. Increased IVF hydration to NS @ 125cc/hr and closely monitor. Renal function is showing continued improvement this morning. From nephrology standpoint she is stable for DC with instructions to follow up with us in the clinic 1-2 weeks post discharge. (2) Hypertension Current Visit: Yes Status: Chronic Qualifiers: Hypertension type: essential hypertension Qualified Code(s): I10 - Essential (primary) hypertension Plan to address problem: Monitor blood pressures under current regimen. (3) Type 2 diabetes mellitus with diabetic nephropathy Current Visit: Yes Status: Chronic Plan to address problem: DM management per primary attending. (4) Hyperkalemia Current Visit: Yes Status: Acute Plan to address problem: Resolved at this time. Will closely monitor. (5) Sarcoidosis Current Visit: Yes Status: Acute Plan to address problem: Management per pulmonology recommendations. (6) Metabolic acidosis Current Visit: Yes Status: Chronic Plan to address problem: Recommend starting patient on sodium bicarbonate 1 tab TID w/meals. Subjective Date of service: 05/26/19 Principal diagnosis: Acute Chest Pain (D-dimer high); Sarcoidosis; HTNsive urgency; Obesity Interval history: No acute issues overnight, labs noted and renal function is showing improvement. Objective - Vital Signs Vital signs: Vital Signs - 12hr 05/26/19 05/26/19 05/26/19 03:56 06:15 07:22 Temperature 98.1 F Pulse Rate 60 Respiratory 18 38 H 24 Rate Blood Pressure 113/65 Blood Pressure [Left] O2 Sat by Pulse 100 96 Oximetry 05/26/19 05/26/19 07:59 08:14 Temperature 98.4 F Pulse Rate 63 Respiratory 18 Rate Blood Pressure Blood Pressure 109/60 [Left] O2 Sat by Pulse 100 93 Oximetry - General Appearance General appearance: well-developed, well-nourished, appears stated age, obese EENT: ATNC, PERRL Neck: no JVD, no thyromegaly Respiratory: Present: Clear to Ascultation, Normal Exam Cardiology: regular, S1S2 Gastrointestinal: normal, normoactive bowel sounds Integumentary: no rash, warm and dry Neurologic: no focal deficit, no asterixis, alert and oriented x3 Musculoskeletal: deferred Psychiatric: mood/affect appropriate, cooperative - Lab 05/26/19 05:33 05/26/19 05:33 Most recent lab results ABG pH 7.377 pH Units (7.350-7.450) 05/17/19 15:45 ABG pCO2 41.2 mm Hg 05/17/19 15:45 ABG pO2 135.4 mm Hg (80.0-90.0) H 05/17/19 15:45 ABG HCO3 23.7 mmol/L (20.0-26.0) 05/17/19 15:45 ABG O2 Saturation 98.6 % (95.0-99.0) 05/17/19 15:45 Calcium 8.0 mg/dL (8.4-10.2) L 05/26/19 05:33 - Allied health notes Allied health notes reviewed: nursing Medications & Allergies - Medications Allergies/Adverse Reactions: Allergies Sulfa (Sulfonamide Antibiotics) Allergy (Verified 10/13/13 15:11) Rash Home Medications: Home Medications Medication Instructions Recorded Confirmed Last Taken Type Amitriptyline [Elavil] 10 mg PO QHS 05/17/19 05/17/19 2 Days Ago History ~05/15/19 Elviteg/Cob/Emtri/Tenof Alafen 1 tab PO DAILY 05/17/19 05/17/19 1 Day Ago History [Genvoya Tablet] ~05/16/19 Famotidine [Pepcid] 20 mg PO BID 05/17/19 05/17/19 1 Day Ago History ~05/16/19 Insulin NPH Hum/Reg Insulin Hm 22 bottle SQ QAC 05/17/19 05/17/19 1 Day Ago History [Humulin 70-30 Vial] ~05/16/19 Lisinopril/Hydrochlorothiazide 1 tab PO QDAY 05/17/19 05/17/19 1 Day Ago History [Zestoretic 20-12.5 mg] ~05/16/19 Losartan Potassium 50 mg PO DAILY 05/17/19 05/17/19 1 Day Ago History ~05/16/19 Metoprolol [Lopressor] 25 mg PO BID 05/17/19 05/17/19 1 Day Ago History ~05/16/19 Rosuvastatin Calcium 40 mg PO QDAY 05/17/19 05/17/19 1 Day Ago History ~05/16/19 predniSONE [Deltasone] 5 mg PO QDAY 05/17/19 05/17/19 1 Day Ago History ~05/16/19 Active Medications: Generic Name Dose Route Start Last Admin Trade Name Freq PRN Reason Stop Dose Admin Acetaminophen 650 mg 05/25/19 11:12 05/26/19 06:02 Tylenol PO 650 mg Q4H PRN Administration Pain, Mild (1-3) Albuterol 2.5 mg 05/17/19 00:45 05/17/19 19:55 Proventil IH 2.5 mg Q3HRT PRN Administration Shortness Of Breath Amitriptyline HCl 10 mg 05/24/19 23:55 05/25/19 22:34 Elavil PO Not Given QHS SHAVONNE Amlodipine Besylate 10 mg 05/17/19 10:00 05/26/19 09:45 Amlodipine PO 10 mg QDAY SHAVONNE Administration Aspirin 81 mg 05/18/19 10:00 05/26/19 09:45 Baby Aspirin PO 81 mg QDAY SHAVONNE Administration Atorvastatin Calcium 80 mg 05/17/19 22:00 05/25/19 22:35 Lipitor PO Not Given QHS SHAVONNE Dextrose 50 ml 05/17/19 00:45 D50w (25gm) Syringe IV Q30MIN PRN Hypoglycemia Protocol Guaifenesin 10 ml 05/22/19 00:08 05/26/19 11:19 Guaifenesin Dm Syrup PO 10 ml Q4H PRN Administration Cough Heparin Sodium (Porcine) 5,000 unit 05/24/19 16:00 05/26/19 04:11 Heparin SUB-Q 5,000 unit Q12H SHAVONNE Administration Hydralazine HCl 10 mg 05/17/19 00:44 05/19/19 01:25 Apresoline IV 10 mg Q4HR PRN Administration Blood Pressure Sodium Chloride 1,000 mls @ 125 mls/hr 05/24/19 09:00 05/26/19 02:05 Nacl 0.9% 1000 Ml IV 125 mls/hr DIRECT SHAVONNE Administration Insulin Glargine 20 units 05/17/19 01:00 05/26/19 09:45 Lantus SUB-Q 20 units BID SHAVONNE Administration Insulin Human Lispro 0 unit 05/25/19 11:30 05/26/19 12:38 Humalog SUB-Q 2 unit QACHS SHAVONNE Administration Protocol Methylprednisolone Sodium Succinate 40 mg 05/24/19 16:00 05/26/19 04:05 Solu-Medrol IV 40 mg Q12H SHAVONNE Administration Metoprolol Tartrate 75 mg 05/19/19 22:00 05/26/19 09:45 Metoprolol PO 75 mg BID SHAVONNE Administration Nitroglycerin 0.4 mg 05/17/19 00:53 Nitrostat SL Q5M PRN Chest Pain Ondansetron HCl 4 mg 05/17/19 00:45 05/19/19 15:16 Zofran IV 4 mg Q8H PRN Administration Nausea And Vomiting Pantoprazole Sodium 40 mg 05/21/19 10:00 05/26/19 09:45 Protonix PO 40 mg QDAY SHAVONNE Administration Sodium Chloride 10 ml 05/17/19 10:00 05/26/19 09:46 Sodium Chloride Flush Syringe 10 Ml IV 10 ml BID SHAVONNE Administration Sodium Chloride 10 ml 05/17/19 00:45 Sodium Chloride Flush Syringe 10 Ml IV PRN PRN LINE FLUSH
--- NOTE | 2019-05-26 15:13 | Progress Note ---
Assessment and Plan Elevated D-Dimer Acute Chest Pain Sarcoidosis, steroid dependent Hypertensive urgency Obesity ELEN on possible CKD Insulin-dependent DM Hyperlipidemia Hyponatremia Hyperkalemia HIV positive - + elevated RVSP but no hypoxemia; intermidiate prob for P.E. with low pretest prob for P.E. she is however clinically improved without treatment for P.E. and we will follow clinically - continue systemic steroids with slow taper for sarcoidosis exacerbation (tapered to oral Prednisone) - prn supplemental oxygen as needed to keep O2 sat's > 90% - prn bronchodilators (HANNAH) with pulmonary hygiene per RT - follow clinically off AB's - PT/OT as tolerated - mobility protocols for pressure ulcer prophylaxis - GI & VTE prophylaxis (continue SQ heparin for VTE prophylaxis) - tobacco abstinence strongly counseled at bedside - Flu & Pneumovax addressed per protocol - Azotemia per nephrology team - continue other care per attending / other consultants - discharge planning ongoing concurrently ... re-evaluate in am & prn Subjective Date of service: 05/26/19 Principal diagnosis: Acute Chest Pain (D-dimer high); Sarcoidosis; HTNsive urgency; Obesity Interval history: Patient is seen today for: Elevated D-Dimer; Acute Chest Pain; Sarcoidosis (steroid dependent); Hypertensive urgency; Obesity; ELEN on possible CKD; Insulin-dependent DM; HIV positive Seen and examined at bedside; 24-hour events reviewed; nursing and respiratory care staff consulted; no adverse overnight events reported to me; resting peacefully in bed; no new issues Objective Vital Signs - 12hr 05/26/19 05/26/19 05/26/19 03:56 06:15 07:22 Temperature 98.1 F Pulse Rate 60 Respiratory 18 38 H 24 Rate Blood Pressure 113/65 Blood Pressure [Left] O2 Sat by Pulse 100 96 Oximetry 05/26/19 05/26/19 07:59 08:14 Temperature 98.4 F Pulse Rate 63 Respiratory 18 Rate Blood Pressure Blood Pressure 109/60 [Left] O2 Sat by Pulse 100 93 Oximetry Constitutional: no acute distress, alert, other (middle aged AAF, normocephalic and atraumatic with normal respiratory effort at rest) Eyes: non-icteric ENT: oropharynx moist, other (Mallampati 3) Neck: supple, no lymphadenopathy, other (+ large neck circumference) Effort: mildly labored Ascultation: Bilateral: diminished breath sounds, rales (scant inspiratory in bases) Percussion: Bilateral: not dull Cardiovascular: regular rate and rhythm Gastrointestinal: normoactive bowel sounds, soft, non-tender, non-distended, other (protuberant) Integumentary: normal Extremities: no cyanosis, no edema, pulses normal, no ischemia or petechiae Neurologic: normal mental status, non-focal exam, pupils equal and round, CN II- XII normal, motor strength normal and Psychiatric: mood appropriate, affect normal, other (Sleeping at this time.) CBC and BMP: 05/27/19 07:42 05/27/19 07:42 ABG, PT/INR, D-dimer: ABG ABG pH 7.377 pH Units (7.350-7.450) 05/17/19 15:45 ABG pCO2 41.2 mm Hg 05/17/19 15:45 ABG pO2 135.4 mm Hg (80.0-90.0) H 05/17/19 15:45 ABG O2 Saturation 98.6 % (95.0-99.0) 05/17/19 15:45 PT/INR, D-dimer PT 13.0 Sec. (12.2-14.9) 05/17/19 01:30 INR 0.99 (0.87-1.13) 05/17/19 01:30 D-Dimer 416.09 ng/mlDDU (0-234) H 05/16/19 20:32 Abnormal lab findings: Abnormal Labs 05/16/19 05/16/19 05/16/19 20:32 20:32 20:32 WBC RBC 3.10 L Hgb 9.4 L Hct 28.3 L RDW 15.5 H Lymph % (Auto) Eos % (Auto) Monocytes % (Manual) Nucleated RBC % Monocytes # (Manual) APTT D-Dimer 416.09 H Heparin Anti-Xa Level ABG pO2 ABG Hemoglobin Sodium 131 L Potassium 5.4 H Chloride 94.1 L Carbon Dioxide 20 L BUN 37 H Creatinine 3.3 H Glucose 510 H* POC Glucose Hemoglobin A1c Calcium CK-MB (CK-2) Rel Index Troponin T 0.081 H Triglycerides 542 H Cholesterol 490 H 05/16/19 05/17/19 05/17/19 23:25 00:40 01:30 WBC RBC Hgb Hct RDW Lymph % (Auto) Eos % (Auto) Monocytes % (Manual) Nucleated RBC % Monocytes # (Manual) APTT D-Dimer Heparin Anti-Xa Level ABG pO2 ABG Hemoglobin Sodium Potassium Chloride Carbon Dioxide BUN Creatinine Glucose POC Glucose 193 H Hemoglobin A1c Calcium CK-MB (CK-2) Rel Index Troponin T 0.087 H 0.085 H Triglycerides Cholesterol 05/17/19 05/17/19 05/17/19 01:30 01:30 02:43 WBC RBC Hgb Hct RDW Lymph % (Auto) Eos % (Auto) Monocytes % (Manual) Nucleated RBC % Monocytes # (Manual) APTT 41.2 H D-Dimer Heparin Anti-Xa Level ABG pO2 ABG Hemoglobin Sodium Potassium Chloride Carbon Dioxide BUN Creatinine Glucose POC Glucose 258 H Hemoglobin A1c 12.3 H Calcium CK-MB (CK-2) Rel Index Troponin T Triglycerides Cholesterol 05/17/19 05/17/19 05/17/19 07:08 09:13 12:55 WBC RBC Hgb Hct RDW Lymph % (Auto) Eos % (Auto) Monocytes % (Manual) Nucleated RBC % Monocytes # (Manual) APTT D-Dimer Heparin Anti-Xa Level ABG pO2 ABG Hemoglobin Sodium Potassium Chloride Carbon Dioxide BUN Creatinine Glucose POC Glucose 231 H 213 H Hemoglobin A1c Calcium CK-MB (CK-2) Rel Index Troponin T 0.083 H Triglycerides Cholesterol 05/17/19 05/17/19 05/17/19 15:45 17:34 21:01 WBC RBC Hgb Hct RDW Lymph % (Auto) Eos % (Auto) Monocytes % (Manual) Nucleated RBC % Monocytes # (Manual) APTT D-Dimer Heparin Anti-Xa Level ABG pO2 135.4 H ABG Hemoglobin 8.9 L Sodium Potassium Chloride Carbon Dioxide BUN Creatinine Glucose POC Glucose 230 H 221 H Hemoglobin A1c Calcium CK-MB (CK-2) Rel Index Troponin T Triglycerides Cholesterol 05/18/19 05/18/19 05/18/19 05:12 05:12 07:10 WBC RBC 2.79 L Hgb 8.5 L Hct 25.6 L RDW 15.8 H Lymph % (Auto) 46.4 H Eos % (Auto) 4.9 H Monocytes % (Manual) Nucleated RBC % Monocytes # (Manual) APTT D-Dimer Heparin Anti-Xa Level 0.86 H ABG pO2 ABG Hemoglobin Sodium 135 L Potassium Chloride Carbon Dioxide 18 L BUN 30 H Creatinine 2.9 H Glucose POC Glucose Hemoglobin A1c Calcium CK-MB (CK-2) Rel Index Troponin T Triglycerides Cholesterol 05/18/19 05/18/19 05/18/19 11:41 15:17 16:37 WBC RBC Hgb Hct RDW Lymph % (Auto) Eos % (Auto) Monocytes % (Manual) Nucleated RBC % Monocytes # (Manual) APTT D-Dimer Heparin Anti-Xa Level 0.77 H ABG pO2 ABG Hemoglobin Sodium Potassium Chloride Carbon Dioxide BUN Creatinine Glucose POC Glucose 155 H 110 H Hemoglobin A1c Calcium CK-MB (CK-2) Rel Index Troponin T Triglycerides Cholesterol 05/18/19 05/18/19 05/19/19 21:26 21:33 06:56 WBC RBC Hgb Hct RDW Lymph % (Auto) Eos % (Auto) Monocytes % (Manual) Nucleated RBC % Monocytes # (Manual) APTT D-Dimer Heparin Anti-Xa Level 0.11 L ABG pO2 ABG Hemoglobin Sodium Potassium Chloride Carbon Dioxide BUN Creatinine Glucose POC Glucose 133 H 123 H Hemoglobin A1c Calcium CK-MB (CK-2) Rel Index Troponin T Triglycerides Cholesterol 05/19/19 05/19/19 05/19/19 07:07 07:07 07:07 WBC RBC Hgb Hct RDW Lymph % (Auto) Eos % (Auto) Monocytes % (Manual) Nucleated RBC % Monocytes # (Manual) APTT D-Dimer Heparin Anti-Xa Level 0.25 L ABG pO2 ABG Hemoglobin Sodium 132 L Potassium Chloride Carbon Dioxide 18 L BUN 31 H Creatinine 3.1 H Glucose 133 H POC Glucose Hemoglobin A1c Calcium CK-MB (CK-2) Rel Index 6.2 H Troponin T 0.069 H Triglycerides Cholesterol 05/19/19 05/19/19 05/19/19 07:08 07:49 11:49 WBC RBC 2.90 L Hgb 9.0 L Hct 26.5 L RDW 15.8 H Lymph % (Auto) 38.3 H Eos % (Auto) Monocytes % (Manual) Nucleated RBC % Monocytes # (Manual) APTT D-Dimer Heparin Anti-Xa Level ABG pO2 ABG Hemoglobin Sodium Potassium Chloride Carbon Dioxide BUN Creatinine Glucose POC Glucose 124 H 116 H Hemoglobin A1c Calcium CK-MB (CK-2) Rel Index Troponin T Triglycerides Cholesterol 05/19/19 05/19/19 05/19/19 14:45 16:21 21:02 WBC RBC Hgb Hct RDW Lymph % (Auto) Eos % (Auto) Monocytes % (Manual) Nucleated RBC % Monocytes # (Manual) APTT D-Dimer Heparin Anti-Xa Level < 0.10 L ABG pO2 ABG Hemoglobin Sodium Potassium Chloride Carbon Dioxide BUN Creatinine Glucose POC Glucose 124 H Hemoglobin A1c Calcium CK-MB (CK-2) Rel Index 6.4 H Troponin T 0.079 H Triglycerides Cholesterol 05/20/19 05/21/19 05/21/19 13:25 09:06 09:06 WBC RBC Hgb 9.1 L Hct 28.0 L RDW Lymph % (Auto) Eos % (Auto) Monocytes % (Manual) Nucleated RBC % Monocytes # (Manual) APTT D-Dimer Heparin Anti-Xa Level ABG pO2 ABG Hemoglobin Sodium 136 L Potassium Chloride Carbon Dioxide 16 L 18 L BUN 32 H 31 H Creatinine 3.6 H 3.8 H Glucose POC Glucose Hemoglobin A1c Calcium CK-MB (CK-2) Rel Index Troponin T Triglycerides Cholesterol 05/21/19 05/21/19 05/21/19 12:00 13:21 16:08 WBC RBC Hgb Hct RDW Lymph % (Auto) Eos % (Auto) Monocytes % (Manual) Nucleated RBC % Monocytes # (Manual) APTT D-Dimer Heparin Anti-Xa Level ABG pO2 ABG Hemoglobin Sodium Potassium Chloride Carbon Dioxide BUN Creatinine Glucose POC Glucose 200 H 156 H 133 H Hemoglobin A1c Calcium CK-MB (CK-2) Rel Index Troponin T Triglycerides Cholesterol 05/21/19 05/22/19 05/23/19 23:09 04:55 00:23 WBC RBC Hgb Hct RDW Lymph % (Auto) Eos % (Auto) Monocytes % (Manual) Nucleated RBC % Monocytes # (Manual) APTT D-Dimer Heparin Anti-Xa Level ABG pO2 ABG Hemoglobin Sodium Potassium Chloride Carbon Dioxide BUN 30 H Creatinine 4.5 H Glucose POC Glucose 134 H 140 H Hemoglobin A1c Calcium CK-MB (CK-2) Rel Index Troponin T Triglycerides Cholesterol 05/23/19 05/23/19 05/23/19 04:51 04:51 06:30 WBC RBC 2.93 L Hgb 8.8 L Hct 27.0 L RDW 16.0 H Lymph % (Auto) Eos % (Auto) Monocytes % (Manual) 14.0 H Nucleated RBC % 1.0 H Monocytes # (Manual) 1.0 H APTT D-Dimer Heparin Anti-Xa Level ABG pO2 ABG Hemoglobin Sodium 136 L Potassium Chloride Carbon Dioxide 19 L BUN 34 H Creatinine 5.3 H Glucose 137 H POC Glucose 174 H Hemoglobin A1c Calcium CK-MB (CK-2) Rel Index Troponin T Triglycerides Cholesterol 05/23/19 05/23/19 05/24/19 12:10 17:05 06:18 WBC RBC Hgb Hct RDW Lymph % (Auto) Eos % (Auto) Monocytes % (Manual) Nucleated RBC % Monocytes # (Manual) APTT D-Dimer Heparin Anti-Xa Level ABG pO2 ABG Hemoglobin Sodium Potassium Chloride Carbon Dioxide BUN Creatinine Glucose POC Glucose 155 H 173 H 58 L Hemoglobin A1c Calcium CK-MB (CK-2) Rel Index Troponin T Triglycerides Cholesterol 05/24/19 05/24/19 05/24/19 06:27 16:48 23:56 WBC RBC Hgb Hct RDW Lymph % (Auto) Eos % (Auto) Monocytes % (Manual) Nucleated RBC % Monocytes # (Manual) APTT D-Dimer Heparin Anti-Xa Level ABG pO2 ABG Hemoglobin Sodium Potassium Chloride Carbon Dioxide 19 L BUN 36 H Creatinine 5.9 H Glucose POC Glucose 66 L 253 H Hemoglobin A1c Calcium 7.9 L CK-MB (CK-2) Rel Index Troponin T Triglycerides Cholesterol 05/25/19 05/25/19 05/25/19 00:40 05:29 06:27 WBC RBC Hgb Hct RDW Lymph % (Auto) Eos % (Auto) Monocytes % (Manual) Nucleated RBC % Monocytes # (Manual) APTT D-Dimer Heparin Anti-Xa Level ABG pO2 ABG Hemoglobin Sodium Potassium Chloride Carbon Dioxide BUN Creatinine Glucose POC Glucose 259 H 191 H 169 H Hemoglobin A1c Calcium CK-MB (CK-2) Rel Index Troponin T Triglycerides Cholesterol 05/25/19 05/25/19 05/25/19 07:09 07:09 11:32 WBC 2.9 L RBC 2.55 L Hgb 7.6 L Hct 23.6 L RDW Lymph % (Auto) Eos % (Auto) Monocytes % (Manual) Nucleated RBC % Monocytes # (Manual) APTT D-Dimer Heparin Anti-Xa Level ABG pO2 ABG Hemoglobin Sodium 134 L Potassium Chloride 107.9 H Carbon Dioxide 17 L BUN 34 H Creatinine 5.0 H Glucose 183 H POC Glucose 263 H Hemoglobin A1c Calcium 7.9 L CK-MB (CK-2) Rel Index Troponin T Triglycerides Cholesterol 05/25/19 05/25/19 05/26/19 16:15 22:49 05:33 WBC RBC 2.63 L Hgb 7.8 L Hct 24.3 L RDW 15.6 H Lymph % (Auto) Eos % (Auto) Monocytes % (Manual) Nucleated RBC % Monocytes # (Manual) APTT D-Dimer Heparin Anti-Xa Level ABG pO2 ABG Hemoglobin Sodium Potassium Chloride Carbon Dioxide BUN Creatinine Glucose POC Glucose 234 H 226 H Hemoglobin A1c Calcium CK-MB (CK-2) Rel Index Troponin T Triglycerides Cholesterol 05/26/19 05/26/19 05/26/19 05:33 08:20 12:17 WBC RBC Hgb Hct RDW Lymph % (Auto) Eos % (Auto) Monocytes % (Manual) Nucleated RBC % Monocytes # (Manual) APTT D-Dimer Heparin Anti-Xa Level ABG pO2 ABG Hemoglobin Sodium 136 L Potassium Chloride Carbon Dioxide 15 L BUN 35 H Creatinine 4.4 H Glucose 195 H POC Glucose 257 H 173 H Hemoglobin A1c Calcium 8.0 L CK-MB (CK-2) Rel Index Troponin T Triglycerides Cholesterol Allied health notes reviewed: nursing
[2019-05-26] MEDS: SODIUM BICARBONATE 650 MG TAB PO SCH ×2 (16:19→22:08)
[2019-05-26] MEDS: predniSONE 20 MG TAB PO SCH (16:19)
--- NOTE | 2019-05-26 17:25 | Progress Note ---
Assessment and Plan Assessment and plan: Patient is 58-year-old -[place] female with history of HIV, hypertension, diabetes, HLT, sarcoidosis, CAD, AK (2010) s/p stent x4 who presents to [facility] ED with complaints of left sided non-radiating chest pain, SOB, and diaphoresis. . Acute metabolic encephalopathy Change in mental status - suspect from narcotics and possible underlying depression - stopped all narcotics, consulted mental health ELEN on possible CKD stage 4 due to vasomotor nephropathy -Cr on admission 3.3 Cr 4.4 today -??CKD with GFR 17 -Renal ultrasound unremarkable -Continue to Hydrate with IVF -Avoid nephrotoxic agents -Renal dose all meds -Nephrology consulted, following - Cr was 1.7 about a year ago -Discussed with nephrology. iv fluids started Creatinine got worse after she had diarrhea, now improved on iv fluids. Dizziness and lightheadedness - no acute findings on CT head - Ordered PT eval Elevated D-Dimer with possible PE -VQ scan shows intermediate probability for PE -Bilateral lower extremity Doppler showed no acute DVT, no hypoxemia on ABG -Pulmonology consulted -recommended to stop heparin drip as no sign of hypoxemia and negative DVT NSTEMI type II Acute Chest Pain -History of AK (2010), status post stent 4 -Follows at [facility] as outpatient -Initiated chest pain protocol -Continuous telemetry monitoring -Troponin elevated was elevated on admission -EKG unrevealing for acute ischemic abnormalities -s/p heparin drip -Cardiology consulted and recommended medical management Hypertensive urgency -BP on admission 198/142 -Hx Hypertension -Continue to monitor BP -Hold TANIKA and ARB d/t renal function -IV antihypertensive when necessary Insulin-dependent DM -Uncontrolled -BG on admission 510 -Scheduled Lantus and SSI coverage prn -HgbA1C 12.3 Hyperlipidemia -Uncontrolled -Total cholesterol on admission 490 -Start atorvastatin 80 mg daily at bedtime Hyponatremia -Na on admission 131 -Slowly correct Na with IVF -Continue to monitor replete prn Hyperkalemia -on admission 5.4 now resolved -Receiving IVF -Continue to monitor electrolytes Diarrhea after eating salad from outside will monitor I counseled her and ,advise against eating food from outside, especially salads HIV positive -Continue antiretroviral DVT PPX -On Heparin Discussed with patient and at bedside History Interval history: No more chest pain No SOB currently Altered mental status, improved Diarrhea few days, started 05/22 after eating eating salad from outside No diarrhea today Hospitalist Physical - Physical exam Narrative exam: Gen: Not in acute distress, lying in bed,obese HEENT: Normocephalic, atraumatic Neck: supple, no JVD Heart: S1 and S2 reg, no murmurs, rubs or gallop Lungs: Clear to auscultation bilaterally, Abd: soft, non tender, non distended, normal BS, Ext: No edema, no clubbing, no cyanosis Neuro: Awake,alert,oriented X 3, moves all ext - Constitutional Vitals: Temp Pulse Resp BP Pulse Ox 98.2 F 64 20 134/78 100 05/26/19 16:18 05/26/19 16:18 05/26/19 16:18 05/26/19 16:18 05/26/19 16:18 General appearance: Present: no acute distress, obese Results - Labs CBC & Chem 7: 05/26/19 05:33 05/26/19 05:33 Labs: Laboratory Last Values WBC 5.9 K/mm3 (4.5-11.0) 05/26/19 05:33 RBC 2.63 M/mm3 (3.65-5.03) L 05/26/19 05:33 Hgb 7.8 gm/dl (10.1-14.3) L 05/26/19 05:33 Hct 24.3 % (30.3-42.9) L 05/26/19 05:33 MCV 92 fl (79-97) 05/26/19 05:33 MCH 30 pg (28-32) 05/26/19 05:33 MCHC 32 % (30-34) 05/26/19 05:33 RDW 15.6 % (13.2-15.2) H 05/26/19 05:33 Plt Count 216 K/mm3 (140-440) 05/26/19 05:33 Lymph % (Auto) 38.3 % (13.4-35.0) H 05/19/19 07:08 [place] % (Auto) [place] Fisher 05/23/19 04:51 Eos % (Auto) 3.5 % (0.0-4.3) 05/19/19 07:08 Baso % (Auto) 0.5 % (0.0-1.8) 05/19/19 07:08 Lymph # 3.1 K/mm3 (1.2-5.4) 05/19/19 07:08 [place] # 0.5 K/mm3 (0.0-0.8) 05/19/19 07:08 Eos # 0.3 K/mm3 (0.0-0.4) 05/19/19 07:08 Baso # 0.0 K/mm3 (0.0-0.1) 05/19/19 07:08 Add Manual Diff Complete 05/23/19 04:51 Total Counted 100 05/23/19 04:51 Seg Neutrophils % 51.2 % (40.0-70.0) 05/19/19 07:08 Seg Neuts % (Manual) 65.0 % (40.0-70.0) 05/23/19 04:51 Band Neutrophils % 0 % 05/23/19 04:51 Lymphocytes % (Manual) 19.0 % (13.4-35.0) 05/23/19 04:51 Reactive Lymphs % (Man) 0 % 05/23/19 04:51 Monocytes % (Manual) 14.0 % (0.0-7.3) H 05/23/19 04:51 Eosinophils % (Manual) 0 % (0.0-4.3) 05/23/19 04:51 Basophils % (Manual) 1.0 % (0.0-1.8) 05/23/19 04:51 Metamyelocytes % 1.0 % 05/23/19 04:51 Myelocytes % 0 % 05/23/19 04:51 Promyelocytes % 0 % 05/23/19 04:51 Blast Cells % 0 % 05/23/19 04:51 Nucleated RBC % 1.0 % (0.0-0.9) H 05/23/19 04:51 Seg Neutrophils # 4.2 K/mm3 (1.8-7.7) 05/19/19 07:08 Seg Neutrophils # Man 4.6 K/mm3 (1.8-7.7) 05/23/19 04:51 Band Neutrophils # 0.0 K/mm3 05/23/19 04:51 Lymphocytes # (Manual) 1.3 K/mm3 (1.2-5.4) 05/23/19 04:51 Abs React Lymphs (Man) 0.0 K/mm3 05/23/19 04:51 Monocytes # (Manual) 1.0 K/mm3 (0.0-0.8) H 05/23/19 04:51 Eosinophils # (Manual) 0.0 K/mm3 (0.0-0.4) 05/23/19 04:51 Basophils # (Manual) 0.1 K/mm3 (0.0-0.1) 05/23/19 04:51 Metamyelocytes # 0.1 K/mm3 05/23/19 04:51 Myelocytes # 0.0 K/mm3 05/23/19 04:51 Promyelocytes # 0.0 K/mm3 05/23/19 04:51 Blast Cells # 0.0 K/mm3 05/23/19 04:51 WBC Morphology Not Reportable 05/23/19 04:51 Hypersegmented Neuts Not Reportable 05/23/19 04:51 Hyposegmented Neuts Not Reportable 05/23/19 04:51 Hypogranular Neuts Not Reportable 05/23/19 04:51 Smudge Cells Not Reportable 05/23/19 04:51 Toxic Granulation Not Reportable 05/23/19 04:51 Toxic Vacuolation Not Reportable 05/23/19 04:51 Dohle Bodies Not Reportable 05/23/19 04:51 Pelger-Huet Anomaly Not Reportable 05/23/19 04:51 Tra Rods Not Reportable 05/23/19 04:51 Platelet Estimate Consistent w auto 05/23/19 04:51 Clumped Platelets Not Reportable 05/23/19 04:51 Plt Clumps, EDTA Not Reportable 05/23/19 04:51 Large Platelets Not Reportable 05/23/19 04:51 Giant Platelets Not Reportable 05/23/19 04:51 Platelet Satelliting Not Reportable 05/23/19 04:51 Plt Morphology Comment Not Reportable 05/23/19 04:51 RBC Morphology Not Reportable 05/23/19 04:51 Dimorphic RBCs Not Reportable 05/23/19 04:51 Polychromasia Not Reportable 05/23/19 04:51 Hypochromasia Not Reportable 05/23/19 04:51 Poikilocytosis Not Reportable 05/23/19 04:51 Anisocytosis 1+ 05/23/19 04:51 Microcytosis Few 05/23/19 04:51 Macrocytosis Few 05/23/19 04:51 Spherocytes Not Reportable 05/23/19 04:51 Pappenheimer Bodies Not Reportable 05/23/19 04:51 Sickle Cells Not Reportable 05/23/19 04:51 Target Cells Not Reportable 05/23/19 04:51 Tear Drop Cells Not Reportable 05/23/19 04:51 Ovalocytes Not Reportable 05/23/19 04:51 Stomatocytes Few 05/23/19 04:51 Helmet Cells Not Reportable 05/23/19 04:51 [place] Bodies Not Reportable 05/23/19 04:51 Brimley Rings Not Reportable 05/23/19 04:51 Daren Cells Not Reportable 05/23/19 04:51 Bite Cells Not Reportable 05/23/19 04:51 Crenated Cell Not Reportable 05/23/19 04:51 Elliptocytes Not Reportable 05/23/19 04:51 Acanthocytes (Spur) Not Reportable 05/23/19 04:51 Rouleaux Not Reportable 05/23/19 04:51 Hemoglobin C Crystals Not Reportable 05/23/19 04:51 Schistocytes Not Reportable 05/23/19 04:51 Malaria parasites Not Reportable 05/23/19 04:51 Shayne Bodies Not Reportable 05/23/19 04:51 Hem Pathologist Commnt No 05/23/19 04:51 PT 13.0 Sec. (12.2-14.9) 05/17/19 01:30 INR 0.99 (0.87-1.13) 05/17/19 01:30 APTT 41.2 Sec. (24.2-36.6) H 05/17/19 01:30 D-Dimer 416.09 ng/mlDDU (0-234) H 05/16/19 20:32 Heparin Anti-Xa Level < 0.10 U.I./ml (0.3-0.7) L 05/19/19 21:02 ABG pH 7.377 pH Units (7.350-7.450) 05/17/19 15:45 ABG pCO2 41.2 mm Hg 05/17/19 15:45 ABG pO2 135.4 mm Hg (80.0-90.0) H 05/17/19 15:45 ABG HCO3 23.7 mmol/L (20.0-26.0) 05/17/19 15:45 ABG O2 Saturation 98.6 % (95.0-99.0) 05/17/19 15:45 ABG O2 Content 12.4 (0.0-44) 05/17/19 15:45 ABG Base Excess -1.4 mmol/L (-2.0-3.0) 05/17/19 15:45 ABG Hemoglobin 8.9 gm/dl (12.0-16.0) L 05/17/19 15:45 ABG Carboxyhemoglobin 1.4 % (0.0-5.0) 05/17/19 15:45 ABG Methemoglobin 0.5 % (0.0-1.5) 05/17/19 15:45 Oxyhemoglobin 96.8 % (95.0-99.0) 05/17/19 15:45 FiO2 32 % 05/17/19 15:45 Sodium 136 mmol/L (137-145) L 05/26/19 05:33 Potassium 5.0 mmol/L (3.6-5.0) 05/26/19 05:33 Chloride 105.5 mmol/L (98-107) 05/26/19 05:33 Carbon Dioxide 15 mmol/L (22-30) L 05/26/19 05:33 Anion Gap 21 mmol/L 05/26/19 05:33 BUN 35 mg/dL (7-17) H 05/26/19 05:33 Creatinine 4.4 mg/dL (0.7-1.2) H 05/26/19 05:33 Estimated GFR 12 ml/min 05/26/19 05:33 BUN/Creatinine Ratio 8 % 05/26/19 05:33 Glucose 195 mg/dL (65-100) H 05/26/19 05:33 POC Glucose 98 (70-105) 05/26/19 16:25 Hemoglobin A1c 12.3 % (4-6) H 05/17/19 01:30 Calcium 8.0 mg/dL (8.4-10.2) L 05/26/19 05:33 Total Creatine Kinase 51 units/L (30-135) 05/19/19 14:45 CK-MB (CK-2) 3.3 ng/mL (0.0-4.0) 05/19/19 14:45 CK-MB (CK-2) Rel Index 6.4 (0-4) H 05/19/19 14:45 Troponin T 0.079 ng/mL (0.00-0.029) H 05/19/19 14:45 Triglycerides 542 mg/dL (2-149) H 05/16/19 20:32 Cholesterol 490 mg/dL (50-199) H 05/16/19 20:32 LDL Cholesterol Direct TNR 05/16/19 20:32 HDL Cholesterol 59 mg/dL (40-59) 05/16/19 20:32 Cholesterol/HDL Ratio 8.30 % 05/16/19 20:32 Urine Color Straw (Yellow) 05/17/19 22:00 Urine Turbidity Clear (Clear) 05/17/19 22:00 Urine pH 6.0 (5.0-7.0) 05/17/19 22:00 Ur Specific [place] 1.012 (1.003-1.030) 05/17/19 22:00 Urine Protein >500 mg/dL (Negative) 05/17/19 22:00 Urine Glucose (UA) 150 mg/dL (Negative) 05/17/19 22:00 Urine Ketones Neg mg/dL (Negative) 05/17/19 22:00 Urine Blood Neg (Negative) 05/17/19 22:00 Urine Nitrite Neg (Negative) 05/17/19 22:00 Urine Bilirubin Neg (Negative) 05/17/19 22:00 Urine Urobilinogen < 2.0 mg/dL (<2.0) 05/17/19 22:00 Ur Leukocyte Esterase Mod (Negative) 05/17/19 22:00 Urine WBC (Auto) 4.0 /HPF (0.0-6.0) 05/17/19 22:00 Urine RBC (Auto) 2.0 /HPF (0.0-6.0) 05/17/19 22:00 U Epithel Cells (Auto) 3.0 /HPF (0-13.0) 05/17/19 22:00 Urine Bacteria (Auto) 1+ /HPF (Negative) 05/17/19 22:00 Active Medications - Current Medications Current Medications: Generic Name Dose Route Start Last Admin Trade Name Freq PRN Reason Stop Dose Admin Acetaminophen 650 mg 05/25/19 11:12 05/26/19 06:02 Tylenol PO 650 mg Q4H PRN Administration Pain, Mild (1-3) Albuterol 2.5 mg 05/17/19 00:45 05/17/19 19:55 Proventil IH 2.5 mg Q3HRT PRN Administration Shortness Of Breath Amitriptyline HCl 10 mg 05/24/19 23:55 05/25/19 22:34 Elavil PO Not Given QHS SHAVONNE Amlodipine Besylate 10 mg 05/17/19 10:00 05/26/19 09:45 Amlodipine PO 10 mg QDAY SHAVONNE Administration Aspirin 81 mg 05/18/19 10:00 05/26/19 09:45 Baby Aspirin PO 81 mg QDAY SHAVONNE Administration Atorvastatin Calcium 80 mg 05/17/19 22:00 05/25/19 22:35 Lipitor PO Not Given QHS [facility] Dextrose 50 ml 05/17/19 00:45 D50w (25gm) Syringe IV Q30MIN PRN Hypoglycemia Protocol Guaifenesin 10 ml 05/22/19 00:08 05/26/19 11:19 Guaifenesin Dm Syrup PO 10 ml Q4H PRN Administration Cough Heparin Sodium (Porcine) 5,000 unit 05/24/19 16:00 05/26/19 16:19 Heparin SUB-Q 5,000 unit Q12H SHAVONNE Administration Hydralazine HCl 10 mg 05/17/19 00:44 05/19/19 01:25 Apresoline IV 10 mg Q4HR PRN Administration Blood Pressure Sodium Chloride 1,000 mls @ 125 mls/hr 05/24/19 09:00 05/26/19 02:05 Nacl 0.9% 1000 Ml IV 125 mls/hr DIRECT SHAVONNE Administration Insulin Glargine 20 units 05/17/19 01:00 05/26/19 09:45 Lantus SUB-Q 20 units BID SHAVONNE Administration Insulin Human Lispro 0 unit 05/25/19 11:30 05/26/19 16:20 Humalog SUB-Q Not Given QACHS [facility] Protocol Metoprolol Tartrate 75 mg 05/19/19 22:00 05/26/19 09:45 Metoprolol PO 75 mg BID SHAVONNE Administration Nitroglycerin 0.4 mg 05/17/19 00:53 Nitrostat SL Q5M PRN Chest Pain Ondansetron HCl 4 mg 05/17/19 00:45 05/19/19 15:16 Zofran IV 4 mg Q8H PRN Administration Nausea And Vomiting Pantoprazole Sodium 40 mg 05/21/19 10:00 05/26/19 09:45 Protonix PO 40 mg QDAY SHAVONNE Administration Prednisone 40 mg 05/26/19 16:00 05/26/19 16:19 Deltasone PO 40 mg QDAY SHAVONNE Administration Sodium Bicarbonate 650 mg 05/26/19 14:00 05/26/19 16:19 Sodium Bicarbonate PO 650 mg TID SHAVONNE Administration Sodium Chloride 10 ml 05/17/19 10:00 05/26/19 09:46 Sodium Chloride Flush Syringe 10 Ml IV 10 ml BID SHAVONNE Administration Sodium Chloride 10 ml 05/17/19 00:45 Sodium Chloride Flush Syringe 10 Ml IV PRN PRN LINE FLUSH Nutrition/Malnutrition Assess - Dietary Evaluation Nutrition/Malnutrition Findings: Nutrition Notes Start: 05/17/19 11:43 Freq: Status: Active Protocol: Document 05/21/19 14:32 LP (Rec: 05/21/19 14:33 LP [email or web address]) Nutrition Notes Initial or Follow up Brief Note Subjective/Other Information Pt sleeping at time of visit and lethargic. Pt states to come back but wanting diet education. Handout left at bedside. Nutrition Intervention Follow-Up By: 05/27/19 Additional Comments Follow for diet education needs and intakes
[2019-05-26] MEDS: [UNRECOGNIZED DRUG - OTHER] PO SCH (22:09)
[2019-05-26] MEDS: AMITRIPTYLINE 10 MG TAB PO SCH (22:09)
[2019-05-27] MEDS: HEPARIN 5,000 UNIT/1 ML VIAL SUB-Q SCH ×2 (04:35→18:37)
[2019-05-27] MEDS: ACETAMINOPHEN 325 MG TAB PO PRN (06:54)
[2019-05-27] MEDS: guaiFENesin DM 200/20 MG ORAL LIQD 10 ML PO PRN (07:08)
[2019-05-27 08:18] LABS: Hematocrit 24.1 % (30.3-42.9); Hemoglobin 7.9 gm/dl (10.1-14.3); Mean Corpuscular HGB Conc 33 % (30-34); Mean Corpuscular Volume 92 fl (79-97); Platelet Count 201 K/mm3 (140-440); Red Blood Count 2.62 M/mm3 (3.65-5.03); Red Cell Distribution Width 15.2 % (13.2-15.2)
[2019-05-27 08:41] LABS: Calcium 7.9 mg/dL (8.4-10.2)
[2019-05-27] MEDS: amLODIPine 10 MG TAB PO SCH (09:24)
[2019-05-27] MEDS: SODIUM BICARBONATE 650 MG TAB PO SCH ×2 (09:24→18:37)
[2019-05-27] MEDS: ASPIRIN 81 MG TAB CHEW PO SCH (09:25)
[2019-05-27] MEDS: INSULIN GLARGINE 100 UNITS/ML SUB-Q SCH (09:25)
[2019-05-27] MEDS: METOPROLOL TARTRATE 25 MG TAB PO SCH (09:25)
[2019-05-27] MEDS: PANTOPRAZOLE 40 MG TAB PO SCH (09:25)
[2019-05-27] MEDS: predniSONE 20 MG TAB PO SCH (09:25)
[2019-05-27] MEDS: INSULIN LISPRO 100 UNIT/ML SUB-Q SCH ×3 (09:25→17:32)
--- NOTE | 2019-05-27 14:28 | Progress Note ---
Assessment and Plan Chest pain VQ scan indeterminate for PE bilateral LE duplex negative for DVT HIV disease Chronic kidney disease Diabetes Hypertension Hyperlipidemia Hx of coronary artery disease Chronic elevated troponin in the setting of renal failure Noncompliance Normal MPI 07/2018 at [facility] Normal LV function by echo this presentation Recommendations: Continue medical therapy for coronary artery disease. Otherwise, conservative cardiac management. We will follow intermittently. Subjective Date of service: 05/27/19 Principal diagnosis: Acute Chest Pain (D-dimer high); Sarcoidosis; HTNsive urgency; Obesity Interval history: Patient is resting in bed comfortably. No cardiac complaints. is at the bedside. Objective Vital Signs Temp Pulse Resp BP Pulse Ox 05/27/19 11:15 98.2 F 59 L 18 117/60 97 05/27/19 09:25 69 120/69 05/27/19 09:24 69 120/69 05/27/19 08:44 69 120/69 98 05/27/19 07:52 100 05/27/19 06:10 65 05/27/19 03:50 98.0 F 63 18 112/56 95 05/26/19 23:11 98.1 F 65 18 130/72 98 05/26/19 20:51 100 05/26/19 19:25 69 95 05/26/19 19:20 97.9 F 18 153/86 05/26/19 16:18 98.2 F 64 20 134/78 100 - Physical Examination General: No Apparent Distress HEENT: Positive: PERRL Neck: Positive: trachea midline Cardiac: Positive: Reg Rate and Rhythm Lungs: Positive: Decreased Breath Sounds Neuro: Positive: Grossly Intact - Labs and Meds CBC 05/27/19 Range/Units 07:42 WBC 5.0 (4.5-11.0) K/mm3 RBC 2.62 L (3.65-5.03) M/mm3 Hgb 7.9 L (10.1-14.3) gm/dl Hct 24.1 L (30.3-42.9) % Plt Count 201 (140-440) K/mm3 Comprehensive Metabolic Panel 05/27/19 Range/Units 07:42 Sodium 141 (137-145) mmol/L Potassium 4.8 (3.6-5.0) mmol/L Chloride 108.1 H (98-107) mmol/L Carbon Dioxide 16 L (22-30) mmol/L BUN 42 H (7-17) mg/dL Creatinine 4.1 H (0.7-1.2) mg/dL Glucose 180 H (65-100) mg/dL Calcium 7.9 L (8.4-10.2) mg/dL - Allied health notes Allied health notes reviewed: nursing
--- NOTE | 2019-05-27 15:51 | Discharge Summary ---
Providers - Providers Date of Admission: 05/17/19 00:45 Date of discharge: 05/27/19 Attending physician: ANTONIO LU 05/17/19 Consult to Cardiac Rehabilitation [CONS] Routine Reason For Exam: Phase I 05/17/19 00:42 Consult to Physician [CONS] Routine Comment: Consulting Provider: TUAN CARVER Physician Instructions: Reason For Exam: ELEN 05/17/19 00:43 Consult to Physician [CONS] Routine Comment: Consulting Provider: DOUGIE HECTOR Physician Instructions: Reason For Exam: elevated troponin ??NSTEMI type 2, hx AR 05/17/19 00:47 Consult to Dietitian/Nutrition [CONS] Routine Physician Instructions: Reason For Exam: Reason for Consult: Diet education 05/17/19 00:51 Consult to Physician [CONS] Routine Comment: Consulting Provider: LASHAY GUY Physician Instructions: Reason For Exam: intermediate risks for PE, hx sarcoidosis 05/20/19 06:30 Consult to Mental Health [CONS] Routine Reason For Exam: change in mentationnot sure if its pysch related Place consult to:: y Notified:: yes Phone number called:: [phone] Was contact made?: Yes 05/20/19 14:51 Physical Therapy Evaluation and Treat [CONS] Routine Comment: Reason For Exam: placement Primary care physician: FERMÍN ASHBY Hospitalization Condition: Serious Pertinent studies: CXR Head CT Renal US VQ scan LE venous doppler Hospital course: Patient is 58-year-old -[place] female with history of HIV, hypertension, diabetes, HLT, sarcoidosis, CAD, [place] (2010) s/p stent x4 who presents to [facility] ED with complaints of left sided non-radiating chest pain, SOB, and diaphoresis. Discharge diagnosis and mx: Acute metabolic encephalopathy Change in mental status - suspect from narcotics and possible underlying depression - stopped all narcotics, consulted mental health ELEN on possible CKD stage 4 due to vasomotor nephropathy -Cr trended upto 5.3 -??CKD with GFR 17 -Renal ultrasound unremarkable -Continue to Hydrate with IVF -Avoid nephrotoxic agents -Renal dose all meds -Nephrology consulted, following - Cr was 1.7 about a year ago -Discussed with nephrology. iv fluids started Creatinine got worse after she had diarrhea, now improved on iv fluids. Dizziness and lightheadedness - no acute findings on CT head - Ordered PT eval Elevated D-Dimer with possible PE -VQ scan shows intermediate probability for PE -Bilateral lower extremity Doppler showed no acute DVT, no hypoxemia on ABG -Pulmonology consulted -recommended to stop heparin drip as no sign of hypoxemia and negative DVT NSTEMI type II Acute Chest Pain -History of [place] (2010), status post stent 4 -Follows at [facility] as outpatient -Initiated chest pain protocol -Continuous telemetry monitoring -Troponin elevated was elevated on admission -EKG unrevealing for acute ischemic abnormalities -s/p heparin drip -Cardiology consulted and recommended medical management Hypertensive urgency -BP on admission 198/142 -Hx Hypertension -Continue to monitor BP -Hold TANIKA and ARB d/t renal function -IV antihypertensive when necessary Insulin-dependent DM -Uncontrolled -BG on admission 510 -Scheduled Lantus and SSI coverage prn -HgbA1C 12.3 Hyperlipidemia -Uncontrolled -Total cholesterol on admission 490 -Start atorvastatin 80 mg daily at bedtime Hyponatremia -Na on admission 131 -Slowly correct Na with IVF -Continue to monitor replete prn Hyperkalemia -on admission 5.4 now resolved -Receiving IVF -Continue to monitor electrolytes Diarrhea after eating salad from outside will monitor I counseled her and ,advise against eating food from outside, especially salads HIV positive -Continue antiretroviral DVT PPX -On Heparin Discussed with patient and at bedside Hospitalist Physical Gen: Not in acute distress, lying in bed,obese HEENT: Normocephalic, atraumatic Neck: supple, no JVD Heart: S1 and S2 reg, no murmurs, rubs or gallop Lungs: Clear to auscultation bilaterally, Abd: soft, non tender, non distended, normal BS, Ext: No edema, no clubbing, no cyanosis Neuro: Awake,alert,oriented X 3, moves all ext Disposition: DC-30 STILL A PATIENT Time spent for discharge: 34 minutes Core Measure Documentation - Palliative Care Palliative Care/ Comfort Measures: Not Applicable - Core Measures Any of the following diagnoses?: none Exam - Constitutional Vitals: Temp Pulse Resp BP Pulse Ox 98.2 F 59 L 18 117/60 97 05/27/19 11:15 05/27/19 11:15 05/27/19 11:15 05/27/19 11:15 05/27/19 11:15 Plan Activity: advance as tolerated Weight Bearing Status: Non-Weight Bearing Diet: renal Additional Instructions: Repeat BMP in one week Follow up with: Bert Sneed [facility] [Outside] - 48 Hours (Monday - Monday 8:00am - 5:00pm. Walk-In only Must arrive at 7:45 as available slots are first come, first served. To be eligible for services, you must bring the following with you: 1. [place] - Issued State ID 2. Proof of Residence 3. Proof of Income 4. Insurance Cards 5. Referral documents and/or hospital discharge papers.) PRIMARY CARE, [Referring] - 3-5 Days ROBER KOVACS, DO [Staff Physician] - 7 Days Prescriptions: Metoprolol [Lopressor TAB] 75 mg PO BID #60 tablet Pantoprazole [Protonix TAB] 40 mg PO QDAY #30 tablet
[2019-05-27 16:37] VITALS: BP 124/70
--- NOTE | 2019-05-27 16:50 | Progress Note ---
Assessment and Plan - Patient Problems (1) Chronic kidney disease, stage 4 (severe) Current Visit: Yes Status: Chronic Plan to address problem: Chronic kidney disease presumably secondary to diabetic nephropathy/hypertensive nephrosclerosis with superimposed acute kidney injury. No acute indication for renal replacement therapy. Avoid any potential nephrotoxins.no acute indication for renal replacement therapy. Follow up electrolytes and renal function. From nephrology standpoint she is stable for DC with instructions to follow up with us in the clinic 1-2 weeks post discharge. (2) Hyperkalemia Current Visit: Yes Status: Acute Plan to address problem: Hyperkalemia resolved. 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 Avoid thiazide diuretic. Subjective Date of service: 05/27/19 Principal diagnosis: Acute Chest Pain (D-dimer high); Sarcoidosis; HTNsive urgency; Obesity Interval history: Pt awake more alert, in no acute respiratory distress, denies fever, chills, n/v/d, CP, SOB Objective - Vital Signs Vital signs: Vital Signs - 12hr 05/27/19 05/27/19 05/27/19 06:10 07:52 08:44 Temperature Pulse Rate 65 69 Respiratory Rate Blood Pressure 120/69 O2 Sat by Pulse 100 98 Oximetry 05/27/19 05/27/19 05/27/19 09:24 09:25 11:15 Temperature 98.2 F Pulse Rate 69 69 59 L Respiratory 18 Rate Blood Pressure 120/69 120/69 117/60 O2 Sat by Pulse 97 Oximetry 05/27/19 15:50 Temperature 98.2 F Pulse Rate 58 L Respiratory 18 Rate Blood Pressure 124/70 O2 Sat by Pulse 96 Oximetry - General Appearance General appearance: well-developed, well-nourished, appears stated age, obese EENT: ATNC, PERRL, mucous membranes moist Neck: no JVD Respiratory: Present: Clear to Ascultation Cardiology: regular, S1S2 Gastrointestinal: normoactive bowel sounds, obese Integumentary: no rash Neurologic: no focal deficit, alert and oriented x3, strength 5/5, CN 3-12 intact Psychiatric: mood/affect appropriate, cooperative - Lab 05/27/19 07:42 05/27/19 07:42 Most recent lab results ABG pH 7.377 pH Units (7.350-7.450) 05/17/19 15:45 ABG pCO2 41.2 mm Hg 05/17/19 15:45 ABG pO2 135.4 mm Hg (80.0-90.0) H 05/17/19 15:45 ABG HCO3 23.7 mmol/L (20.0-26.0) 05/17/19 15:45 ABG O2 Saturation 98.6 % (95.0-99.0) 05/17/19 15:45 Calcium 7.9 mg/dL (8.4-10.2) L 05/27/19 07:42 Medications & Allergies - Medications Allergies/Adverse Reactions: Allergies Sulfa (Sulfonamide Antibiotics) Allergy (Verified 10/13/13 15:11) Rash Home Medications: Home Medications Medication Instructions Recorded Confirmed Last Taken Type Amitriptyline [Elavil] 10 mg PO QHS 05/17/19 05/17/19 2 Days Ago History ~05/15/19 Elviteg/Cob/Emtri/Tenof Alafen 1 tab PO DAILY 05/17/19 05/17/19 1 Day Ago History [Genvoya Tablet] ~05/16/19 Insulin NPH Hum/Reg Insulin Hm 22 bottle SQ QAC 05/17/19 05/17/19 1 Day Ago History [Humulin 70-30 Vial] ~05/16/19 Rosuvastatin Calcium 40 mg PO QDAY 05/17/19 05/17/19 1 Day Ago History ~05/16/19 predniSONE [Deltasone] 5 mg PO QDAY 05/17/19 05/17/19 1 Day Ago History ~05/16/19 Metoprolol [Lopressor TAB] 75 mg PO BID #60 tablet 05/27/19 Unknown Rx Pantoprazole [Protonix TAB] 40 mg PO QDAY #30 tablet 05/27/19 Unknown Rx Active Medications: Generic Name Dose Route Start Last Admin Trade Name Freq PRN Reason Stop Dose Admin Acetaminophen 650 mg 05/25/19 11:12 05/27/19 06:54 Tylenol PO 650 mg Q4H PRN Administration Pain, Mild (1-3) Albuterol 2.5 mg 05/17/19 00:45 05/17/19 19:55 Proventil IH 2.5 mg Q3HRT PRN Administration Shortness Of Breath Amitriptyline HCl 10 mg 05/24/19 23:55 05/26/19 22:09 Elavil PO 10 mg QHS SHAVONNE Administration Amlodipine Besylate 10 mg 05/17/19 10:00 05/27/19 09:24 Amlodipine PO 10 mg QDAY SHAVONNE Administration Aspirin 81 mg 05/18/19 10:00 05/27/19 09:25 Baby Aspirin PO 81 mg QDAY SHAVONNE Administration Atorvastatin Calcium 80 mg 05/17/19 22:00 05/26/19 22:08 Lipitor PO 80 mg QHS SHAVONNE Administration Dextrose 50 ml 05/17/19 00:45 D50w (25gm) Syringe IV Q30MIN PRN Hypoglycemia Protocol Guaifenesin 10 ml 05/22/19 00:08 05/27/19 07:08 Guaifenesin Dm Syrup PO 10 ml Q4H PRN Administration Cough Heparin Sodium (Porcine) 5,000 unit 05/24/19 16:00 05/27/19 04:35 Heparin SUB-Q 5,000 unit Q12H SHAVONNE Administration Hydralazine HCl 10 mg 05/17/19 00:44 05/19/19 01:25 Apresoline IV 10 mg Q4HR PRN Administration Blood Pressure Sodium Chloride 1,000 mls @ 125 mls/hr 05/24/19 09:00 05/26/19 22:07 Nacl 0.9% 1000 Ml IV 125 mls/hr DIRECT SHAVONNE Administration Insulin Glargine 20 units 05/17/19 01:00 05/27/19 09:25 Lantus SUB-Q 20 units BID SHAVONNE Administration Insulin Human Lispro 0 unit 05/25/19 11:30 05/27/19 12:34 Humalog SUB-Q 3 unit QACHS SHAVONNE Administration Protocol Metoprolol Tartrate 75 mg 05/19/19 22:00 05/27/19 09:25 Metoprolol PO 75 mg BID SHAVONNE Administration Nitroglycerin 0.4 mg 05/17/19 00:53 Nitrostat SL Q5M PRN Chest Pain Ondansetron HCl 4 mg 05/17/19 00:45 05/19/19 15:16 Zofran IV 4 mg Q8H PRN Administration Nausea And Vomiting Pantoprazole Sodium 40 mg 05/21/19 10:00 05/27/19 09:25 Protonix PO 40 mg QDAY SHAVONNE Administration Prednisone 40 mg 05/26/19 16:00 05/27/19 09:25 Deltasone PO 40 mg QDAY SHAVONNE Administration Sodium Bicarbonate 650 mg 05/26/19 14:00 05/27/19 09:24 Sodium Bicarbonate PO 650 mg TID SHAVONNE Administration Sodium Chloride 10 ml 05/17/19 10:00 05/27/19 09:26 Sodium Chloride Flush Syringe 10 Ml IV 10 ml BID SHAVONNE Administration Sodium Chloride 10 ml 05/17/19 00:45 Sodium Chloride Flush Syringe 10 Ml IV PRN PRN LINE FLUSH
--- NOTE | 2019-05-27 17:20 | Progress Note ---
Assessment and Plan patient is alert and awake. Patient presently on 1.5 Litres O2. O2 saturation 97%.No Complaint of chest pain, shortness of breath or cough. Patients heparin stopped. No acute respiratory distress.. - Patient Problems (1) Fibrosis, pulmonary, interstitial, diffuse Current Visit: Yes Status: Acute Plan to address problem: O2 supplementation. Albuterol aerosol treatments prn for shortness of breath. TANIKA level is pending. (2) Acute coronary syndrome Current Visit: Yes Status: Acute Plan to address problem: Management as per cardiology. (3) Acute renal failure Current Visit: Yes Status: Acute Qualifiers: Acute renal failure type: unspecified Qualified Code(s): N17.9 - Acute kidney failure, unspecified Plan to address problem: Management as per nephrology. (4) Sarcoidosis Current Visit: Yes Status: Acute Plan to address problem: TANIKA level results pending. (5) Type 2 diabetes mellitus with diabetic nephropathy Current Visit: Yes Status: Chronic Plan to address problem: Management as per primary care. Subjective Date of service: 05/27/19 Principal diagnosis: Acute Chest Pain (D-dimer high); Sarcoidosis; HTNsive urgency; Obesity Interval history: patient is alert and awake. Patient presently on 1.5 Litres O2. O2 saturation 97%.No Complaint of chest pain, shortness of breath or cough. Patients heparin stopped. No acute respiratory distress. Objective Vital Signs - 12hr 05/27/19 05/27/19 05/27/19 06:10 07:52 08:44 Temperature Pulse Rate 65 69 Respiratory Rate Blood Pressure 120/69 O2 Sat by Pulse 100 98 Oximetry 05/27/19 05/27/19 05/27/19 09:24 09:25 11:15 Temperature 98.2 F Pulse Rate 69 69 59 L Respiratory 18 Rate Blood Pressure 120/69 120/69 117/60 O2 Sat by Pulse 97 Oximetry 05/27/19 15:50 Temperature 98.2 F Pulse Rate 58 L Respiratory 18 Rate Blood Pressure 124/70 O2 Sat by Pulse 96 Oximetry Constitutional: no acute distress, alert, other (middle aged AAF, normocephalic and atraumatic with normal respiratory effort at rest) Eyes: non-icteric ENT: oropharynx moist, other (Mallampati 3) Neck: supple, no lymphadenopathy, other (+ large neck circumference) Effort: mildly labored Ascultation: Bilateral: diminished breath sounds, rales (scant inspiratory in bases) Percussion: Bilateral: not dull Cardiovascular: regular rate and rhythm Gastrointestinal: normoactive bowel sounds, soft, non-tender, non-distended, other (protuberant) Integumentary: normal Extremities: no cyanosis, no edema, pulses normal, no ischemia or petechiae Neurologic: normal mental status, non-focal exam, pupils equal and round, CN II- XII normal, motor strength normal and Psychiatric: mood appropriate, affect normal, other (Sleeping at this time.) CBC and BMP: 05/27/19 07:42 05/27/19 07:42 ABG, PT/INR, D-dimer: ABG ABG pH 7.377 pH Units (7.350-7.450) 05/17/19 15:45 ABG pCO2 41.2 mm Hg 05/17/19 15:45 ABG pO2 135.4 mm Hg (80.0-90.0) H 05/17/19 15:45 ABG O2 Saturation 98.6 % (95.0-99.0) 05/17/19 15:45 PT/INR, D-dimer PT 13.0 Sec. (12.2-14.9) 05/17/19 01:30 INR 0.99 (0.87-1.13) 05/17/19 01:30 D-Dimer 416.09 ng/mlDDU (0-234) H 05/16/19 20:32 Abnormal lab findings: Abnormal Labs 05/16/19 05/16/19 05/16/19 20:32 20:32 20:32 WBC RBC 3.10 L Hgb 9.4 L Hct 28.3 L RDW 15.5 H Lymph % (Auto) Eos % (Auto) Monocytes % (Manual) Nucleated RBC % Monocytes # (Manual) APTT D-Dimer 416.09 H Heparin Anti-Xa Level ABG pO2 ABG Hemoglobin Sodium 131 L Potassium 5.4 H Chloride 94.1 L Carbon Dioxide 20 L BUN 37 H Creatinine 3.3 H Glucose 510 H* POC Glucose Hemoglobin A1c Calcium CK-MB (CK-2) Rel Index Troponin T 0.081 H Triglycerides 542 H Cholesterol 490 H 05/16/19 05/17/19 05/17/19 23:25 00:40 01:30 WBC RBC Hgb Hct RDW Lymph % (Auto) Eos % (Auto) Monocytes % (Manual) Nucleated RBC % Monocytes # (Manual) APTT D-Dimer Heparin Anti-Xa Level ABG pO2 ABG Hemoglobin Sodium Potassium Chloride Carbon Dioxide BUN Creatinine Glucose POC Glucose 193 H Hemoglobin A1c Calcium CK-MB (CK-2) Rel Index Troponin T 0.087 H 0.085 H Triglycerides Cholesterol 05/17/19 05/17/19 05/17/19 01:30 01:30 02:43 WBC RBC Hgb Hct RDW Lymph % (Auto) Eos % (Auto) Monocytes % (Manual) Nucleated RBC % Monocytes # (Manual) APTT 41.2 H D-Dimer Heparin Anti-Xa Level ABG pO2 ABG Hemoglobin Sodium Potassium Chloride Carbon Dioxide BUN Creatinine Glucose POC Glucose 258 H Hemoglobin A1c 12.3 H Calcium CK-MB (CK-2) Rel Index Troponin T Triglycerides Cholesterol 05/17/19 05/17/19 05/17/19 07:08 09:13 12:55 WBC RBC Hgb Hct RDW Lymph % (Auto) Eos % (Auto) Monocytes % (Manual) Nucleated RBC % Monocytes # (Manual) APTT D-Dimer Heparin Anti-Xa Level ABG pO2 ABG Hemoglobin Sodium Potassium Chloride Carbon Dioxide BUN Creatinine Glucose POC Glucose 231 H 213 H Hemoglobin A1c Calcium CK-MB (CK-2) Rel Index Troponin T 0.083 H Triglycerides Cholesterol 05/17/19 05/17/19 05/17/19 15:45 17:34 21:01 WBC RBC Hgb Hct RDW Lymph % (Auto) Eos % (Auto) Monocytes % (Manual) Nucleated RBC % Monocytes # (Manual) APTT D-Dimer Heparin Anti-Xa Level ABG pO2 135.4 H ABG Hemoglobin 8.9 L Sodium Potassium Chloride Carbon Dioxide BUN Creatinine Glucose POC Glucose 230 H 221 H Hemoglobin A1c Calcium CK-MB (CK-2) Rel Index Troponin T Triglycerides Cholesterol 05/18/19 05/18/19 05/18/19 05:12 05:12 07:10 WBC RBC 2.79 L Hgb 8.5 L Hct 25.6 L RDW 15.8 H Lymph % (Auto) 46.4 H Eos % (Auto) 4.9 H Monocytes % (Manual) Nucleated RBC % Monocytes # (Manual) APTT D-Dimer Heparin Anti-Xa Level 0.86 H ABG pO2 ABG Hemoglobin Sodium 135 L Potassium Chloride Carbon Dioxide 18 L BUN 30 H Creatinine 2.9 H Glucose POC Glucose Hemoglobin A1c Calcium CK-MB (CK-2) Rel Index Troponin T Triglycerides Cholesterol 05/18/19 05/18/19 05/18/19 11:41 15:17 16:37 WBC RBC Hgb Hct RDW Lymph % (Auto) Eos % (Auto) Monocytes % (Manual) Nucleated RBC % Monocytes # (Manual) APTT D-Dimer Heparin Anti-Xa Level 0.77 H ABG pO2 ABG Hemoglobin Sodium Potassium Chloride Carbon Dioxide BUN Creatinine Glucose POC Glucose 155 H 110 H Hemoglobin A1c Calcium CK-MB (CK-2) Rel Index Troponin T Triglycerides Cholesterol 05/18/19 05/18/19 05/19/19 21:26 21:33 06:56 WBC RBC Hgb Hct RDW Lymph % (Auto) Eos % (Auto) Monocytes % (Manual) Nucleated RBC % Monocytes # (Manual) APTT D-Dimer Heparin Anti-Xa Level 0.11 L ABG pO2 ABG Hemoglobin Sodium Potassium Chloride Carbon Dioxide BUN Creatinine Glucose POC Glucose 133 H 123 H Hemoglobin A1c Calcium CK-MB (CK-2) Rel Index Troponin T Triglycerides Cholesterol 05/19/19 05/19/19 05/19/19 07:07 07:07 07:07 WBC RBC Hgb Hct RDW Lymph % (Auto) Eos % (Auto) Monocytes % (Manual) Nucleated RBC % Monocytes # (Manual) APTT D-Dimer Heparin Anti-Xa Level 0.25 L ABG pO2 ABG Hemoglobin Sodium 132 L Potassium Chloride Carbon Dioxide 18 L BUN 31 H Creatinine 3.1 H Glucose 133 H POC Glucose Hemoglobin A1c Calcium CK-MB (CK-2) Rel Index 6.2 H Troponin T 0.069 H Triglycerides Cholesterol 05/19/19 05/19/19 05/19/19 07:08 07:49 11:49 WBC RBC 2.90 L Hgb 9.0 L Hct 26.5 L RDW 15.8 H Lymph % (Auto) 38.3 H Eos % (Auto) Monocytes % (Manual) Nucleated RBC % Monocytes # (Manual) APTT D-Dimer Heparin Anti-Xa Level ABG pO2 ABG Hemoglobin Sodium Potassium Chloride Carbon Dioxide BUN Creatinine Glucose POC Glucose 124 H 116 H Hemoglobin A1c Calcium CK-MB (CK-2) Rel Index Troponin T Triglycerides Cholesterol 05/19/19 05/19/19 05/19/19 14:45 16:21 21:02 WBC RBC Hgb Hct RDW Lymph % (Auto) Eos % (Auto) Monocytes % (Manual) Nucleated RBC % Monocytes # (Manual) APTT D-Dimer Heparin Anti-Xa Level < 0.10 L ABG pO2 ABG Hemoglobin Sodium Potassium Chloride Carbon Dioxide BUN Creatinine Glucose POC Glucose 124 H Hemoglobin A1c Calcium CK-MB (CK-2) Rel Index 6.4 H Troponin T 0.079 H Triglycerides Cholesterol 05/20/19 05/21/19 05/21/19 13:25 09:06 09:06 WBC RBC Hgb 9.1 L Hct 28.0 L RDW Lymph % (Auto) Eos % (Auto) Monocytes % (Manual) Nucleated RBC % Monocytes # (Manual) APTT D-Dimer Heparin Anti-Xa Level ABG pO2 ABG Hemoglobin Sodium 136 L Potassium Chloride Carbon Dioxide 16 L 18 L BUN 32 H 31 H Creatinine 3.6 H 3.8 H Glucose POC Glucose Hemoglobin A1c Calcium CK-MB (CK-2) Rel Index Troponin T Triglycerides Cholesterol 05/21/19 05/21/19 05/21/19 12:00 13:21 16:08 WBC RBC Hgb Hct RDW Lymph % (Auto) Eos % (Auto) Monocytes % (Manual) Nucleated RBC % Monocytes # (Manual) APTT D-Dimer Heparin Anti-Xa Level ABG pO2 ABG Hemoglobin Sodium Potassium Chloride Carbon Dioxide BUN Creatinine Glucose POC Glucose 200 H 156 H 133 H Hemoglobin A1c Calcium CK-MB (CK-2) Rel Index Troponin T Triglycerides Cholesterol 05/21/19 05/22/19 05/23/19 23:09 04:55 00:23 WBC RBC Hgb Hct RDW Lymph % (Auto) Eos % (Auto) Monocytes % (Manual) Nucleated RBC % Monocytes # (Manual) APTT D-Dimer Heparin Anti-Xa Level ABG pO2 ABG Hemoglobin Sodium Potassium Chloride Carbon Dioxide BUN 30 H Creatinine 4.5 H Glucose POC Glucose 134 H 140 H Hemoglobin A1c Calcium CK-MB (CK-2) Rel Index Troponin T Triglycerides Cholesterol 05/23/19 05/23/19 05/23/19 04:51 04:51 06:30 WBC RBC 2.93 L Hgb 8.8 L Hct 27.0 L RDW 16.0 H Lymph % (Auto) Eos % (Auto) Monocytes % (Manual) 14.0 H Nucleated RBC % 1.0 H Monocytes # (Manual) 1.0 H APTT D-Dimer Heparin Anti-Xa Level ABG pO2 ABG Hemoglobin Sodium 136 L Potassium Chloride Carbon Dioxide 19 L BUN 34 H Creatinine 5.3 H Glucose 137 H POC Glucose 174 H Hemoglobin A1c Calcium CK-MB (CK-2) Rel Index Troponin T Triglycerides Cholesterol 05/23/19 05/23/19 05/24/19 12:10 17:05 06:18 WBC RBC Hgb Hct RDW Lymph % (Auto) Eos % (Auto) Monocytes % (Manual) Nucleated RBC % Monocytes # (Manual) APTT D-Dimer Heparin Anti-Xa Level ABG pO2 ABG Hemoglobin Sodium Potassium Chloride Carbon Dioxide BUN Creatinine Glucose POC Glucose 155 H 173 H 58 L Hemoglobin A1c Calcium CK-MB (CK-2) Rel Index Troponin T Triglycerides Cholesterol 05/24/19 05/24/19 05/24/19 06:27 16:48 23:56 WBC RBC Hgb Hct RDW Lymph % (Auto) Eos % (Auto) Monocytes % (Manual) Nucleated RBC % Monocytes # (Manual) APTT D-Dimer Heparin Anti-Xa Level ABG pO2 ABG Hemoglobin Sodium Potassium Chloride Carbon Dioxide 19 L BUN 36 H Creatinine 5.9 H Glucose POC Glucose 66 L 253 H Hemoglobin A1c Calcium 7.9 L CK-MB (CK-2) Rel Index Troponin T Triglycerides Cholesterol 05/25/19 05/25/19 05/25/19 00:40 05:29 06:27 WBC RBC Hgb Hct RDW Lymph % (Auto) Eos % (Auto) Monocytes % (Manual) Nucleated RBC % Monocytes # (Manual) APTT D-Dimer Heparin Anti-Xa Level ABG pO2 ABG Hemoglobin Sodium Potassium Chloride Carbon Dioxide BUN Creatinine Glucose POC Glucose 259 H 191 H 169 H Hemoglobin A1c Calcium CK-MB (CK-2) Rel Index Troponin T Triglycerides Cholesterol 05/25/19 05/25/19 05/25/19 07:09 07:09 11:32 WBC 2.9 L RBC 2.55 L Hgb 7.6 L Hct 23.6 L RDW Lymph % (Auto) Eos % (Auto) Monocytes % (Manual) Nucleated RBC % Monocytes # (Manual) APTT D-Dimer Heparin Anti-Xa Level ABG pO2 ABG Hemoglobin Sodium 134 L Potassium Chloride 107.9 H Carbon Dioxide 17 L BUN 34 H Creatinine 5.0 H Glucose 183 H POC Glucose 263 H Hemoglobin A1c Calcium 7.9 L CK-MB (CK-2) Rel Index Troponin T Triglycerides Cholesterol 05/25/19 05/25/19 05/26/19 16:15 22:49 05:33 WBC RBC 2.63 L Hgb 7.8 L Hct 24.3 L RDW 15.6 H Lymph % (Auto) Eos % (Auto) Monocytes % (Manual) Nucleated RBC % Monocytes # (Manual) APTT D-Dimer Heparin Anti-Xa Level ABG pO2 ABG Hemoglobin Sodium Potassium Chloride Carbon Dioxide BUN Creatinine Glucose POC Glucose 234 H 226 H Hemoglobin A1c Calcium CK-MB (CK-2) Rel Index Troponin T Triglycerides Cholesterol 05/26/19 05/26/19 05/26/19 05:33 08:20 12:17 WBC RBC Hgb Hct RDW Lymph % (Auto) Eos % (Auto) Monocytes % (Manual) Nucleated RBC % Monocytes # (Manual) APTT D-Dimer Heparin Anti-Xa Level ABG pO2 ABG Hemoglobin Sodium 136 L Potassium Chloride Carbon Dioxide 15 L BUN 35 H Creatinine 4.4 H Glucose 195 H POC Glucose 257 H 173 H Hemoglobin A1c Calcium 8.0 L CK-MB (CK-2) Rel Index Troponin T Triglycerides Cholesterol 05/26/19 05/27/19 05/27/19 20:54 07:42 07:42 WBC RBC 2.62 L Hgb 7.9 L Hct 24.1 L RDW Lymph % (Auto) Eos % (Auto) Monocytes % (Manual) Nucleated RBC % Monocytes # (Manual) APTT D-Dimer Heparin Anti-Xa Level ABG pO2 ABG Hemoglobin Sodium Potassium Chloride 108.1 H Carbon Dioxide 16 L BUN 42 H Creatinine 4.1 H Glucose 180 H POC Glucose 126 H Hemoglobin A1c Calcium 7.9 L CK-MB (CK-2) Rel Index Troponin T Triglycerides Cholesterol 05/27/19 05/27/19 08:48 11:22 WBC RBC Hgb Hct RDW Lymph % (Auto) Eos % (Auto) Monocytes % (Manual) Nucleated RBC % Monocytes # (Manual) APTT D-Dimer Heparin Anti-Xa Level ABG pO2 ABG Hemoglobin Sodium Potassium Chloride Carbon Dioxide BUN Creatinine Glucose POC Glucose 203 H 200 H Hemoglobin A1c Calcium CK-MB (CK-2) Rel Index Troponin T Triglycerides Cholesterol Allied health notes reviewed: nursing
== END 2019-05-27 20:00 | disposition home or self-care (01) | DRG 280 ==
LOC: ED 19:31 → 4A 05-17 00:45
PROVIDERS: ADMIT Internal Medicine; ATTEND Internal Medicine
PROC: 4A033R1 Measurement of Arterial Saturation, Peripheral, Percutaneous Approach (ICD-10-PCS; principal; 2019-05-17)
PROC: 5A09357 Assistance with Respiratory Ventilation, Less than 24 Consecutive Hours, Continuous Positive Airway Pressure (ICD-10-PCS; 2019-05-26)
DX: I16.0 Hypertensive urgency (principal); I21.A1 Myocardial infarction type 2; B20 Human immunodeficiency virus [HIV] disease; N17.0 Acute kidney failure with tubular necrosis; G93.41 Metabolic encephalopathy; I26.99 Other pulmonary embolism without acute cor pulmonale; E11.00 Type 2 diabetes mellitus with hyperosmolarity without nonketotic hyperglycemic-hyperosmolar coma (NKHHC); E87.5 Hyperkalemia; E87.1 Hypo-osmolality and hyponatremia; N18.4 Chronic kidney disease, stage 4 (severe); R41.0 Disorientation, unspecified; I25.10 Atherosclerotic heart disease of native coronary artery without angina pectoris; I12.9 Hypertensive chronic kidney disease with stage 1 through stage 4 chronic kidney disease, or unspecified chronic kidney disease; E11.21 Type 2 diabetes mellitus with diabetic nephropathy; E66.9 Obesity, unspecified; J84.10 Pulmonary fibrosis, unspecified; E78.5 Hyperlipidemia, unspecified; Z88.2 Allergy status to sulfonamides; Z79.4 Long term (current) use of insulin; Z79.899 Other long term (current) drug therapy; Z95.5 Presence of coronary angioplasty implant and graft; Z98.51 Tubal ligation status; Z82.49 Family history of ischemic heart disease and other diseases of the circulatory system; Z80.9 Family history of malignant neoplasm, unspecified; Z68.31 Body mass index [BMI] 31.0-31.9, adult; Z91.14 Patient's other noncompliance with medication regimen; E11.65 Type 2 diabetes mellitus with hyperglycemia
CPT/HCPCS: 36415; 36600; 70450; 71045; 76770; 78582; 80048; 80061; 81001; 82550; 82553; 82803; 82962; 83036; 84132; 84484; 85007; 85014; 85018; 85025; 85027; 85049; 85379; 85520; 85610; 85730; 87045; 93005; 93010; 93306; 93970; 94640; 94660; 94760; G0378; A9270-GY; A9540; A9558; J0360; J1644; J1815; J2270; J2405; J2920; J7030; J7512